=== PATIENT | female | born 1955 | race Caucasian/White ===

== ENCOUNTER 2023-10-29 03:36 | Emergency (ER) | payer MEDICARE, OTHER, SELFPAY ==
[2023-10-29] VITALS (13 sets, daily range): BP systolic 109–162; BP diastolic 48–98; BMI 60.3
[2023-10-29] MEDS: DUONEB 3 ML INH (03:59)
[2023-10-29] MEDS: PHENERGAN WITH CODEINE SYRUP 10 ML PO (06:48)
--- NOTE | 2023-10-29 06:53 | ED.GENMED ---
History of Present Illness
General
Chief Complaint: Breathing Problem
Source: patient and spouse
Exam Limitations: none
Time Seen by Provider: 10/29/23 06:04
Nursing documentation reviewed up to this point in time: agreed with
Travel History
Have you had any contact with someone who has COVID-19?: No
Do you have any symptoms of coronavirus? Fever > 100 degrees, chills, cough, shortness of breath, sore throat, loss of taste or smell, muscle aches, or headache?: No
History of Present Illness
History of Present Illness:
The patient is a 68-year-old female with a past medical history of asthma and recently diagnosed lung cancer. The patient reports that her shortness of breath has gradually gotten worse over the last few weeks. Patient reports that she is
struggling to bring up thick mucus and it is causing her to gag and pass out. Patient reports she is unable to sleep due to constant mucous plugging. Her reports that she has coughing fits and is gagging over the mucous, and he witnesses
her passing out. The patient reports she feels exhausted and has experienced generalized weakness. She reports she cannot live like this and is so very uncomfortable. The patient was given albuterol via nebulizer prior to my evaluation and states
that there was no significant relief. She reports she has not been on any steroids or antibiotics for at least 1 month. She reports ever since getting COVID this past July, her breathing has been more difficult.
Past History
Past History
ED Past Medical History: Asthma, Cancer (Recently diagnosed lung cancer), HTN and Other (Bilateral pulmonary emboli)
ED Past Surgical History: Other
Social History
Tobacco: Non-smoker
Alcohol: None
Drug: None
Personal:
Living: with family
Employment: Retired
Family History
Family History: Other
Review of Systems
Review of Systems
Allergies reviewed?: Yes
Other source history: family
All Other Systems: ROS reviewed and negative except as documented in HPI and ROS
Constitutional: Reports fatigue
EENT: Reports no symptoms
Respiratory: Reports cough and trouble breathing
Cardiac: Reports chest pain (Chest pain only when coughing)
ABD/GI: Reports anorexia
: Reports no symptoms
Musculoskeletal: Reports no symptoms
Skin: Reports no symptoms
Neurological: Reports no symptoms
Endocrine: Reports no symptoms
Hematologic/Lymphatic: Reports no symptoms
Psychiatric: Reports no symptoms
Phy Exam
Physical Exam
Physical Exam:
Physical Exam
General: Patient is hyperventilating and constantly coughing, appears anxious and tachypneic
Neck: supple. no meningeal signs. normal psoterior pharynx
Heart: s1/s2 regular rate and rhythm,
Lungs: Decreased breath sounds bilaterally, tachypneic, hyperventilating
Abdomen: normal bowel sounds. not tender. no CVAT
Neuro: alert and oriented. no focal neurological deficits
Skin: no rash
Psychiatric: well kept. interactive and cooperative
Extremities: Nonpitting edema bilateral lower extremities. Negative Homans' sign
Scores
Heart Failure Risk
Heart Failure Risk Score: Not Applicable
Course
Orders/Labs/Results
Orders:
Orders
10/29/23 03:57
Ipratropium/Albuterol Sulfate [Duoneb] 3 ml .ROUTE .STK-MED ONE
10/29/23 03:59
Ipratropium/Albuterol Sulfate [Duoneb] 3 ml INH R NOW ONE
10/29/23 05:42
Chest [CR Chest - 2 Views ] Urgent
Comment:
Reason For Exam: hx bronchia ca, persistent cough
10/29/23 06:26
Promethazine/Codeine [Phenergan with Codeine Syrup] 10 ml PO Q4HPRN STA
10/29/23 06:[address] Non Medication Order As Directed
Physician Order: walking pulse ox on room air
Above order entered?: Yes
10/29/23 06:57
Complete Blood Count/With Diff Urgent
Comprehensive Metabolic Panel Urgent
NT-proBNP Urgent
10/29/23 07:05
Electrocardiogram (*1) Urgent
Reason for Study: Shortness of Breath
10/29/23 07:06
EKG- Treatment ONCE
10/29/23 08:18
CT Chest Pe Study Urgent
Comment:
Reason For Exam: SOB
10/29/23 08:41
COVID-19 Antigen Urgent
Source: Nasal Swab
Influenza A+B Rapid Molecular Urgent
TIFFANI Source: Nasal Swab
Specimen Description:
10/29/23 08:43
Troponin I Urgent
Abnormal Lab Results
10/29/23
06:57
RBC 3.96 L 10^6/uL
(4.20-5.40)
Hgb 9.6 L g/dL
(12.0-16.0)
Hct 30.6 L %
(37.0-47.0)
MCV 77.3 L fL
(81.0-99.0)
MCH 24.2 L pg
(27.0-31.0)
MCHC 31.4 L g/dL
(33.0-37.0)
RDW 15.9 H %
(11.5-14.5)
Absolute Monos (auto) 0.8 H 10^3/uL
(0.1-0.6)
BUN 24 H mg/dl
(7-17)
Creatinine 1.3 H mg/dL
(0.6-1.0)
Glucose 137 H mg/dl
(70-99)
Total Protein 5.9 L g/dl
(6.3-8.2)
10/29/23 06:57
01/26/24 06:57
Vital Signs
Initial and Last Documented VS:
Initial Vital Signs
Temp Pulse Resp BP Pulse Ox
99.0 F 78 30 109/75 97
10/29/23 03:40 10/29/23 03:40 10/29/23 03:40 10/29/23 03:40 10/29/23 03:40
Last Documented Vital Signs
Temp Pulse Resp BP Pulse Ox
99.0 F 76 22 143/52 92
10/29/23 03:40 10/29/23 11:45 10/29/23 11:45 10/29/23 11:00 10/29/23 11:45
MDM/Problems Addressed
Differential Diagnosis Includes:
Worsening bilateral PEs, pneumonia, CHF, bronchial mucous plugging
MDM/Problems Addressed:
Patient presents with acute on chronic shortness of breath and cough
Chronic conditions affecting care:
Asthma, lung cancer
Acute Exacerbation and/or Progression of Chronic Illness:
Patient's presentation may represent acute exacerbation of chronic asthma
Acute Exacerbation and/or Progression of Chronic Illness: Asthma and Other (Chronic lung disease from COVID)
*Radiology
Radiology exam reviewed: preliminary read by ED provider (Bilateral pulmonary edema. Chest x-ray reviewed by me) and radiology read reviewed
*Pulse Oximetry
Patient hypoxic: no
Comment: Patient is 90% pulse ox on room air at rest. Patient tells me that she is unable to walk because she is just too exhausted so I was unable to get a walking pulse ox.
*EKG
Interpreted by ED Provider?: Yes
Interpretation: abnormal
Comparison EKG: no changes
Rate: normal
Rhythm: sinus
[place]: normal axis
Interval: normal interval
QRS Pattern: normal QRS
Ischemia: non-specific ST changes
*Satellite Communications Engineer Interpretation
Rate: normal
Interpretation: normal
Rhythm: sinus
*Critical Care Note
Total Time (30-74mins, 75-104mins- exclusive of procedures): 42 minutes
comment:
42 minutes of critical care given to the patient including review of her recent hospitalization, counseling the patient and her , reviewing her chest x-ray, CT, EKG, lab work and reassessing her respiratory effort.
Data Reviewed
Review of Other/Old Records Reveals: Discharge Summary (Discharge summary reviewed from 09/05/23 which shows the patient was admitted with acute bilateral PEs and left lower lung mass) and Other (Cardiac echo reviewed from 08/2023 which shows an EF
of 70 to 75%)
Source: patient and spouse
Patient Management
Social determinants of health affecting care: Living situation
Discussion with other providers: Hospitalist
Escalation/DeEscalation of care consider admission/obs:
Given patient's borderline hypoxia and increased respiratory effort, decision made to admit the patient. Chest x-ray and CT show no sign of definite pneumonia. Patient does have signs of pulmonary edema
ED Attending Note
-
Portions of this chart may have been created with voice recognition software.� Occasional wrong word or��sound alike� substitutions may have occurred due to the inherent limitations of voice recognition software.
Discharge Plan
Departure
Patient Disposition: Admit
Date of Disposition: 10/29/23
Time of Disposition: 08:11
Admit to: Med/Surg
Presentation/result/management discussed w/ accepting MD/DO: Hospitalist
Patient with high blood pressure during this ER visit?: Yes
Condition: Fair
Covid-19: Not Applicable
Discharge Problem:
Acute hypoxic respiratory distress, Acute edema of lung
Prescriptions:
No Action
albuterol sulfate 2.5 mg /3 mL (0.083 %) Solution For Nebulization
2.5 mg INHALATION R Q6HPRN PRN (Reason: sob)
albuterol sulfate 90 mcg/actuation Hfa Aerosol Inhaler
2 puff INHALATION R Q4HPRN PRN (Reason: sob)
valsartan 160 mg Tablet
160 mg PO DAILY
Eliquis 5 mg Tablet
5 mg PO BID
fluticasone furoate-vilanterol [Breo Ellipta] 100-25 mcg/dose Blister With Device
1 inh INHALATION R DAILY@1900
Referrals:
Carmela Mijares, [Family Provider] -
Interventions
Interventions:
*Risk Screen - Suicide Last Done: 10/29/23 06:13
*General Assessment Last Done: 10/29/23 08:48
*Neglect/Abuse Screening Last Done: 10/29/23 06:13
ED- Fall Risk Assessment Last Done: 10/29/23 08:48
*ED COVID-19 Vaccine History Last Done: 10/29/23 08:48
ED- Cardiac Assessment Last Done: 10/29/23 08:51
ED- Pulmonary Assessment Last Done: 10/29/23 08:51
[2023-10-29 07:10] LABS: % Basophils 1.2 % (0-2); % Eosinophils 1.5 % (0-6); % Immature Granulocytes 0.2 % (0-0.5); % Lymphocytes 26.5 % (20.5-51.1); % Monocytes 8.9 % (1.7-9.3); % Neutrophils 61.7 % (42.2-75.2); Absolute Basophils 0.1 10^3/uL (0-0.2); Absolute Eosinophils 0.1 10^3/uL (0-0.7); Absolute Lymphocytes 2.2 10^3/uL (1.2-3.4); Absolute Monocytes 0.8 10^3/uL (0.1-0.6); Absolute Neutrophils 5.2 10^3/uL (1.4-6.5); Hematocrit 30.6 % (37.0-47.0); Hemoglobin 9.6 g/dL (12.0-16.0); Mean Corp Hgb Conc. 31.4 g/dL (33.0-37.0); Mean Corpuscular Hgb 24.2 pg (27.0-31.0); Mean Corpuscular Volume 77.3 fL (81.0-99.0); Mean Platelet Volume 9.8 fL (7.4-10.4); Nucleated Red Blood Cells % 0 %; Platelet Count 297 10^3/uL (130-400); Red Blood Cell Count 3.96 10^6/uL (4.20-5.40); Red Cell Dist. Width 15.9 % (11.5-14.5); White Blood Cell Count 8.4 10^3/uL (4.8-10.8)
[2023-10-29 07:31] LABS: NT-proBNP 27.9 pg/ml
[2023-10-29 07:50] LABS: ALT (SGPT) 24 U/L (0-35); AST (SGOT) 26 U/L (14-36); Albumin 3.5 g/dl (3.5-5.0); Alkaline Phosphatase 68 U/L (38-126); Blood Urea Nitrogen 24 mg/dl (7-17); Calcium 9.3 mg/dl (8.4-10.2); Carbon Dioxide 22 mmol/L (22-30); Chloride 105 mmol/L (98-107); Glucose 137 mg/dl (70-99); Potassium 3.5 mmol/L (3.5-5.1); Sodium 139 mmol/L (135-145); Total Bilirubin 0.5 mg/dl (0.2-1.3); Total Protein 5.9 g/dl (6.3-8.2); eGFR 45.07
--- NOTE | 2023-10-29 08:46 | EDRN ---
relay technician in room w/ pt at this time to do med rec.
[2023-10-29 09:10] LABS: COVID-19 Antigen Negative (Negative)
[2023-10-29 09:17] LABS: Troponin I < 0.012 ng/ml
--- NOTE | 2023-10-29 10:22 | EDRN ---
Pt ambulated from stretcher to BR and back to stretcher. Pt became very tachypneic at rate of 38, increased WOB, use of accessory muscles to breathe noted, POX was 88-91% on room air and remained at 88% for some time while pt was recovering getting
her breath.
--- NOTE | 2023-10-29 14:16 | CON.HOSP ---
Consultation
-
Date/Time Consultation Requested: 10/29/23
Date/Time Consultation Performed: 10/29/23
Requesting Provider: Morris Ramon
Performing Provider: Eric Vazquez
Reason for Consultation: Cough
Family Physician
-
Family Physician: Carmela Mijares
Chief Complaint
-
Intractable cough
History of Present Illness
Patient with recent discovery of left lung mass and LN had a LN bx on Wednesday and apparently she was told it is an adenocarcinoma . She is waiting to see a contract technician and oncologist next Wednesday for that.
She also had a recent diagnosis of PE in September 2023 and on .
She has no troubled with cough.
The cough symptoms can be so severe that that she has passed out after coughing. She had 6 bouts of coughing with passing out.
She is pretty much regular in the bed and when she wakes up she has a phlegm in the back of the throat and sometimes she has phlegm after eating. Sometimes it is difficult to get the phlegm up.
She does use nebulizers. Helps to get the phlegm up sometimes and she is fine without coughing.
Last night she used a nebulizer and she was okay but again she has to use it again at 2 AM and she could not stop coughing. She currently down because of coughing. It collects in her head and the back of the nostrils.
Her chest hurts because of coughing. Coughing makes her dizzy as well.
She had 2 nebulizers in the ER and a cough syrup and ever since she feels much better.
She was on lisinopril and betamethasone that was switched to valsartan because of coughing. No tongue swelling.
She feels short of breath with exertion now. Not on home O2.
She feels nauseous because of coughing. No vomiting. Tolerating diet.
Medical History
Past Medical History
Past Medical History: Reports Cancer (Lung cancer per pt ), HTN and Other (Pulmonary embolism)
Past Surgical History: Reports Other (Recent lymph node biopsy)
Social History
Tobacco: Non-smoker
Alcohol: None
Drug: None
Living: With Family
Family History
Family History: Reviewed & Not Pertinent
Allergies / Home Medications
Allergies reflects when Allergies were last updated in [facility].
Home Medications with original date entered in [facility]
Allergy/Medication List:
Allergies
Allergy/AdvReac Type Severity Reaction Status Date / Time
bee venom protein (honey bee) Allergy Swelling Verified 10/29/23 03:49
tong pepper Allergy Unknown Verified 10/29/23 03:49
cat dander Allergy congestion Verified 10/29/23 03:49
Home Medications
albuterol sulfate 2.5 mg/3 mL (0.083 %) solution for nebulization 2.5 mg inhalation R Q6HPRN PRN sob 10/29/23
albuterol sulfate 90 mcg/actuation aerosol inhaler 2 puff inhalation R Q4HPRN PRN sob 10/29/23
apixaban 5 mg tablet (Eliquis) 5 mg PO BID Blood Clot Prevention/Tx 10/29/23
fluticasone furoate 100 mcg-vilanterol 25 mcg/dose inhalation powder (Breo Ellipta) 1 inh inhalation R DAILY@1900 Lung/Breathing Issues 10/29/23
valsartan 160 mg tablet 160 mg PO DAILY Blood Pressure 10/29/23
Review of Systems
-
A 12 point Review of Systems was completed except as noted: Yes
Physical Exam
Vital Signs
Vital Signs
Temp Pulse Resp BP Pulse Ox
99.0 F 74 27 154/50 96
10/29/23 03:40 10/29/23 13:30 10/29/23 13:30 10/29/23 12:00 10/29/23 13:30
Physical Exam
General: No Apparent Distress
HEENT: Moist Mucous Membranes
Respiratory: Clear, Non Labored Respirations and Other (pt lying in right lateral position; no event single episode of cough heard during my visit with patient); Negative Wheezes, Rhonchi or Accessory Resp Muscle Use
Laboratory Results
-
Laboratory Results
10/29/23 06:57
10/29/23 06:57
Total Bilirubin 0.5 mg/dl (0.2-1.3) 10/29/23 06:57
AST 26 U/L (14-36) 10/29/23 06:57
ALT 24 U/L (0-35) 10/29/23 06:57
Alkaline Phosphatase 68 U/L (38-126) 10/29/23 06:57
Troponin I < 0.012 ng/ml 10/29/23 08:43
Data Reviewed
-
CT Scan: Report Reviewed by Me (CT chest)
Lab Data: Labs Reviewed
Impression / Plan
-
Intractable cough and cough syncope
Differential diagnoses include-
1. FRED inhibitor/ARB related. Patient lisinopril was discontinued and switched to ARB by PCP because of cough. Will stop it completely altogether and start Norvasc for blood pressure management.
2. Postnasal drip. Patient complains of some positional cough and drip. Continue with Flonase and Mucinex and add cough suppressant medication.
3 possibly secondary to her lung cancer and lymphadenopathy-would benefit symptomatic treatment. Hydrocodone syrup did make a difference to her cough in the ER which I would prescribe along with her other antitussives.
No clinical data is to support pneumonia. No evidence of asthma flare.
CT chest repeat shows no evidence of further PE. Patient anticoagulated on Eliquis which I would continue
CT shows significant lymphadenopathy but also thickened interstitium which comes concerned about the lymphangitic spread. She has no known CAD. Does not sound like pulmonary edema. BNP normal. Follow-up with oncology as planned for next week.
Assess for home O2 need.
I would obtain pulmonary consult and if no other concerns would i would dc pt home.
All of this assessments and plan discussed with pt and family at bedside
DANAE ER physician
[2023-10-29] MEDS: ELIQUIS 5 MG PO (14:41)
[2023-10-29] MEDS: NORVASC 5 MG PO (14:41)
[2023-10-29] MEDS: HYCODAN SYRUP 5 ML PO (15:57)
--- NOTE | 2023-10-29 16:24 | CON.PUL ---
Consultation
Consultation Request
Date/Time Consultation Requested: 10-29-23
Date/Time Consultation Performed: 10-29-23
Requesting Provider: Hospitalist
Performing Provider: Dr Hammonds
Reason for Consultation: cough
Medical History
-
Chief Complaint: cough
History of Present Illness:
Mrs Maria Del Rosario Dawson is a 68/W adm 10-29 with subacute worsening cough since end Aug 2023 at time of PE diagnosis and suspected lung cancer.
On apixaban with reported good compliance.
Reports intermittent cough productive of white sputum. Cough spells have occurred for last 4-5 wks, in six occasions reports cough spells have led to syncope at home but no injury (last event about 1.5 wk ago).
Received L supraclavicular LN, s/p US biopsy 10-26: preliminary result positive for adenocarcinoma
Follows with our office. First Onc visit next Wednesday
Past Medical History
Past Medical History: Other (see A&P for PMH/PSH)
Social History
Tobacco: Non-smoker
Alcohol: None
Drug: None
Personal:
Living: With Family
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
Family History
Family History: Cancer (M: suspected liver cancer. F: prostate ca, lymphoma, suspected mesothelioma. Sister and uncle: lung cancer. Brother: prostate ca)
Allergies / Home Medications
Allergies
Allergy/AdvReac Type Severity Reaction Status Date / Time
bee venom protein (honey bee) Allergy Swelling Verified 10/29/23 03:49
tong pepper Allergy Unknown Verified 10/29/23 03:49
cat dander Allergy congestion Verified 10/29/23 03:49
Home Medications
Medication Instructions Recorded Confirmed Last Taken Type
albuterol sulfate 2.5 mg/3 mL 2.5 mg inhalation R Q6HPRN PRN sob 10/29/23 10/29/23 10/28/23 History
(0.083 %) solution for nebulization
albuterol sulfate 90 mcg/actuation 2 puff inhalation R Q4HPRN PRN sob 10/29/23 10/29/23 10/28/23 History
aerosol inhaler
apixaban 5 mg tablet (Eliquis) 5 mg PO BID Blood Clot 10/29/23 10/29/23 10/28/23 History
Prevention/Tx
fluticasone furoate 100 1 inh inhalation R DAILY@1900 10/29/23 10/29/23 10/28/23 History
mcg-vilanterol 25 mcg/dose Lung/Breathing Issues
inhalation powder (Breo Ellipta)
valsartan 160 mg tablet 160 mg PO DAILY Blood Pressure 10/29/23 10/29/23 10/28/23 History
Review of Systems
-
History Source: Patient
All other systems: Negative unless noted
Respiratory: Cough (causing syncope) and Trouble Breathing
Vitals / Labs / Diagnostic Testing
Vital Signs
Temp Pulse Resp BP Pulse Ox
99.0 F 90 33 115/61 96
10/29/23 03:40 10/29/23 14:00 10/29/23 14:00 10/29/23 16:00 10/29/23 16:15
Lab Data
10/29/23 06:57
10/29/23 06:57
Microbiology
10/29/23 08:41 Nasal Swab Influenza Types A & B (ECHO) - Final
Negative for Influenza A & B, NAAT
Negative results must be combined with clinical observations
and patient history.
Nucleic Acid Amplification test (NAAT)performed on the
[employer] platform.
Diagnostic Testing:
Physical Exam
-
HEENT: Normocephalic and Moist Mucous Membranes
Cardiovascular: Regular Rhythm and Peripheral Edema (ADRIANA)
Respiratory: Rhonchi (few scattered) and Non-Labored Respirations
GI: Soft, Non Distended and Non Tender
Neurology: Awake, AO x 3 and No Motor Deficits
Skin: Dry
General: Respiratory Distress (n at rest)
Assessment
-
Assessment
Mrs Maria Del Rosario Dawson is a 68/W adm 10-29 with subacute worsening cough since end Aug 2023 at time of PE diagnosis and suspected lung cancer. On apixaban with reported good compliance. Reports intermittent cough productive of white sputum. Cough
spells have occurred for last 4-5 wks, in six occasions reports cough spells have led to syncope at home but no injury (last event about 1.5 wk ago).
Impression:
Cough, severe, reportedly inducing syncope
Suspected widely metastatic lung cancer
LLL mass: interim increase in size
Mediastinal lymphadenopathy: mild interim increase
Increasingly prominent pulmonary interstitium: suspected lymphangitic spread
L supraclavicular LN, s/p US biopsy 10-26: preliminary result positive for adenocarcinoma
COVID/flu negative
Conditions present prior to admission:
VTE: provoked, underlying malignancy (noted also had COVID illness in Jun 2023 but probably not main factor for PE)
Submassive PE CTA 09-01-23
ADRIANA doppler 09-02-23 suboptimal due to morbid obesity
On apixaban
Asthma: on fluticasone/vilanterol and albuterol
COVID illness Jun 2023
HTN
Morbid obesity-BMI 60
Suspected JOSE
Plan
Seen at ER
D/w RNs, significant dyspnea on mild exertion
Exertional hypoxemia: 94% to 90% with 50 ft ambulation, along with tachycardia
Reportedly syncopal events induced by cough, last event 1.5 wk ago
Patient reports that cough has improved significantly with use of opiate antitussive, denies wheezing, (pre)syncopal event, hemoptysis
Reviewed adm chest CT: highly concerning for progression of widely metastatic disease, suspected worsening lymphangitic lymphadenopathy
Discussed findings with patient and recommended her and her over the phone to stay for close clinical observation and trial of systemic CS and antibiotics and continuation of prn opiate antitussive
Rec: prednisone 40 mg qd and cefdnir 300 mg bid for one week
Patient kindly declined to stay, states she felt much better, has good family support at home, has already follow up with our office (records reviewed) and new visit with Dr Mccain next Wednesday. Her was in agreement with patient decision for
discharge
They were advised to return to ER as soon as possible if necessary
Continue systemic anticoagulation
D/w Dr Vazquez
Diagnostic data:
Chest CTA 10-29-23: LLL mass: interim increase in size. Mediastinal lymphadenopathy: mild interim increase. Increasingly prominent pulmonary interstitium: suspected lymphangitic spread
CT chest 09/01/23, positive for pulmonary emboli, no evidence for right heart strain, patchy areas of reticular nodular, small nodular branching and groundglass opacifications compatible with patchy pneumonitis, superior segment left lower lobe
nodular focus suspicious for neoplasia or carcinoma, hilar lymphadenopathy, lymphadenopathy in the left lower neck, consideration could be given to biopsy of left neck lymph node, enlarged lymph nodes in the right hilar and subcarinal region
Lower extremity ultrasound 09/02/23-no evidence for DVT, but technically difficult because of large body habitus
PET CT 10-22-23: LLL PET positive mass. Thoracic and abd PET positive LAD. S1 PET positive focus
--- NOTE | 2023-10-29 17:25 | CON.HOSP ---
Addendum entered and electronically signed by Eric Vazquez MD 10/29/23 17:46:
Received a call from the pulmonary who saw the patient
This suspect the CT shows progression of disease suspicious for lymphatic spread. Recommend observation to the patient but she is keen to go home. They recommend antibiotics doxycycline for a week and short course of corticosteroid taper. Added
this to her medication to the med list and send it to her pharmacy.
Discussed with patient on the phone myself again and she was keen to go home. She was told with addition of new medication and if symptoms does not improve to come back to the hospital. She has an appointment with salvage repairer and oncologist on
Wednesday
Original Note:
Family Physician
-
Family Physician: Carmela Mijares
Chief Complaint
-
cough with syncope
History of Present Illness
Patient with recent discovery of left lung mass and LN had a LN bx on Wednesday and apparently she was told it is an adenocarcinoma . She is waiting to see a salvage repairer and oncologist next Wednesday for that.
She also had a recent diagnosis of PE in September 2023 and on .
She has no troubled with cough.
The cough symptoms can be so severe that that she has passed out after coughing. She had 6 bouts of coughing with passing out.
She is pretty much regular in the bed and when she wakes up she has a phlegm in the back of the throat and sometimes she has phlegm after eating. Sometimes it is difficult to get the phlegm up.
She does use nebulizers. Helps to get the phlegm up sometimes and she is fine without coughing.
Last night she used a nebulizer and she was okay but again she has to use it again at 2 AM and she could not stop coughing. She currently down because of coughing. It collects in her head and the back of the nostrils.
Her chest hurts because of coughing. Coughing makes her dizzy as well.
She had 2 nebulizers in the ER and a cough syrup and ever since she feels much better.
She was on lisinopril and betamethasone that was switched to valsartan because of coughing. No tongue swelling.
She feels short of breath with exertion now. Not on home O2.
She feels nauseous because of coughing. No vomiting. Tolerating diet.
Medical History
Past Medical History
Past Medical History: Reports Cancer (lung), HTN and Other (PE)
Social History
Tobacco: Non-smoker
Alcohol: None
Drug: None
Personal:
Living: With Family
Family History
Family History: Reviewed & Not Pertinent
Allergies / Home Medications
Allergies reflects when Allergies were last updated in [facility].
Home Medications with original date entered in [facility]
Allergy/Medication List:
Allergies
Allergy/AdvReac Type Severity Reaction Status Date / Time
bee venom protein (honey bee) Allergy Swelling Verified 10/29/23 03:49
tong pepper Allergy Unknown Verified 10/29/23 03:49
cat dander Allergy congestion Verified 10/29/23 03:49
Home Medications
albuterol sulfate 2.5 mg/3 mL (0.083 %) solution for nebulization 2.5 mg inhalation R Q6HPRN PRN sob 10/29/23
albuterol sulfate 90 mcg/actuation aerosol inhaler 2 puff inhalation R Q4HPRN PRN sob 10/29/23
apixaban 5 mg tablet (Eliquis) 5 mg PO BID Blood Clot Prevention/Tx 10/29/23
fluticasone furoate 100 mcg-vilanterol 25 mcg/dose inhalation powder (Breo Ellipta) 1 inh inhalation R DAILY@1900 Lung/Breathing Issues 10/29/23
valsartan 160 mg tablet 160 mg PO DAILY Blood Pressure 10/29/23
Review of Systems
-
A 12 point Review of Systems was completed except as noted: Yes
Physical Exam
Vital Signs
Vital Signs
Temp Pulse Resp BP Pulse Ox
99.0 F 90 33 127/70 93
10/29/23 03:40 10/29/23 14:00 10/29/23 14:00 10/29/23 17:22 10/29/23 17:22
Physical Exam
General: No Apparent Distress
HEENT: Moist Mucous Membranes
Respiratory: Clear
Cardiac: S1/S2 and Regular Rhythm
GI: Soft, Non Tender, Non Distended, Normal Bowel Sounds and Other (obese)
Musculoskeletal: No Edema
Neuro: AO x 3
Psych: Calm
Laboratory Results
-
Laboratory Results
10/29/23 06:57
10/29/23 06:57
Total Bilirubin 0.5 mg/dl (0.2-1.3) 10/29/23 06:57
AST 26 U/L (14-36) 10/29/23 06:57
ALT 24 U/L (0-35) 10/29/23 06:57
Alkaline Phosphatase 68 U/L (38-126) 10/29/23 06:57
Troponin I < 0.012 ng/ml 10/29/23 08:43
Data Reviewed
-
CT Scan: Report Reviewed by Me (ct chest)
Lab Data: Labs Reviewed
Impression / Plan
-
Intractable cough and cough syncope
Differential diagnoses include-
1. FRED inhibitor/ARB related. Patient lisinopril was discontinued and switched to ARB by PCP because of cough. Will stop it completely altogether and start Norvasc for blood pressure management.
2. Postnasal drip. Patient complains of some positional cough and drip. Continue with Flonase and Mucinex and add cough suppressant medication.
3 possibly secondary to her lung cancer and lymphadenopathy-would benefit symptomatic treatment. Hydrocodone syrup did make a difference to her cough in the ER which I would prescribe along with her other antitussives.
No clinical data is to support pneumonia. No evidence of asthma flare.
CT chest repeat shows no evidence of further PE. Patient anticoagulated on Eliquis which I would continue
CT shows significant lymphadenopathy but also thickened interstitium which comes concerned about the lymphangitic spread. She has no known CAD. Does not sound like pulmonary edema. BNP normal. Follow-up with oncology as planned for next week.
Assess for home O2 need.
Obtain pulmonary input and if no other concerns would i would dc pt home.
All of this assessments and plan discussed with pt and family at bedside
ER physician Dr Alves
--- NOTE | 2023-10-29 17:34 | CM ---
CM reviewed medical records. Plan for patient to be discharged to home. Patient is agreeable to referral to [facility]. Referral sent via [facility].
[2023-10-29] MEDS: OMNICEF 300 MG PO (18:23)
[2023-10-29] MEDS: DELTASONE 40 MG PO (18:23)
== END 2023-10-29 18:43 | disposition home or self-care (01) ==
LOC: EMR 03:36
PROVIDERS: Emergency Medicine; CONSULT PHYSICIAN Internal Medicine Pulmonary Disease; EMERGENCY PHYSICIAN Emergency Medicine; FAMILY PHYSICIAN Family Medicine; OTHER PHYSICIAN Internal Medicine
DX: R06.03 Acute respiratory distress (principal); J81.0 Acute pulmonary edema; R55 Syncope and collapse; R11.0 Nausea; R59.0 Localized enlarged lymph nodes; R53.1 Weakness; Z11.52 Encounter for screening for COVID-19; C34.90 Malignant neoplasm of unspecified part of unspecified bronchus or lung; E66.01 Morbid (severe) obesity due to excess calories; Z68.44 Body mass index [BMI] 60.0-69.9, adult; J45.909 Unspecified asthma, uncomplicated; M19.90 Unspecified osteoarthritis, unspecified site; F41.9 Anxiety disorder, unspecified; Z86.711 Personal history of pulmonary embolism; Z90.49 Acquired absence of other specified parts of digestive tract; Z79.899 Other long term (current) drug therapy; Z79.01 Long term (current) use of anticoagulants; Z91.030 Bee allergy status; Z80.1 Family history of malignant neoplasm of trachea, bronchus and lung
CPT/HCPCS: 99291; 94640; 71046; 71275; 80053; 83880; 84484; 85025; 87502; 87811; 93005; Q9967

== ENCOUNTER → 2023-11-02 14:14 | Outpatient (REF) | payer MEDICARE, OTHER, SELFPAY ==
[2023-11-02 16:31] LABS: Blood Urea Nitrogen 27 mg/dl (7-17)
[2023-11-02 17:05] LABS: CA 125 47.8 U/mL (0-35)
[2023-11-02 17:06] LABS: CEA 12.9 ng/ml
[2023-11-05 02:08] LABS: CA 19-9 922 U/mL (<=35)
== END ==
LOC: REG 14:14
PROVIDERS: ATTENDING PHYSICIAN Internal Medicine Hematology & Oncology; FAMILY PHYSICIAN Family Medicine
DX: C34.32 Malignant neoplasm of lower lobe, left bronchus or lung (principal); I26.99 Other pulmonary embolism without acute cor pulmonale
CPT/HCPCS: 36415; 82378; 82565; 84520; 86300; 86301; 86304

== ENCOUNTER → 2023-11-04 13:43 | Outpatient (REF) | payer MEDICARE, OTHER, SELFPAY | LOC: RAD 13:43 | PROVIDERS: ATTENDING PHYSICIAN Internal Medicine Hematology & Oncology; FAMILY PHYSICIAN Family Medicine | DX: C34.32 Malignant neoplasm of lower lobe, left bronchus or lung (principal) | CPT/HCPCS: 70470; Q9967 ==

== ENCOUNTER → 2023-11-09 12:31 | Outpatient (REF) | payer MEDICARE, OTHER, SELFPAY ==
[2023-11-09 13:03] VITALS: BP 169/72; BP_SYST 76
[2023-11-09 14:39] VITALS: BP 143/54
== END ==
LOC: RADI 12:31
PROVIDERS: ATTENDING PHYSICIAN Internal Medicine Hematology & Oncology; FAMILY PHYSICIAN Family Medicine
DX: C77.0 Secondary and unspecified malignant neoplasm of lymph nodes of head, face and neck (principal); C34.32 Malignant neoplasm of lower lobe, left bronchus or lung
CPT/HCPCS: 88305; 38505; 76942; 88333; 99152; 99153

== ENCOUNTER → 2023-11-11 08:01 | Outpatient (REF) | payer MEDICARE, OTHER, SELFPAY ==
[2023-11-11 09:10] VITALS: BP 182/76; BP_SYST 84
[2023-11-11] MEDS: ANCEF 15 MG IV (09:36)
== END ==
LOC: RADI 08:01
PROVIDERS: ATTENDING PHYSICIAN Internal Medicine Hematology & Oncology; FAMILY PHYSICIAN Family Medicine
DX: C34.32 Malignant neoplasm of lower lobe, left bronchus or lung (principal)
CPT/HCPCS: 36415; 36561; 74170; 76937; 77001; 80053; 85025; 99152; 99153; C1788; Q9967

== ENCOUNTER 2023-11-12 13:14 | Emergency (ER) | payer MEDICARE, OTHER, SELFPAY ==
[2023-11-12 13:18] VITALS: BP 170/75
[2023-11-12 13:40] LABS: % Basophils 0.6 % (0-2); % Eosinophils 1.4 % (0-6); % Immature Granulocytes 0.5 % (0-0.5); % Lymphocytes 24.4 % (20.5-51.1); % Monocytes 6.7 % (1.7-9.3); % Neutrophils 66.4 % (42.2-75.2); Absolute Basophils 0.1 10^3/uL (0-0.2); Absolute Eosinophils 0.2 10^3/uL (0-0.7); Absolute Immature Granulocytes 0.1 10^3/uL (0-0.05); Absolute Lymphocytes 2.5 10^3/uL (1.2-3.4); Absolute Monocytes 0.7 10^3/uL (0.1-0.6); Absolute Neutrophils 6.9 10^3/uL (1.4-6.5); Hematocrit 30.7 % (37.0-47.0); Hemoglobin 9.7 g/dL (12.0-16.0); Mean Corp Hgb Conc. 31.6 g/dL (33.0-37.0); Mean Corpuscular Hgb 23.3 pg (27.0-31.0); Mean Corpuscular Volume 73.8 fL (81.0-99.0); Mean Platelet Volume 9.3 fL (7.4-10.4); Nucleated Red Blood Cells % 0 %; Platelet Count 272 10^3/uL (130-400); Red Blood Cell Count 4.16 10^6/uL (4.20-5.40); Red Cell Dist. Width 16.7 % (11.5-14.5); White Blood Cell Count 10.4 10^3/uL (4.8-10.8)
[2023-11-12 13:50] LABS: ALT (SGPT) 21 U/L (0-35); AST (SGOT) 23 U/L (14-36); Albumin 3.2 g/dl (3.5-5.0); Alkaline Phosphatase 71 U/L (38-126); Blood Urea Nitrogen 13 mg/dl (7-17); Calcium 9.1 mg/dl (8.4-10.2); Carbon Dioxide 24 mmol/L (22-30); Chloride 104 mmol/L (98-107); Glucose 135 mg/dl (70-99); Sodium 139 mmol/L (135-145); Total Bilirubin 0.5 mg/dl (0.2-1.3); Total Protein 5.7 g/dl (6.3-8.2); eGFR > 60.00
[2023-11-12 13:55] LABS: COVID-19 Antigen Negative (Negative)
[2023-11-12] MEDS: DUONEB 3 ML INH ×2 (15:21→16:16)
--- NOTE | 2023-11-12 15:57 | ED.GENMED ---
History of Present Illness
General
Chief Complaint: Breathing Problem
Time Seen by Provider: 11/12/23 14:29
Travel History
Have you had any contact with someone who has COVID-19?: No
Do you have any symptoms of coronavirus? Fever > 100 degrees, chills, cough, shortness of breath, sore throat, loss of taste or smell, muscle aches, or headache?: No
History of Present Illness
History of Present Illness:
68-year-old female with history of lung cancer, hypertension, asthma, and pulmonary embolism currently on Xarelto presents the emergency department for evaluation of shortness of breath and wheezing, symptoms developed last night and worsened today.
She did have a right sided port placed yesterday by interventional radiology in order to undergo chemotherapy for her lung cancer. She does have orders at home for albuterol nebulizers as needed but did not utilize these today. Denies any fevers
or chills, denies any chest pain or leg swelling. She did resume her Eliquis this morning
Past History
Past History
ED Past Medical History: Asthma, Cancer (Recently diagnosed lung cancer), HTN and Other (Bilateral pulmonary emboli)
ED Past Surgical History: Other
Social History
Tobacco: Non-smoker
Alcohol: None
Drug: None
Personal:
Living: with family
Employment: Retired
Family History
Family History: Other
Review of Systems
Review of Systems
Allergies reviewed?: Yes
All Other Systems: ROS reviewed and negative except as documented in HPI and ROS
Phy Exam
Physical Exam
Physical Exam:
GEN: Well appearing, NAD, WDWN
HEENT: Oral mucosa moist, no scleral icterus
Cardiac: Regular rate and rhythm, no murmurs
Lung: Tachypneic with audible expiratory wheezing, minimal adventitious lung sounds on auscultation
MSK: No gross deformity or injuries
Skin: Good color, no pallor or jaundice, no rashes
Neuro: AO x3, moves all extremities freely
Psych: Calm, cooperative
Scores
Heart Failure Risk
Heart Failure Risk Score: Not Applicable
Course
Orders/Labs/Results
Orders:
Orders
11/12/23 13:27
CBC/With Diff [Complete Blood Count/With Diff] Urgent
CMP [Comprehensive Metabolic Panel] Urgent
COVID-19 Antigen Urgent
Source: Nasal Swab
INF RAPID [Influenza A+B Rapid Molecular] Urgent
TIFFANI Source: Nasal Swab
Specimen Description:
11/12/23 14:38
Ipratropium/Albuterol Sulfate [Duoneb] 3 ml INH R NOW ONE
CR Chest - 2 Views Urgent
Comment:
Reason For Exam: SOB
11/12/23 16:11
Ipratropium/Albuterol Sulfate [Duoneb] 3 ml INH R NOW ONE
Abnormal Lab Results
11/12/23
13:27
RBC 4.16 L 10^6/uL
(4.20-5.40)
Hgb 9.7 L g/dL
(12.0-16.0)
Hct 30.7 L %
(37.0-47.0)
MCV 73.8 L fL
(81.0-99.0)
MCH 23.3 L pg
(27.0-31.0)
MCHC 31.6 L g/dL
(33.0-37.0)
RDW 16.7 H %
(11.5-14.5)
Abs Immat Gran (auto) 0.1 H 10^3/uL
(0-0.05)
Absolute Neuts (auto) 6.9 H 10^3/uL
(1.4-6.5)
Absolute Monos (auto) 0.7 H 10^3/uL
(0.1-0.6)
Glucose 135 H mg/dl
(70-99)
Total Protein 5.7 L g/dl
(6.3-8.2)
Albumin 3.2 L g/dl
(3.5-5.0)
11/12/23 13:27
11/12/23 13:27
Vital Signs
Initial and Last Documented VS:
Initial Vital Signs
Temp Pulse Resp BP Pulse Ox
98.7 F 83 22 170/75 93
11/12/23 13:18 11/12/23 13:18 11/12/23 13:18 11/12/23 13:18 11/12/23 13:18
Last Documented Vital Signs
Temp Pulse Resp BP Pulse Ox
98.7 F 83 22 170/75 95
11/12/23 13:18 11/12/23 13:18 11/12/23 13:18 11/12/23 13:18 11/12/23 15:10
MDM/Problems Addressed
MDM/Problems Addressed:
68-year-old female presenting with acute bronchospasm improved after albuterol nebulizer. Symptoms did recur requiring a second neb in the emergency department however remained stable at time of discharge. Chest x-ray suggestive of acute
pneumonitis, no infectious etiology. Low clinical suspicion for pulmonary embolism given short duration of time that she held this in anticipation of her port placement and lack of chest pain or tachycardia. Responsiveness to albuterol was
reassuring. Hesitant to prescribe steroids given the recent port placement and upcoming chemotherapy, would prefer bronchodilator use on a as needed basis at home as she does have a nebulizer to use
*Critical Care Note
Total Time (30-74mins, 75-104mins- exclusive of procedures): Not Applicable
ED Attending Note
-
Portions of this chart may have been created with voice recognition software.� Occasional wrong word or��sound alike� substitutions may have occurred due to the inherent limitations of voice recognition software.
Discharge Plan
Departure
Patient Disposition: Home (Routine Discharge)
Date of Disposition: 11/12/23
Time of Disposition: 15:57
Patient with high blood pressure during this ER visit?: No
Discharge Problem:
Acute bronchospasm
Instructions: Asthma, Adult (DC)
Prescriptions:
New
ipratropium-albuterol 0.5 mg-3 mg(2.5 mg base)/3 mL solution for nebulization
3 ml inhalation Q6H Qty: 90 0RF
benzonatate 200 mg capsule
200 mg PO TID PRN (Reason: Cough) Qty: 30 0RF
hydrocodone-acetaminophen 5-325 mg tablet
1 tab PO HS PRN (Reason: cough) Qty: 8 0RF
No Action
albuterol sulfate 2.5 mg /3 mL (0.083 %) Solution For Nebulization
2.5 mg INHALATION R Q6HPRN PRN (Reason: sob)
albuterol sulfate 90 mcg/actuation Hfa Aerosol Inhaler
2 puff INHALATION R Q4HPRN PRN (Reason: sob)
Eliquis 5 mg Tablet
5 mg PO BID
fluticasone furoate-vilanterol [Breo Ellipta] 100-25 mcg/dose Blister With Device
1 inh INHALATION R DAILY@1900
amlodipine 5 mg Tablet
5 mg PO DAILY Qty: 30 0RF
guaifenesin [Mucinex] 600 mg tablet extended release 12hr
600 mg PO BID Qty: 60 0RF
fluticasone propionate [Flonase Allergy Relief] 50 mcg/actuation spray,suspension
1 spray intranasal DAILY Qty: 16 0RF
benzonatate 200 mg capsule
200 mg PO TID PRN (Reason: Cough) Qty: 30 0RF
hydrocodone-homatropine [Hycodan (with homatropine)] 5-1.5 mg tablet
1 tab PO Q8H PRN (Reason: Cough) Qty: 20 0RF
Rx Instructions:
if other cough medications doesn't help
Referrals:
Carmela Mijares, [Family Provider] -
Activity Restrictions/Additional Instructions:
Use the DuoNeb nebulizer solution every 6 hours for the next 2 days and then on an as-needed basis going forward
Follow-up with your oncology team if symptoms continue
Interventions
Interventions:
*Risk Screen - Suicide Last Done: 11/12/23 13:18
*General Assessment Last Done: 11/12/23 13:18
*Neglect/Abuse Screening Last Done: 11/12/23 13:18
*ED COVID-19 Vaccine History Last Done: 11/12/23 15:10
*Nursing Disposition Last Done: 11/12/23 16:52
ED- Cardiac Assessment Last Done: 11/12/23 15:10
ED- Pulmonary Assessment Last Done: 11/12/23 15:10
Discharge Date and Time
Discharge Date/Time: 11/12/23 16:53
== END 2023-11-12 16:53 | disposition home or self-care (01) ==
LOC: EMR 13:14
PROVIDERS: Student in an Organized Health Care Education/Training Program; EMERGENCY PHYSICIAN Emergency Medicine; FAMILY PHYSICIAN Family Medicine
DX: J98.01 Acute bronchospasm (principal); Z11.52 Encounter for screening for COVID-19; C34.90 Malignant neoplasm of unspecified part of unspecified bronchus or lung; I10 Essential (primary) hypertension; J45.909 Unspecified asthma, uncomplicated; Z79.01 Long term (current) use of anticoagulants; Z86.711 Personal history of pulmonary embolism; Z91.030 Bee allergy status; Z91.018 Allergy to other foods; Z91.048 Other nonmedicinal substance allergy status
CPT/HCPCS: 99284; 94640 ×2; 71046; 80053; 85025; 87502; 87811

== ENCOUNTER 2023-11-15 19:44 | Inpatient (IN) | payer MEDICARE, OTHER, SELFPAY ==
[2023-11-15 16:01] VITALS: BP 172/83
[2023-11-15 16:09] VITALS: BP 171/62
--- NOTE | 2023-11-15 16:14 | ED.GENMED ---
History of Present Illness
General
Chief Complaint: Breathing Problem
Time Seen by Provider: 11/15/23 16:14
Travel History
Have you had any contact with someone who has COVID-19?: No
Do you have any symptoms of coronavirus? Fever > 100 degrees, chills, cough, shortness of breath, sore throat, loss of taste or smell, muscle aches, or headache?: No
History of Present Illness
History of Present Illness:
HPI: The patient presents due to shortness of breath. She is here with her family. Daughter states that she has an uncertain malignancy diagnosis either lung or pancreatic cancer. She was supposed to start chemo tomorrow however shortness of
breath symptoms as well as abdominal discomfort been worsening. [facility] told her to come here. Family also reports poor oral intake. She is compliant with Eliquis for recent diagnosis of PE.
EXAM:
GENERAL: The patient appears very weak and debilitated
HEENT: Slightly dry oral mucosa
CARDIOVASCULAR: No murmurs, normal heart rate and rhythm, No chest wall tenderness, port noted to the right anterior chest wall with no evidence of infection
PULMONARY: Room air sats just after exertion or 85%, she has mild conversational dyspnea, she has decreased breath sounds equally with faint rales heard diffusely
ABDOMEN: Soft with no peritoneal signs, no tenderness
NEUROLOGIC: Fair strength all extremities, no coordination deficits
PSYCHIATRIC: Appropriate mental status, normal insight and judgement
EXTREMITIES: Nontender, 2+ bilateral edema, moves all extremities equally
SKIN: No rash, no lesions
ED COURSE:
4:40 PM: I initially evaluated patient
NUMBER AND COMPLEXITY OF PROBLEMS ADDRESSED AT THE ENCOUNTER
� Chronic conditions affecting care: Asthma, has had PE in the past currently on Eliquis
� Acute Exacerbation and/or Progression of Chronic Illness:
� Differential Diagnosis includes:
AMOUNT AND/OR COMPLEXITY OF DATA TO BE REVIEWED AND ANALYZED
� I performed an independent evaluation of and my interpretation is:
EKG: Sinus 71, normal axis, poor R wave progression
CT:
X-rays: Chest x-ray suggest some interstitial edema
Laboratory Studies: White count normal, hemoglobin 9.0 slightly lower than prior, chemistries relatively unremarkable, troponin and BNP unremarkable,
Other:
� Review of other/old records: I reviewed chest x-ray from 11/12/2023 that showed widespread prominent bilateral interstitial markings with interstitial thickening with progression in comparison to study from 10/29/2023. CAT scan
of the abdomen pelvis from 11/11/2023 was suspicious for colonic malignancy at the level of the hepatic flexure and no pancreatic mass was noted, there is also concern for metastatic lesion of the liver and there were also numerous omental nodules and
extensive retroperitoneal lymphadenopathy were likely representing metastatic disease CTA chest from 10/29/2023 showed no PE
� Clinical information was obtained by an independent historian: I spoke to family at bedside extensively
� Prescriptions/Medications Considered but not given:
� Further testing considered but not performed:
RISK OF COMPLICATIONS AND/OR MORBIDITY OR MORTALITY OF PATIENT MANAGEMENT
� Social determinants of health affecting care: Lives at home
� Discussion with other providers: Hospitalist for admission
� Escalation of care including admission/observation vs risk of discharge considered: Room air sats upon arrival were 85% after exertion, she does have decreased breath sounds with rales. Will also check BNP but in October it
was normal. Labs are relatively unremarkable however room air sats after exertion were low. She is doing poorly as an outpatient. She was seen here in the ER and discharged and generally has been worsening. Will plan admission to the hospital.
Nebs and steroids were given.
Past History
Past History
ED Past Medical History: Asthma, Cancer (Recently diagnosed lung cancer), HTN and Other (Bilateral pulmonary emboli)
ED Past Surgical History: Other
Social History
Tobacco: Non-smoker
Alcohol: None
Drug: None
Personal:
Living: with family
Employment: Retired
Family History
Family History: Other
Phy Exam
Physical Exam
Physical Exam:
See HPI
Scores
Heart Failure Risk
Heart Failure Risk Score: Not Applicable
Course
Orders/Labs/Results
Orders:
Orders
11/15/23 16:41
CR Chest Portable - 1 View Urgent
Comment:
Reason For Exam: worsening sob
Reason Study Needs to be Portable: Patient Unstable
11/15/23 16:42
Electrocardiogram (*1) Urgent
Reason for Study: Chest Pain
EKG- Treatment ONCE
Ipratropium/Albuterol Sulfate [Duoneb] 3 ml INH R NOW ONE
MethylPREDNISolone PF [Solu-Medrol Pf] 125 mg IV NOW STA
11/15/23 16:54
CEA Urgent
Comment: ADD ON
Complete Blood Count/With Diff Urgent
Comprehensive Metabolic Panel Urgent
Ferritin Urgent
Comment: ADD ON
Iron Urgent
Lipase Urgent
Magnesium Urgent
NT-proBNP Urgent
Total Iron Binding Urgent
Troponin I Urgent
Vitamin B12 Urgent
Comment: ADD ON
11/15/23 18:02
Add On- LAB Routine
Tests Added?: CEA,
Add On- LAB Routine
Tests Added?: iron,tibc,ferritin,b12
11/15/23 18:23
Admit/Transfer Patient As Directed
Co-Sign Provider:
Level of Care: Inpatient admission
Assign to:: Telemetry
Physician / Group: Hospitalist
Diagnosis: Shortness of breath, acute hypoxic respiratory insufficiency
Reason for Telemetry: Other
Other Reason for Telemetry: Hypoxia
Date to Stop Telemetry: 11/17/23
Time to Stop Telemetry: 11:00
Reason for Hospitalization: Acute hypoxic respiratory sufficiency
Expected length of stay greater than two midnights?: Yes
ELOS- Estimated Length of Stay in days: 3
I certify the patient meets the requirements for IP care: Yes
Furosemide [Lasix] 40 mg IV NOW STA
Potassium Chloride [KCl] 20 meq PO NOW STA
11/15/23 18:27
Code Status As Directed
Resuscitation Status: Full Code
11/15/23 18:29
LevoFLOXacin [Levaquin] 750 mg PO NOW STA
11/15/23 18:35
Pantoprazole [Protonix] 40 mg PO NOW STA
11/15/23 18:58
COVID-19 Antigen Routine
Source: Nasal Swab
Influenza A+B Rapid Molecular Routine
TIFFANI Source: Nasal Swab
Specimen Description:
11/17/23 11:00
DC Protocol for Telemetry ONCE
Abnormal Lab Results
11/15/23
16:54
RBC 3.99 L 10^6/uL
(4.20-5.40)
Hgb 9.0 L g/dL
(12.0-16.0)
Hct 29.2 L %
(37.0-47.0)
MCV 73.2 L fL
(81.0-99.0)
MCH 22.6 L pg
(27.0-31.0)
MCHC 30.8 L g/dL
(33.0-37.0)
RDW 17.0 H %
(11.5-14.5)
Abs Immat Gran (auto) 0.1 H 10^3/uL
(0-0.05)
Absolute Monos (auto) 0.8 H 10^3/uL
(0.1-0.6)
Immature Gran % 0.6 H %
(0-0.5)
Glucose 117 H mg/dl
(70-99)
Iron 27 L ug/dl
(37-170)
% Saturation 8 L %
(20-50)
Total Protein 5.6 L g/dl
(6.3-8.2)
Albumin 3.1 L g/dl
(3.5-5.0)
11/15/23 16:54
11/15/23 16:54
Vital Signs
Initial and Last Documented VS:
Initial Vital Signs
Temp Pulse Resp BP Pulse Ox
98.7 F 78 18 172/83 94
11/15/23 16:01 11/15/23 16:01 11/15/23 16:01 11/15/23 16:01 11/15/23 16:01
Last Documented Vital Signs
Temp Pulse Resp BP Pulse Ox
98.7 F 83 22 159/118 99
11/15/23 16:01 11/15/23 18:55 11/15/23 16:45 11/15/23 18:55 11/15/23 17:15
*Critical Care Note
Total Time (30-74mins, 75-104mins- exclusive of procedures): Not Applicable
ED Attending Note
-
Portions of this chart may have been created with voice recognition software.� Occasional wrong word or��sound alike� substitutions may have occurred due to the inherent limitations of voice recognition software.
Discharge Plan
Departure
Patient Disposition: Admit
Date of Disposition: 11/15/23
Time of Disposition: 17:49
Presentation/result/management discussed w/ accepting MD/DO: Hospitalist
Patient with high blood pressure during this ER visit?: Yes
Discharge Problem:
Reactive airway disease
Prescriptions:
No Action
albuterol sulfate 2.5 mg /3 mL (0.083 %) Solution For Nebulization
2.5 mg INHALATION R BID
albuterol sulfate 90 mcg/actuation Hfa Aerosol Inhaler
2 puff INHALATION R Q4HPRN PRN (Reason: SOB)
Eliquis 5 mg Tablet
5 mg PO BID
amlodipine 5 mg Tablet
5 mg PO DAILY Qty: 30 0RF
guaifenesin [Mucinex] 600 mg tablet extended release 12hr
600 mg PO BID Qty: 60 0RF
fluticasone furoate-vilanterol [Breo Ellipta] 200-25 mcg/dose Blister With Device
1 inh INHALATION R QPM
benzonatate 200 mg capsule
200 mg PO BID
fluticasone propionate [Flonase Allergy Relief] 50 mcg/actuation spray,suspension
1 spray intranasal QPM
acetaminophen [Tylenol] 325 mg Tablet
650 mg PO QIDPRN PRN (Reason: MILD PAIN)
lidocaine-prilocaine 2.5-2.5 % Cream
1 applic TOPICAL DAILYPRN PRN (Reason: PRIOR TO CHEMO)
lorazepam 0.5 mg Tablet
1 mg PO HS
lorazepam 0.5 mg Tablet
0.5 mg PO DAILYPRN PRN (Reason: ANXIETY)
hydrocodone-homatropine 5-1.5 mg tablet
1 tab PO TIDPRN PRN (Reason: MILD PAIN/COUGH)
gemcitabine [Gemzar] 1 gram Recon Soln
0 mg IV Q3W
simethicone [Gas-X Extra Strength] 125 mg Tablet,Chewable
125 mg PO QID PRN (Reason: GAS PAINS)
paclitaxel protein-bound [Abraxane] 100 mg Suspension For Reconstitution
0 mg IV Q3W
Referrals:
Carmela Mijares, [Family Provider] -
Interventions
Interventions:
*Risk Screen - Suicide Last Done: 11/15/23 16:01
*General Assessment Last Done: 11/15/23 16:01
*Neglect/Abuse Screening Last Done: 11/15/23 16:01
*ED COVID-19 Vaccine History Last Done: 11/15/23 16:01
ED- Cardiac Assessment Last Done: 11/15/23 17:01
ED- Pulmonary Assessment Last Done: 11/15/23 17:01
[2023-11-15] MEDS: SOLU-MEDROL PF 125 MG IV (16:49)
[2023-11-15] MEDS: DUONEB 3 ML INH (16:50)
[2023-11-15 17:00] VITALS: BP 176/71
[2023-11-15 17:05] LABS: % Basophils 0.7 % (0-2); % Immature Granulocytes 0.6 % (0-0.5); % Lymphocytes 23.9 % (20.5-51.1); % Monocytes 8.6 % (1.7-9.3); % Neutrophils 64.2 % (42.2-75.2); Absolute Basophils 0.1 10^3/uL (0-0.2); Absolute Eosinophils 0.2 10^3/uL (0-0.7); Absolute Immature Granulocytes 0.1 10^3/uL (0-0.05); Absolute Lymphocytes 2.2 10^3/uL (1.2-3.4); Absolute Monocytes 0.8 10^3/uL (0.1-0.6); Absolute Neutrophils 5.9 10^3/uL (1.4-6.5); Hematocrit 29.2 % (37.0-47.0); Mean Corp Hgb Conc. 30.8 g/dL (33.0-37.0); Mean Corpuscular Hgb 22.6 pg (27.0-31.0); Mean Corpuscular Volume 73.2 fL (81.0-99.0); Mean Platelet Volume 9.6 fL (7.4-10.4); Nucleated Red Blood Cells % 0 %; Platelet Count 252 10^3/uL (130-400); Red Blood Cell Count 3.99 10^6/uL (4.20-5.40); White Blood Cell Count 9.1 10^3/uL (4.8-10.8)
[2023-11-15 17:26] LABS: ALT (SGPT) 25 U/L (0-35); AST (SGOT) 26 U/L (14-36); Albumin 3.1 g/dl (3.5-5.0); Alkaline Phosphatase 72 U/L (38-126); Blood Urea Nitrogen 15 mg/dl (7-17); Carbon Dioxide 27 mmol/L (22-30); Chloride 103 mmol/L (98-107); Glucose 117 mg/dl (70-99); Potassium 3.7 mmol/L (3.5-5.1); Sodium 138 mmol/L (135-145); Total Bilirubin 0.5 mg/dl (0.2-1.3); Total Protein 5.6 g/dl (6.3-8.2); eGFR > 60.00
[2023-11-15 17:27] LABS: Lipase 61 U/L (23-300)
[2023-11-15 17:37] LABS: NT-proBNP 106 pg/ml; Troponin I < 0.012 ng/ml
--- NOTE | 2023-11-15 17:50 | HPS.HSE ---
Addendum entered and electronically signed by Sharda Patel MD 11/17/23 17:21:
Correction ' unlikely lymphangitic spread of malignancy'
Should be 'likely lymphangitic spread of malignancy'
Original Note:
Family Physician
-
Family Physician: Carmela Mijares
Chief Complaint
-
SOB
History of Present Illness
68-year-old female supposed to start chemotherapy tomorrow but had shortness of breath and discomfort in the abdomen. She called [facility] who told her to come to the hospital. She also has poor p.o. intake. Patient has been taking Eliquis
for the recent diagnosis of PE in August. Readmitted in October and biopsy was done during that admission which showed malignancy
Daughters state that patient has been slowly declining over the past few months she has had difficulty ambulating prior to August. No mostly she spends time in a chair even getting out taking a few steps is very difficult for her. Patient also
feels bloated and has some ache in the abdomen had a bowel movement today. No nausea or vomiting. No fevers. She is some generalized aches and pains.
Patient was supposed to start chemotherapy. Still waiting on some genetic markers prior to initiating that.
Medical History
Past Medical History
Past Medical History: Reports Asthma
Additional Past Medical History:
Pulmonary embolism ,hypertension, malignancy with unknown primary, arthritis, anxiety, suspected sleep apnea never had a sleep study done
Past Surgical History: Reports Cholecystectomy, and Other
Additional Past Surgical History:
Left supraclavicular lymph node biopsy which came back positive for adenocarcinoma
Social History
Tobacco: Non-smoker
Alcohol: None
Drug: None
Employment: Other
Family History
Family History: Cancer (Mother suspected liver cancer, father with prostate cancer, lymphoma, suspected mesothelioma. Sister and uncle lung cancer. Brother prostate cancer)
Allergies / Home Medications
Allergies reflects when Allergies were last updated in [facility].
Home Medications with original date entered in [facility]
Allergy/Medication List:
Allergies
Allergy/AdvReac Type Severity Reaction Status Date / Time
bee venom protein (honey bee) Allergy Swelling Verified 11/15/23 16:03
tong pepper Allergy Unknown Verified 11/15/23 16:03
cat dander Allergy congestion Verified 11/15/23 16:03
Home Medications
albuterol sulfate 2.5 mg/3 mL (0.083 %) solution for nebulization 2.5 mg inhalation R BID 10/29/23
albuterol sulfate 90 mcg/actuation aerosol inhaler 2 puff inhalation R Q4HPRN PRN SOB 10/29/23
amlodipine 5 mg tablet 5 mg PO DAILY #30 tabs 10/29/23
apixaban 5 mg tablet (Eliquis) 5 mg PO BID Blood Clot Prevention/Tx 10/29/23
guaifenesin 600 mg tablet, extended release 12 hr (Mucinex) 600 mg PO BID #60 tabs 10/29/23
acetaminophen 325 mg tablet (Tylenol) 650 mg PO QIDPRN PRN MILD PAIN 11/15/23
benzonatate 200 mg capsule 200 mg PO BID 11/15/23
fluticasone furoate 200 mcg-vilanterol 25 mcg/dose inhalation powder (Breo Ellipta) 1 inh inhalation R QPM 11/15/23
fluticasone propionate 50 mcg/actuation nasal spray,suspension (Flonase Allergy Relief) 1 spray intranasal QPM 11/15/23
gemcitabine 1 gram intravenous solution 0 mg IV Q3W 11/15/23
hydrocodone-homatropine 5 mg-1.5 mg tablet 1 tab PO TIDPRN PRN MILD PAIN/COUGH 11/15/23
lidocaine-prilocaine 2.5 %-2.5 % topical cream 1 applic topical DAILYPRN PRN PRIOR TO CHEMO 11/15/23
lorazepam 0.5 mg tablet 0.5 mg PO DAILYPRN PRN ANXIETY 11/15/23
lorazepam 0.5 mg tablet 1 mg PO HS 11/15/23
paclitaxel protein-bound 100 mg intravenous suspension (Abraxane) 0 mg IV Q3W 11/15/23
simethicone 125 mg chewable tablet (Gas-X Extra Strength) 125 mg PO QID PRN GAS PAINS 11/15/23
Review of Systems
-
A 12 point ROS was completed and negative except as noted: Yes
Constitutional: Reports Fatigue and Sleep Disturbance
Respiratory: Reports Cough and Trouble Breathing
Cardiac: Denies Chest Pain
Abdomen/GI: Reports Abdominal Pain (ache)
: Denies Dysuria or Flank Pain
Neurological: Reports Weakness (gen)
Psych: Reports Anxiety
Physical Exam
Vital Signs
Vital Signs
Temp Pulse Resp BP Pulse Ox
98.7 F 81 22 176/71 99
11/15/23 16:01 11/15/23 17:15 11/15/23 16:45 11/15/23 17:00 11/15/23 17:15
Physical Exam
General: Respiratory Distress and Other (Appears tired)
Respiratory: Rales
Cardiac: S1/S2 and Regular Rhythm
GI: Soft, Non Tender and Normal Bowel Sounds
Musculoskeletal: No Edema
Neuro: AO x 3, Nonfocal/grossly intact and Other (Generalized deconditioning but nonfocal)
Psych: Intact Judgment/Insight
Laboratory Results
-
11/15/23 16:54
11/15/23 16:54
Laboratory Results
Total Bilirubin 0.5 mg/dl (0.2-1.3) 11/15/23 16:54
AST 26 U/L (14-36) 11/15/23 16:54
ALT 25 U/L (0-35) 11/15/23 16:54
Alkaline Phosphatase 72 U/L (38-126) 11/15/23 16:54
Troponin I < 0.012 ng/ml 11/15/23 16:54
Lipase 61 U/L (23-300) 11/15/23 16:54
Data Reviewed
-
Diagnostic Radiology: Image Personally Visualized and interpreted (Interstitial prominence, left midlung opacity)
CT Scan: Report Reviewed by me (CT of the abdomen and pelvis 11/11/2023-suspicious for colonic malignancy at the level of hepatic flexure. Focal pancreatic mass lesion not identified on CT. Lung bases interstitial thickening and thickening of the in
the alveolar septae suspicious for lymphangitis metastasis. Indeterminate 1.2 cm )
Impression/Plan
-
IMPRESSION/PLAN:
Echo 09/02/2023-hyperdynamic LV systolic function. Ejection fraction 70 to 75%. Mild concentric LVH. Normal RV systolic function. Normal RV size.
# Shortness of breath
Acute hypoxic respiratory insufficiency
Differentials, pulmonary edema-unlikely lymphangitic spread of malignancy, atypical infection
Admit to telemetry
Oxygen supplementation
Nebulizer treatments
Steroids Decadron 4 mg every 8 hours
Trial of 1 dose of Lasix 40 mg now with potassium
Levaquin
Sputum cultures if possible
Pulmonary and oncology evaluation
# Left lower lobe mass, mediastinal lymphadenopathy, left supraclavicular lymph node biopsy positive for adenocarcinoma
Likely metastatic from colon
Family also tells me that CA 19-9 was elevated
Was supposed to start Gemzar and Abraxane every 3 weeks
Oncology evaluation
# Insomnia-mostly the cough keeping her from sleeping. Will try Benadryl she is already getting lorazepam. Codeine for cough
# History of PE in August on Eliquis
# Hypertension-continue amlodipine
# Anxiety-continue lorazepam 0.5 mg daily as needed and 1 mg at night
# Anemia likely secondary to malignancy
# Sleep apnea suspected but no official diagnosis never had a sleep study
# Obesity
# DVT prophylaxis-Eliquis
# CODE STATUS addressed with patient and daughters at bedside she does not have an advanced directive. I encouraged to do 1.
[2023-11-15 18:43] LABS: Iron 27 ug/dl (37-170)
[2023-11-15 18:53] LABS: Percent Saturation 8 % (20-50); Total Iron Binding Capacity 337 ug/dl (265-497)
[2023-11-15] MEDS: LASIX 40 MG IV (18:55)
[2023-11-15] MEDS: LEVAQUIN 750 MG PO (18:56)
[2023-11-15] MEDS: PROTONIX 40 MG PO (18:56)
[2023-11-15] MEDS: KCL 20 MEQ PO (18:56)
[2023-11-15 19:16] LABS: CEA 12.3 ng/ml
[2023-11-15 19:24] LABS: COVID-19 Antigen Negative (Negative)
[2023-11-15 20:12] LABS: Ferritin 8.5 ng/ml (11.1-264.0)
[2023-11-15 20:26] LABS: Vitamin B12 294 pg/ml (239-931)
[2023-11-15 20:30] VITALS: BP 168/80; BMI 55.4
--- NOTE | 2023-11-15 20:40 | PTCARENOTE ---
Pt arrived from ED via stretcher to stand and pivot to bed with daughter at bedside. Pt AAOx3, VSS on 2L NC sating 93%, and w/o complaints of pain. Pt is oriented to room resting comfortably with call tong within reach.
[2023-11-15] MEDS: ELIQUIS 5 MG PO (21:15)
[2023-11-15] MEDS: ATIVAN 1 MG PO (21:15)
[2023-11-15] MEDS: MUCINEX 600 MG PO (21:15)
[2023-11-15] MEDS: VENTOLIN NEBULES INH (21:16)
[2023-11-15] MEDS: SYMBICORT 160/4.5 MCG INHALER INH (21:16)
[2023-11-15] MEDS: TESSALON PERLES 200 MG PO (21:16)
[2023-11-15] MEDS: ROBITUSSIN AC 10 ML PO (21:18)
[2023-11-15] MEDS: COLACE 100 MG PO (21:19)
[2023-11-15 21:22] LABS: NT-proBNP 98.7 pg/ml; Troponin I < 0.012 ng/ml
[2023-11-15 22:07] VITALS: BP 128/58
[2023-11-16] MEDS: DECADRON 4 MG IV ×4 (00:13→23:37)
[2023-11-16 02:07] LABS: Hematocrit 31.5 % (37.0-47.0); Hemoglobin 10.1 g/dL (12.0-16.0); Mean Corp Hgb Conc. 32.1 g/dL (33.0-37.0); Mean Corpuscular Hgb 23.2 pg (27.0-31.0); Mean Corpuscular Volume 72.2 fL (81.0-99.0); Mean Platelet Volume 9.6 fL (7.4-10.4); Platelet Count 262 10^3/uL (130-400); Red Blood Cell Count 4.36 10^6/uL (4.20-5.40); Red Cell Dist. Width 16.7 % (11.5-14.5); White Blood Cell Count 8.1 10^3/uL (4.8-10.8)
[2023-11-16 02:32] LABS: Blood Urea Nitrogen 16 mg/dl (7-17); Calcium 9.2 mg/dl (8.4-10.2); Carbon Dioxide 26 mmol/L (22-30); Chloride 102 mmol/L (98-107); Estimated Creatinine Clearance 88 ml/min; Glucose 190 mg/dl (70-99); Potassium 4.8 mmol/L (3.5-5.1); Sodium 136 mmol/L (135-145); eGFR > 60.00
[2023-11-16 02:34] LABS: Troponin I < 0.012 ng/ml
[2023-11-16 03:08] VITALS: BP 153/79
[2023-11-16 03:13] LABS: Vitamin B12 346 pg/ml (239-931)
[2023-11-16] MEDS: ROBITUSSIN DM 5 ML PO (04:30)
[2023-11-16 07:05] VITALS: BP 150/76
[2023-11-16] MEDS: VENTOLIN NEBULES 2.5 MG INH ×4 (07:59→20:20)
[2023-11-16] MEDS: SYMBICORT 160/4.5 MCG INHALER 2 PUFF INH ×2 (07:59→20:20)
[2023-11-16] MEDS: VITAMIN B-12 1000 MCG PO (09:38)
[2023-11-16] MEDS: TESSALON PERLES 200 MG PO ×2 (09:38→22:10)
--- NOTE | 2023-11-16 09:38 | CON.PUL ---
Consultation
Consultation Request
Date/Time Consultation Requested: 11/16/23
Date/Time Consultation Performed: 11/16/23
Performing Provider: Vish
Reason for Consultation: SOB
Medical History
-
History of Present Illness:
Patient is a 68-year-old female with recently diagnosed history of metastatic lung adenocarcinoma, COPD, PE on Eliquis, morbid obesity presenting to ER with acute on chronic shortness of breath, abdominal bloating, malaise. She was scheduled to
start chemotherapy this morning but could not make it to her appointment. She also notes decreased oral intake, but she admits that her symptoms are vague.
It is noted that the patient has developed slowly declining functional capacity over the past few months, with difficulty ambulating and sedentary lifestyle. She mostly spends time in a chair, and takes a few steps a day.
Initial chest x-ray demonstrating diffuse interstitial process, similar to prior imaging.
She is 89% on room air, placed on 2 L.
Never had a sleep study, no CPAP at home. Follows with Dr. Reddy in the office.
Past Medical History
Past Medical History: Other (See other list below)
Social History
Tobacco: Non-smoker
Alcohol: None
Drug: None
Family History
Family History: Reviewed & Not Pertinent
Allergies / Home Medications
Allergies
Allergy/AdvReac Type Severity Reaction Status Date / Time
bee venom protein (honey bee) Allergy Swelling Verified 11/15/23 16:03
tong pepper Allergy Unknown Verified 11/15/23 16:03
cat dander Allergy congestion Verified 11/15/23 16:03
Home Medications
Medication Instructions Recorded Confirmed Last Taken Type
albuterol sulfate 2.5 mg/3 mL 2.5 mg inhalation R BID 10/29/23 11/15/23 11/15/23 History
(0.083 %) solution for nebulization
albuterol sulfate 90 mcg/actuation 2 puff inhalation R Q4HPRN PRN SOB 01/11/15/23 10/28/23 History
aerosol inhaler
amlodipine 5 mg tablet 5 mg PO DAILY #30 tabs 10/29/23 11/15/23 11/15/23 Rx
apixaban 5 mg tablet (Eliquis) 5 mg PO BID Blood Clot 10/29/23 11/15/23 11/15/23 History
Prevention/Tx
guaifenesin 600 mg tablet, 600 mg PO BID #60 tabs 10/29/23 11/15/23 11/15/23 Rx
extended release 12 hr (Mucinex)
acetaminophen 325 mg tablet 650 mg PO QIDPRN PRN MILD PAIN 11/15/23 11/15/23 11/11/23 History
(Tylenol)
benzonatate 200 mg capsule 200 mg PO BID 11/15/23 11/15/23 11/15/23 History
fluticasone furoate 200 1 inh inhalation R QPM 11/15/23 11/15/23 11/14/23 History
mcg-vilanterol 25 mcg/dose
inhalation powder (Breo Ellipta)
fluticasone propionate 50 1 spray intranasal QPM 11/15/23 11/15/23 11/14/23 History
mcg/actuation nasal
spray,suspension (Flonase Allergy
Relief)
gemcitabine 1 gram intravenous 0 mg IV Q3W 11/15/23 11/15/23 Unknown History
solution
hydrocodone-homatropine 5 mg-1.5 1 tab PO TIDPRN PRN MILD PAIN/COUGH 11/15/23 11/15/23 Unknown History
mg tablet
lidocaine-prilocaine 2.5 %-2.5 % 1 applic topical DAILYPRN PRN 11/15/23 11/15/23 Unknown History
topical cream PRIOR TO CHEMO
lorazepam 0.5 mg tablet 0.5 mg PO DAILYPRN PRN ANXIETY 11/15/23 11/15/23 11/15/23 History
lorazepam 0.5 mg tablet 1 mg PO HS 11/15/23 11/15/23 11/14/23 History
paclitaxel protein-bound 100 mg 0 mg IV Q3W 11/15/23 11/15/23 Unknown History
intravenous suspension (Abraxane)
simethicone 125 mg chewable tablet 125 mg PO QID PRN GAS PAINS 11/15/23 11/15/23 Unknown History
(Gas-X Extra Strength)
Review of Systems
-
History Source: Patient
All other systems: Negative unless noted
Vitals / Labs / Diagnostic Testing
Vital Signs
Temp Pulse Resp BP Pulse Ox
97.9 F 95 16 150/76 99
11/16/23 07:05 11/16/23 08:00 11/16/23 08:00 11/16/23 07:05 11/16/23 08:00
Lab Data
11/16/23 01:59
11/16/23 01:59
Microbiology
11/15/23 18:58 Nasal Swab Influenza Types A & B (ECHO) - Final
Negative for Influenza A & B, NAAT
Negative results must be combined with clinical observations
and patient history.
Nucleic Acid Amplification test (NAAT)performed on the
[employer] platform.
Diagnostic Testing:
Physical Exam
-
HEENT: Normocephalic, Anicteric and Moist Mucous Membranes
Cardiovascular: S1/S2 and Regular Rhythm
Respiratory: Rales and Non-Labored Respirations
GI: Soft, Non Distended and Non Tender
Neurology: Awake, Alert, Oriented, AO x 3, No Motor Deficits and Other (anxious appearing)
Skin: Warm, Dry and Good Color
General: Comfortable and Other (NAD, morbidly obese)
Assessment
-
Patient is a 68-year-old female with recently diagnosed history of metastatic lung adenocarcinoma, COPD, PE on Eliquis, morbid obesity presenting to ER with acute on chronic shortness of breath, abdominal bloating, malaise. She was scheduled to
start chemotherapy this morning but could not make it to her appointment. Initial chest x-ray demonstrating diffuse interstitial process, similar to prior imaging. She is 89% on room air, placed on 2 L. We are asked for evaluation for SOB.
Stage IV lung adenocarcinoma primary s/p supraclavicular LN biopsy 10/26/23 and 11/09/23
Acute on chronic SOB
Suspected lymphangitic spread, abnormal CT Chest
LLL mass
Mediastinal lymphadenopathy
Mild anemia, Hb 9-10
Conditions present prior to admission:
COPD
Follows Dr Reddy, on Breo 200,�and�Albuterol�and�Mucinex�as needed
PFT 10/14/23-FEV1 1.39-59%, FVC 2.12-69%, ratio 66 (moderate obstruction)
VTE: provoked, underlying malignancy (noted also had COVID illness in Jun 2023 but probably not main factor for PE)
Submassive PE CTA 09-01-23
ADRIANA doppler 09-02-23 suboptimal due to morbid obesity
On apixaban
Asthma: on fluticasone/vilanterol and albuterol
COVID illness Jun 2023
HTN
Morbid obesity-BMI 60
Suspected JOSE
Plan
Hypoxemia noted on arrival, O2 silvia 89%
Placed on 2L NC, not known to be on home O2
Prior history of lung disease is noted including COPD, morbid obesity with restrictive lung disease, stage IV lung adeno recently diagnosed, PE
Reviewed extensive outpatient records in [facility] including path results, PFTs, prior imaging
Suspect patient has underlying acute on chronic SOB from progression of lymphangitic spread/possible sedentary lifestyle/BMI in the background setting of stage IV cancer, COPD, PE on OAC
CXR obtained indicating diffuse prominent interstitial opacities b/l most suspicious for lymphangitic spread
Volume overload less likely, proBNP neg on admission
Other imaging reviewed--CT chest in past, PET demonstrating S1 bone involvement
She is started on IV decadron which I agree with, she has not noticed steroids in past confer benefit
Monitor for hyperglycemia/insomnia/bruising/bleeding
COPD--moderate obstruction on most recent PFT
She has been maintained on Breo, we can increase to triple therapy: Advair/Spiriva
Continue albuterol HFA, nebulizers
Stage IV cancer, has not yet received therapy
Oncology consult obtained for management
ECHO results in past reviewed--hyperdynamic function 70-75%, no sign VHD
proBNP 98.7 (neg)
Will rule out any superimposed disease, check procal, d-dimer
Check ABG
Trop neg
Will need outpatient pulmonary evaluation in our office for PFTs and 6MWT
Reviewed with patient
Risk factors assessed for underlying sleep disordered breathing also noted, recommend outpatient PSG/sleep evaluation
Weight loss measures recommended
Obesity contributing to respiratory symptoms
We will follow
Diagnostic Data
CXR 11/15/23: Opacity in the left midlung zone, consistent with known malignancy. Interstitial prominence, Similar to previous exams. Slight improvement in lung volumes. No new area of airspace disease. Persistent increased opacity in the left lung
base, obscuration of the left hemidiaphragm similar to previous chest x-ray. The heart size is borderline enlarged.
11/12/23: Widespread prominent bilateral predominantly interstitial markings with interstitial thickening with progression in comparison to prior study. Some of several differential diagnostic possibilities include pneumonitis, edema and lymphangitic
spread of tumor. No pneumothorax.
Chest CTA 10-29-23: LLL mass: interim increase in size.� Mediastinal lymphadenopathy: mild interim increase. Increasingly prominent pulmonary interstitium: suspected lymphangitic spread
CT chest 09/01/23: positive for pulmonary emboli, no evidence for right heart strain, patchy areas of reticular nodular, small nodular branching and groundglass opacifications compatible with patchy pneumonitis, superior segment left lower lobe
nodular focus suspicious for neoplasia or carcinoma, hilar lymphadenopathy, lymphadenopathy in the left lower neck, consideration could be given to biopsy of left neck lymph node, enlarged lymph nodes in the right hilar and subcarinal region
Lower extremity ultrasound 09/02/23-no evidence for DVT, but technically difficult because of large body habitus
PET CT 10-22-23: LLL PET positive mass. Thoracic and abd PET positive LAD. S1 PET positive focus
ECHO 09/02/23: Hyperdynamic left ventricular systolic function. LV ejection fraction is 70-75%.�Mild concentric left ventricular hypertrophy.�Normal right ventricular size. Normal right ventricular systolic function.�No significant valve disease.�No
prior study available for comparison.
PFT 10/14/23-FEV1 1.39-59%, FVC 2.1 269%, no significant BD response, TLC 71%, RV 50%, DLCO 48%, DLCO/VA 78%. Moderate combined obstruction and restriction with moderate reduction in diffusing capacity.
[2023-11-16] MEDS: COLACE 100 MG PO (09:39)
[2023-11-16] MEDS: MUCINEX 600 MG PO ×2 (09:39→22:09)
[2023-11-16] MEDS: ELIQUIS 5 MG PO ×2 (09:39→22:09)
[2023-11-16] MEDS: PROTONIX 40 MG PO (09:39)
[2023-11-16] MEDS: NORVASC 5 MG PO (09:39)
[2023-11-16] MEDS: MIRALAX 17 GRAMS PO (09:40)
--- NOTE | 2023-11-16 10:05 | VNURNOTE ---
Patient is current with [facility] since 11/01 w/SN, will monitor progress and plan at discharge.
[2023-11-16 11:05] VITALS: BP 95/66
[2023-11-16 11:48] LABS: B.E. 1.1 mmol/L; O2 Saturation % 96.9 % (94-98); PCO2 36 mmHg (32-35); PO2 74 mmHg (83-108); pH 7.45 (7.35-7.45)
--- NOTE | 2023-11-16 12:13 | CM ---
Patient seen bedside.
IA completed.
Patient lives with spouse and daughter in a split level.
13 steps to second floor, has a bed on the first, but needs a different/new one.
Patient has a scooter and also has a commode.
Handicap accessible bathrooms x 2.
Patient does not drive.
Patient is current with [facility].
PCP: Dr Mijares
Pharmacy: [facility] [place]
Plan: home with [facility]
[2023-11-16 12:38] LABS: Procalcitonin < 0.05 ng/ml (0.0-0.25)
[2023-11-16] MEDS: FERRLECIT 110 MG IV (14:12)
--- NOTE | 2023-11-16 14:44 | W.PN.HOSP.TC ---
Addendum entered and electronically signed by Sharda Patel MD 11/17/23 17:20:
Correction ' unlikely lymphangitic spread of malignancy'
Should be 'likely lymphangitic spread of malignancy'
Original Note:
Today's Communication/Plan
-
another dose of Lasix
Continue Levaquin and Steroids
Wean O2 as tolerated.
Assessment / Plan
Assessment / Plan
CVS: S1-S2 normal
Chest: few rales
Abdomen: Soft, NT / Bowel sounds present
Extremities: No edema, normal pulses
FILM PAINTER: Non focal exam
Feels better today
Echo 09/02/2023-hyperdynamic LV systolic function.� Ejection fraction 70 to 75%.� Mild concentric LVH.� Normal RV systolic function.� Normal RV size.
# Shortness of breath
Acute hypoxic respiratory insufficiency
Differentials, pulmonary edema-unlikely lymphangitic spread of malignancy, atypical infection
Atypical non cardiogenic pulm edema
Oxygen supplementation- wean as tolerated.
Nebulizer treatments
Steroids Decadron 4 mg every 8 hours
Lasix 40 mg again today
Levaquin to be continued
Sputum cultures if possible
Pulmonary and oncology evaluation
# Left lower lobe mass, mediastinal lymphadenopathy, left supraclavicular lymph node biopsy positive for adenocarcinoma
Likely metastatic from colon
Family also tells me that CA 19-9 was elevated
Was supposed to start Gemzar and Abraxane every 3 weeks
Oncology evaluation requested
# Insomnia-mostly the cough keeping her from sleeping.� Will try Benadryl she is already getting lorazepam.� Codeine for cough
# History of PE in August on Eliquis
# Hypertension-continue amlodipine
# Anxiety-continue lorazepam 0.5 mg daily as needed and 1 mg at night
# Anemia likely secondary to malignancy
Also DERECK and low normal B12
replace
# Sleep apnea suspected but no official diagnosis never had a sleep study
# Obesity
# DVT prophylaxis-Eliquis
# CODE STATUS addressed with patient and daughters at bedside she does not have an advanced directive.� I encouraged to do one
D/W Oncology
D/W RN
Anticipated Discharge: > 48 hours
Subjective/Interval History
-
Date of Service: November 16, 2023
Objective Data
-
Labs:
Laboratory Results
11/16/23
11:39
HCO3 25.0
Vital Signs:
Vital Signs
Temp Pulse Resp BP Pulse Ox
98.5 F 80 16 95/66 95
11/16/23 11:05 11/16/23 11:46 11/16/23 11:46 11/16/23 11:05 11/16/23 11:05
I&O
11/15/23 11/16/23 11/17/23
06:59 06:59 06:59
Intake Total 240 / 240
Balance 240 / 240
[2023-11-16 15:05] VITALS: BP 136/81
[2023-11-16] MEDS: LASIX 40 MG IV (15:14)
--- NOTE | 2023-11-16 16:30 | VNURNOTE ---
[facility] resumption of care completed in [facility] after review of chart and discussion with patient and spouse. Patient confirmed having [facility] contact number. Patient is requesting hospital bed to be ordered, Liaison discussed process and potential
rental charge if not covered by insurance.
--- NOTE | 2023-11-16 18:02 | CON.ONC ---
Impression
Impression
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
Plan
Plan
can delay chemotherapy once stable oxygen prescription given with meds to minimize her underlying bronchospasm-- d/w Dr Marlin Wahl
Patient History
History of Present Illness
unfortunate 68yo WF with recently diagnosed adenocarcinoma of unknown primary source with diffuse mets including lymphangitic disease/oligometastatic bone disease/fernando disease s/p port placement scheduled for chemotherapy today though progressive
rest/ ROMO intervened and unable to breath returned to ER for evaluation. She notes she @ rest remains with normal oxygen saturation. She has limited mobility with severe bilateral knee pain from DJD and indicates that with acitivity she does not
desaturate <88% ( typically low 90s)
Past-Medical/Surgical History
HTN/Asthma/PE/c sectionx3 / cholecystectomy
Patient Medication
Medication Instructions Recorded Confirmed Last Taken Type
albuterol sulfate 2.5 mg/3 mL 2.5 mg inhalation R BID 10/29/23 11/15/23 11/15/23 History
(0.083 %) solution for nebulization
albuterol sulfate 90 mcg/actuation 2 puff inhalation R Q4HPRN PRN SOB 10/29/23 11/15/23 10/28/23 History
aerosol inhaler
amlodipine 5 mg tablet 5 mg PO DAILY #30 tabs 10/29/23 11/15/23 11/15/23 Rx
apixaban 5 mg tablet (Eliquis) 5 mg PO BID Blood Clot 10/29/23 11/15/23 11/15/23 History
Prevention/Tx
guaifenesin 600 mg tablet, 600 mg PO BID #60 tabs 10/29/23 11/15/23 11/15/23 Rx
extended release 12 hr (Mucinex)
acetaminophen 325 mg tablet 650 mg PO QIDPRN PRN MILD PAIN 11/15/23 11/15/23 11/11/23 History
(Tylenol)
benzonatate 200 mg capsule 200 mg PO BID 11/15/23 11/15/23 11/15/23 History
fluticasone furoate 200 1 inh inhalation R QPM 11/15/23 11/15/23 11/14/23 History
mcg-vilanterol 25 mcg/dose
inhalation powder (Breo Ellipta)
fluticasone propionate 50 1 spray intranasal QPM 11/15/23 11/15/23 11/14/23 History
mcg/actuation nasal
spray,suspension (Flonase Allergy
Relief)
gemcitabine 1 gram intravenous 0 mg IV Q3W 11/15/23 11/15/23 Unknown History
solution
hydrocodone-homatropine 5 mg-1.5 1 tab PO TIDPRN PRN MILD PAIN/COUGH 11/15/23 11/15/23 Unknown History
mg tablet
lidocaine-prilocaine 2.5 %-2.5 % 1 applic topical DAILYPRN PRN 11/15/23 11/15/23 Unknown History
topical cream PRIOR TO CHEMO
lorazepam 0.5 mg tablet 0.5 mg PO DAILYPRN PRN ANXIETY 11/15/23 11/15/23 11/15/23 History
lorazepam 0.5 mg tablet 1 mg PO HS 11/15/23 11/15/23 11/14/23 History
paclitaxel protein-bound 100 mg 0 mg IV Q3W 11/15/23 11/15/23 Unknown History
intravenous suspension (Abraxane)
simethicone 125 mg chewable tablet 125 mg PO QID PRN GAS PAINS 11/15/23 11/15/23 Unknown History
(Gas-X Extra Strength)
Active Medications
Generic Name Dose Route Start Last Admin
Trade Name Freq PRN Reason Stop Dose Admin
Acetaminophen 650 mg 11/15/23 20:20
Acetaminophen 325 Mg Tablet PO 12/13/23 20:19
QIDPRN PRN
MILD PAIN
Albuterol 2 puff 11/15/23 20:20
Albuterol Hfa [90 Mcg/Dose] Inhaler INH 12/13/23 20:19
R Q4HPRN PRN
SOB
Protocol
Albuterol Sulfate 2.5 mg 11/15/23 20:20 11/16/23 15:26
Albuterol Nebs 2.5 Mg/3 Ml Ampul INH 12/13/23 20:19 2.5 mg
R QID SHIRA Administration
Protocol
Amlodipine Besylate 5 mg 11/16/23 08:00 11/16/23 09:39
Amlodipine 5 Mg Tablet PO 12/14/23 07:59 5 mg
DAILY SHIRA Administration
Apixaban 5 mg 11/15/23 20:20 11/16/23 09:39
Apixaban (Eliquis) 5 Mg Tablet PO 12/13/23 20:19 5 mg
BID SHIRA Administration
Benzonatate 200 mg 11/15/23 21:00 11/16/23 09:38
Benzonatate 100 Mg Capsule PO 12/13/23 20:59 200 mg
BID SHIRA Administration
Budesonide/Formoterol Fumarate 2 puff 11/15/23 20:45 11/16/23 07:59
Symbicort Inhaler 160/4.5 INH 12/13/23 20:44 2 puff
R BID SHIRA Administration
Cyanocobalamin 1,000 mcg 11/16/23 09:00 11/16/23 09:38
Cyanocobalamin 1,000 Mcg Tablet PO 12/14/23 08:59 1,000 mcg
DAILY SHIRA Administration
Dexamethasone Sodium Phosphate 4 mg 11/16/23 00:00 11/16/23 15:51
Dexamethasone 4 Mg/Ml 1 Ml Vial IV 12/14/23 00:00 4 mg
Q8H SHIRA Administration
Docusate Sodium 100 mg 11/15/23 20:20 11/16/23 09:39
Docusate Sodium 100 Mg Capsule PO 12/13/23 20:19 100 mg
BID SHIRA Administration
Guaifenesin 600 mg 11/15/23 20:20 11/16/23 09:39
Guaifenesin 600 Mg Extended Release Tablet PO 12/13/23 20:19 600 mg
BID SHIRA Administration
Guaifenesin/Codeine Phosphate 10 ml 11/15/23 22:00 11/15/23 21:18
Guaifenesin/Codeine Solution (200 Mg/20 Mg) 10 Ml Cup PO 12/13/23 21:59 10 ml
HS SHIRA Administration
Ferric Sodium Gluconate 110 mls @ 110 mls/hr 11/16/23 14:00 11/16/23 14:12
Complex 125 mg/ Sodium IV 11/20/23 14:59 110 mls
Chloride DAILY@1400 SHIRA Administration
Levofloxacin 750 mg 11/16/23 20:00
Levofloxacin 750 Mg Tablet PO
DAILY@2000 SHIRA
Lorazepam 0.5 mg 11/15/23 20:20
Lorazepam 0.5 Mg Tablet PO 12/13/23 20:19
DAILYPRN PRN
ANXIETY
Lorazepam 1 mg 11/15/23 22:00 11/15/23 21:15
Lorazepam 1 Mg Tablet PO 12/13/23 21:59 1 mg
HS SHIRA Administration
Pantoprazole Sodium 40 mg 11/16/23 08:00 11/16/23 09:39
Pantoprazole 40 Mg Delayed Release Tablet PO 12/14/23 07:59 40 mg
DAILY SHIRA Administration
Polyethylene Glycol 17 grams 11/16/23 08:00 11/16/23 09:40
Polyethylene Glycol Powder 17 Grams Packet PO 12/14/23 07:59 17 grams
DAILY SHIRA Administration
Simethicone 80 mg 11/15/23 20:23
Simethicone 80 Mg Chewable Tablet PO 12/13/23 20:22
QIDPRN PRN
GAS PAINS
Sodium Chloride 0 flush 11/15/23 21:00
Sodium Chloride 0.9% (Flush) Syringe IV 12/13/23 20:59
PER PROTOCOL SHIRA
Review of Systems
-
History Source: Patient and Family
All Other Systems: Reviewed and Negative (other than as per HPI)
Physical Exam
-
General: Comfortable
HEENT: Moist Mucous Membranes
Cardiology: Normal Sinus Rhythm
Pulmonary: Clear
GI: Soft and Distended
Musculoskeletal: No Clubbing, No Cyanosis and No Edema
Hematologic / Lymphatic: Lymphadenopathy
Psych: Anxious
Labs
Lab Results
WBC 8.1 10^3/uL (4.8-10.8) 11/16/23 01:59
RBC 4.36 10^6/uL (4.20-5.40) 11/16/23 01:59
Hgb 10.1 g/dL (12.0-16.0) L 11/16/23 01:59
Hct 31.5 % (37.0-47.0) L 11/16/23 01:59
MCV 72.2 fL (81.0-99.0) L 11/16/23 01:59
MCH 23.2 pg (27.0-31.0) L 11/16/23 01:59
MCHC 32.1 g/dL (33.0-37.0) L 11/16/23 01:59
RDW 16.7 % (11.5-14.5) H 11/16/23 01:59
Plt Count 262 10^3/uL (130-400) 11/16/23 01:59
MPV 9.6 fL (7.4-10.4) 11/16/23 01:59
Abs Immat Gran (auto) 0.1 10^3/uL (0-0.05) H 11/15/23 16:54
Absolute Neuts (auto) 5.9 10^3/uL (1.4-6.5) 11/15/23 16:54
Absolute Lymphs (auto) 2.2 10^3/uL (1.2-3.4) 11/15/23 16:54
Absolute Monos (auto) 0.8 10^3/uL (0.1-0.6) H 11/15/23 16:54
Absolute Eos (auto) 0.2 10^3/uL (0-0.7) 11/15/23 16:54
Absolute Basos (auto) 0.1 10^3/uL (0-0.2) 11/15/23 16:54
Immature Gran % 0.6 % (0-0.5) H 11/15/23 16:54
Neutrophils % 64.2 % (42.2-75.2) 11/15/23 16:54
Lymphocytes % 23.9 % (20.5-51.1) 11/15/23 16:54
Monocytes % 8.6 % (1.7-9.3) 11/15/23 16:54
Eosinophils % 2.0 % (0-6) 11/15/23 16:54
Basophils % 0.7 % (0-2) 11/15/23 16:54
Creatinine 0.9 mg/dL (0.6-1.0) 11/16/23 01:59
Vital Signs
Vital Signs
Temp Pulse Resp BP Pulse Ox
98.3 F 87 16 136/81 98
11/16/23 15:05 11/16/23 15:27 11/16/23 15:27 11/16/23 15:14 11/16/23 15:27
[2023-11-16 20:32] VITALS: BP 159/79
[2023-11-16] MEDS: LEVAQUIN 750 MG PO (22:10)
[2023-11-16] MEDS: ROBITUSSIN AC PO (22:10)
[2023-11-16] MEDS: ROBITUSSIN AC 10 ML PO (22:21)
[2023-11-16] MEDS: ATIVAN PO (23:12)
[2023-11-16] MEDS: COLACE PO (23:12)
[2023-11-16 23:23] VITALS: BP 134/57
[2023-11-17] MEDS: ATIVAN 0.5 MG PO (04:48)
[2023-11-17 05:02] VITALS: BP 160/80; BMI 54.6
[2023-11-17] MEDS: SYMBICORT 160/4.5 MCG INHALER 2 PUFF INH ×2 (07:23→19:07)
[2023-11-17] MEDS: VENTOLIN NEBULES 2.5 MG INH ×4 (07:23→19:07)
[2023-11-17 07:35] VITALS: BP 141/74
--- NOTE | 2023-11-17 07:37 | W.PN.ONC2 ---
Today's Communication / Plan
-
Continue supportive care. Appreciate pulmonary assistance.
CODE STATUS conversation initiated. Seems understand gravity of current situation but is still not willing to formally change CODE STATUS from full code yet.
Prognosis poor.
Impression
Impression
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
Poor performance status
Morbid obesity
COPD
Plan
Plan
Unfortunately, lymphangitic disease is significantly hampering her performance status and will make initiation of chemotherapy quite challenging.
Plans for chemotherapy are noted however unless we are able to functionally improve her functional status, it is unclear whether she will be a candidate to initiate palliative systemic therapy.
Reviewed CODE STATUS with her. She states she has no living will and explained the challenges of resuscitation in a patient with advanced cancer. At this time, she has not made a decision and therefore remains full code.
Unfortunately suspect she may never be adequate candidate for chemotherapy but for now we will need to try to optimize her pulmonary and performance status.
Continue supportive care. Prognosis poor.
Subjective/Objective
Chief Complaint
ACS Oncology F/U
Subjective
Patient with worsening dyspnea, cough, and wheezing. Performance status remains very limited. She was scheduled to initiate palliative systemic chemotherapy 11/16 but was not able to because of pulmonary symptoms.
Vital Signs:
Vital Signs
Temp Pulse Resp BP Pulse Ox
98.1 F 86 18 160/80 95
11/17/23 05:02 11/17/23 07:25 11/17/23 07:25 11/17/23 05:02 11/17/23 07:25
Lab Results:
Laboratory Data
WBC 8.1 10^3/uL (4.8-10.8) 11/16/23 01:59
Hgb 10.1 g/dL (12.0-16.0) L 11/16/23 01:59
Plt Count 262 10^3/uL (130-400) 11/16/23 01:59
eGFR > 60.00 11/16/23 01:59
Physical Exam
Patient in mild respiratory distress. ECOG Performance status = 3�4. Sitting up in bed.
HEENT: No Jaundice
Cardiology: S1 and S2
Pulmonary: Other (Decreased with some wheezes)
GI: Soft and Other (Morbid obesity)
[2023-11-17] MEDS: DECADRON 4 MG IV ×2 (08:57→16:18)
[2023-11-17] MEDS: MIRALAX 17 GRAMS PO (08:57)
[2023-11-17] MEDS: MUCINEX 600 MG PO ×2 (08:57→22:04)
[2023-11-17] MEDS: PROTONIX 40 MG PO (08:57)
[2023-11-17] MEDS: COLACE 100 MG PO ×2 (08:57→22:04)
[2023-11-17] MEDS: NORVASC 5 MG PO (08:57)
[2023-11-17] MEDS: ELIQUIS 5 MG PO ×2 (08:57→22:04)
[2023-11-17] MEDS: FLUSH (NSS) 1 FLUSH IV ×3 (08:58→16:19)
[2023-11-17] MEDS: TESSALON PERLES 200 MG PO ×2 (08:58→22:04)
[2023-11-17] MEDS: VITAMIN B-12 1000 MCG PO (08:58)
--- NOTE | 2023-11-17 09:20 | W.PN.PUL3 ---
Today's Communication / Plan
-
Start weaning IV steroids as she has not noticed any significant changes with this
Add spiriva to her regiment
Eduin and 6MWT
Psych eval to rule out anxiety component
Assessment
-
Patient is a 68-year-old female with recently diagnosed history of metastatic lung adenocarcinoma, COPD, PE on Eliquis, morbid obesity presenting to ER with acute on chronic shortness of breath, abdominal bloating, malaise. She was scheduled to
start chemotherapy this morning but could not make it to her appointment. Initial chest x-ray demonstrating diffuse interstitial process, similar to prior imaging. She is 89% on room air, placed on 2 L. We are asked for evaluation for SOB.
Stage IV lung adenocarcinoma primary s/p supraclavicular LN biopsy 10/26/23 and 11/09/23
Acute on chronic SOB
Suspected lymphangitic spread, abnormal CT Chest
LLL mass
Mediastinal lymphadenopathy
Mild anemia, Hb 9-10
Suspect anxiety contributing
Conditions present prior to admission:
COPD
Follows Dr Reddy, on Breo 200,�and�Albuterol�and�Mucinex�as needed
PFT 10/14/23-FEV1 1.39-59%, FVC 2.12-69%, ratio 66 (moderate obstruction)
VTE: provoked, underlying malignancy (noted also had COVID illness in Jun 2023 but probably not main factor for PE)
Submassive PE CTA 09-01-23
ADRIANA doppler 09-02-23 suboptimal due to morbid obesity
On apixaban
Asthma: on fluticasone/vilanterol and albuterol
COVID illness Jun 2023
HTN
Morbid obesity-BMI 60
Suspected JOSE
Plan
Hypoxemia noted on arrival, O2 silvia 89%
Placed on 2L NC, not known to be on home O2
Prior history of lung disease is noted including COPD, morbid obesity with restrictive lung disease, stage IV lung adeno recently diagnosed, PE
Reviewed extensive outpatient records in [facility] including path results, PFTs, prior imaging
Obtain bedside eduin/6MWT
Suspect patient has underlying acute on chronic SOB from progression of lymphangitic spread/possible sedentary lifestyle/BMI in the background setting of stage IV cancer, COPD, PE on OAC
CXR obtained indicating diffuse prominent interstitial opacities b/l most suspicious for lymphangitic spread
Volume overload less likely, proBNP neg on admission
Other imaging reviewed--CT chest in past, PET demonstrating S1 bone involvement
She is started on IV decadron which I agree with, she has not noticed steroids in past confer benefit
Monitor for hyperglycemia/insomnia/bruising/bleeding
Wean dosing today
COPD--moderate obstruction on most recent PFT
She has been maintained on Breo, we can increase to triple therapy: Advair/Spiriva
Continue albuterol HFA, nebulizers
Stage IV cancer, has not yet received therapy
Oncology consult obtained for management
Anxiety may be a component
Psych eval
ECHO results in past reviewed--hyperdynamic function 70-75%, no sign VHD
proBNP 98.7 (neg)
Procal neg, d-dimer neg and appropriate for age/BMI
Check ABG--7.45/36/74/96%, adequate
Trop neg
Will need outpatient pulmonary evaluation in our office for PFTs and 6MWT
Reviewed with patient
Risk factors assessed for underlying sleep disordered breathing also noted, recommend outpatient PSG/sleep evaluation
Weight loss measures recommended
Morbid obesity likely contributing to respiratory symptoms
Diagnostic Data
CXR 11/15/23: Opacity in the left midlung zone, consistent with known malignancy. Interstitial prominence, Similar to previous exams. Slight improvement in lung volumes. No new area of airspace disease. Persistent increased opacity in the left lung
base, obscuration of the left hemidiaphragm similar to previous chest x-ray. The heart size is borderline enlarged.
11/12/23: Widespread prominent bilateral predominantly interstitial markings with interstitial thickening with progression in comparison to prior study. Some of several differential diagnostic possibilities include pneumonitis, edema and lymphangitic
spread of tumor. No pneumothorax.
Chest CTA 10-29-23: LLL mass: interim increase in size.� Mediastinal lymphadenopathy: mild interim increase. Increasingly prominent pulmonary interstitium: suspected lymphangitic spread
CT chest 09/01/23: positive for pulmonary emboli, no evidence for right heart strain, patchy areas of reticular nodular, small nodular branching and groundglass opacifications compatible with patchy pneumonitis, superior segment left lower lobe
nodular focus suspicious for neoplasia or carcinoma, hilar lymphadenopathy, lymphadenopathy in the left lower neck, consideration could be given to biopsy of left neck lymph node, enlarged lymph nodes in the right hilar and subcarinal region
Lower extremity ultrasound 09/02/23-no evidence for DVT, but technically difficult because of large body habitus
PET CT 10-22-23: LLL PET positive mass. Thoracic and abd PET positive LAD. S1 PET positive focus
ECHO 09/02/23: Hyperdynamic left ventricular systolic function. LV ejection fraction is 70-75%.�Mild concentric left ventricular hypertrophy.�Normal right ventricular size. Normal right ventricular systolic function.�No significant valve disease.�No
prior study available for comparison.
PFT 10/14/23-FEV1 1.39-59%, FVC 2.1 269%, no significant BD response, TLC 71%, RV 50%, DLCO 48%, DLCO/VA 78%. Moderate combined obstruction and restriction with moderate reduction in diffusing capacity.
Subjective Data
-
Date of Service:
Date of Service: November 17, 2023
Chief Complaint: Pulmonary Follow Up
Subjective:
patient seen and examined, no acute events ON
remains SOB, she does not indicate if any treatments thus far has been working
anxious appearing, shaking her legs while talking
cannot ambulate at all due to SOB
Objective Data
Data Reviewed
Vital Signs / I&O / Oxygen:
Vital Signs
Temp Pulse Resp BP Pulse Ox
98.3 F 89 20 141/70 95
11/17/23 07:35 11/17/23 08:57 11/17/23 07:35 11/17/23 08:57 11/17/23 08:53
Intake and Output
11/16/23 11/17/23 11/18/23
06:59 06:59 06:59
Intake Total 240 / 240 840 / 840
Balance 240 / 240 840 / 840
SaO2 95
Nasal Cannula flow liters per 2
minute
Physical Exam
General: Comfortable and Other (NAD, anxious appearing)
HEENT: Normocephalic, Anicteric and Moist Mucous Membranes
Cardiovascular: S1-S2 and Regular Rhythm
Respiratory: Clear and Non-Labored Respirations
GI: Soft, Non Distended and Non Tender
Neurology: Awake, Alert, Oriented, AO x 3 and No Motor Deficits
Skin: Warm, Dry and Good Color
Labs/Micro/Reports
Lab Data
11/16/23 01:59
Laboratory Results
11/16/23
11:39
pH 7.45
pCO2 36 H
pO2 74 L
HCO3 25.0
O2 Delivery Level
Microbiology
11/15/23 18:58 Nasal Swab Influenza Types A & B (ECHO) - Final
Negative for Influenza A & B, NAAT
Negative results must be combined with clinical observations
and patient history.
Nucleic Acid Amplification test (NAAT)performed on the
[employer] platform.
[2023-11-17 10:04] LABS: Blood Urea Nitrogen 27 mg/dl (7-17); Calcium 9.8 mg/dl (8.4-10.2); Carbon Dioxide 23 mmol/L (22-30); Chloride 103 mmol/L (98-107); Estimated Creatinine Clearance 60 ml/min; Glucose 165 mg/dl (70-99); Potassium 4.3 mmol/L (3.5-5.1); Sodium 135 mmol/L (135-145); eGFR 45.07
[2023-11-17 11:04] VITALS: BP 163/76
[2023-11-17] MEDS: FERRLECIT 110 MG IV (14:26)
[2023-11-17 15:18] VITALS: BP 164/77
--- NOTE | 2023-11-17 15:58 | PTCARENOTE ---
Pt AAO x3, anxious at times. SALES well, OOB to chair/BSC with minimal assistance; sitting on edge of bed for most of shift- 'I feel better this way'. VSS. Telemetry: NSR. On room air at present,pulse ox 93%, pt states 'breathing is better today';
has (+) ROMO/tachypnea; occ non-productive cough. Abd obese, soft, rob PO well. Voiding in BSC without difficulty. Resting quietly at present; at bedside. Will continue to monitor.
--- NOTE | 2023-11-17 16:08 | CM ---
CM following re: d/c planning
Chart reviewed
Pt discharge anticipated within the next 24-48 hours
Pt is current with [facility] and the clinical liaison is working on ordering the patient a hospital bed; pt would also likely benefit from a trapeze to assist with bed mobility
Pulm & oncology is following the patient and medical prognosis is bleak
Pt is currently on stable on RA however has also been dependent upon O2 at 2L
Psych consult ordered secondary to patient's anxiety
Home O2 assessment to be completed prior to d/c
CM will continue to monitor patient progress and assist with d/c needs as appropriate
PLAN; d/c home with [facility]
--- NOTE | 2023-11-17 16:16 | W.PN.HOSP.TC ---
Addendum entered and electronically signed by Sharda Patel MD 11/17/23 17:20:
Correction ' unlikely lymphangitic spread of malignancy'
Should be 'likely lymphangitic spread of malignancy'
Original Note:
Today's Communication/Plan
-
Optimize symptoms and discharge the patient home as a goal
Home oxygen evaluation prior to discharge
Wean steroids
Urinalysis and urine sodium
Watch creatinine
Assessment / Plan
Assessment / Plan
CVS: S1-S2 normal
Chest: few rales
Abdomen: Soft, NT / Bowel sounds present
Extremities: No edema, normal pulses
SUPERVISOR ADVICE: Non focal exam
Feels better today
Echo 09/02/2023-hyperdynamic LV systolic function.� Ejection fraction 70 to 75%.� Mild concentric LVH.� Normal RV systolic function.� Normal RV size.
# Shortness of breath
Acute hypoxic respiratory insufficiency
Differentials, noncardiogenic pulmonary edema-unlikely lymphangitic spread of malignancy, atypical infection
Atypical non cardiogenic pulm edema
Oxygen supplementation- Off O2 now
Nebulizer treatments
Steroids Decadron 4 mg every 8 hours- wean to 2 mg
Hold further Lasix as creat up
Levaquin to be continued
Sputum cultures if possible
Pulmonary and oncology evaluation
# Left lower lobe mass, mediastinal lymphadenopathy, left supraclavicular lymph node biopsy positive for adenocarcinoma
Likely metastatic from colon
Family also tells me that CA 19-9 was elevated
Was supposed to start Gemzar and Abraxane every 3 weeks
Oncology evaluation requested
# Insomnia-mostly the cough keeping her from sleeping.� Will try Benadryl she is already getting lorazepam.� Codeine for cough
# History of PE in August on Eliquis
# Hypertension-continue amlodipine
# Anxiety-continue lorazepam 0.5 mg daily as needed and 1 mg at night
# Anemia likely secondary to malignancy
Also DERECK and low normal B12
replace
# Sleep apnea suspected but no official diagnosis never had a sleep study
# Obesity
# DVT prophylaxis-Eliquis
# CODE STATUS addressed with patient and daughters at bedside she does not have an advanced directive.� I encouraged to do one
D/W Oncology
D/W RN
D/W Case management
D/w REsp at bed side
D/w and daughter at bed side
Anticipated Discharge: Within 24 hours
Subjective/Interval History
-
Date of Service: November 17, 2023
Objective Data
-
Labs:
Laboratory Results
11/17/23
08:38
Sodium 135
Potassium 4.3
Chloride 103
Carbon Dioxide 23
BUN 27 H
Creatinine 1.3 H
Glucose 165 H
Calcium 9.8
Vital Signs:
Vital Signs
Temp Pulse Resp BP Pulse Ox
98.1 F 96 18 164/77 94
11/17/23 15:18 11/17/23 15:34 11/17/23 15:34 11/17/23 15:18 11/17/23 15:58
I&O
11/16/23 11/17/23 11/18/23
06:59 06:59 06:59
Intake Total 240 / 240 840 / 840
Balance 240 / 240 840 / 840
[2023-11-17] MEDS: DECADRON IV (16:28)
[2023-11-17 17:29] LABS: Urine Albumin Negative (Neg - Trace); Urine Bilirubin Negative (Negative); Urine Character Clear (Clear); Urine Color Yellow; Urine Glucose Negative (Negative); Urine Ketone Negative (Negative); Urine Leukocyte Negative (Negative); Urine Nitrite Negative (Negative); Urine Occult Blood Negative (Negative); Urine Urobilinogen Negative (Neg - 1+)
[2023-11-17 17:47] LABS: Urine Sodium 13 mmol/L (30-90)
[2023-11-17 19:37] VITALS: BP 128/81
[2023-11-17] MEDS: LEVAQUIN 750 MG PO (22:04)
[2023-11-17] MEDS: ATIVAN PO (22:05)
[2023-11-17] MEDS: ROBITUSSIN AC 10 ML PO (22:05)
[2023-11-17 23:54] VITALS: BP 132/76
[2023-11-18] MEDS: DECADRON 2 MG IV ×2 (00:40→08:39)
[2023-11-18 03:17] VITALS: BP 168/86
[2023-11-18 04:38] VITALS: BMI 54.7
[2023-11-18] MEDS: SPIRIVA RESPIMAT 2.5 MCG 2 PUFF INH (07:16)
[2023-11-18] MEDS: VENTOLIN NEBULES 2.5 MG INH ×4 (07:16→19:15)
[2023-11-18] MEDS: SYMBICORT 160/4.5 MCG INHALER 2 PUFF INH ×2 (07:16→19:15)
[2023-11-18 07:35] VITALS: BP 173/80
[2023-11-18 07:49] LABS: Blood Urea Nitrogen 35 mg/dl (7-17); Calcium 9.6 mg/dl (8.4-10.2); Carbon Dioxide 28 mmol/L (22-30); Chloride 103 mmol/L (98-107); Estimated Creatinine Clearance 56 ml/min; Glucose 167 mg/dl (70-99); Potassium 4.4 mmol/L (3.5-5.1); Sodium 137 mmol/L (135-145); eGFR 41.24
[2023-11-18] MEDS: COLACE 100 MG PO (08:38)
[2023-11-18] MEDS: MUCINEX 600 MG PO ×2 (08:40→21:22)
[2023-11-18] MEDS: FLUSH (NSS) 1 FLUSH IV ×2 (08:40→13:56)
[2023-11-18] MEDS: MIRALAX 17 GRAMS PO (08:40)
[2023-11-18] MEDS: ELIQUIS 5 MG PO ×2 (08:40→21:23)
[2023-11-18] MEDS: TESSALON PERLES 200 MG PO ×2 (08:40→21:22)
[2023-11-18] MEDS: NSS 500 IV (08:41)
[2023-11-18] MEDS: PROTONIX 40 MG PO (08:41)
[2023-11-18] MEDS: NORVASC 5 MG PO (08:41)
[2023-11-18] MEDS: VITAMIN B-12 1000 MCG PO (08:41)
--- NOTE | 2023-11-18 09:08 | W.PN.ONC2 ---
Today's Communication / Plan
-
Stable from oncologic perspective to start chemotherapy next week assuming her functional status remains adequate.
Multiple conversations with her Isael and other family members by speaker phone.
Patient remains full code.
Office still coordinating timing of Tx next week.
Called Isael x 2 times (yesterday afternoon and this am) with update as discussed.
Impression
Impression
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
Morbid obesity
COPD
Plan
Plan
Performance status seems somewhat better today. After documenting yesterday I spoke to patient's Isael late in the afternoon and then again he requested a call back again this morning. With improvement of her functional status and
respiratory status, plans to initiate chemotherapy are being scheduled for next week on Thursday 11/23 (time still TBD). Isael was upset that I yesterday discussed living will and goals of care conversation with patient as he is stated to me
multiple times in our conversations this morning that we wanted to 'be positive' and that those conversations are not positive. He request that I discuss with him, not her. I stated that it is most appropriate that I have these conversations with
the patient but at this point I will hold off as her status seems to be improved today.
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
Subjective/Objective
Chief Complaint
ACS HEME ONC
Subjective
Doing much better today. Breathing seems much improved. Less wheezing and cough.
Vital Signs:
Vital Signs
Temp Pulse Resp BP Pulse Ox
97.8 F 93 18 173/80 93
11/18/23 03:17 11/18/23 08:41 11/18/23 07:20 11/18/23 08:41 11/18/23 08:38
Lab Results:
Laboratory Data
WBC 8.1 10^3/uL (4.8-10.8) 11/16/23 01:59
Hgb 10.1 g/dL (12.0-16.0) L 11/16/23 01:59
Plt Count 262 10^3/uL (130-400) 11/16/23 01:59
eGFR 41.24 11/18/23 07:16
Physical Exam
Cardiology: S1
Pulmonary: Clear
GI: Soft
Extremities: No C/C/E
--- NOTE | 2023-11-18 09:17 | W.PN.PUL3 ---
Today's Communication / Plan
-
bedside spirometry today
wean IV steroids to PO taper
stable on RA, home o2 eval
outpatient pulmonary FU recommended
discharge planning per team
Assessment
-
Patient is a 68-year-old female with recently diagnosed history of metastatic lung adenocarcinoma, COPD, PE on Eliquis, morbid obesity presenting to ER with acute on chronic shortness of breath, abdominal bloating, malaise. She was scheduled to
start chemotherapy this morning but could not make it to her appointment. Initial chest x-ray demonstrating diffuse interstitial process, similar to prior imaging. She is 89% on room air, placed on 2 L. We are asked for evaluation for SOB.
Stage IV lung adenocarcinoma primary s/p supraclavicular LN biopsy 10/26/23 and 11/09/23
Acute on chronic SOB
Suspected lymphangitic spread, abnormal CT Chest
LLL mass
Mediastinal lymphadenopathy
Mild anemia, Hb 9-10
Suspect anxiety contributing
Conditions present prior to admission:
COPD
Follows Dr Reddy, on Breo 200,�and�Albuterol�and�Mucinex�as needed
PFT 10/14/23-FEV1 1.39-59%, FVC 2.12-69%, ratio 66 (moderate obstruction)
VTE: provoked, underlying malignancy (noted also had COVID illness in Jun 2023 but probably not main factor for PE)
Submassive PE CTA 09-01-23
ADRIANA doppler 09-02-23 suboptimal due to morbid obesity
On apixaban
Asthma: on fluticasone/vilanterol and albuterol
COVID illness Jun 2023
HTN
Morbid obesity-BMI 60
Suspected JOSE
Plan
Hypoxemia noted on arrival, O2 silvia 89%
Placed on 2L NC, not known to be on home O2
Prior history of lung disease is noted including COPD, morbid obesity with restrictive lung disease, stage IV lung adeno recently diagnosed, PE
Reviewed extensive outpatient records in [facility] including path results, PFTs, prior imaging
Obtain bedside veronica/6MWT--refused walk test
Suspect patient has underlying acute on chronic SOB from progression of lymphangitic spread/possible sedentary lifestyle/BMI in the background setting of stage IV cancer, COPD, PE on OAC
CXR obtained indicating diffuse prominent interstitial opacities b/l most suspicious for lymphangitic spread
Volume overload less likely, proBNP neg on admission
Other imaging reviewed--CT chest in past, PET demonstrating S1 bone involvement
She is started on IV decadron which I agree with, she has not noticed steroids in past confer benefit
Monitor for hyperglycemia/insomnia/bruising/bleeding
Wean dosing today
COPD--moderate obstruction on most recent PFT
She has been maintained on Breo, we can increase to triple therapy: Advair/Spiriva
Continue albuterol HFA, nebulizers
Stage IV cancer, has not yet received therapy
Oncology consult obtained for management
Anxiety may be a component
Psych eval
ECHO results in past reviewed--hyperdynamic function 70-75%, no sign VHD
proBNP 98.7 (neg)
Procal neg, d-dimer neg and appropriate for age/BMI
Check ABG--7.45/36/74/96%, adequate
Trop neg
Will need outpatient pulmonary evaluation in our office for PFTs and 6MWT
Reviewed with patient
Risk factors assessed for underlying sleep disordered breathing also noted, recommend outpatient PSG/sleep evaluation
Weight loss measures recommended
Morbid obesity likely contributing to respiratory symptoms
Diagnostic Data
CXR 11/15/23: Opacity in the left midlung zone, consistent with known malignancy. Interstitial prominence, Similar to previous exams. Slight improvement in lung volumes. No new area of airspace disease. Persistent increased opacity in the left lung
base, obscuration of the left hemidiaphragm similar to previous chest x-ray. The heart size is borderline enlarged.
11/12/23: Widespread prominent bilateral predominantly interstitial markings with interstitial thickening with progression in comparison to prior study. Some of several differential diagnostic possibilities include pneumonitis, edema and lymphangitic
spread of tumor. No pneumothorax.
Chest CTA 10-29-23: LLL mass: interim increase in size.� Mediastinal lymphadenopathy: mild interim increase. Increasingly prominent pulmonary interstitium: suspected lymphangitic spread
CT chest 09/01/23: positive for pulmonary emboli, no evidence for right heart strain, patchy areas of reticular nodular, small nodular branching and groundglass opacifications compatible with patchy pneumonitis, superior segment left lower lobe
nodular focus suspicious for neoplasia or carcinoma, hilar lymphadenopathy, lymphadenopathy in the left lower neck, consideration could be given to biopsy of left neck lymph node, enlarged lymph nodes in the right hilar and subcarinal region
Lower extremity ultrasound 09/02/23-no evidence for DVT, but technically difficult because of large body habitus
PET CT 10-22-23: LLL PET positive mass. Thoracic and abd PET positive LAD. S1 PET positive focus
ECHO 09/02/23: Hyperdynamic left ventricular systolic function. LV ejection fraction is 70-75%.�Mild concentric left ventricular hypertrophy.�Normal right ventricular size. Normal right ventricular systolic function.�No significant valve disease.�No
prior study available for comparison.
PFT 10/14/23-FEV1 1.39-59%, FVC 2.1 269%, no significant BD response, TLC 71%, RV 50%, DLCO 48%, DLCO/VA 78%. Moderate combined obstruction and restriction with moderate reduction in diffusing capacity.
Subjective Data
-
Date of Service:
Date of Service: November 18, 2023
Chief Complaint: Pulmonary Follow Up
Subjective:
patient seen and examined, no acute events on
feels her sob is better today
off O2 and stable
Objective Data
Data Reviewed
Vital Signs / I&O / Oxygen:
Vital Signs
Temp Pulse Resp BP Pulse Ox
97.8 F 93 18 173/80 93
11/18/23 03:17 11/18/23 08:41 11/18/23 07:20 11/18/23 08:41 11/18/23 08:38
Intake and Output
02/11/18/23 11/19/23
06:59 06:59 06:59
Intake Total 840 / 840 1130 / 1130
Balance 840 / 840 1130 / 1130
SaO2 93
Nasal Cannula flow liters per 2
minute
Physical Exam
General: Comfortable and Other (NAD, anxious appearing)
HEENT: Normocephalic, Anicteric and Moist Mucous Membranes
Cardiovascular: S1-S2 and Regular Rhythm
Respiratory: Clear and Non-Labored Respirations
GI: Soft, Non Distended and Non Tender
Neurology: Awake, Alert, Oriented, AO x 3 and No Motor Deficits
Skin: Warm, Dry and Good Color
Labs/Micro/Reports
Lab Data
11/16/23 01:59
11/18/23 07:16
Microbiology
11/15/23 18:58 Nasal Swab Influenza Types A & B (ECHO) - Final
Negative for Influenza A & B, NAAT
Negative results must be combined with clinical observations
and patient history.
Nucleic Acid Amplification test (NAAT)performed on the
[employer] platform.
--- NOTE | 2023-11-18 11:27 | PN.CDI ---
Addendum entered and electronically signed by Sharda Patel MD 11/18/23 12:13:
my note says non cardiogenic - see notes!
Original Note:
CDI
- -
CDI:
Physician Documentation Request
Admit Date: 11/15/23 19:44
Dear Doctor Amanda,
Please review the following and provide your response in the progress notes.
Clinical Indicators:
PN, 11/17
# Shortness of breath
#Differentials, noncardiogenic pulmonary edema
#...-unlikely lymphangitic spread of malignancy, atypical infection
#Atypical non cardiogenic pulm edema
#Hold further Lasix as creat up
Please clarify which of the following accurately represents the acuity of the noncardiogenic pulmonary edema:
Acute noncardiogenic pulmonary edema
Chronic noncardiogenic pulmonary edema
Other
Unable to determine
Use of terms such as suspected, likely, concern for, or probable (associated with a specific diagnosis that is being evaluated, monitored, or treated as if it exists) are acceptable and can be coded in the inpatient setting, when documented at the
time of discharge.
Thank you,
Gunjan Seth RN BSN CCDS
CDI Specialist
please contact via tiger text
Please use your independent medical judgment in providing your response.
[2023-11-18 11:31] VITALS: BP 124/87
--- NOTE | 2023-11-18 11:31 | PN.CDI ---
CDI
- -
CDI:
Physician Documentation Request
Admit Date: 11/15/23 19:44
Dear Doctor Amanda,
Please review the following and provide your response in the progress notes.
Clinical Indicators:
PN, 11/17
#Watch creatinine
#Hold further Lasix as creat up
Laboratory Tests
11/15/23 11/16/23 11/17/23
16:54 01:59 08:38
Creatinine 0.9 0.9 1.3 H
11/18/23
07:16
Creatinine 1.4 H
Bases on the above information and the clinical indicators in the record, please clarify in the Progress Notes which of the following most accurately represents the patient's renal status:
Acute kidney injury with no underlying CKD
Other
Unable to determine
Criteria for JOSEF*
1 Increase in serum creatinine by > or = to 0.3 mg/dL (> or = to 26.5 micromol/L) within 48 hours, OR
2 Increase in serum creatinine to > or = to 1.5 times baseline, which is known or presumed to have occurred within 7 days, OR
3 Urine volume < 0.5 nL/kg/hour for six hours
Use of terms such as suspected, likely, concern for, or probable (associated with a specific diagnosis that is being evaluated, monitored, or treated as if it exists) are acceptable and can be coded in the inpatient setting, when documented at the
time of discharge.
Thank you,
Gunjan Seth BUSINESS LIAISON OFFICER CCDS
CDI Specialist
please contact via tiger text
Please use your independent medical judgment in providing your response.
[2023-11-18] MEDS: FERRLECIT 110 MG IV (13:56)
--- NOTE | 2023-11-18 15:07 | W.PN.HOSP.TC ---
Today's Communication/Plan
-
If creat improves will discharge tomorrow
Home O2 eval in am
Assessment / Plan
Assessment / Plan
CVS: S1-S2 normal
Chest: rales better
Abdomen: Soft, NT / Bowel sounds present
Extremities: No edema, normal pulses
WELLNESS MANAGER: Non focal exam
Feels better today
Looks better to me
Echo 09/02/2023-hyperdynamic LV systolic function.� Ejection fraction 70 to 75%.� Mild concentric LVH.� Normal RV systolic function.� Normal RV size.
#JOSEF
? Due to lasix
500 ml IVF
Bladder scan
# Shortness of breath
Acute hypoxic respiratory insufficiency
Differentials, noncardiogenic pulmonary edema-unlikely lymphangitic spread of malignancy, atypical infection
Atypical non cardiogenic pulm edema
Oxygen supplementation- Off O2 now
Nebulizer treatments
Steroids changed to PO
Hold further Lasix as creat up
Levaquin to be continued
Pulmonary and oncology evaluation appreciated.
# Left lower lobe mass, mediastinal lymphadenopathy, left supraclavicular lymph node biopsy positive for adenocarcinoma
stage 4 adenocarcinoma unknown primary with pulmonary,lymphangitic spread, solitary bone ,LN mets
Family also tells me that CA 19-9 was elevated
Was supposed to start Gemzar and Abraxane every 3 weeks
Oncology giving an appt for wednesday
# Insomnia-mostly the cough keeping her from sleeping.� Will try Benadryl she is already getting lorazepam.� Codeine for cough
# History of PE in August on Eliquis
# Hypertension-continue amlodipine
# Anxiety-continue lorazepam 0.5 mg daily as needed and 1 mg at night
# Anemia likely secondary to malignancy
Also DERECK and low normal B12
replace
# Sleep apnea suspected but no official diagnosis never had a sleep study
# Obesity
# DVT prophylaxis-Eliquis
# CODE STATUS addressed with patient and daughters at bedside she does not have an advanced directive.� I encouraged to do one
D/W RN
D/W Case management
D/w at bed side
Anticipated Discharge: Within 24 hours
Subjective/Interval History
-
Date of Service: November 18, 2023
Objective Data
-
Labs:
Laboratory Results
11/18/23
07:16
Sodium 137
Potassium 4.4
Chloride 103
Carbon Dioxide 28
BUN 35 H
Creatinine 1.4 H
Glucose 167 H
Calcium 9.6
Vital Signs:
Vital Signs
Temp Pulse Resp BP Pulse Ox
98.4 F 83 20 124/87 95
11/18/23 11:31 11/18/23 11:31 11/18/23 11:31 11/18/23 11:31 11/18/23 11:31
I&O
11/17/23 11/18/23 11/19/23
06:59 06:59 06:59
Intake Total 840 / 840 1130 / 1130
Balance 840 / 840 1130 / 1130
--- NOTE | 2023-11-18 15:15 | CM ---
Patient seen with spouse, inquiring about when hospital bed may be delivered, CM spoke with [facility], liaison will be in tomorrow, will discuss with [facility] covering liaison then. CM left message for [employer] in regards to hospital bed. CM will continue to
follow for discharge planning needs.
Plan; home with [facility], hospital bed to delivered
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
[2023-11-18 15:25] VITALS: BP 161/96
--- NOTE | 2023-11-18 16:12 | PTCARENOTE ---
Pt AAO x3, SALES; OOB to BSC/sits on edge of bed. Pt slightly anxious at times. VSS. Telemetry:NSR. On room air- pulse ox 95%, pt with (+) slight ROMO; denies SOB; has occ dry cough. Abd obese, soft, rob PO. Pt voiding ion BSC; aware of need for
PVR bladder scan. Resting quietly at present. Will continue to monitor.
[2023-11-18 19:55] VITALS: BP 159/91
[2023-11-18] MEDS: COLACE PO (21:20)
[2023-11-18] MEDS: ATIVAN PO (21:20)
[2023-11-18] MEDS: LEVAQUIN 750 MG PO (21:23)
[2023-11-18] MEDS: ROBITUSSIN AC 10 ML PO (23:02)
[2023-11-18 23:35] VITALS: BP 145/66
[2023-11-19] VITALS (7 sets, daily range): BP systolic 136–177; BP diastolic 59–87; O2SAT 90–93
[2023-11-19] MEDS: TYLENOL 650 MG PO (00:42)
[2023-11-19] MEDS: SPIRIVA RESPIMAT 2.5 MCG 2 PUFF INH (07:48)
[2023-11-19] MEDS: VENTOLIN NEBULES 2.5 MG INH ×4 (07:48→20:22)
[2023-11-19] MEDS: SYMBICORT 160/4.5 MCG INHALER 2 PUFF INH ×2 (07:48→20:23)
--- NOTE | 2023-11-19 08:53 | W.PN.UPDATE ---
Update Note
Progress Note Update
Patient is in need of a semi-electric hospital bed with rails due to the need to elevate head of bed above 30 degrees to help breath better.
and to facilitate frequent repositioning to prevent bed ulcers and pressure points.
She will also need Trapeze for positioning due to her BMI and deconditioning.
[2023-11-19] MEDS: COLACE PO (08:55)
[2023-11-19] MEDS: MIRALAX PO (08:55)
[2023-11-19] MEDS: NORVASC 5 MG PO (08:56)
[2023-11-19] MEDS: VITAMIN B-12 1000 MCG PO (08:56)
[2023-11-19] MEDS: DELTASONE 40 MG PO (08:56)
[2023-11-19] MEDS: PROTONIX 40 MG PO (08:56)
[2023-11-19] MEDS: TESSALON PERLES 200 MG PO ×2 (08:57→20:55)
[2023-11-19] MEDS: ELIQUIS 5 MG PO ×2 (08:57→20:55)
[2023-11-19] MEDS: MUCINEX 600 MG PO ×2 (08:57→20:55)
[2023-11-19 09:06] LABS: Blood Urea Nitrogen 38 mg/dl (7-17); Calcium 9.5 mg/dl (8.4-10.2); Carbon Dioxide 28 mmol/L (22-30); Chloride 100 mmol/L (98-107); Estimated Creatinine Clearance 56 ml/min; Glucose 106 mg/dl (70-99); Sodium 137 mmol/L (135-145); eGFR 41.24
--- NOTE | 2023-11-19 09:42 | VNURNOTE ---
Chart reviewed and spoke with Technical Delivery Manager Vanessa. Paperwork faxed to Jacklyn at [facility] for hospital bed w/trapeze. Referral already in [facility].
--- NOTE | 2023-11-19 10:29 | W.PN.PUL3 ---
Today's Communication / Plan
-
Reviewed results of her PFT with noted decline in lung function
She is already maintained on max inhaler therapy
Prednisone course with rapid taper
Outpatient pulmonary FU recommended for repeat PFT
Discharge planning per team
We will sign off at this time, please call with questions
Assessment
-
Patient is a 68-year-old female with recently diagnosed history of metastatic lung adenocarcinoma, COPD, PE on Eliquis, morbid obesity presenting to ER with acute on chronic shortness of breath, abdominal bloating, malaise. She was scheduled to
start chemotherapy this morning but could not make it to her appointment. Initial chest x-ray demonstrating diffuse interstitial process, similar to prior imaging. She is 89% on room air, placed on 2 L. We are asked for evaluation for SOB.
Stage IV lung adenocarcinoma primary s/p supraclavicular LN biopsy 10/26/23 and 11/09/23
Acute on chronic SOB
Suspected lymphangitic spread, abnormal CT Chest
LLL mass
Mediastinal lymphadenopathy
Mild anemia, Hb 9-10
Suspect anxiety contributing
Conditions present prior to admission:
COPD
Follows Dr Reddy, on Breo 200,�and�Albuterol�and�Mucinex�as needed
PFT 10/14/23-FEV1 1.39-59%, FVC 2.12-69%, ratio 66 (moderate obstruction)
VTE: provoked, underlying malignancy (noted also had COVID illness in Jun 2023 but probably not main factor for PE)
Submassive PE CTA 09-01-23
ADRIANA doppler 09-02-23 suboptimal due to morbid obesity
On apixaban
Asthma: on fluticasone/vilanterol and albuterol
COVID illness Jun 2023
HTN
Morbid obesity-BMI 60
Suspected JOSE
Plan
Hypoxemia noted on arrival, O2 silvia 89%, stable on RA
Prior history of lung disease is noted including COPD, morbid obesity with restrictive lung disease, stage IV lung adeno recently diagnosed, PE
Reviewed extensive outpatient records in [facility] including path results, PFTs, prior imaging
Obtain bedside eduin/6MWT--refused walk test
Suspect patient has underlying acute on chronic SOB from progression of lymphangitic spread/possible sedentary lifestyle/BMI in the background setting of stage IV cancer, COPD, PE on OAC
CXR obtained indicating diffuse prominent interstitial opacities b/l most suspicious for lymphangitic spread
Volume overload less likely, proBNP neg on admission
Other imaging reviewed--CT chest in past, PET demonstrating S1 bone involvement
She is started on IV decadron which I agree with, she has not noticed steroids in past confer benefit
Monitor for hyperglycemia/insomnia/bruising/bleeding
Wean dosing today with rapid taper
COPD--moderate obstruction on most recent PFT
She has been maintained on Breo, we can increase to triple therapy: Advair/Spiriva
Continue albuterol HFA, nebulizers
Repeat test showing decline in lung function, she is already on max inhaler therapy
Stage IV cancer, has not yet received therapy
Oncology following
Anxiety may be a component
Psych eval--ativan PRN
ECHO results in past reviewed--hyperdynamic function 70-75%, no sign VHD
proBNP 98.7 (neg)
Procal neg, d-dimer neg and appropriate for age/BMI
Check ABG--7.45/36/74/96%, adequate
Trop neg
Will need outpatient pulmonary evaluation in our office for PFTs and 6MWT
Reviewed with patient
Risk factors assessed for underlying sleep disordered breathing also noted, recommend outpatient PSG/sleep evaluation
Weight loss measures recommended
Morbid obesity likely contributing to respiratory symptoms
Diagnostic Data
CXR 11/15/23: Opacity in the left midlung zone, consistent with known malignancy. Interstitial prominence, Similar to previous exams. Slight improvement in lung volumes. No new area of airspace disease. Persistent increased opacity in the left lung
base, obscuration of the left hemidiaphragm similar to previous chest x-ray. The heart size is borderline enlarged.
11/12/23: Widespread prominent bilateral predominantly interstitial markings with interstitial thickening with progression in comparison to prior study. Some of several differential diagnostic possibilities include pneumonitis, edema and lymphangitic
spread of tumor. No pneumothorax.
Chest CTA 10-29-23: LLL mass: interim increase in size.� Mediastinal lymphadenopathy: mild interim increase. Increasingly prominent pulmonary interstitium: suspected lymphangitic spread
CT chest 09/01/23: positive for pulmonary emboli, no evidence for right heart strain, patchy areas of reticular nodular, small nodular branching and groundglass opacifications compatible with patchy pneumonitis, superior segment left lower lobe
nodular focus suspicious for neoplasia or carcinoma, hilar lymphadenopathy, lymphadenopathy in the left lower neck, consideration could be given to biopsy of left neck lymph node, enlarged lymph nodes in the right hilar and subcarinal region
Lower extremity ultrasound 09/02/23-no evidence for DVT, but technically difficult because of large body habitus
PET CT 10-22-23: LLL PET positive mass. Thoracic and abd PET positive LAD. S1 PET positive focus
ECHO 09/02/23: Hyperdynamic left ventricular systolic function. LV ejection fraction is 70-75%.�Mild concentric left ventricular hypertrophy.�Normal right ventricular size. Normal right ventricular systolic function.�No significant valve disease.�No
prior study available for comparison.
Eduin 11/18/23- FEV1 1.05L 44%, FVC 1.74L 56%, ratio 60 post FEV1 1.01L 43% (severe obstruction)
PFT 10/14/23-FEV1 1.39-59%, FVC 2.1 269%, no significant BD response, TLC 71%, RV 50%, DLCO 48%, DLCO/VA 78%. Moderate combined obstruction and restriction with moderate reduction in diffusing capacity.
Subjective Data
-
Date of Service:
Date of Service: November 19, 2023
Chief Complaint: Pulmonary Follow Up
Subjective:
no acute events on
remains stable on ra
no new complaints today
Objective Data
Data Reviewed
Vital Signs / I&O / Oxygen:
Vital Signs
Temp Pulse Resp BP Pulse Ox
98.8 F 86 18 160/80 92
11/19/23 07:45 11/19/23 07:54 11/19/23 07:54 11/19/23 07:45 11/19/23 07:54
Intake and Output
11/18/23 11/19/23 11/20/23
06:59 06:59 06:59
Intake Total 1130 / 1130 2029
Balance 1130 / 1130 2029
SaO2 92
Nasal Cannula flow liters per 2
minute
Physical Exam
General: Comfortable and Other (NAD, anxious appearing)
HEENT: Normocephalic, Anicteric and Moist Mucous Membranes
Cardiovascular: S1-S2 and Regular Rhythm
Respiratory: Clear and Non-Labored Respirations
GI: Soft, Non Distended and Non Tender
Neurology: Awake, Alert, Oriented, AO x 3 and No Motor Deficits
Skin: Warm, Dry and Good Color
Labs/Micro/Reports
Lab Data
11/16/23 01:59
11/19/23 07:00
--- NOTE | 2023-11-19 11:06 | W.PN.ONC ---
Addendum entered and electronically signed by Ewa Alonso MD 11/19/23 16:25:
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
Original Note:
Today's Communication / Plan
-
11/09/23 Pathology of supraclavicular lymph node biopsy: adenocarcinoma with mucinous features
Continue IV iron x5 bags
Vitamin B12 1000mcg daily
Anxiety management
Stable from Oncologic perspective with plans to begin chemotherapy next week assuming functional status remains adequate.
Patient will follow up at Thursday 11/23 @ 0945 at the [facility] office for her first treatment of Abraxane/Gemcitabine. She will then follow up with Dr. Mccain the following week. Nursing updated via TT.
Impression
Impression
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
Morbid obesity
COPD
Anxiety
Subjective/Objective
Subjective/Objective
Patient is sitting on the side of the bed. at bedside. Patient and spouse are extremely anxious regarding chemotherapy and acute illness.
Vital Signs:
Vital Signs
Temp Pulse Resp BP Pulse Ox
98.8 F 86 18 160/80 93
11/19/23 07:45 11/19/23 07:54 11/19/23 07:54 11/19/23 07:45 11/19/23 10:52
physical exam:
aaox3, anxious
HRR, lungs clear, room air
obese, +bowel sounds
Lab Results:
Laboratory Data
WBC 8.1 10^3/uL (4.8-10.8) 11/16/23 01:59
Hgb 10.1 g/dL (12.0-16.0) L 11/16/23 01:59
Plt Count 262 10^3/uL (130-400) 11/16/23 01:59
eGFR 41.24 11/19/23 07:00
11/02/23: Tumor markers
CA19-9: 922
CA125: 47.8
CEA 12.9
[2023-11-19] MEDS: FERRLECIT 110 MG IV (14:01)
--- NOTE | 2023-11-19 14:17 | VNURNOTE ---
Follow up note: Spoke with Isael at [facility]. Confirmed that they received all paperwork for hospital bed and trapeze. Per Isael, chocolate coater at [facility] will call patient's contact to set up home delivery. SKYE Monroy updated.
--- NOTE | 2023-11-19 16:08 | W.PN.HOSP.TC ---
Today's Communication/Plan
-
As long as creat stable , will discharge tomorrow
Home O2 eval noted. She doesn't need O2
Assessment / Plan
Assessment / Plan
CVS: S1-S2 normal
Chest: rales better
Abdomen: Soft, NT / Bowel sounds present
Extremities: No edema, normal pulses
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
Feels better today
Echo 09/02/2023-hyperdynamic LV systolic function.� Ejection fraction 70 to 75%.� Mild concentric LVH.� Normal RV systolic function.� Normal RV size.
#JOSEF
Sodium low on U/A
? Due to Lasix
500 ml IVF again today
Bladder scan no retention
# Shortness of breath
Acute hypoxic respiratory insufficiency
Differentials, noncardiogenic pulmonary edema-unlikely lymphangitic spread of malignancy, atypical infection
Atypical non cardiogenic pulm edema
Oxygen supplementation- Off O2 now
Nebulizer treatments
Steroids changed to PO
Hold further Lasix as creat up
Levaquin to be continued
Pulmonary and oncology evaluation appreciated.
# Left lower lobe mass, mediastinal lymphadenopathy, left supraclavicular lymph node biopsy positive for adenocarcinoma
stage 4 adenocarcinoma unknown primary with pulmonary,lymphangitic spread, solitary bone ,LN mets
Family also tells me that CA 19-9 was elevated
Was supposed to start Gemzar and Abraxane every 3 weeks
She has an appointment on Wednesday with oncology for chemo
# Insomnia-mostly the cough keeping her from sleeping.� Will try Benadryl she is already getting lorazepam.� Codeine for cough
# History of PE in August on Eliquis
# Hypertension-continue amlodipine
# Anxiety-continue lorazepam 0.5 mg daily as needed and 1 mg at night
# Anemia likely secondary to malignancy
Also DERECK and low normal B12
replace
# Sleep apnea suspected but no official diagnosis never had a sleep study
# Obesity
# DVT prophylaxis-Eliquis
# CODE STATUS addressed with patient and daughters at bedside she does not have an advanced directive.� I encouraged to do one
D/W RN
D/W Case management
D/w at bed side
Anticipated Discharge: Within 24 hours
Subjective/Interval History
-
Date of Service: November 19, 2023
Objective Data
-
Labs:
Laboratory Results
11/19/23
07:00
Sodium 137
Potassium 4.0
Chloride 100
Carbon Dioxide 28
BUN 38 H
Creatinine 1.4 H
Glucose 106 H
Calcium 9.5
Vital Signs:
Vital Signs
Temp Pulse Resp BP Pulse Ox
98.3 F 81 18 168/87 93
11/19/23 15:53 11/19/23 16:05 11/19/23 16:05 11/19/23 15:53 11/19/23 16:05
I&O
11/18/23 11/19/23 11/20/23
06:59 06:59 06:59
Intake Total 1130 / 1130 2029
Balance 1130 / 1130 2029
[2023-11-19] MEDS: NSS 500 IV (17:39)
[2023-11-19] MEDS: FLUSH (NSS) 1 FLUSH IV (17:40)
[2023-11-19] MEDS: ROBITUSSIN AC 10 ML PO (20:55)
[2023-11-19] MEDS: ATIVAN 1 MG PO (20:55)
[2023-11-19] MEDS: LEVAQUIN 750 MG PO (20:55)
[2023-11-19] MEDS: COLACE 100 MG PO (21:21)
--- NOTE | 2023-11-19 22:09 | PTCARENOTE ---
During assesment, patient states to RN that she felt lightheaded post nebulizer treatment during a coughing spell. Patient stating that this has happened to her before and it is caused by the need to cough up mucus. States she 'might have passed out
for 10 seconds, but not sure' after coughing spell. Pulse ox 91% on room air. Patient without any other complaints, and now stating she feels much better after coughing up mucus.
[2023-11-20 03:14] VITALS: BP 153/79
[2023-11-20 07:00] VITALS: BP 169/91
[2023-11-20] MEDS: VENTOLIN NEBULES 2.5 MG INH ×3 (07:40→15:30)
[2023-11-20] MEDS: SPIRIVA RESPIMAT 2.5 MCG 2 PUFF INH (07:40)
[2023-11-20] MEDS: SYMBICORT 160/4.5 MCG INHALER 2 PUFF INH (07:40)
[2023-11-20 08:49] LABS: Blood Urea Nitrogen 34 mg/dl (7-17); Calcium 9.4 mg/dl (8.4-10.2); Carbon Dioxide 28 mmol/L (22-30); Chloride 102 mmol/L (98-107); Estimated Creatinine Clearance 60 ml/min; Glucose 108 mg/dl (70-99); Sodium 140 mmol/L (135-145); eGFR 45.07
[2023-11-20] MEDS: PROTONIX 40 MG PO (09:39)
[2023-11-20] MEDS: MUCINEX 600 MG PO (09:39)
[2023-11-20] MEDS: ELIQUIS 5 MG PO (09:39)
[2023-11-20] MEDS: TESSALON PERLES 200 MG PO (09:39)
[2023-11-20] MEDS: DELTASONE 40 MG PO (09:39)
[2023-11-20] MEDS: VITAMIN B-12 1000 MCG PO (09:40)
[2023-11-20] MEDS: NORVASC 5 MG PO ×2 (09:40→11:59)
[2023-11-20] MEDS: MIRALAX PO (09:54)
[2023-11-20] MEDS: COLACE PO (09:54)
[2023-11-20 11:00] VITALS: BP 178/79
--- NOTE | 2023-11-20 11:41 | W.PN.HOSP.TC ---
Today's Communication/Plan
-
Discharge
Script for labs given
Assessment / Plan
Assessment / Plan
CVS: S1-S2 normal
Chest: rales better
Abdomen: Soft, NT / Bowel sounds present
Extremities: No edema, normal pulses
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
Feels better everyday
Echo 09/02/2023-hyperdynamic LV systolic function.� Ejection fraction 70 to 75%.� Mild concentric LVH.� Normal RV systolic function.� Normal RV size.
#JOSEF
Sodium low on U/A
? Due to Lasix
Trending down
Bladder scan no retention
# Shortness of breath
Acute hypoxic respiratory insufficiency
Differentials, sub acute noncardiogenic pulmonary edema,lymphangitic spread of malignancy, atypical infection
Oxygen supplementation- Off O2 now
Nebulizer treatments
Steroids changed to PO
Levaquin to be continued for 2 more days at discharge
Pulmonary and oncology evaluation appreciated.
# Left lower lobe mass, mediastinal lymphadenopathy, left supraclavicular lymph node biopsy positive for adenocarcinoma
stage 4 adenocarcinoma unknown primary with pulmonary,lymphangitic spread, solitary bone ,LN mets
Family also tells me that CA 19-9 was elevated
Was supposed to start Gemzar and Abraxane every 3 weeks
She has an appointment on Wednesday with oncology for chemo
# History of PE in August on Eliquis
# Hypertension-continue amlodipine, change to 10mg
# Anxiety-continue lorazepam 0.5 mg daily as needed and 1 mg at night
# Anemia likely secondary to malignancy
Also DERECK and low normal B12
replace
# Sleep apnea suspected but no official diagnosis never had a sleep study
# Obesity
# DVT prophylaxis-Eliquis
# CODE STATUS addressed with patient and daughters at bedside she does not have an advanced directive.� I encouraged to do one
D/W RN
D/W Case management
D/w at bed side
Hospital bed was delivered last night.
Discharge coordination time 34 min
Anticipated Discharge: Today
Subjective/Interval History
-
Date of Service: November 20, 2023
Objective Data
-
Labs:
Laboratory Results
11/20/23
07:59
Sodium 140
Potassium 4.0
Chloride 102
Carbon Dioxide 28
BUN 34 H
Creatinine 1.3 H
Glucose 108 H
Calcium 9.4
Vital Signs:
Vital Signs
Temp Pulse Resp BP Pulse Ox
99 F 71 18 169/91 93
11/20/23 07:00 11/20/23 07:43 11/20/23 07:43 11/20/23 07:00 11/20/23 07:43
I&O
11/19/23 11/20/23 11/21/23
06:59 06:59 06:59
Intake Total 2029 1480 / 1480
Balance 2029 1480 / 1480
--- NOTE | 2023-11-20 11:49 | W.DS.TRANS ---
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
-
Discharge Instructions:
Discharge Diagnosis/Procedures Acute hypoxic respiratory insufficiency,
adenocarcinoma, history of PE, hypertension,
anxiety, anemia
Diet As tolerated
Activity As tolerated,With assistance
Driving Restrictions No driving
Blood Work BMP 2 days
Others Tests CXR 4 weeks
Other Services VN
Instructions:
Stand-Alone Forms:
Changes to Home Medications: Yes
Discharge Medications:
DC Medications w/original date entered in [facility]
albuterol sulfate 90 mcg/actuation aerosol inhaler 2 puff inhalation R Q4HPRN PRN SOB 10/29/23
apixaban 5 mg tablet (Eliquis) 5 mg PO BID Blood Clot Prevention/Tx 10/29/23
acetaminophen 325 mg tablet (Tylenol) 650 mg PO QIDPRN PRN MILD PAIN 11/15/23
hydrocodone-homatropine 5 mg-1.5 mg tablet 1 tab PO TIDPRN PRN MILD PAIN/COUGH 11/15/23
lidocaine-prilocaine 2.5 %-2.5 % topical cream 1 applic topical DAILYPRN PRN PRIOR TO CHEMO 11/15/23
lorazepam 0.5 mg tablet 0.5 mg PO DAILYPRN PRN ANXIETY 11/15/23
simethicone 125 mg chewable tablet (Gas-X Extra Strength) 125 mg PO QID PRN GAS PAINS 11/15/23
albuterol sulfate 2.5 mg/3 mL (0.083 %) solution for nebulization 2.5 mg (3 mL) inhalation R BID Lung/breathing issues #0 mL 11/20/23
amlodipine 10 mg tablet 10 mg PO DAILY Blood pressure #30 tabs 11/20/23
benzonatate 200 mg capsule 200 mg PO BID Cough #0 caps 11/20/23
cyanocobalamin (vitamin B-12) 1,000 mcg tablet 1,000 mcg PO DAILY low normal B12 #30 tabs 11/20/23
docusate sodium 100 mg capsule 100 mg PO BID Constipation #0 caps 11/20/23
fluticasone furoate 200 mcg-vilanterol 25 mcg/dose inhalation powder (Breo Ellipta) 1 inh inhalation R QPM Lung/breathing issues #0 ea 11/20/23
fluticasone propionate 50 mcg/actuation nasal spray,suspension (Flonase Allergy Relief) 1 spray intranasal QPM Allergies #0 mL 11/20/23
gemcitabine 1 gram intravenous solution 0 mg IV Q3W chemo #0 ea 11/20/23
guaifenesin 600 mg tablet, extended release 12 hr (Mucinex) 600 mg PO BID Congestion #60 tabs 11/20/23
levofloxacin 750 mg tablet 750 mg PO DAILY@1999 Infection #2 tabs 11/20/23
lorazepam 0.5 mg tablet 1 mg PO HS Sleep #0 tabs 11/20/23
paclitaxel protein-bound 100 mg intravenous suspension (Abraxane) 0 mg IV Q3W chemo #0 ea 11/20/23
pantoprazole 40 mg tablet,delayed release 40 mg PO DAILY Gastrointestinal issue #15 tabs 11/20/23
prednisone 10 mg tablet See Rx Instructions .Route .COMPLEX Lung/breathing issues #30 tabs 11/20/23
Home Medication Changes
new
levofloxacin 750 mg tablet 750 mg PO DAILY@1999 Infection #2 tabs 11/20/23
pantoprazole 40 mg tablet,delayed release 40 mg PO DAILY Gastrointestinal issue #15 tabs 11/20/23
prednisone 10 mg tablet See Rx Instructions .Route .COMPLEX Lung/breathing issues #30 tabs 11/20/23
cyanocobalamin (vitamin B-12) 1,000 mcg tablet 1,000 mcg PO DAILY low normal B12 #30 tabs 11/20/23
docusate sodium 100 mg capsule 100 mg PO BID Constipation #0 caps 11/20/23
Dose change
amlodipine 10 mg tablet 10 mg PO DAILY Blood pressure #30 tabs 11/20/23
Pending Results: No
--- NOTE | 2023-11-20 12:33 | W.DS.TRANS ---
Addendum entered and electronically signed by Sharda Patel MD 11/20/23 14:22:
[facility] [id number]
Original Note:
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
-
Discharge Instructions:
Discharge Diagnosis/Procedures Acute hypoxic respiratory insufficiency,
adenocarcinoma, history of PE, hypertension,
anxiety, anemia, Low normal B12
Diet As tolerated
Activity As tolerated,With assistance
Driving Restrictions No driving
Blood Work BMP 2 days
Others Tests CXR 4 weeks
Other Services VN
Instructions:
Stand-Alone Forms:
Changes to Home Medications: Yes
Discharge Medications:
DC Medications w/original date entered in [employer]
albuterol sulfate 90 mcg/actuation aerosol inhaler 2 puff inhalation R Q4HPRN PRN SOB 10/29/23
apixaban 5 mg tablet (Eliquis) 5 mg PO BID Blood Clot Prevention/Tx 10/29/23
acetaminophen 325 mg tablet (Tylenol) 650 mg PO QIDPRN PRN MILD PAIN 11/15/23
hydrocodone-homatropine 5 mg-1.5 mg tablet 1 tab PO TIDPRN PRN MILD PAIN/COUGH 11/15/23
lidocaine-prilocaine 2.5 %-2.5 % topical cream 1 applic topical DAILYPRN PRN PRIOR TO CHEMO 11/15/23
lorazepam 0.5 mg tablet 0.5 mg PO DAILYPRN PRN ANXIETY 11/15/23
simethicone 125 mg chewable tablet (Gas-X Extra Strength) 125 mg PO QID PRN GAS PAINS 11/15/23
amlodipine 10 mg tablet 10 mg PO DAILY Blood pressure #30 tabs 11/20/23
benzonatate 200 mg capsule 200 mg PO BID Cough #0 caps 11/20/23
cyanocobalamin (vitamin B-12) 1,000 mcg tablet 1,000 mcg PO DAILY low normal B12 #30 tabs 11/20/23
docusate sodium 100 mg capsule 100 mg PO BID Constipation #0 caps 11/20/23
fluticasone furoate 200 mcg-vilanterol 25 mcg/dose inhalation powder (Breo Ellipta) 1 inh inhalation R QPM Lung/breathing issues #0 ea 11/20/23
fluticasone propionate 50 mcg/actuation nasal spray,suspension (Flonase Allergy Relief) 1 spray intranasal QPM Allergies #0 mL 11/20/23
gemcitabine 1 gram intravenous solution 0 mg IV Q3W chemo #0 ea 11/20/23
guaifenesin 600 mg tablet, extended release 12 hr (Mucinex) 600 mg PO BID Congestion #60 tabs 11/20/23
ipratropium 0.5 mg-albuterol 3 mg (2.5 mg base)/3 mL nebulization soln 3 ml inhalation BID Lung/breathing issues #90 mL 11/20/23
levofloxacin 750 mg tablet 750 mg PO DAILY@1999 Infection #2 tabs 11/20/23
lorazepam 0.5 mg tablet 1 mg PO HS Sleep #0 tabs 11/20/23
paclitaxel protein-bound 100 mg intravenous suspension (Abraxane) 0 mg IV Q3W chemo #0 ea 11/20/23
pantoprazole 40 mg tablet,delayed release 40 mg PO DAILY Gastrointestinal issue #15 tabs 11/20/23
prednisone 10 mg tablet See Rx Instructions .Route .COMPLEX Lung/breathing issues #30 tabs 11/20/23
Home Medication Changes
Dose change
amlodipine 10 mg tablet 10 mg PO DAILY Blood pressure #30 tabs 11/20/23
new
ipratropium 0.5 mg-albuterol 3 mg (2.5 mg base)/3 mL nebulization soln 3 ml inhalation BID Lung/breathing issues #90 mL 11/20/23
levofloxacin 750 mg tablet 750 mg PO DAILY@1999 Infection #2 tabs 11/20/23
pantoprazole 40 mg tablet,delayed release 40 mg PO DAILY Gastrointestinal issue #15 tabs 11/20/23
prednisone 10 mg tablet See Rx Instructions .Route .COMPLEX Lung/breathing issues #30 tabs 11/20/23
Pending Results: No
[2023-11-20] MEDS: FLUSH (NSS) 2 FLUSH IV (12:58)
[2023-11-20 13:00] VITALS: BP 172/79
[2023-11-20] MEDS: FERRLECIT 110 MG IV (13:00)
[2023-11-20] MEDS: APRESOLINE 5 MG IV (13:22)
[2023-11-20 14:25] VITALS: BP 171/79
[2023-11-20] MEDS: ATIVAN 0.5 MG PO (14:30)
[2023-11-20 15:35] VITALS: BP 163/75
--- NOTE | 2023-11-20 16:46 | CM ---
CM following re: d/c planning
Chart reviewed
Pt is medically stable for d/c
IMM was reviewed with the patient and her spouse at bedside and copy was provided
Patient's spouse confirmed that the hospital bed & over the bed trapeze was delivered by [employer]
Pt is set up for home care provided by [facility] and is stable on RA
Patient will be transported home by her spouse
No additional d/c needs to note
All f/u appointments are included in d/c summary
PLAN; [facility]
== END 2023-11-20 16:39 | disposition home health service (06) | DRG 189 ==
LOC: 4 EAST ACU 19:44
PROVIDERS: ADMITTING PHYSICIAN Hospitalist; CONSULT PHYSICIAN Psychiatry & Neurology Psychiatry; EMERGENCY PHYSICIAN Emergency Medicine; FAMILY PHYSICIAN Family Medicine; OTHER PHYSICIAN Internal Medicine; OTHER PHYSICIAN Internal Medicine Hematology & Oncology
DX: J81.1 Chronic pulmonary edema (principal); C34.90 Malignant neoplasm of unspecified part of unspecified bronchus or lung; C77.9 Secondary and unspecified malignant neoplasm of lymph node, unspecified; Z68.44 Body mass index [BMI] 60.0-69.9, adult; C79.51 Secondary malignant neoplasm of bone; N17.9 Acute kidney failure, unspecified; R09.02 Hypoxemia; Z86.711 Personal history of pulmonary embolism; D63.0 Anemia in neoplastic disease; F41.9 Anxiety disorder, unspecified; I10 Essential (primary) hypertension; Z79.01 Long term (current) use of anticoagulants; E66.01 Morbid (severe) obesity due to excess calories; Z11.52 Encounter for screening for COVID-19; G47.00 Insomnia, unspecified; J44.9 Chronic obstructive pulmonary disease, unspecified
CPT/HCPCS: 36600; 71045; 71046; 80048; 80053; 81003; 82378; 82607; 82728; 82805; 83540; 83550; 83690; 83735; 83880; 84145; 84300; 84484; 85025; 85027; 85379; 87502; 87811; 93005; 94060; 94640; 94761; 96374; 99284; 99285; J2916

== ENCOUNTER → 2023-11-22 10:15 | Outpatient (REF) | payer MEDICARE, OTHER, SELFPAY ==
[2023-11-22 19:42] LABS: Blood Urea Nitrogen 27 mg/dl (7-17); Carbon Dioxide 24 mmol/L (22-30); Chloride 105 mmol/L (98-107); Glucose 120 mg/dl (70-99); Potassium 3.9 mmol/L (3.5-5.1); Sodium 135 mmol/L (135-145); eGFR 49.61
== END ==
LOC: CLAB 10:15
PROVIDERS: ATTENDING PHYSICIAN Internal Medicine Hematology & Oncology
DX: I10 Essential (primary) hypertension (principal)
CPT/HCPCS: 36415; 80048

== ENCOUNTER → 2023-11-23 13:12 | Outpatient (REF) | payer MEDICARE, OTHER, SELFPAY ==
[2023-11-23 10:51] LABS: Iron 35 ug/dl (37-170)
[2023-11-23 11:00] LABS: Percent Saturation 12 % (20-50); Total Iron Binding Capacity 282 ug/dl (265-497)
[2023-11-23 11:30] LABS: Ferritin 88.8 ng/ml (11.1-264.0)
== END ==
LOC: OIDL 13:12
PROVIDERS: ATTENDING PHYSICIAN Internal Medicine Hematology & Oncology
DX: C34.32 Malignant neoplasm of lower lobe, left bronchus or lung (principal)
CPT/HCPCS: 82728; 83540; 83550

== ENCOUNTER → 2023-11-26 12:47 | Outpatient (REF) | payer MEDICARE, OTHER, SELFPAY ==
[2023-11-26 13:16] LABS: % Basophils 0.1 % (0-2); % Eosinophils 0.7 % (0-6); % Immature Granulocytes 0.4 % (0-0.5); % Lymphocytes 10.2 % (20.5-51.1); % Monocytes 0.5 % (1.7-9.3); % Neutrophils 88.1 % (42.2-75.2); Absolute Eosinophils 0.1 10^3/uL (0-0.7); Absolute Lymphocytes 1.1 10^3/uL (1.2-3.4); Absolute Monocytes 0.1 10^3/uL (0.1-0.6); Absolute Neutrophils 9.3 10^3/uL (1.4-6.5); Hemoglobin 9.8 g/dL (12.0-16.0); Mean Corp Hgb Conc. 30.6 g/dL (33.0-37.0); Mean Corpuscular Hgb 24.3 pg (27.0-31.0); Mean Corpuscular Volume 79.4 fL (81.0-99.0); Nucleated Red Blood Cells % 0 %; Platelet Count 168 10^3/uL (130-400); Red Blood Cell Count 4.03 10^6/uL (4.20-5.40); Red Cell Dist. Width 22.5 % (11.5-14.5); White Blood Cell Count 10.5 10^3/uL (4.8-10.8)
[2023-11-26 13:47] LABS: ALT (SGPT) 32 U/L (0-35); AST (SGOT) 30 U/L (14-36); Albumin 2.9 g/dl (3.5-5.0); Alkaline Phosphatase 64 U/L (38-126); Blood Urea Nitrogen 25 mg/dl (7-17); Calcium 8.6 mg/dl (8.4-10.2); Carbon Dioxide 29 mmol/L (22-30); Chloride 99 mmol/L (98-107); Glucose 134 mg/dl (70-99); Potassium 3.7 mmol/L (3.5-5.1); Sodium 137 mmol/L (135-145); Total Protein 5.5 g/dl (6.3-8.2); eGFR > 60.00
[2023-11-26 14:02] LABS: Acanthocytes 1+; Anisocytosis 1+; Hypochromasia 1+; Normal RBC Morphology No; Ovalocytes 1+; Polychromasia 1+
== END ==
LOC: CLAB 12:47
PROVIDERS: ATTENDING PHYSICIAN Internal Medicine Hematology & Oncology
DX: C34.32 Malignant neoplasm of lower lobe, left bronchus or lung (principal); D64.9 Anemia, unspecified
CPT/HCPCS: 36415; 80053; 85025

== ENCOUNTER 2023-11-27 15:59 | Inpatient (IN) | payer MEDICARE, OTHER, SELFPAY ==
[2023-11-27 09:33] VITALS: BP 155/74
[2023-11-27 09:42] VITALS: BMI 55.2
--- NOTE | 2023-11-27 09:53 | ED.GENMED ---
History of Present Illness
General
Chief Complaint: Abdominal Symptoms
Source: patient, spouse and family
Exam Limitations: none
Time Seen by Provider: 11/27/23 09:37
Nursing documentation reviewed up to this point in time: agreed with
Travel History
Have you had any contact with someone who has COVID-19?: No
Do you have any symptoms of coronavirus? Fever > 100 degrees, chills, cough, shortness of breath, sore throat, loss of taste or smell, muscle aches, or headache?: No
History of Present Illness
History of Present Illness:
Patient is a 68-year-old female with diagnosis of stage 4 adenocarcinoma with metastasis primary site is uncertain. Patient to started first chemotherapy on Wednesday. She however presents for constipation for the past 4 days. She has been using
MiraLAX and Senokot Colace without relief. She complains however of intense intermittent lower abdominal pain. She is not nauseous or vomiting.
Patient also complains of slight worsening shortness of breath. Patient was recently admitted here November 15 discharged November 20 for shortness of breath respiratory insufficiency. Patient was initially given steroids and antibiotics and
Lasix. Patient was discharged at that time on steroids and inhaler/nebulizer. Patient at that time did not qualify for home O2.
She does complain of increasing shortness of breath. She is on Eliquis since being first diagnosed with multiple PE August 2023.
Past History
Past History
ED Past Medical History: Asthma, Cancer (Recently diagnosed lung cancer), HTN and Other (Bilateral pulmonary emboli)
ED Past Surgical History: Other
Social History
Tobacco: Non-smoker
Alcohol: None
Drug: None
Personal:
Living: with family
Employment: Retired
Family History
Family History: Other
Review of Systems
Review of Systems
Allergies reviewed?: Yes
All Other Systems: ROS reviewed and negative except as documented in HPI and ROS
Constitutional: Reports no symptoms; Denies fever, fatigue or chills
Respiratory: Reports trouble breathing
Cardiac: Reports no symptoms
ABD/GI: Reports abdominal pain and constipated; Denies nausea or vomiting
: Reports no symptoms
Musculoskeletal: Reports no symptoms
Skin: Reports no symptoms
Neurological: Reports no symptoms
Hematologic/Lymphatic: Reports no symptoms
Psychiatric: Reports no symptoms
Phy Exam
General Physical Exam
General Presentation: no apparent distress
General age: appears stated age
General Skin: warm and dry
General Habitus: normal
General Mental: alert
General Hydration: appears well hydrated
Cardiovascular Exam
Cardiovascular Exam: regular rate/rhythm, no murmur and normal peripheral pulses
Pulmonary Exam
Pulmonary Exam: lungs clear and no respiratory distress
Gastrointestinal Exam
Gastrointestinal Exam: non tender, soft and other (distended )
Neurological Exam
Neurological Exam: alert and oriented x3
Trudy Coma Scale
Eye Opening: Spontaneous
Verbal Response: Oriented
Motor Response: Obeys Commands
GCS Total Score: 15
Musculoskeletal Exam
Musculoskeletal Exam: full ROM
Skin Exam
Skin Exam: normal color and warm/dry
Psychiatric Exam
Psychiatric Exam: normal mood/affect
Course
Orders/Labs/Results
Orders:
Orders
11/27/23 09:55
CT Abd/Pel (IV only)-DH only Urgent
Comment:
Reason For Exam: abd pain /contstipation hx of adenocarcinoma
0.9% Sodium Chloride 500 ml [Nss] 500 ml IV BOLUS
11/27/23 10:27
Complete Blood Count/With Diff Urgent
Comprehensive Metabolic Panel Urgent
11/27/23 Dinner
Clear Liquid
At Your Request: Full Participation
Oral Supplement (If unsure of flavor order apple or vanilla): Ensure Clear Hay
Supplement Frequency: BID
11/27/23 15:12
Lactulose [Duphalac/Chronulac] 20 grams PO ONCE ONE
11/27/23 15:13
Admit/Transfer Patient As Directed
Co-Sign Provider:
Level of Care: Inpatient admission
Assign to:: Medical/Surgical
Physician / Group: Joo Valero
Diagnosis: partial SBO, constipation
Reason for Hospitalization: partial SBO, constipation
Expected length of stay greater than two midnights?: Yes
ELOS- Estimated Length of Stay in days: 2
I certify the patient meets the requirements for IP care: Yes
Bisacodyl [Dulcolax] 10 mg PO NOW ONE
11/27/23 15:15
Code Status As Directed
Resuscitation Status: Full Code
11/27/23 17:44
Acetaminophen [Tylenol] 650 mg PO Q4HPRN PRN
Ipratropium/Albuterol Sulfate [Duoneb] 3 ml INH R Q4HPRN PRN
Lorazepam [Ativan] 0.5 mg PO DAILYPRN PRN
Ondansetron Injectable [Zofran] 4 mg IV Q6HPRN PRN
11/27/23 17:44
Activity As Directed
Activity Level: With Assistance
Vital Signs As Directed
Frequency: Per unit guidelines
11/27/23 18:00
fluticasone propionate [Flonase Allergy Relief] 1 spray INTRANASAL QPM
11/27/23 20:00
Apixaban [Eliquis] 5 mg PO BID
Lactulose [Duphalac/Chronulac] 20 grams PO BID
11/27/23 22:00
Lorazepam [Ativan] 1 mg PO HS
11/28/23 04:56
Basic Metabolic Panel IN AM
Complete Blood Count/No Diff IN AM
11/28/23 08:00
Pantoprazole [Protonix] 40 mg PO DAILY
Polyethylene Glycol Powder [Miralax] 17 grams PO DAILY
Abnormal Lab Results
11/27/23
10:27
WBC 12.2 H 10^3/uL
(4.8-10.8)
RBC 3.71 L 10^6/uL
(4.20-5.40)
Hgb 9.0 L g/dL
(12.0-16.0)
Hct 27.9 L %
(37.0-47.0)
MCV 75.2 L fL
(81.0-99.0)
MCH 24.3 L pg
(27.0-31.0)
MCHC 32.3 L g/dL
(33.0-37.0)
RDW 22.3 H %
(11.5-14.5)
Abs Immat Gran (auto) 0.1 H 10^3/uL
(0-0.05)
Absolute Neuts (auto) 11.3 H 10^3/uL
(1.4-6.5)
Absolute Lymphs (auto) 0.7 L 10^3/uL
(1.2-3.4)
Absolute Monos (auto) 0.0 L 10^3/uL
(0.1-0.6)
Neutrophils % 93.2 H %
(42.2-75.2)
Lymphocytes % 5.3 L %
(20.5-51.1)
Monocytes % 0.2 L %
(1.7-9.3)
Sodium 133 L mmol/L
(135-145)
Chloride 97 L mmol/L
(98-107)
Carbon Dioxide 31 H mmol/L
(22-30)
BUN 28 H mg/dl
(7-17)
Glucose 161 H mg/dl
(70-99)
Total Protein 5.3 L g/dl
(6.3-8.2)
Albumin 2.8 L g/dl
(3.5-5.0)
11/27/23 10:27
11/27/23 10:27
Vital Signs
Initial and Last Documented VS:
Initial Vital Signs
Temp Pulse Resp BP Pulse Ox
99.2 F 103 16 155/74 89
11/27/23 09:33 11/27/23 09:33 11/27/23 09:33 11/27/23 09:33 11/27/23 09:33
Last Documented Vital Signs
Temp Pulse Resp BP Pulse Ox
99.2 F 84 20 99/65 95
11/28/23 15:00 11/28/23 15:45 11/28/23 15:45 11/28/23 15:00 11/28/23 15:45
Web Content Producer consulted with Physician
Web Content Producer consulted with physician?: Yes
Name of Physician Consulted: kelsey
MDM/Problems Addressed
Differential Diagnosis Includes:
Not limited to constipation/ bowel obstruction, diverticulitis
MDM/Problems Addressed:
Patient is a 68-year-old female with adenocarcinoma with mets unknown primary site presents to the ER today with constipation and lower abdominal pain for the past several days. Due to pain CAT scan was ordered which does not show proximal
transverse colon colonic neoplasm which is again seen from previous imaging with however suggestion of element of low-grade partial mechanical obstruction. Patient has not been able to move her bowels here in the ER. She was recently admitted
earlier this month for shortness of breath. At that time she was started on steroids antibiotics and given Lasix along with steroids inhaler. Patient at that time did not qualify for home O2. Patient presents to the ER today hypoxic requiring O2
2 L.
CAT scan does show proximal transverse colon colonic neoplasm with suggestive element of low-grade partial mechanical obstruction. With this and hypoxia will require
Chronic conditions affecting care:
Stage IV adenocarcinoma
*Radiology
Radiology exam reviewed: radiology read reviewed
*Critical Care Note
Total Time (30-74mins, 75-104mins- exclusive of procedures): Not Applicable
ED Attending Note
-
Portions of this chart may have been created with voice recognition software.� Occasional wrong word or��sound alike� substitutions may have occurred due to the inherent limitations of voice recognition software.
Discharge Plan
Departure
Patient Disposition: Admit
Date of Disposition: 11/27/23
Time of Disposition: 14:09
Admit to: Med/Surg
Admit to doctor: Anjum
Presentation/result/management discussed w/ accepting MD/DO: Hospitalist
Patient with high blood pressure during this ER visit?: Yes
Condition: Fair
Covid-19: Not Applicable
Discharge Problem:
partial mechanical bowel obstruction, Acute dyspnea, HYPOXIA
Interventions
Interventions:
*Risk Screen - Suicide Last Done: 11/27/23 18:05
*General Assessment Last Done: 11/27/23 18:11
*Neglect/Abuse Screening Last Done: 11/27/23 09:43
ED- Fall Risk Assessment Last Done: 11/27/23 18:11
*ED COVID-19 Vaccine History Last Done: 11/27/23 18:05
*Nursing Disposition Last Done: 11/27/23 18:11
HX-Qtthsv-Owxefuccge Assessment Last Done: 11/27/23 09:50
Discharge Date and Time
Discharge Date/Time: 11/27/23 18:00
[2023-11-27 10:35] LABS: % Basophils 0.2 % (0-2); % Eosinophils 0.6 % (0-6); % Immature Granulocytes 0.5 % (0-0.5); % Lymphocytes 5.3 % (20.5-51.1); % Monocytes 0.2 % (1.7-9.3); % Neutrophils 93.2 % (42.2-75.2); Absolute Eosinophils 0.1 10^3/uL (0-0.7); Absolute Immature Granulocytes 0.1 10^3/uL (0-0.05); Absolute Lymphocytes 0.7 10^3/uL (1.2-3.4); Absolute Neutrophils 11.3 10^3/uL (1.4-6.5); Hematocrit 27.9 % (37.0-47.0); Mean Corp Hgb Conc. 32.3 g/dL (33.0-37.0); Mean Corpuscular Hgb 24.3 pg (27.0-31.0); Mean Corpuscular Volume 75.2 fL (81.0-99.0); Mean Platelet Volume 10.3 fL (7.4-10.4); Nucleated Red Blood Cells % 0 %; Platelet Count 164 10^3/uL (130-400); Red Blood Cell Count 3.71 10^6/uL (4.20-5.40); Red Cell Dist. Width 22.3 % (11.5-14.5); White Blood Cell Count 12.2 10^3/uL (4.8-10.8)
[2023-11-27] MEDS: NSS 500 IV (10:35)
[2023-11-27 10:46] VITALS: BP 156/67
[2023-11-27 10:51] LABS: ALT (SGPT) 34 U/L (0-35); AST (SGOT) 26 U/L (14-36); Albumin 2.8 g/dl (3.5-5.0); Alkaline Phosphatase 60 U/L (38-126); Blood Urea Nitrogen 28 mg/dl (7-17); Calcium 8.6 mg/dl (8.4-10.2); Carbon Dioxide 31 mmol/L (22-30); Chloride 97 mmol/L (98-107); Estimated Creatinine Clearance 79 ml/min; Glucose 161 mg/dl (70-99); Potassium 3.8 mmol/L (3.5-5.1); Sodium 133 mmol/L (135-145); Total Bilirubin 1.2 mg/dl (0.2-1.3); Total Protein 5.3 g/dl (6.3-8.2); eGFR > 60.00
[2023-11-27 11:00] VITALS: BP 123/73
[2023-11-27 12:00] VITALS: BP 147/81
[2023-11-27 12:22] LABS: Anisocytosis 1+; Microcytosis 1+; Normal RBC Morphology No; Ovalocytes 1+; Spherocytes 1+; Target Cells 1+
--- NOTE | 2023-11-27 15:09 | HPS.HSE ---
Family Physician
-
Family Physician: Carmela Mijares
Chief Complaint
-
Abdominal pain/constipation
History of Present Illness
Patient is a 68-year-old female with past medical history of metastatic adenocarcinoma with unknown primary, acute upper respite insufficiency, history of pulmonary embolism, essential HTN, chronic anemia came in for new onset of constipation and
abdominal pain. Patient has been started on chemotherapy with first round on Wednesday, as part of posttreatment regimen patient was instructed to take Imodium. Patient had some diarrhea and took Imodium. Patient did not have any bowel movement
after that. Patient denies of any history of constipation/bowel obstruction in the past. No nausea or vomiting. Patient have some chronic dyspnea and found to be minimally hypoxic requiring oxygen support in ER again. Patient also has been
hypertensive and has been started on Norvasc earlier in the month, patient have noticed some leg swelling developing. Patient was started on small dose of Lasix by primary care physician. No complaint of chest pain/palpitation/dizziness/fever.
Medical History
Past Medical History
Past Medical History: Reports Other
Additional Past Medical History:
history of metastatic adenocarcinoma with unknown primary, acute upper respite insufficiency, history of pulmonary embolism, essential HTN, chronic anemia
Past Surgical History: Reports Other
Social History
Tobacco: Non-smoker
Alcohol: None
Drug: None
Family History
Family History: Not pertinent
Allergies / Home Medications
Allergies reflects when Allergies were last updated in [facility].
Home Medications with original date entered in [facility]
Allergy/Medication List:
Allergies
Allergy/AdvReac Type Severity Reaction Status Date / Time
bee venom protein (honey bee) Allergy Swelling Verified 11/27/23 09:36
tong pepper Allergy Unknown Verified 11/27/23 09:36
cat dander Allergy congestion Verified 11/27/23 09:36
Home Medications
albuterol sulfate 90 mcg/actuation aerosol inhaler 2 puff inhalation R Q4HPRN PRN SOB 10/29/23
apixaban 5 mg tablet (Eliquis) 5 mg PO BID Blood Clot Prevention/Tx 10/29/23
acetaminophen 325 mg tablet (Tylenol) 650 mg PO QIDPRN PRN MILD PAIN 11/15/23
hydrocodone-homatropine 5 mg-1.5 mg tablet 1 tab PO TIDPRN PRN MILD PAIN/COUGH 11/15/23
lidocaine-prilocaine 2.5 %-2.5 % topical cream 1 applic topical DAILYPRN PRN PRIOR TO CHEMO 11/15/23
lorazepam 0.5 mg tablet 0.5 mg PO DAILYPRN PRN ANXIETY 11/15/23
simethicone 125 mg chewable tablet (Gas-X Extra Strength) 125 mg PO QID PRN GAS PAINS 11/15/23
amlodipine 10 mg tablet 10 mg PO DAILY Blood pressure #30 tabs 11/20/23
cyanocobalamin (vitamin B-12) 1,000 mcg tablet 1,000 mcg PO DAILY low normal B12 #30 tabs 11/20/23
docusate sodium 100 mg capsule 100 mg PO BID Constipation #0 caps 11/20/23
fluticasone furoate 200 mcg-vilanterol 25 mcg/dose inhalation powder (Breo Ellipta) 1 inh inhalation R QPM Lung/breathing issues #0 ea 11/20/23
fluticasone propionate 50 mcg/actuation nasal spray,suspension (Flonase Allergy Relief) 1 spray intranasal QPM Allergies #0 mL 11/20/23
gemcitabine 1 gram intravenous solution 0 mg IV Q3W chemo #0 ea 11/20/23
lorazepam 0.5 mg tablet 1 mg PO HS Sleep #0 tabs 11/20/23
paclitaxel protein-bound 100 mg intravenous suspension (Abraxane) 0 mg IV Q3W chemo #0 ea 11/20/23
pantoprazole 40 mg tablet,delayed release 40 mg PO DAILY Gastrointestinal issue #15 tabs 11/20/23
prednisone 10 mg tablet See Rx Instructions .Route .COMPLEX Lung/breathing issues #30 tabs 11/20/23
benzonatate 200 mg capsule 200 mg PO BIDPRN PRN cough 11/27/23
furosemide 20 mg tablet (Lasix) 20 mg PO DAILY 11/27/23
guaifenesin 600 mg tablet, extended release 12 hr (Mucinex) 600 mg PO BIDPRN PRN cough 11/27/23
ipratropium 0.5 mg-albuterol 3 mg (2.5 mg base)/3 mL nebulization soln 3 ml inhalation R BID Lung/breathing issues 11/27/23
polyethylene glycol 3350 17 gram oral powder packet (Miralax) 17 g PO DAILY 11/27/23
sennosides 8.6 mg tablet (senna) 8.6 mg PO BID 11/27/23
Review of Systems
-
A 12 point ROS was completed and negative except as noted: Yes
Physical Exam
Vital Signs
Vital Signs
Temp Pulse Resp BP Pulse Ox
99.2 F 92 36 147/81 94
11/27/23 09:33 11/27/23 12:00 11/27/23 12:00 11/27/23 12:00 11/27/23 12:00
Physical Exam
HEENT: Oxygen
Respiratory: Rhonchi; No Wheezes
Cardiac: S1/S2 and Regular Rhythm; No Murmur
GI: Soft, Non Tender and Normal Bowel Sounds
Musculoskeletal: Edema, Left Lower Extremity and Edema, Right Lower Extremity
Neuro: Awake, AO x 3 and Nonfocal/grossly intact
Psych: Intact Judgment/Insight
Laboratory Results
-
11/27/23 10:27
11/27/23 10:27
Laboratory Results
Total Bilirubin 1.2 mg/dl (0.2-1.3) 11/27/23 10:27
AST 26 U/L (14-36) 11/27/23 10:27
ALT 34 U/L (0-35) 11/27/23 10:27
Alkaline Phosphatase 60 U/L (38-126) 11/27/23 10:27
Data Reviewed
-
CT Scan: Image Personally Visualized and interpreted, Discussed with Patient and Discussed with Family
Lab Data: Labs Reviewed by me, Discussed with Patient and Discussed with Family
Impression/Plan
-
CT a/p
Proximal transverse colon and colonic neoplasm again demonstrated, as described, with suggestion of an element of low-grade partial mechanical obstruction.
As before, peritoneal carcinomatosis. Also, extensive mesenteric adenopathy as well as adenopathy adjacent and surrounding the pancreas and extending into the elisha hepatis. In addition, Extensive retroperitoneal adenopathy is again demonstrated.
Stable small low-attenuation intrahepatic space-occupying lesion.
Questionable small low-attenuation mass along the ventral margin in the pancreatic head.
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 Also seen previously. There are a few more localized nodular opacities demonstrated, suggesting more discrete metastatic nodules. Trace left pleural effusion. Trace
pericardial effusion.

1. Severe constipation
Mild persistent colonic obstruction from cancer
-No bowel movement from Wednesday. Patient used 1 dose of Imodium post chemo diarrhea
-CT abdomen pelvis report as above.
-Bowel sounds suppressed, able to pass gas. No nausea or vomiting
-Maintain on clear liquid diet for today
-Oral lactulose and Dulcolax suppository ordered, if no bowel movement in night will provide enema in the morning
-Will consider GI/general surgery consultation if any complicating factor arises
2. Acute hypoxic resp insufficiency
-CT chest/x-ray from previous visits reviewed and patient have parenchymal changes with lymphangitic metastatic involvement of lung parenchyma
-Requiring 2 L oxygen through nasal cannula, wean off as possible
-Hold further IVF -of note patient required IV Lasix earlier on previous visit to help symptoms of hypoxia
-Check nocturnal oxygen
-Continue DuoNeb therapy
3. Metastatic adenocarcinoma of unknown primary
-s/p gemcitabine/paclitaxel x1 round on Wed
-CBC did not show any signs of neutropenia. Monitor
4. History of PE
-on Eliquis, continue
Essential hypertension
Generalized anxiety disorder
Chronic anemia
Obesity
DVT PPX - eliquis
Full code
Total time spent : 78 mins
I personally saw and examined the patient.
I have reviewed all diagnostic interpretations and treatment plans as written.
Time includes patient management by me, time spent at the patients bedside, time to review lab and imaging results, discussing patient care, documentation in the medical record, and time spent with the family or caregiver and discussing care plan
with RN/Consultants.
[2023-11-27 18:08] VITALS: BP 172/84
[2023-11-27 18:09] VITALS: BMI 54.9
[2023-11-27] MEDS: DULCOLAX 10 MG PO (18:36)
[2023-11-27] MEDS: DUPHALAC/CHRONULAC 20 GRAMS PO ×2 (18:36→23:31)
[2023-11-27] MEDS: ATIVAN 0.5 MG PO (18:36)
[2023-11-27] MEDS: DUPHALAC/CHRONULAC PO (20:00)
[2023-11-27] MEDS: ELIQUIS 5 MG PO (20:25)
[2023-11-27] MEDS: ZOFRAN 4 MG IV (21:04)
[2023-11-27 22:30] VITALS: BP 147/57
[2023-11-27] MEDS: ATIVAN 1 MG PO (22:34)
[2023-11-28] MEDS: ZOFRAN 4 MG IV (04:43)
[2023-11-28 05:59] LABS: Hematocrit 32.6 % (37.0-47.0); Hemoglobin 10.1 g/dL (12.0-16.0); Mean Corpuscular Hgb 23.7 pg (27.0-31.0); Mean Corpuscular Volume 76.5 fL (81.0-99.0); Mean Platelet Volume 10.2 fL (7.4-10.4); Platelet Count 200 10^3/uL (130-400); Red Blood Cell Count 4.26 10^6/uL (4.20-5.40); Red Cell Dist. Width 22.4 % (11.5-14.5); White Blood Cell Count 15.9 10^3/uL (4.8-10.8)
[2023-11-28 06:39] LABS: Blood Urea Nitrogen 28 mg/dl (7-17); Calcium 8.8 mg/dl (8.4-10.2); Carbon Dioxide 25 mmol/L (22-30); Chloride 101 mmol/L (98-107); Estimated Creatinine Clearance 87 ml/min; Glucose 199 mg/dl (70-99); Potassium 4.1 mmol/L (3.5-5.1); Sodium 135 mmol/L (135-145); eGFR > 60.00
[2023-11-28 07:00] VITALS: BP 152/69
[2023-11-28] MEDS: PROTONIX 40 MG PO (08:21)
[2023-11-28] MEDS: ELIQUIS 5 MG PO (08:21)
[2023-11-28] MEDS: MIRALAX 17 GRAMS PO (08:21)
[2023-11-28] MEDS: DUPHALAC/CHRONULAC 20 GRAMS PO (08:21)
--- NOTE | 2023-11-28 10:22 | CM ---
CM following re: discharge planning.
Reviewed pt's chart, met with pt.
Pt is a 68 year old female, admitted with primary dx of SBO, constipation.
Patient reports she lives with spouse and daughter in a split level, 13 steps to second floor, has a bed on the first, Patient has a scooter and also has a commode. Handicap accessible bathrooms x 2. Patient does not drive. Patient is known to
[facility]. No SNF history.
PT and OT will evaluate the pt to determine a level of care at discharge.
PCP: Dr Mijares
Pharmacy: [facility] [place]
D/C plan: home with most likely VN services. Family to transport at discharge.
CM will follow with discharge plan updates as hospitalization progresses
[2023-11-28] MEDS: TORADOL 15 MG IV (12:43)
--- NOTE | 2023-11-28 12:46 | CON.GI ---
Consultation
-
Date/Time Consultation Requested: 11/28/2023
Date/Time Consultation Performed: 11/28/2023
Requesting Provider: Dr. Valero
Performing Provider: Dr. Courtney
Reason for Consultation: Malignancy of unknown primary
Medical History
Allergies / Home Medications
Allergy/AdvReac Type Severity Reaction Status Date / Time
bee venom protein (honey bee) Allergy Swelling Verified 11/27/23 09:36
tong pepper Allergy Unknown Verified 11/27/23 09:36
cat dander Allergy congestion Verified 11/27/23 09:36
Medication Instructions Recorded
albuterol sulfate 90 mcg/actuation 2 puff inhalation R Q4HPRN PRN SOB 10/29/23
aerosol inhaler
apixaban 5 mg tablet (Eliquis) 5 mg PO BID Blood Clot 10/29/23
Prevention/Tx
acetaminophen 325 mg tablet 650 mg PO QIDPRN PRN MILD PAIN 11/15/23
(Tylenol)
hydrocodone-homatropine 5 mg-1.5 1 tab PO TIDPRN PRN MILD PAIN/COUGH 11/15/23
mg tablet
lidocaine-prilocaine 2.5 %-2.5 % 1 applic topical DAILYPRN PRN 11/15/23
topical cream PRIOR TO CHEMO
lorazepam 0.5 mg tablet 0.5 mg PO DAILYPRN PRN ANXIETY 11/15/23
simethicone 125 mg chewable tablet 125 mg PO QID PRN GAS PAINS 11/15/23
(Gas-X Extra Strength)
amlodipine 10 mg tablet 10 mg PO DAILY Blood pressure #30 11/20/23
tabs
cyanocobalamin (vitamin B-12) 1,000 mcg PO DAILY low normal B12 11/20/23
1,000 mcg tablet #30 tabs
docusate sodium 100 mg capsule 100 mg PO BID Constipation #0 caps 11/20/23
fluticasone furoate 200 1 inh inhalation R QPM 11/20/23
mcg-vilanterol 25 mcg/dose Lung/breathing issues #0 ea
inhalation powder (Breo Ellipta)
fluticasone propionate 50 1 spray intranasal QPM Allergies 11/20/23
mcg/actuation nasal #0 mL
spray,suspension (Flonase Allergy
Relief)
gemcitabine 1 gram intravenous 0 mg IV Q3W chemo #0 ea 11/20/23
solution
lorazepam 0.5 mg tablet 1 mg PO HS Sleep #0 tabs 11/20/23
paclitaxel protein-bound 100 mg 0 mg IV Q3W chemo #0 ea 11/20/23
intravenous suspension (Abraxane)
pantoprazole 40 mg tablet,delayed 40 mg PO DAILY Gastrointestinal 11/20/23
release issue #15 tabs
prednisone 10 mg tablet See Rx Instructions .Route 11/20/23
.COMPLEX Lung/breathing issues #30
tabs
benzonatate 200 mg capsule 200 mg PO BIDPRN PRN cough 11/27/23
furosemide 20 mg tablet (Lasix) 20 mg PO DAILY Fluid 11/27/23
Retention/Swelling
guaifenesin 600 mg tablet, 600 mg PO BIDPRN PRN cough 11/27/23
extended release 12 hr (Mucinex)
ipratropium 0.5 mg-albuterol 3 mg 3 ml inhalation R BID 11/27/23
(2.5 mg base)/3 mL nebulization Lung/breathing issues
soln
polyethylene glycol 3350 17 gram 17 g PO DAILY Constipation 11/27/23
oral powder packet (Miralax)
sennosides 8.6 mg tablet (senna) 8.6 mg PO BID Constipation 11/27/23
Review of Systems
Vital Signs
Temp Pulse Resp BP Pulse Ox
97.6 F 98 17 152/69 100
11/28/23 07:00 11/28/23 07:00 11/28/23 07:00 11/28/23 07:00 11/28/23 07:00
Physical Exam
Exam
General: Other (Short quick breaths, sleepy but arousable)
HEENT: Anicteric
Respiratory: Other (Short quick breathing)
GI: Soft and Non Tender
Rectal: Brown (pulled a handful of stool out of her rectum)
Neuro: Other (sleepy, somnolent but answers appropriately)
Results
WBC 15.9 10^3/uL (4.8-10.8) H 11/28/23 04:56
Hgb 10.1 g/dL (12.0-16.0) L 11/28/23 04:56
Hct 32.6 % (37.0-47.0) L 11/28/23 04:56
MCV 76.5 fL (81.0-99.0) L 11/28/23 04:56
Plt Count 200 10^3/uL (130-400) D 11/28/23 04:56
Absolute Neuts (auto) 11.3 10^3/uL (1.4-6.5) H 11/27/23 10:27
Sodium 135 mmol/L (135-145) 11/28/23 04:56
Potassium 4.1 mmol/L (3.5-5.1) 11/28/23 04:56
Chloride 101 mmol/L (98-107) 11/28/23 04:56
Carbon Dioxide 25 mmol/L (22-30) 11/28/23 04:56
BUN 28 mg/dl (7-17) H 11/28/23 04:56
Creatinine 0.9 mg/dL (0.6-1.0) 11/28/23 04:56
Calcium 8.8 mg/dl (8.4-10.2) 11/28/23 04:56
Total Bilirubin 1.2 mg/dl (0.2-1.3) 11/27/23 10:27
AST 26 U/L (14-36) 11/27/23 10:27
ALT 34 U/L (0-35) 11/27/23 10:27
Alkaline Phosphatase 60 U/L (38-126) 11/27/23 10:27
Diagnostic Image Results:
CT scan with IV contrast only on 11/27/2023: Reticulonodular thickening in the pulmonary parenchyma bilaterally at the lung bases highly suspicious for lymphangitic carcinomatosis, liver shows stable small intrahepatic lesion measuring 11 mm along
the right lobe, absent gallbladder with no biliary ductal dilatation, pancreas shows diffuse atrophy and fatty replacement questionable small pancreatic lesion along the ventral margin of the pancreatic head measuring 1.4 cm. Proximal transverse:
Circumferential wall thickening of roughly 7 cm with associated narrowing highly concerning for colonic neoplasm with slight distention of the cecum and ascending colon measuring 6 cm possibly of a low-grade partial mechanical obstruction
11/11/23 CT scan 6 cm abnormal wall thickening at the hepatic flexure with luminal narrowing
PET/CT October 22, 2023. 3 cm pulmonary mass. Multiple active lymph nodes. Physiologic bowel activity most prominent in the right upper quadrant.
Prior GI Procedures: none
EGD:
Colonoscopy:
Assessment / Plan
-
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
on 11/20/2023 with abdominal pain and new onset constipation. Patient had just started chemotherapy as a part of posttreatment regimen she was told she could take Imodium for diarrhea. She had a small amount of loose stool and took 1 Imodium and
has not had a bowel movement since. She denies any history of constipation or bowel obstructions in the past. She denies any nausea or vomiting currently but according to the daughter, Dorita she was nauseous and vomiting last night.. She has
some mild hypoxemia requiring oxygen. She is on multiple medications including Eliquis and steroids. She has a 3 cm pulmonary mass found on PET scan in October
# Obstipation -patient has not had a bowel movement since chemotherapy last Wednesday
--- Related to chemotherapy versus Imodium and possibly some mild colonic obstruction.
--- CT scan shows a 7 cm proximal transverse circumferential wall thickening with associated narrowing highly consistent with a colonic neoplasm. There is slight distention of the cecum and ascending colon measuring 6 cm containing mild liquid and
solid fecal burden. Suggesting an element of low-grade partial mechanical obstruction.
--- Patient denies any abdominal pain and she has positive bowel sounds
--- I did do a rectal exam with some mild disimpaction but there was no significant rectal impaction.
--- Would avoid lactulose since it is very bloating
We will give magnesium citrate just to get things very liquid to go through---
Gastrografin enema tomorrow to be both therapeutic and diagnostic
Any signs of nausea or vomiting, placed NG tube
Low threshold to x-ray her abdomen to ensure the cecum is not dilating. She is on steroids and chemotherapy and is high risk
Currently no role for colonic stenting at the area of the hepatic flexure until we have more information-she is not acting obstructed with no upper symptoms
# Microcytic anemia with MCV of 76 -possibly secondary to a GI malignancy versus other malignancy versus other
# Mental status -patient is breathing quickly and taking short breaths; nurses she does not look like she did yesterday. I relayed this to the hospitalist who ordered an ABG
# History of DVT on Eliquis
--- I spent over an hour with the patient and her daughter as well as 15 more minutes looking at her old records
-- I discussed with the RN here on the floor and the hospitalist, Dr. Valero
Total Time Spent with Patient (in minutes): 65
Data Reviewed
-
Radiology: Report Reviewed by me
CT Scan: Report Reviewed by me
Old Records: Reviewed
Time spent with patient (in minutes): 75
-
-
Thank you for consultation and allowing me to participate in the patient's care. Please call the dictaphone operator GI physician during the after hours with any questions or concerns.
--- NOTE | 2023-11-28 12:59 | W.PN.HOSP.TC ---
Addendum entered and electronically signed by Joo Valero MD 11/28/23 15:35:
Patient reevaluated bedside
Gastroenterology evaluated patient and patient felt to be sedated -with patient obesity and ABG check done showed minor hypercapnia of 50. ph 7.4 and compensated. Continue monitoring with repeat ABG or VBG to concern of acute CO2 narcosis
Avoiding sedating medication patient having back pain, lidocaine patch and toradol given
Discussed care with with colorectal surgeon. Potential need of colonoscopy and will need to hold Eliquis. Ideally patient would be switched to heparin drip with recent submassive PE in aug 26 although nurse reported patient having epistaxis which
is controlled with external pressure. Hold eliquis tonight and start heparin drip in morning to stop exacerbating epistaxis.
Patient also quite dyspneic with minimal activity, no worsening hypoxia, on oxygen 2 L per nasal cannula. Chest x-ray portable ordered.
Additional time spent : 25 mins
Original Note:
Today's Communication/Plan
-
enema ordered
maintain on CL diet
GI/CRS consult
Assessment / Plan
Assessment / Plan
CT a/p
Proximal transverse colon and colonic neoplasm again demonstrated, as described, with suggestion of an element of low-grade partial mechanical obstruction.
As before, peritoneal carcinomatosis. Also, extensive mesenteric adenopathy as well as adenopathy adjacent and surrounding the pancreas and extending into the elisha hepatis. In addition, Extensive retroperitoneal adenopathy is again demonstrated.
Stable small low-attenuation intrahepatic space-occupying lesion.
Questionable small low-attenuation mass along the ventral margin in the pancreatic head.
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 Also seen previously. There are a few more localized nodular opacities demonstrated, suggesting more discrete metastatic nodules. Trace left pleural effusion. Trace
pericardial effusion.

1.� Severe constipation
� � Mild persistent colonic obstruction from adenocarcinoma
-No bowel movement from Wednesday.� Patient used 1 dose of Imodium post chemo diarrhea
-CT abdomen pelvis report as above.
-Bowel sounds suppressed, able to pass gas.� No nausea or vomiting in ER.
-Maintain on clear liquid diet for now.
-Maintain oral lactulose/soap suds enema order.
-GI and CRS involved. Concern of progression to obstruction.
2. Acute hypoxic resp insufficiency
-CT chest/x-ray from previous visits reviewed and patient have parenchymal changes with lymphangitic metastatic involvement of lung parenchyma
-PFT last admit showing FEV1/FVC 0.6, FEV1 1.05L and FVC 1.74L
-Hold further IVF� -of note patient required IV Lasix earlier on previous visit to help symptoms of hypoxia
-Check nocturnal oxygen
-Continue DuoNeb therapy
3.� Metastatic adenocarcinoma of unknown primary
-s/p gemcitabine/paclitaxel x1 round on Wed
-CBC did not show any signs of neutropenia.� Monitor
-Oncology requested to follow.
4. History of submassive PE
-on Eliquis, continue
Essential hypertension
h/o COVID 23
Suspected JOSE
Generalized anxiety disorder
Chronic anemia
Obesity
DVT PPX - eliquis
Full code
Anticipated Discharge: 24 - 48 hours
Subjective/Interval History
-
Date of Service: November 28, 2023
remains constipated and in discomfort
no BM overnight with lactulose/dulcolax
one episode of vomiting overnight
Objective Data
-
Labs:
Laboratory Results
11/28/23
04:56
WBC 15.9 H
Hgb 10.1 L
Hct 32.6 L
Plt Count 200 D
Sodium 135
Potassium 4.1
Chloride 101
Carbon Dioxide 25
BUN 28 H
Creatinine 0.9
Glucose 199 H
Calcium 8.8
Vital Signs:
Vital Signs
Temp Pulse Resp BP Pulse Ox
97.6 F 98 17 152/69 100
11/28/23 07:00 11/28/23 07:00 11/28/23 07:00 11/28/23 07:00 11/28/23 07:00
I&O
11/27/23 11/28/23 11/29/23
06:59 06:59 06:59
Intake Total 200 / 200
Balance 200 / 200
Review of Systems
-
Unable to obtain full review of systems at this time due to: Acuity
Physical Exam
-
General: Pain and Morbidly Obese; Negative Appears in Distress
HEENT: Oxygen
GI: Soft, Tender and Distended; Negative Normal Bowel Sounds (Decreased)
Neuro: No Motor Deficits; Negative Awake
Psych: Calm
[2023-11-28 14:46] LABS: B.E. 5.4 mmol/L; O2 Saturation % 97.4 % (94-98); PCO2 50 mmHg (32-35); PO2 81 mmHg (83-108)
[2023-11-28 15:00] VITALS: BP 99/65
[2023-11-28 15:01] VITALS: BMI 54.9
[2023-11-28] MEDS: DUONEB 3 ML INH (15:45)
[2023-11-28] MEDS: LIDOCAINE 4% PATCH 1 PATCH TOPICAL (15:52)
[2023-11-28] MEDS: LASIX 20 MG IV (15:53)
[2023-11-28] MEDS: AFRIN NASAL SPRAY 30 SPRAYS NASAL (15:53)
[2023-11-28] MEDS: CITROMA 300 ML PO (16:10)
--- NOTE | 2023-11-28 16:27 | CON.CRS ---
Medical History
-
Chief Complaint: constipation
History of Present Illness:
This is a 68 yo female with a h/o PE (08/2023), asthma, PE on Eliquis (LD 11/28/23 am), chronic anemia and recent diagnosis of stage 4 adenocarcinoma with unknown primary following with Dr. Mccain who was initiated on chemotherapy on 11/23/23 with
gemcitabine/paclitaxel. She had an episode of loose stool after treatment and took one Imodium tablet. She has unfortunately, not passed any stools since that time. She presented with abdominal discomfort and persistent constipation despite taking
laxatives at home. She denies nausea or vomiting; however, nursing and patient's family have reported vomiting yesterday and again this morning. Prior to exam, she was able to pass a small stool and some flatus. She denies abdominal pain currently.
Abdomen distended on exam but non-tender. She notes that she has never had a colonoscopy.
Past Medical History
Past Medical History: Cancer (stage 4 adenocarcinoma: unclear primary), COPD and Other (PE 08/2023)
Social History
Tobacco: Non-Smoker
Alcohol: None
Personal:
Living: With Family
Family History
Family History: Reviewed & Not Pertinent
Allergies / Home Medications
Allergy/AdvReac Type Severity Reaction Status Date / Time
bee venom protein (honey bee) Allergy Swelling Verified 11/27/23 09:36
tong pepper Allergy Unknown Verified 11/27/23 09:36
cat dander Allergy congestion Verified 11/27/23 09:36
Medication Instructions Recorded Confirmed Type
albuterol sulfate 90 mcg/actuation 2 puff inhalation R Q4HPRN PRN SOB 10/29/23 11/27/23 History
aerosol inhaler
apixaban 5 mg tablet (Eliquis) 5 mg PO BID Blood Clot 10/29/23 11/27/23 History
Prevention/Tx
acetaminophen 325 mg tablet 650 mg PO QIDPRN PRN MILD PAIN 11/15/23 11/27/23 History
(Tylenol)
hydrocodone-homatropine 5 mg-1.5 1 tab PO TIDPRN PRN MILD PAIN/COUGH 11/15/23 11/27/23 History
mg tablet
lidocaine-prilocaine 2.5 %-2.5 % 1 applic topical DAILYPRN PRN 11/15/23 11/27/23 History
topical cream PRIOR TO CHEMO
lorazepam 0.5 mg tablet 0.5 mg PO DAILYPRN PRN ANXIETY 11/15/23 11/27/23 History
simethicone 125 mg chewable tablet 125 mg PO QID PRN GAS PAINS 11/15/23 11/27/23 History
(Gas-X Extra Strength)
amlodipine 10 mg tablet 10 mg PO DAILY Blood pressure #30 11/20/23 11/27/23 Rx
tabs
cyanocobalamin (vitamin B-12) 1,000 mcg PO DAILY low normal B12 11/20/23 11/27/23 Rx
1,000 mcg tablet #30 tabs
docusate sodium 100 mg capsule 100 mg PO BID Constipation #0 caps 11/20/23 11/27/23 Rx
fluticasone furoate 200 1 inh inhalation R QPM 11/20/23 11/27/23 Rx
mcg-vilanterol 25 mcg/dose Lung/breathing issues #0 ea
inhalation powder (Breo Ellipta)
fluticasone propionate 50 1 spray intranasal QPM Allergies 11/20/23 11/27/23 Rx
mcg/actuation nasal #0 mL
spray,suspension (Flonase Allergy
Relief)
gemcitabine 1 gram intravenous 0 mg IV Q3W chemo #0 ea 11/20/23 11/27/23 Rx
solution
lorazepam 0.5 mg tablet 1 mg PO HS Sleep #0 tabs 11/20/23 11/27/23 Rx
paclitaxel protein-bound 100 mg 0 mg IV Q3W chemo #0 ea 11/20/23 11/27/23 Rx
intravenous suspension (Abraxane)
pantoprazole 40 mg tablet,delayed 40 mg PO DAILY Gastrointestinal 11/20/23 11/27/23 Rx
release issue #15 tabs
prednisone 10 mg tablet See Rx Instructions .Route 11/20/23 11/27/23 Rx
.COMPLEX Lung/breathing issues #30
tabs
benzonatate 200 mg capsule 200 mg PO BIDPRN PRN cough 11/27/23 11/27/23 History
furosemide 20 mg tablet (Lasix) 20 mg PO DAILY Fluid 11/27/23 11/27/23 History
Retention/Swelling
guaifenesin 600 mg tablet, 600 mg PO BIDPRN PRN cough 11/27/23 11/27/23 History
extended release 12 hr (Mucinex)
ipratropium 0.5 mg-albuterol 3 mg 3 ml inhalation R BID 11/27/23 11/27/23 History
(2.5 mg base)/3 mL nebulization Lung/breathing issues
soln
polyethylene glycol 3350 17 gram 17 g PO DAILY Constipation 11/27/23 11/27/23 History
oral powder packet (Miralax)
sennosides 8.6 mg tablet (senna) 8.6 mg PO BID Constipation 11/27/23 11/27/23 History
Review of Systems
-
History Source: Patient
All other systems: Negative unless noted
A 10 point review of systems was completed, and was negative except as per HPI.
Physical Exam
Vital Signs
Temp 97.6 F 11/28/23 07:00
Pulse 84 11/28/23 15:45
Resp Rate 20 11/28/23 15:45
Blood pressure 152/69 11/28/23 07:00
SaO2 95 11/28/23 15:45
11/27/23 11/28/23 11/29/23
06:59 06:59 06:59
Actual Weight 144.877 kg
Body Mass Index (BMI) 54.9
Lab Results / Allergies
11/28/23 04:56
11/28/23 04:56
WBC 15.9 10^3/uL (4.8-10.8) H 11/28/23 04:56
Hgb 10.1 g/dL (12.0-16.0) L 11/28/23 04:56
Hct 32.6 % (37.0-47.0) L 11/28/23 04:56
Plt Count 200 10^3/uL (130-400) D 11/28/23 04:56
Abs Immat Gran (auto) 0.1 10^3/uL (0-0.05) H 11/27/23 10:27
Neutrophils % 93.2 % (42.2-75.2) H 11/27/23 10:27
Allergy/AdvReac Type Severity Reaction Status Date / Time
bee venom protein (honey bee) Allergy Swelling Verified 11/27/23 09:36
tong pepper Allergy Unknown Verified 11/27/23 09:36
cat dander Allergy congestion Verified 11/27/23 09:36
Physical Exam
General: No Apparent Distress and Comfortable
Respiratory: Accessory Resp Muscle Use
GI: Soft, Non Tender and Distended
Skin: Warm and Dry
Neuro: Awake, Alert and AO x 3
Psych: Calm
Assessment / Plan
-
68 yo female with a h/o PE (08/2023), asthma, PE on Eliquis (LD 11/28/23 am), chronic anemia and recent diagnosis of stage 4 adenocarcinoma with unknown primary following with Dr. Mccain who was initiated on chemotherapy on 11/23/23 now presenting with
obstipation as well as hypoxia/respiratory insufficiency. Ct imaging reviewed with 7 cm proximal transverse circumferential wall thickening with associated narrowing highly consistent with a colonic neoplasm.� There is slight distention of the
cecum and ascending colon measuring 6 cm containing mild liquid and solid fecal burden.�Suggestive of at least partial large bowel obstruction.
AFVSS
Leukocytosis present and trending up
--Appreciate GI eval/plan
--Gastrografin enema in AM to further evaluate
--Bowel regimen including mag citrate tonight
--Will need eventual colonoscopy, timing TBD
--Please hold Eliquis and transition to IV/SQ anticoagulation if needed
--Further surgical recommendations to follow pending additional testing
--Medical work up/management as per primary team
--- NOTE | 2023-11-28 18:31 | PTCARENOTE ---
PT without BM. Pt given soap suds enema with small liquid stool. PT then ordered mag citrate. Pt drank it all, no results. ordered milk and molassa enema. Given Pt resulted with large amount of brown liquid stool.
--- NOTE | 2023-11-28 18:35 | PTCARENOTE ---
After soap suds enema PT needed to to get OOB to BSC. PT became very dyspneic, labored RR up to 40 crackles in bases. pitting BLE edema. RR irregular, nose cynotic. PT gasping for air. She was unable to get back to bed. I called for assistance.
She took off her oxygen and picked her nose and her nose started to bleed profously. PT still labored and having hard time to get back to bed. I plugged her nose with tissue paper and then we assisted her to bed. Her nose did stop bleeding. I
put humiditiy on oxygen. When getting her back to bed she was unable to lay flat and became ortopnic. MD notified and Stat PCX ordered completed. results not in yet. IV lasix given. Purwick placed. ABG obtained and nebulzier given. PT breathing
improved after 30 minutes and then fell asleep without any issues lying flat.
[2023-11-28] MEDS: TUMS 1 TABLET PO (21:56)
[2023-11-29 00:24] VITALS: BP 131/59
--- NOTE | 2023-11-29 01:58 | PTCARENOTE ---
patient AAox3, pain level controlled, pt with incontinence of stool and urine frequently. Patient has been able to get oob to commode with 2 assist at times. patients continues to be ROMO and at Rest but improved per patient since lasix. Remains on
3L O2
[2023-11-29 05:59] LABS: Hematocrit 27.7 % (37.0-47.0); Hemoglobin 8.6 g/dL (12.0-16.0); Mean Corpuscular Hgb 23.9 pg (27.0-31.0); Mean Corpuscular Volume 76.9 fL (81.0-99.0); Platelet Count 141 10^3/uL (130-400); Red Cell Dist. Width 21.7 % (11.5-14.5); White Blood Cell Count 4.2 10^3/uL (4.8-10.8)
[2023-11-29 06:00] VITALS: BMI 51.9
[2023-11-29 06:00] LABS: Blood Urea Nitrogen 25 mg/dl (7-17); Carbon Dioxide 35 mmol/L (22-30); Chloride 103 mmol/L (98-107); Estimated Creatinine Clearance 78 ml/min; Glucose 142 mg/dl (70-99); Sodium 137 mmol/L (135-145); eGFR > 60.00
[2023-11-29 07:00] VITALS: BP 134/52
--- NOTE | 2023-11-29 08:14 | CON.ONC ---
Impression
Impression
Mucinous adenocarcinoma
Lung mass with smaller lung nodules
CA 19-9 elevation
RUQ bowel wall uptake on PET with CT finding concerning for malignancy
Constipation
Chemo-associated cytopenias
Severe obesity with BMI >50
Plan
Plan
Clinical picture concerning for colon primary.
Important to verify diagnosis AMPARO since the chemo regimen she is on would be effective for lung and pancreatic cancers but not colon cancer. Request inpt colonoscopy for tissue dx.
She has been on Eliquis for just about three months since PE, however she is at continued high risk for clot given active cancer, hospitalization. Lovenox 40 mg x 1 today in anticipation of colonoscopy tomorrow, then resume Eliquis.
Iron deficiency noted, she was to be treated with IV iron this week. Can give here in hospital in the absence of infection. Would not give PO due to bowel issues.
Transfuse PRN Hgb<7.5.
Thank you for consult, will follow along with you.
Patient History
History of Present Illness
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 Mccain. Imaging studies showed a 3 cm lung mass, innumerable small
pulmonary nodules and diffuse adenopathy. Tumor markers were significant for CA 19-9 of 1000. Tissue dx was made by bx of supraclav node. PET scan did not show activity in pancreas. There was a focal area of FDG uptake in RUQ attributed to
physiologic bowel activity. Based on finding of lung mass and elevated CA 19-9, she was started on 11/23/23 with gemcitabine/paclitaxel. She had an episode of loose stool after treatment and took one Imodium tablet. She then became constipated. She
presented with abdominal discomfort and persistent constipation despite taking laxatives at home. She denied nausea or vomiting; however, nursing and patient's family reported vomiting on days of and prior to admission. CT A/P showed colonic
narrowing concerning for colonic neoplasm with low-grade partial obstruction (cecum measuring about 6-7 cm), peritoneal carcinomatosis and lymphangitic carcinomatosis.
Past-Medical/Surgical History
Past Medical History
Past Medical History: Cancer (stage 4 adenocarcinoma: unclear primary), Hypertension, Obesity COPD and Other (PE 08/2023)
Social History
Tobacco: Non-Smoker
Alcohol: None
Personal:
Living: With Family
Family History
Father: prostate cancer
Brother: prostate cancer
Sister: lung cancer
Patient Medication
Medication Instructions Recorded Confirmed Last Taken Type
albuterol sulfate 90 mcg/actuation 2 puff inhalation R Q4HPRN PRN SOB 10/29/23 11/27/23 10/28/23 History
aerosol inhaler
apixaban 5 mg tablet (Eliquis) 5 mg PO BID Blood Clot 10/29/23 11/27/23 11/27/23 History
Prevention/Tx
acetaminophen 325 mg tablet 650 mg PO QIDPRN PRN MILD PAIN 11/15/23 11/27/23 11/11/23 History
(Tylenol)
hydrocodone-homatropine 5 mg-1.5 1 tab PO TIDPRN PRN MILD PAIN/COUGH 11/15/23 11/27/23 Unknown History
mg tablet
lidocaine-prilocaine 2.5 %-2.5 % 1 applic topical DAILYPRN PRN 11/15/23 11/27/23 Unknown History
topical cream PRIOR TO CHEMO
lorazepam 0.5 mg tablet 0.5 mg PO DAILYPRN PRN ANXIETY 11/15/23 11/27/23 11/15/23 History
simethicone 125 mg chewable tablet 125 mg PO QID PRN GAS PAINS 11/15/23 11/27/23 Unknown History
(Gas-X Extra Strength)
amlodipine 10 mg tablet 10 mg PO DAILY Blood pressure #30 11/20/23 11/27/23 11/27/23 Rx
tabs
cyanocobalamin (vitamin B-12) 1,000 mcg PO DAILY low normal B12 11/20/23 11/27/23 11/27/23 Rx
1,000 mcg tablet #30 tabs
docusate sodium 100 mg capsule 100 mg PO BID Constipation #0 caps 11/20/23 11/27/23 11/27/23 Rx
fluticasone furoate 200 1 inh inhalation R QPM 11/20/23 11/27/23 11/26/23 Rx
mcg-vilanterol 25 mcg/dose Lung/breathing issues #0 ea
inhalation powder (Breo Ellipta)
fluticasone propionate 50 1 spray intranasal QPM Allergies 11/20/23 11/27/23 11/26/23 Rx
mcg/actuation nasal #0 mL
spray,suspension (Flonase Allergy
Relief)
gemcitabine 1 gram intravenous 0 mg IV Q3W chemo #0 ea 11/20/23 11/27/23 11/23/23 Rx
solution
lorazepam 0.5 mg tablet 1 mg PO HS Sleep #0 tabs 11/20/23 11/27/23 11/26/23 Rx
paclitaxel protein-bound 100 mg 0 mg IV Q3W chemo #0 ea 11/20/23 11/27/23 11/23/23 Rx
intravenous suspension (Abraxane)
pantoprazole 40 mg tablet,delayed 40 mg PO DAILY Gastrointestinal 11/20/23 11/27/23 11/27/23 Rx
release issue #15 tabs
prednisone 10 mg tablet See Rx Instructions .Route 11/20/23 11/27/23 11/27/23 Rx
.COMPLEX Lung/breathing issues #30
tabs
benzonatate 200 mg capsule 200 mg PO BIDPRN PRN cough 11/27/23 11/27/23 Unknown History
furosemide 20 mg tablet (Lasix) 20 mg PO DAILY Fluid 11/27/23 11/27/23 11/27/23 History
Retention/Swelling
guaifenesin 600 mg tablet, 600 mg PO BIDPRN PRN cough 11/27/23 11/27/23 Unknown History
extended release 12 hr (Mucinex)
ipratropium 0.5 mg-albuterol 3 mg 3 ml inhalation R BID 11/27/23 11/27/23 Unknown History
(2.5 mg base)/3 mL nebulization Lung/breathing issues
soln
polyethylene glycol 3350 17 gram 17 g PO DAILY Constipation 11/27/23 11/27/23 11/27/23 History
oral powder packet (Miralax)
sennosides 8.6 mg tablet (senna) 8.6 mg PO BID Constipation 11/27/23 11/27/23 11/27/23 History
Active Medications
Generic Name Dose Route Start Last Admin
Trade Name Freq PRN Reason Stop Dose Admin
Acetaminophen 650 mg 11/27/23 17:44
Acetaminophen 325 Mg Tablet PO 12/25/23 17:43
Q4HPRN PRN
mild pain/MERCHANT/temp> 100.4F
Albuterol/Ipratropium 3 ml 11/27/23 17:44 11/28/23 15:45
Ipratropium 0.5/Albuterol 3 Mg (3 Ml Ampul) INH 12/25/23 17:43 3 ml
R Q4HPRN PRN Administration
Shortness breath
Protocol
Heparin Sodium (Porcine) 500 unit 11/27/23 18:25 11/29/23 05:33
Heparin Flush Pf (100 Unit/Ml) 5 Ml Syringe IV 12/25/23 18:24 500 unit
PRN PRN Administration
PORT FLUSH
Ketorolac Tromethamine 15 mg 11/28/23 12:36 11/28/23 12:43
Ketorolac 15 Mg/Ml Injection IV 15 mg
Q8HPRN PRN Administration
mod sev pain
Lidocaine 1 patch 11/28/23 14:45 11/28/23 15:52
Lidocaine 4% Topical Patch TOPICAL 12/26/23 14:44 1 patch
DAILY SHIRA Administration
Lorazepam 0.5 mg 11/27/23 17:44 11/27/23 18:36
Lorazepam 0.5 Mg Tablet PO 12/25/23 17:43 0.5 mg
DAILYPRN PRN Administration
ANXIETY
Lorazepam 1 mg 11/27/23 22:00 11/27/23 22:34
Lorazepam 1 Mg Tablet PO 12/25/23 21:59 1 mg
HS SHIRA Administration
Ondansetron HCl 4 mg 11/27/23 17:44 11/28/23 04:43
Ondansetron 4 Mg/2 Ml Vial IV 12/25/23 17:43 4 mg
Q6HPRN PRN Administration
nausea and vomiting
Oxymetazoline HCl 0 sprays 11/28/23 16:00 11/28/23 15:53
Oxymetazoline 0.05% (Nasal [place]) 15 Ml Bottle NASAL 12/26/23 15:59 30 sprays
Q12 SHIRA Administration
Pantoprazole Sodium 40 mg 11/28/23 08:00 11/28/23 08:21
Pantoprazole 40 Mg Delayed Release Tablet PO 12/26/23 07:59 40 mg
DAILY SHIRA Administration
Patch Removal 0 patch 11/28/23 20:00 11/29/23 02:14
Remove Lidocaine Patch REMOVE 12/26/23 19:59 1 patch
DAILY@2000 SHIRA Administration
Polyethylene Glycol 17 grams 11/28/23 08:00 11/28/23 08:21
Polyethylene Glycol Powder 17 Grams Packet PO 12/26/23 07:59 17 grams
DAILY SHIRA Administration
Sodium Chloride 0 flush 11/27/23 18:00
Sodium Chloride 0.9% (Flush) Syringe IV 12/25/23 17:59
PER PROTOCOL SHIRA
Review of Systems
-
History Source: Patient
All Other Systems: Reviewed and Negative
Physical Exam
-
General: Well Developed, Well Nourished and Obese
HEENT: Moist Mucous Membranes; Negative Jaundice
Cardiology: Normal Sinus Rhythm, S1 and S2
Pulmonary: Clear; Negative Wheezes
GI: Soft and Normal Bowel Sounds
Extremities: No C/C/E
Neurology: Non Focal
Skin: Warm and Dry
Hematologic / Lymphatic: No Lymphadenopathy
Psych: Calm and Intact Judgement/Insight
Labs
Lab Results
WBC 4.2 10^3/uL (4.8-10.8) L 11/29/23 05:33
RBC 3.60 10^6/uL (4.20-5.40) L 11/29/23 05:33
Hgb 8.6 g/dL (12.0-16.0) L 11/29/23 05:33
Hct 27.7 % (37.0-47.0) L 11/29/23 05:33
MCV 76.9 fL (81.0-99.0) L 11/29/23 05:33
MCH 23.9 pg (27.0-31.0) L 11/29/23 05:33
MCHC 31.0 g/dL (33.0-37.0) L 11/29/23 05:33
RDW 21.7 % (11.5-14.5) H 11/29/23 05:33
Plt Count 141 10^3/uL (130-400) D 11/29/23 05:33
MPV 10.0 fL (7.4-10.4) 11/29/23 05:33
Abs Immat Gran (auto) 0.1 10^3/uL (0-0.05) H 11/27/23 10:27
Absolute Neuts (auto) 11.3 10^3/uL (1.4-6.5) H 11/27/23 10:27
Absolute Lymphs (auto) 0.7 10^3/uL (1.2-3.4) L 11/27/23 10:27
Absolute Monos (auto) 0.0 10^3/uL (0.1-0.6) L 11/27/23 10:27
Absolute Eos (auto) 0.1 10^3/uL (0-0.7) 11/27/23 10:
Absolute Basos (auto) 0.0 10^3/uL (0-0.2) 11/27/23 10:
Immature Gran % 0.5 % (0-0.5) 11/27/23 10:
Neutrophils % 93.2 % (42.2-75.2) H 11/27/23 10:
Lymphocytes % 5.3 % (20.5-51.1) L 11/27/23 10:
Monocytes % 0.2 % (1.7-9.3) L 11/27/23 10:
Eosinophils % 0.6 % (0-6) 11/27/23 10:
Basophils % 0.2 % (0-2) 11/27/23 10:
Creatinine 1.0 mg/dL (0.6-1.0) 11/29/23 05:33
Vital Signs
Vital Signs
Temp Pulse Resp BP Pulse Ox
98.4 F 92 18 134/52 95
11/29/23 07:00 11/29/23 07:00 11/29/23 07:00 11/29/23 07:00 11/29/23 07:00
[2023-11-29] MEDS: LIDOCAINE 4% PATCH 1 PATCH TOPICAL (08:33)
[2023-11-29] MEDS: PROTONIX PO (08:34)
[2023-11-29] MEDS: MIRALAX PO (08:34)
[2023-11-29] MEDS: AFRIN NASAL SPRAY 2 SPRAYS NASAL ×2 (08:34→21:25)
--- NOTE | 2023-11-29 10:39 | W.PN.GI.CBS2 ---
Addendum entered and electronically signed by Pamela Courtney DO 12/01/23 11:30:
Late entry. I did see the patient, had probably of a 20-minute conversation with the at the bedside on 11/29/2023.
We discussed at that time after conversations with oncology that she would benefit from a colonoscopy to get biopsies of a questionable colonic mass which was highly likely based on imaging since that would better cater the chemotherapy since it
still somewhat unknown where her primary is and if it is colon cancer the chemotherapy could be different. She has been moving her bowels well after giving her significant laxative therapy. She no longer needs rectal therapy after the manual
disimpaction/enema.
Would avoid Imodium. Today clear liquid diet in preparation for colonoscopy tomorrow or we obtain biopsies. If the patient is nearly obstructed could potentially benefit from stenting which would need to get Dr. Willis involved.
Also discussed with oncology and the hospitalist.
Patient is willing to undergo. This is her first colonoscopy.
Addendum entered and electronically signed by Debo Johnson NP 11/30/23 10:37:
LATE ENTRY from 11/29: Discussed with Dr. Courtney whom reviewed the case with oncology. Recommended for colonoscopy. CLD placed and prep per Dr. Courtney. She discussed with the pt and her family at the bedside.
Original Note:
Today's Communication / Plan
-
Hold off on gastrographin enema. Low residue diet. MiraLax daily. Avoid imodium. Monitor for recurrent n/v/abdominal pain. Will follow.
Assessment / Plan
-
The pt is a 68 yo female with a PMH significant for bilateral pulmonary embolism on Eliquis, stage IV adenocarcinoma of unknown primary with pulmonary/lymphangitic/solitary bone and fernando mets, morbid obesity, HTN, GERD, anxiety, who presented to
the hospital just after being discharged on 11/20/2023 with abdominal pain and new onset constipation. She had just started chemotherapy as a part of post-treatment regimen and was told she could take Imodium for diarrhea which she did take. She has
not had a BM for 1 week. No prior history of constipation or bowel obstructions. Reported nausea and vomiting prior to admission but none since admission. She has some mild hypoxemia requiring oxygen. CT of the abdomen and pelvis showed findings
suggestive of possible low-grade partial mechanical obstruction of the transverse colon (other findings as noted in CT report). She was given MoM enema x1 and a bottle of magnesium citrate and has been moving her bowels constantly throughout the
night.
Problem list:
# Constipation v low grade colonic obstruction
---Likely related to chemotherapy versus Imodium versus possibly some mild colonic obstruction.
---CT scan shows a '7 cm proximal transverse circumferential wall thickening with associated narrowing highly consistent with a colonic neoplasm. There is slight distention of the cecum and ascending colon measuring 6 cm containing mild liquid and
solid fecal burden. Suggesting an element of low-grade partial mechanical obstruction.'
---s/p mag citrate and moving bowels throughout the night and this morning. No c/o n/v/abdominal pain
---Can hold off on gastrographin enema today as she has been moving her bowels and feels well enough to eat (discussed with Dr. Courtney)
---Will trial low residue diet. Advised to take it slow.
---If any recurrent symptoms (nausea, vomiting, abdominal pain) would make NPO and repeat abdominal imaging with XR
---Currently no role for colonic stenting at the area of the hepatic flexure-she is not acting obstructed with no upper symptoms (as per Dr. Courtney)
---Continue MiraLax
# Microcytic anemia with MCV of 76:
--possibly secondary to a GI malignancy versus other malignancy versus other
--hematology is following
--Monitor hgb, no obvious signs of bleeding
# Mental status:
--Awake, alert
--Does not appear in distress, ABG done yesterday with no overt concerning findings. CO2 mildly elevated
--Management as per hospitalist
# History of DVT on Eliquis
Other pertinent medical hx:
-Stage IV adenocarcinoma with mets
-morbid obesity
-HTN
-GERD
-anxiety
Subjective
Subjective
Date of Service: November 29, 2023
The pt was seen and examined at the bedside. She has been having multiple bowel movements since last night, some formed stools now mostly liquid. She denies any nausea, vomiting, or abdominal pain. She is asking to eat.
Objective
Data Reviewed
Laboratory Data:
Laboratory Results
11/29/23 05:33
11/29/23 05:33
Laboratory Results
APTT Cancelled 11/28/23 15:22
Total Bilirubin 1.2 mg/dl (0.2-1.3) 11/27/23 10:27
AST 26 U/L (14-36) 11/27/23 10:27
ALT 34 U/L (0-35) 11/27/23 10:27
Alkaline Phosphatase 60 U/L (38-126) 11/27/23 10:27
Vital Signs and I&O:
Vital Signs
Temp Pulse Resp BP Pulse Ox
98.4 F 92 18 134/52 95
11/29/23 07:00 11/29/23 07:00 11/29/23 07:00 11/29/23 07:00 11/29/23 07:00
I&O
11/28/23 11/29/23 11/30/23
06:59 06:59 06:59
Intake Total 200 / 200 1590 / 1590
Balance 200 / 200 1590 / 1590
Physical Exam
Physical Exam
HEENT: Anicteric
Cardiology: S1 and S2 (regular rate/rhythm)
Pulmonary: Clear
GI: Soft, Distended (minimally distended upper abdomen), Non Tender and Other (soft bowel sounds)
--- NOTE | 2023-11-29 10:43 | W.PN.UPDATE ---
Update Note
Progress Note Update
Attempted to see patient this morning. Patient stated 'this wasn't a good time right now to be seen'. She is having loose bowel movements per nursing record. She is scheduled for a Gastrografin enema this morning. We will await results.
--- NOTE | 2023-11-29 12:28 | W.PN.HOSP.TC ---
Addendum entered and electronically signed by Pamela Courtney DO 11/29/23 14:54:
Patient seen and examined independently of GAVIN. I agree with her note with my additions below
Arelis is a 68-year-old female with history of morbid obesity with weight loss since her new adenocarcinoma of unknown primary diagnosis now BMI down to 51. Bilateral pulmonary embolism with Eliquis on hold, pulmonary/lymphangitic/solitary bone and
fernando mets who came back to the hospital after obstipation started after she took 1 Imodium post her first chemotherapy regimen. Yesterday did a manual disimpaction of soft brown stool and gave her a good bowel regimen. At the hepatic flexure she
has a 7 cm proximal transverse circumferential wall thickening with narrowing consistent with a neoplasm. Questionable low-grade partial mechanical obstruction. She denied any abdominal pain. I changed her regimen around and she is now moving her
bowels.
I discussed with the patient and her at bedside that we will proceed with a colonoscopy tomorrow so oncology can get tissue and likely better cater her chemotherapy regimen
If it appears very narrow and possibly obstructing, may get Dr. Willis involved for possible stent but based on her symptoms this is likely unnecessary
Eliquis is on hold
This will be her first colonoscopy
NPO after midnight
Original Note:
Today's Communication/Plan
-
Colonoscopy planned for tomorrow
Assessment / Plan
Assessment / Plan
CT a/p
Proximal transverse colon and colonic neoplasm again demonstrated, as described, with suggestion of an element of low-grade partial mechanical obstruction.
As before, peritoneal carcinomatosis. Also, extensive mesenteric adenopathy as well as adenopathy adjacent and surrounding the pancreas and extending into the elisha hepatis. In addition, Extensive retroperitoneal adenopathy is again demonstrated.
Stable small low-attenuation intrahepatic space-occupying lesion.
Questionable small low-attenuation mass along the ventral margin in the pancreatic head.
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 Also seen previously. There are a few more localized nodular opacities demonstrated, suggesting more discrete metastatic nodules. Trace left pleural effusion. Trace
pericardial effusion.

CXR 11/28/23-Findings suggest progressive lymphangitic carcinomatosis.
Progressive airspace opacity in the left mid to lower lung zone and right lower lobe could be related to alveolar fluid or infection/pneumonia.
Awake and alert
CVS S1 S2 normal
Chest few scattered rales
Abd - Soft
Pedal edema much better
# Severe constipation
-Mild persistent colonic obstruction from mass vs other
-No bowel movement from Wednesday.� Patient used 1 dose of Imodium post chemo diarrhea
-Check TSH
-CT abdomen pelvis report as above.
-Bowel sounds suppressed, able to pass gas.� No nausea or vomiting in ER.
-Maintain on clear liquid diet for now.
-Gastrografin enema canceled as the patient had bowel movements and since GI planning for colonoscopy tomorrow.
# Acute hypoxic resp insufficiency
-CXR noted
-PFT last admit showing FEV1/FVC 0.6, FEV1 1.05L and FVC 1.74L
-Continue DuoNeb therapy
-Recently completed a course Levaquin, prednisone 20 mg taper to 10 mg 3 more days
-On Breo Ellipta-continue or equivalant
#Metastatic adenocarcinoma of unknown primary
-s/p gemcitabine/paclitaxel x1 round on Wed
-CA 19-9 was elevated. Elevation in CEA also noted
-Oncology following
-Requested colonoscopy to see if patient has a colon mass
#History of submassive PE Aug 2023
-On Eliquis, continue
-Holding Eliquis for colonoscopy.
-Per discussion with hematology oncology will use Lovenox 40 mg tonight especially with a drop in hemoglobin
#Essential hypertension-continue Norvasc
# Anemia-likely secondary to malignancy
Patient received several doses IV iron last admission. Low normal [id number]
Defer more IV iron to heme
#Suspected JOSE-Pt and family aware re sleep study as OP
#Generalized anxiety disorder-restart as needed lorazepam as patient is awake alert
#Obesity per BMI
#DVT PPX - Eliquis on hold.
Now on Lovenox
#Full code
Discussed in detail with GI and oncology
Discussed with nursing
Discussed with at bedside
time 53 min
Anticipated Discharge: 24 - 48 hours
Subjective/Interval History
-
Date of Service: November 29, 2023
Objective Data
-
Labs:
Laboratory Results
11/29/23
05:33
WBC 4.2 L
Hgb 8.6 L
Hct 27.7 L
Plt Count 141 D
Sodium 137
Potassium 4.0
Chloride 103
Carbon Dioxide 35 H
BUN 25 H
Creatinine 1.0
Glucose 142 H
Calcium 8.0 L
Vital Signs:
Vital Signs
Temp Pulse Resp BP Pulse Ox
98.4 F 92 18 134/52 95
11/29/23 07:00 11/29/23 07:00 11/29/23 07:00 11/29/23 07:00 11/29/23 07:00
I&O
11/28/23 11/29/23 11/30/23
06:59 06:59 06:59
Intake Total 200 / 200 1590 / 1590
Balance 200 / 200 1590 / 1590
[2023-11-29] MEDS: DUONEB INH (12:45)
[2023-11-29] MEDS: DELTASONE 20 MG PO (13:28)
[2023-11-29] MEDS: NORVASC 10 MG PO (13:32)
[2023-11-29] MEDS: LASIX 20 MG PO (13:33)
--- NOTE | 2023-11-29 14:06 | VNURNOTE ---
Patient is current with [facility] since 11/01 w/ SN/PT, will monitor progress and plan at discharge.
[2023-11-29] MEDS: FERRLECIT 110 MG IV (15:09)
[2023-11-29 15:12] VITALS: BP 142/56
[2023-11-29] MEDS: GAVILAX 238 GM PO (15:52)
[2023-11-29] MEDS: LOVENOX 40 MG SC (16:59)
[2023-11-29] MEDS: SYMBICORT 160/4.5 MCG INHALER 2 PUFF INH (19:27)
[2023-11-29] MEDS: DUONEB 3 ML INH (19:27)
[2023-11-29] MEDS: COLACE 100 MG PO (21:24)
[2023-11-29 23:00] VITALS: BP 114/40
[2023-11-30 06:16] LABS: Hemoglobin 8.3 g/dL (12.0-16.0); Mean Corp Hgb Conc. 30.7 g/dL (33.0-37.0); Mean Corpuscular Hgb 24.2 pg (27.0-31.0); Mean Corpuscular Volume 78.7 fL (81.0-99.0); Mean Platelet Volume 10.1 fL (7.4-10.4); Platelet Count 116 10^3/uL (130-400); Red Blood Cell Count 3.43 10^6/uL (4.20-5.40); Red Cell Dist. Width 21.6 % (11.5-14.5); White Blood Cell Count 4.6 10^3/uL (4.8-10.8)
[2023-11-30 06:43] LABS: Blood Urea Nitrogen 21 mg/dl (7-17); Calcium 8.1 mg/dl (8.4-10.2); Carbon Dioxide 36 mmol/L (22-30); Chloride 98 mmol/L (98-107); Estimated Creatinine Clearance 84 ml/min; Glucose 126 mg/dl (70-99); Magnesium 2.7 mg/dl (1.6-2.3); Potassium 3.8 mmol/L (3.5-5.1); Sodium 135 mmol/L (135-145); eGFR > 60.00
[2023-11-30] MEDS: DUONEB 3 ML INH ×2 (08:03→19:30)
[2023-11-30] MEDS: SYMBICORT 160/4.5 MCG INHALER 2 PUFF INH ×2 (08:03→19:30)
[2023-11-30 08:24] VITALS: BP 135/56
[2023-11-30] MEDS: AFRIN NASAL SPRAY NASAL (08:37)
[2023-11-30] MEDS: PROTONIX 40 MG PO (08:38)
[2023-11-30] MEDS: LASIX 20 MG PO (08:38)
[2023-11-30] MEDS: NORVASC 10 MG PO (08:38)
[2023-11-30] MEDS: DELTASONE 10 MG PO (08:38)
[2023-11-30] MEDS: VITAMIN B-12 1000 MCG PO (08:38)
[2023-11-30] MEDS: COLACE PO (08:38)
[2023-11-30] MEDS: LIDOCAINE 4% PATCH TOPICAL (08:38)
[2023-11-30] MEDS: MIRALAX PO (08:38)
[2023-11-30] MEDS: DESENEX/MITRAZOL/ZEASORB 1 APPLIC TOPICAL ×2 (08:39→21:04)
--- NOTE | 2023-11-30 08:58 | W.PN.ONC ---
Addendum entered and electronically signed by Ewa Alonso MD 11/30/23 13:51:
Met w/ in hallway, patient on commode.
Colonoscopy revealed mass at hepatic flexure, near obstructing
Biopsies taken, likely represents primary malignancy
Await pathology, likely to change chemo to FOLFOX assuming path confirmatory
Monitor for s/sx of obstruction, low threshold to involve colorectal surgery
Continue Lovenox 40mg/d today, would resume Eliquis 12/01/23 for treatment of recent PE (she's at high risk for recurrent VTE w/ active malignancy)
Monitor CBC, continue IV iron
Will follow along
Original Note:
Today's Communication / Plan
-
Proceed with colonoscopy today for tissue sampling
Await pathology report
Lovenox with resumption of Eliquis after colonoscopy
11/30 Hgb 8.3
Transfuse as needed to maintain Hgb >7.5
Continue IV iron in the absence of infection
Emotional support
Physical therapy
Pain management, supportive care
The [place] office has been notified of patient's hospital admission.
We will continue to follow along and reschedule outpatient treatment accordingly pending pathology and functional status.
Impression
Impression
Mucinous adenocarcinoma
Lung mass with smaller lung nodules
CA 19-9 elevation
RUQ bowel wall uptake on PET with CT finding concerning for malignancy
Constipation
Chemo-associated cytopenias
Severe obesity with BMI >50
Weakness
Subjective/Objective
Subjective/Objective
Patient is sleeping between care. I discussed the plan of care at length with patient's at bedside. Extensive emotional support provided. Upon awaking, patient reports hip pain and requests to be repositioned. Nursing notified.
Vital Signs:
Vital Signs
Temp Pulse Resp BP Pulse Ox
97.8 F 90 22 135/56 97
11/30/23 08:24 11/30/23 08:38 11/30/23 08:24 11/30/23 08:38 11/30/23 08:24
physical exam:
aaox3, drowsy, arouses to voice
lungs dim, nasal cannula oxygen
obese, hypoactive bowel sounds
Lab Results:
Laboratory Data
WBC 4.6 10^3/uL (4.8-10.8) L 11/30/23 05:40
Hgb 8.3 g/dL (12.0-16.0) L 11/30/23 05:40
Plt Count 116 10^3/uL (130-400) L 11/30/23 05:40
APTT Cancelled 11/28/23 15:22
eGFR > 60.00 11/30/23 05:40
11/27/23 CT abdomen/pelvis: Proximal transverse colon and colonic neoplasm again demonstrated, as described, with suggestion of an element of low-grade partial mechanical obstruction.As before, peritoneal carcinomatosis. Also, extensive mesenteric
adenopathy as well as adenopathy adjacent and surrounding the pancreas and extending into the elisha hepatis. In addition, Extensive retroperitoneal adenopathy is again demonstrated.Stable small low-attenuation intrahepatic space-occupying
lesion.Questionable small low-attenuation mass along the ventral margin in the pancreatic head.Findings highly suspicious for lung base lymphangitic carcinomatosis, as described. Also seen previously. There are a few more localized nodular opacities
demonstrated, suggesting more discrete metastatic nodules. Trace left pleural effusion. Trace pericardial effusion.
Orders
Orders
Orders From Last 24 Hours
11/30/23 08:56
CA 19-9 [S] Urgent
CEA Urgent
--- NOTE | 2023-11-30 11:44 | W.PN.UPDATE ---
Update Note
Progress Note Update
Colon mass noted most likely at the hepatic flexure/distal ascending colon or proximal transverse colon as noted on CT, unable to traverse the mass which is causing almost complete obstruction. Biopsies obtained and distal margin tattooed. Further
management per oncology. We will sign off and will be available as needed
[2023-11-30 11:47] VITALS: BP 139/63
[2023-11-30 12:00] VITALS: BP 113/58
[2023-11-30 15:00] VITALS: BP 138/70
[2023-11-30] MEDS: FERRLECIT 110 MG IV (15:11)
--- NOTE | 2023-11-30 15:27 | CM ---
Pt resting in bed after colonoscopy today .
On new oxygen 2 liter Pox 96%.
Will need home oxygen test closer to [place].
Spoke with Isael he will drive her home at [place].
Requested VN . Nirmala CONTEH liaison saw patient.
PLAN Home with VN
[2023-11-30 16:32] VITALS: BP 138/64
[2023-11-30] MEDS: LOVENOX 40 MG SC (16:33)
--- NOTE | 2023-11-30 17:16 | W.PN.HOSP.TC ---
Addendum entered and electronically signed by Sharda Patel MD 12/02/23 13:00:
Correction- Full liquid diet ot LR diet
Original Note:
Today's Communication/Plan
-
Await plans from colorectal and Oncology.
requests a call from colorectal.
Assessment / Plan
Assessment / Plan
CT a/p
Proximal transverse colon and colonic neoplasm again demonstrated, as described, with suggestion of an element of low-grade partial mechanical obstruction.
As before, peritoneal carcinomatosis. Also, extensive mesenteric adenopathy as well as adenopathy adjacent and surrounding the pancreas and extending into the elisha hepatis. In addition, Extensive retroperitoneal adenopathy is again demonstrated.
Stable small low-attenuation intrahepatic space-occupying lesion.
Questionable small low-attenuation mass along the ventral margin in the pancreatic head.
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 Also seen previously. There are a few more localized nodular opacities demonstrated, suggesting more discrete metastatic nodules. Trace left pleural effusion. Trace
pericardial effusion.

CXR 11/28/23-Findings suggest progressive lymphangitic carcinomatosis.
Progressive airspace opacity in the left mid to lower lung zone and right lower lobe could be related to alveolar fluid or infection/pneumonia.
Awake and alert
CVS S1 S2 normal
Chest few scattered rales
Abd - Soft
Pedal edema much better
EKG- SR , No ischemia
# Severe constipation
-Mild persistent colonic obstruction from mass vs other
-No bowel movement from Wednesday.� Patient used 1 dose of Imodium post chemo diarrhea
-TSH
-CT abdomen pelvis report as above.
-Bowel sounds suppressed, able to pass gas.� No nausea or vomiting in ER.
-Maintain on clear liquid diet for now with ensure clear.
-colonoscopy 11/30/23- 'Colon mass noted most likely at the hepatic flexure/distal ascending colon or proximal transverse colon as noted on CT, unable to traverse the mass which is causing almost complete obstruction.� Biopsies obtained and distal
margin tattooed.��'
-Colorectal already aware
#Mild Thrombocytopenia- Follow
# Acute hypoxic resp insufficiency
-CXR noted
-PFT last admit showing FEV1/FVC 0.6, FEV1 1.05L and FVC 1.74L
-Continue DuoNeb therapy
-Recently completed a course Levaquin, prednisone 20 mg taper to 10 mg 3 more days
-On Breo Ellipta-continue or equivalent
#Metastatic adenocarcinoma of unknown primary
-s/p gemcitabine/paclitaxel x1 round on Wed
-CA 19-9 was elevated. Elevation in CEA also noted
-Oncology following
#History of submassive PE Aug 2023
-On Eliquis, continue
-Holding Eliquis for colonoscopy.
-Per discussion with hematology oncology will use Lovenox 40 mg tonight , restart eliquis tomorrow 12/01/23
#Essential hypertension-continue Norvasc
# Anemia-likely secondary to malignancy
Patient received several doses IV iron last admission. Low normal [id number]
Defer more IV iron to heme
#Suspected JOSE-Pt and family aware re sleep study as OP
#Generalized anxiety disorder-restart as needed lorazepam as patient is awake alert
#Obesity per BMI
#DVT PPX - Eliquis on hold.
Now on Lovenox
#Full code
Discussed in detail with GI , colorectal and oncology
Discussed with nursing
Discussed with at bedside
Time 51 min
Anticipated Discharge: 24 - 48 hours
Subjective/Interval History
-
Date of Service: November 30, 2023
Objective Data
-
Labs:
Laboratory Results
11/30/23
05:40
WBC 4.6 L
Hgb 8.3 L
Hct 27.0 L
Plt Count 116 L
Sodium 135
Potassium 3.8
Chloride 98
Carbon Dioxide 36 H
BUN 21 H
Creatinine 0.9
Glucose 126 H
Calcium 8.1 L
Vital Signs:
Vital Signs
Temp Pulse Resp BP Pulse Ox
98.8 F 88 20 138/64 95
11/30/23 16:32 11/30/23 16:32 11/30/23 16:32 11/30/23 16:32 11/30/23 16:32
I&O
11/29/23 11/30/23 12/01/23
06:59 06:59 06:59
Intake Total 1590 / 1590 1680 / 1680
Balance 1590 / 1590 1680 / 1680
[2023-11-30 18:26] LABS: TSH 0.27 uIU/ml (0.47-4.68)
[2023-11-30] MEDS: COLACE 100 MG PO (21:03)
[2023-11-30] MEDS: AFRIN NASAL SPRAY 2 SPRAYS NASAL (21:03)
[2023-11-30] MEDS: FLUSH (NSS) 2 FLUSH IV (21:04)
--- NOTE | 2023-11-30 22:30 | PTCARENOTE ---
Pt requested saline spray and cream for underneath breasts, DOORKEEPER made aware, new orders provided, see MAR. Will continue to monitor.
[2023-11-30] MEDS: LOTRISONE CREAM 1 APPLIC TOPICAL (22:40)
[2023-11-30] MEDS: OCEAN, SALINE MIST 2 SPRAYS NASAL (22:45)
[2023-11-30 23:50] VITALS: BP 126/42
[2023-12-01 04:15] LABS: Hematocrit 27.9 % (37.0-47.0); Hemoglobin 8.6 g/dL (12.0-16.0); Mean Corp Hgb Conc. 30.8 g/dL (33.0-37.0); Mean Corpuscular Hgb 23.9 pg (27.0-31.0); Mean Corpuscular Volume 77.5 fL (81.0-99.0); Mean Platelet Volume 9.9 fL (7.4-10.4); Platelet Count 136 10^3/uL (130-400); Red Cell Dist. Width 22.1 % (11.5-14.5); White Blood Cell Count 7.1 10^3/uL (4.8-10.8)
[2023-12-01 04:30] LABS: Blood Urea Nitrogen 17 mg/dl (7-17); Calcium 8.2 mg/dl (8.4-10.2); Carbon Dioxide 34 mmol/L (22-30); Chloride 101 mmol/L (98-107); Estimated Creatinine Clearance 69 ml/min; Glucose 120 mg/dl (70-99); Potassium 3.6 mmol/L (3.5-5.1); Sodium 136 mmol/L (135-145); eGFR 55.07
[2023-12-01] MEDS: ATIVAN 0.5 MG PO (05:03)
[2023-12-01] MEDS: DUONEB 3 ML INH ×3 (05:12→20:24)
--- NOTE | 2023-12-01 05:52 | W.PN.ONC2 ---
Today's Communication / Plan
-
Large colon mass identified as described above. Awaiting biopsy pathology.
Colorectal surgery follow-up pending.
Regarding anticoagulation, await surgical decision regarding surgical plans and timing. For now continue Lovenox prophylactic dose assuming surgery is upcoming in the short-term. Eventually will need to restart therapeutic anticoagulation as
extremely high risk for progression of thrombosis.
Impression
Impression
Transverse colon mass
Mucinous adenocarcinoma
Lung mass with smaller lung nodules
CA 19-9 elevation
Chemo-associated cytopenias
Severe obesity with BMI >50
Weakness
Plan
Plan
Colonoscopy is consistent with a colon mass. Patient is, the expectation is that the metastatic disease is secondary to colon cancer as opposed to cancer of unknown primary. Await biopsies for confirmation
Important to verify diagnosis AMPARO since the chemo regimen she is on would be effective for lung and pancreatic cancers but not colon cancer.
Will need to resume Eliquis for PE (3 mo ago). She is at continued high risk for clot given active cancer, hospitalization. It was not resumed post colonoscopy as we await decision from colorectal surgery about potential additional surgical steps.
She will continue Lovenox prophylactic dose until we hear from colorectal surgery about plans.
Iron deficiency noted, she was to be treated with IV iron this week. Can give here in hospital in the absence of infection. Would not give PO due to bowel issues.
Transfuse PRN Hgb<7.5.
Subjective/Objective
Chief Complaint
ACS Heme Onc
Subjective
Anxious. No N/V.
Colonoscopy findings: A fungating and ulcerated partially/almost complete obstructing large mass was found in the proximal transverse colon/ the hepatic flexure.
Vital Signs:
Vital Signs
Temp Pulse Resp BP Pulse Ox
98.7 F 85 16 126/42 95
11/30/23 23:50 12/01/23 05:14 12/01/23 05:14 11/30/23 23:50 12/01/23 05:14
Lab Results:
Laboratory Data
WBC 7.1 10^3/uL (4.8-10.8) 12/01/23 03:58
Hgb 8.6 g/dL (12.0-16.0) L 12/01/23 03:58
Plt Count 136 10^3/uL (130-400) 12/01/23 03:58
APTT Cancelled 11/28/23 15:22
eGFR 55.07 12/01/23 03:58
Physical Exam
HEENT: No Jaundice
Cardiology: S1 and S2
Pulmonary: Clear
GI: Other (obese)
Extremities: No Edema
Neuro: Non Focal
[2023-12-01 07:40] VITALS: BP 160/70
[2023-12-01] MEDS: SYMBICORT 160/4.5 MCG INHALER 2 PUFF INH ×2 (07:44→20:23)
[2023-12-01] MEDS: OCEAN, SALINE MIST 1 SPRAYS NASAL (08:18)
[2023-12-01] MEDS: AFRIN NASAL SPRAY NASAL (08:20)
[2023-12-01] MEDS: COLACE 100 MG PO ×2 (08:20→19:53)
[2023-12-01] MEDS: DELTASONE 10 MG PO (08:21)
[2023-12-01] MEDS: LIDOCAINE 4% PATCH TOPICAL (08:21)
[2023-12-01] MEDS: LOTRISONE CREAM 1 APPLIC TOPICAL ×2 (08:21→19:53)
[2023-12-01] MEDS: VITAMIN B-12 1000 MCG PO (08:21)
[2023-12-01] MEDS: PROTONIX 40 MG PO (08:21)
[2023-12-01] MEDS: DESENEX/MITRAZOL/ZEASORB TOPICAL (08:21)
[2023-12-01] MEDS: MIRALAX 17 GRAMS PO (08:21)
[2023-12-01] MEDS: NORVASC 10 MG PO (08:21)
[2023-12-01] MEDS: LASIX 20 MG PO (08:22)
--- NOTE | 2023-12-01 09:39 | CM ---
Awaiting biopsy obtained at colonoscopy yesterday .
Oncology involved .
On new oxygen 2 liter Pox 99%.
Will need home oxygen test [place] to [place]
Spoke with Isael he [place] drive her [place] at [place].
Requested [facility] . Nirmala COSTAVN liaison saw patient.
PLAN Home with [facility] Watch for oxygen need .
--- NOTE | 2023-12-01 10:35 | PN.CDI ---
CDI
- -
CDI:
Physician Documentation Request
Admit Date: 11/27/23 15:59
Dear Doctor Amanda,
Please review the following and provide your response in the progress notes.
Clinical Indicators:
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
#...Consult unintentional weight loss. 68 y/o female admitted partial SBO,
#...meets criteria for severe protein calorie malnutrition of chronic illness
#...with >7.5% wt loss x 3months and
#...prolonged poor intake prior to hospital admission <75% for > 1month
#...related to met adenocarcinoma, multiple hospitalizations.
Based on the information and your clinical assessment, please clarify the most accurate representation of the patient's nutritional status?
Severe protein calorie malnutrition of chronic illness
Other (please specify)
[place] Criteria ([employer] Hospitalist 2017)
2 or more criteria must be present for either
non severe or severe malnutrition
Note that the criteria differs related to the
presence of an acute or chronic illness
Chronic Illness
Energy Intake Non Severe: <75% for >1 month
Severe: <75% for >1 month
Weight Loss Non Severe: 5% over 1 month
7.5% over 3 months
10% over 6 months
20% over 1 year
Severe: >5% over 1 month
>7.5% over 3 months
>10% over 6 months
>20% over 1 year
Use of terms such as suspected, likely, concern for, or probable (associated with a specific diagnosis that is being evaluated, monitored, or treated as if it exists) are acceptable and can be coded in the inpatient setting, when documented at the
time of discharge.
Thank you,
Gunjan Seth RN BSN CCDS
CDI Specialist
please contact via tiger text
Please use your independent medical judgment in providing your response.
--- NOTE | 2023-12-01 10:50 | PN.CDI ---
Addendum entered and electronically signed by Sharda Patel MD 12/01/23 18:13:
chronic edema
Original Note:
CDI
- -
CDI:
Physician Documentation Request
Admit Date: 11/27/23 15:59
Dear Doctor Amanda,
Please review the following and provide your response in the progress notes.
Clinical Indicators:
Documentation in the medical record includes administration of Lasix, IV and continued PO....
Medications
Furosemide (Furosemide 20 Mg (10 Mg/Ml) 2 Ml Vial) 20 mg IV ONCE ONE
Stop: 11/28/23 15:37
Last Admin: 11/28/23 15:53 Dose: 20 mg
Furosemide (Furosemide 20 Mg Tablet) 20 mg PO DAILY SHIRA
Stop: 12/27/23 12:59
Last Admin: 12/01/23 08:22 Dose: 20 mg
administered: 11/29, 11/30, 12/01 20 mg po
PN, 11/28
#2. Acute hypoxic resp insufficiency
#-Hold further IVF�
#...-of note patient required IV Lasix earlier on previous visit to help symptoms of hypoxia
PN, 11/30
#CXR 11/28/23-Findings suggest progressive lymphangitic carcinomatosis.
#...Progressive airspace opacity in the left mid to lower lung zone and
#...right lower lobe could be related to alveolar fluid or infection/pneumonia.
Based on the above and your clinical assessment, please clarify in the progress notes, the appropriate diagnosis, if significant, that supports the above abnormalities and additional evaluation, monitoring and/or treatment(IV and PO lasix) rendered:
Fluid overload(please specify)
Other(please specify)
Unable to determine
Use of terms such as suspected, likely, concern for, or probable (associated with a specific diagnosis that is being evaluated, monitored, or treated as if it exists) are acceptable and can be coded in the inpatient setting, when documented at the
time of discharge.
Thank you,
Gunjan Seth RN BSN CCDS
CDI Specialist
please contact via tiger text
Please use your independent medical judgment in providing your response.
--- NOTE | 2023-12-01 11:26 | W.PN.CRS1 ---
Today's Communication / Plan
-
No surgery offered at this time
Assessment/Plan
-
Assessment:68-year-old female with PMH of PE (diagnosed in August 2023, on Eliquis), stage IV adenocarcinoma of unknown origin (oncologist is Dr. Mccain, received first chemo of gemcitabine/paclitaxel last week Wednesday), chronic dyspnea who
presents after 4 days with no bowel movement after taking Imodium; denies any nausea, passing flatus; CT showing colonic narrowing concerning for colonic neoplasm with low-grade partial obstruction (cecum measuring about 6-7 cm), peritoneal
carcinomatosis and lymphangitic carcinomatosis
Plan:
There is no surgery offered at this time. This was discussed with patient and her at bedside. She is tolerating a clear liquid diet and we will advance her to a full liquid diet. This was discussed with oncology see from colonoscopy is
still pending. We will sign off. Please contact us if further issues arise.
Subjective Data
Subjective Data
Date of Service: December 01, 2023
Patient states she had a 'so-so night'. She denies nausea or vomiting. She denies pain. Her appetite is okay. She ate 2 sherbet and drank 2 teas yesterday. She is having bowel movements and flatus.
Objective Data
-
Vital Signs
Temp Pulse Resp BP Pulse Ox
98.6 F 88 16 160/70 99
12/01/23 07:40 12/01/23 08:22 12/01/23 07:44 12/01/23 08:22 12/01/23 07:44
Intake & Output
11/30/23 12/01/23 12/02/23
06:59 06:59 06:59
Intake Total 1680 / 1680 660 / 660
Balance 1680 / 1680 660 / 660
Intake:
Oral fluids 1680 / 1680 660 / 660
Other:
Number of approximated MODERATE 4 3
amounts of urine
Number of unmeasured liquid
stools
Rectum 8
Lab Results
12/01/23 03:58
12/01/23 03:58
Physical Exam
-
General: No Acute Distress and AOx3
Abdomen: Soft, Non Distended and Non Tender
Skin: Warm and Dry
[2023-12-01] MEDS: ELIQUIS 5 MG PO ×2 (12:01→19:53)
[2023-12-01] MEDS: FERRLECIT 110 MG IV (13:41)
--- NOTE | 2023-12-01 14:46 | W.PN.HOSP.TC ---
Addendum entered and electronically signed by Sharda Patel MD 12/01/23 18:14:
severe protein calorie malnutrition-ensure
Addendum entered and electronically signed by Sharda Patel MD 12/01/23 15:13:
Hyperglycemia-likely secondary to steroids
Will check hemoglobin A1c
However with restricted diet and needing nutrition it may be difficult to do it too tight of control.
Original Note:
Today's Communication/Plan
-
Patient started on full liquid diet
Continue Colace and MiraLAX
She is still having bowel movements.
Possible discharge tomorrow.
Await Dr. Mccain to see the patient tomorrow
Possible discharge tomorrow
Assessment / Plan
Assessment / Plan
CT a/p
Proximal transverse colon and colonic neoplasm again demonstrated, as described, with suggestion of an element of low-grade partial mechanical obstruction.
As before, peritoneal carcinomatosis. Also, extensive mesenteric adenopathy as well as adenopathy adjacent and surrounding the pancreas and extending into the elisha hepatis. In addition, Extensive retroperitoneal adenopathy is again demonstrated.
Stable small low-attenuation intrahepatic space-occupying lesion.
Questionable small low-attenuation mass along the ventral margin in the pancreatic head.
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 Also seen previously. There are a few more localized nodular opacities demonstrated, suggesting more discrete metastatic nodules. Trace left pleural effusion. Trace
pericardial effusion.

CXR 11/28/23-Findings suggest progressive lymphangitic carcinomatosis.
Progressive airspace opacity in the left mid to lower lung zone and right lower lobe could be related to alveolar fluid or infection/pneumonia.
Awake and alert
CVS S1 S2 normal
Chest CTA
Abd - Soft
Pedal edema much better
EKG- SR , No ischemia
# Severe constipation
-Mild persistent colonic obstruction from mass vs other
-No bowel movement from Wednesday [employer].� Patient used 1 dose of Imodium post chemo diarrhea
-TSH noted- add T4
-Colonoscopy 11/30/23- 'Colon mass noted most likely at the hepatic flexure/distal ascending colon or proximal transverse colon as noted on CT, unable to traverse the mass which is causing almost complete obstruction.� Biopsies obtained and distal
margin tattooed.��'
-Colorectal surgery evaluation noted. No plans for surgery.
-Patient started on a low residue diet and continue with stool softeners and MiraLAX.
-Eliquis restarted
#Mild Thrombocytopenia-better
# Acute hypoxic resp insufficiency
-CXR noted
-PFT last admit showing FEV1/FVC 0.6, FEV1 1.05L and FVC 1.74L
-Continue DuoNeb therapy
-Recently completed a course Levaquin, prednisone 20 mg taper to 10 mg 3 more days
-On Breo Ellipta-continue or equivalent
-Rpt CXR
-Wean O2
#Metastatic adenocarcinoma of unknown primary
-s/p gemcitabine/paclitaxel x1 round on Wed
-CA 19-9 was elevated. Elevation in CEA also noted
-Colon mass biopsy pending.
-Oncology following
#History of submassive PE Aug 2023
-On Eliquis, continue
-Holding Eliquis for colonoscopy.
-Per discussion with hematology oncology will use Lovenox 40 mg tonight , restart Eliquis tomorrow 12/01/23
#Essential hypertension-continue Norvasc
# Anemia-likely secondary to malignancy
Patient received several doses IV iron last admission. Low normal [id number]
Defer more IV iron to heme
#Suspected JOSE-Pt and family aware re sleep study as OP
#Generalized anxiety disorder- lorazepam
#Obesity per BMI
#DVT PPX - Eliquis
#Full code
Discussed in detail with GI , colorectal and oncology
Discussed with nursing
Discussed with at bedside
Time 52 min
Anticipated Discharge: Within 24 hours
Subjective/Interval History
-
Date of Service: December 01, 2023
Objective Data
-
Labs:
Laboratory Results
12/01/23
03:58
WBC 7.1
Hgb 8.6 L
Hct 27.9 L
Plt Count 136
Sodium 136
Potassium 3.6
Chloride 101
Carbon Dioxide 34 H
BUN 17
Creatinine 1.1 H
Glucose 120 H
Calcium 8.2 L
Vital Signs:
Vital Signs
Temp Pulse Resp BP Pulse Ox
98.6 F 88 16 160/70 99
12/01/23 07:40 12/01/23 08:22 12/01/23 07:44 12/01/23 08:22 12/01/23 07:44
I&O
11/30/23 12/01/23 12/02/23
06:59 06:59 06:59
Intake Total 1680 / 1680 660 / 660
Balance 1680 / 1680 660 / 660
[2023-12-01 15:28] VITALS: BP 127/54
[2023-12-01 15:50] LABS: Free T4 1.24 ng/dl (0.78-2.19)
[2023-12-01] MEDS: DESENEX/MITRAZOL/ZEASORB 1 APPLIC TOPICAL (19:52)
[2023-12-01] MEDS: AFRIN NASAL SPRAY 1 SPRAYS NASAL (20:04)
[2023-12-01 23:00] VITALS: BP 152/81
[2023-12-02] MEDS: MYLICON 80 MG PO ×2 (02:42→15:40)
[2023-12-02 07:00] VITALS: BP 151/79
[2023-12-02] MEDS: SYMBICORT 160/4.5 MCG INHALER 2 PUFF INH ×2 (08:13→19:54)
[2023-12-02] MEDS: DUONEB 3 ML INH ×2 (08:14→19:54)
--- NOTE | 2023-12-02 08:49 | W.PN.ONC ---
Addendum entered and electronically signed by Lane Mccain DO 12/02/23 13:36:
Patient and chart independently evaluated. Physical exam performed. Agree with the impression and plan as outlined below. Discussed with the primary service. Nutritional consultation. Discussed with colorectal surgery and GI due to angulation
stenting would be difficult. Will proceed with plan to reach full by virtue of full liquids. Anticipate short interval follow-up in the office to initiate FOLFOX. Await pathology from colonic biopsy.
Original Note:
Today's Communication / Plan
-
12/01 Hgb 8.6
Transfuse as needed to maintain Hgb >7.5
11/30 s/p colonoscopy w/ biopsy of hepatic flexure mass : Colon mass noted most likely at the hepatic flexure/distal ascending colon or proximal transverse colon as noted on CT, unable to traverse the mass which is causing almost complete
obstruction.� Biopsies obtained and distal margin tattooed.
Await pathology report for confirmation of diagnosis
Continue Lovenox with eventual resumption of Eliquis
Not a surgical candidate at this time per Colorectal
Continue IV iron
Supportive care/pain management
Diet as tolerated
PT/OT, OOB activity
Dr Mccain to discuss plans of care with at bedside today. We will follow.
Office updated.
Impression
Impression
Transverse colon mass
Mucinous adenocarcinoma
Lung mass with smaller lung nodules
CA 19-9 elevation of 922 (10/2023)
Chemo-associated cytopenias
Severe obesity with BMI >50
Weakness
Abdominal pain
Subjective/Objective
Subjective/Objective
Patient OOB to the chair. She reports abdominal pain overnight. Denies pain at this time. She is tolerating Ensure.
Vital Signs:
Vital Signs
Temp Pulse Resp BP Pulse Ox
98.7 F 81 16 151/79 96
12/02/23 07:00 12/02/23 08:20 12/02/23 08:20 12/02/23 07:00 12/02/23 08:20
physical exam:
aaox3, flat affect
2L oxygen via nasal cannula
obese, hypoactive bowel sounds
Lab Results:
Laboratory Data
WBC 7.1 10^3/uL (4.8-10.8) 12/01/23 03:58
Hgb 8.6 g/dL (12.0-16.0) L 12/01/23 03:58
Plt Count 136 10^3/uL (130-400) 12/01/23 03:58
APTT Cancelled 11/28/23 15:22
eGFR 55.07 12/01/23 03:58
[2023-12-02] MEDS: COLACE 100 MG PO (09:18)
[2023-12-02] MEDS: MIRALAX 17 GRAMS PO (09:19)
[2023-12-02] MEDS: ELIQUIS 5 MG PO ×2 (09:19→19:35)
[2023-12-02] MEDS: NORVASC 10 MG PO (09:19)
[2023-12-02] MEDS: PROTONIX 40 MG PO (09:19)
[2023-12-02] MEDS: AFRIN NASAL SPRAY 30 SPRAYS NASAL (09:20)
[2023-12-02] MEDS: LIDOCAINE 4% PATCH TOPICAL ×2 (09:20→09:28)
[2023-12-02] MEDS: LASIX 20 MG PO (09:25)
[2023-12-02] MEDS: DELTASONE 10 MG PO (09:25)
[2023-12-02] MEDS: VITAMIN B-12 1000 MCG PO (09:25)
[2023-12-02] MEDS: LOTRISONE CREAM 1 APPLIC TOPICAL ×2 (09:26→19:48)
[2023-12-02] MEDS: DESENEX/MITRAZOL/ZEASORB TOPICAL (09:26)
[2023-12-02 09:32] LABS: Glycohemoglobin (HgbA1c) 6.5 % (4.0-5.6)
--- NOTE | 2023-12-02 12:54 | W.PN.HOSP.TC ---
Today's Communication/Plan
-
Dietary eval.
Diabetic teaching
Home O2 eval.
Discharge planning
Assessment / Plan
Assessment / Plan
CT a/p
Proximal transverse colon and colonic neoplasm again demonstrated, as described, with suggestion of an element of low-grade partial mechanical obstruction.
As before, peritoneal carcinomatosis. Also, extensive mesenteric adenopathy as well as adenopathy adjacent and surrounding the pancreas and extending into the elisha hepatis. In addition, Extensive retroperitoneal adenopathy is again demonstrated.
Stable small low-attenuation intrahepatic space-occupying lesion.
Questionable small low-attenuation mass along the ventral margin in the pancreatic head.
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 Also seen previously. There are a few more localized nodular opacities demonstrated, suggesting more discrete metastatic nodules. Trace left pleural effusion. Trace
pericardial effusion.

CXR 11/28/23-Findings suggest progressive lymphangitic carcinomatosis.
Progressive airspace opacity in the left mid to lower lung zone and right lower lobe could be related to alveolar fluid or infection/pneumonia.
Awake and alert
CVS S1 S2 normal
Chest CTA
Abd - Soft
Pedal edema much better
Had gas pains last night, better with simethicone
EKG- SR , No ischemia
# Severe constipation
-Mild persistent colonic obstruction from mass vs other
-No bowel movement from Wednesday [employer].� Patient used 1 dose of Imodium post chemo diarrhea
-TSH noted- add T4
-Colonoscopy 11/30/23- 'Colon mass noted most likely at the hepatic flexure/distal ascending colon or proximal transverse colon as noted on CT, unable to traverse the mass which is causing almost complete obstruction.� Biopsies obtained and distal
margin tattooed.��'
-Colorectal surgery evaluation noted. No plans for surgery or stent due to the position and also peritoneal carcinomatosis
-Patient started on a Full liquid diet and continue with stool softeners and MiraLAX.
-Eliquis restarted
#New DM-we do not want to restrict her diet too much
Change Ensure to Glucerna
Dietary education and diabetic education
Educated about Accu-Cheks
Hold off on any medicines
Hopefully with stopping steroids sugars may not run high
#Mild Thrombocytopenia-better
# Acute hypoxic resp insufficiency
-CXR noted
-PFT last admit showing FEV1/FVC 0.6, FEV1 1.05L and FVC 1.74L
-Continue DuoNeb therapy
-Recently completed a course Levaquin, also finished prednisone today
-On Breo Ellipta-continue or equivalent
-Rpt CXR lymphangitic spread.
-Wean O2 and repeat Home O2 eval. Pt only walked 10 feet.
#Metastatic adenocarcinoma of unknown primary
-s/p gemcitabine/paclitaxel x1 round on Wed
-CA 19-9 was elevated. Slight Elevation in CEA also noted
-Colon mass biopsy pending.
-Oncology following
-
#History of submassive PE Aug 2023
-On Eliquis, continue
-Holding Eliquis for colonoscopy.
-Per discussion with hematology oncology will use Lovenox 40 mg tonight , restart Eliquis tomorrow 12/01/23
#Essential hypertension-continue Norvasc
# Anemia-likely secondary to malignancy
Patient received several doses IV iron last admission. Low normal [id number]
Defer more IV iron to heme
#Suspected JOSE-Pt and family aware re sleep study as OP
#Generalized anxiety disorder- lorazepam
#Obesity per BMI
#DVT PPX - Eliquis
#Full code
Discussed in detail with GI , and oncology
Discussed with nursing
Discussed with at bedside
Discussed with respiratory
Discussed with pathology-preliminary looks like poorly differentiated at adenocarcinoma, possible GI primary , but not finalised.
Time 55 min
Anticipated Discharge: Within 24 hours
Subjective/Interval History
-
Date of Service: December 02, 2023
Objective Data
-
Labs:
Laboratory Results
12/01/23
03:58
WBC 7.1
Hgb 8.6 L
Hct 27.9 L
Plt Count 136
Vital Signs:
Vital Signs
Temp Pulse Resp BP Pulse Ox
98.7 F 81 16 151/79 96
12/02/23 07:00 12/02/23 09:19 12/02/23 08:20 12/02/23 09:19 12/02/23 08:20
I&O
12/01/23 12/02/23 12/03/23
06:59 06:59 06:59
Intake Total 660 / 660 270 / 270 60 / 60
Balance 660 / 660 270 / 270 60 / 60
[2023-12-02 13:51] LABS: Hematocrit 28.4 % (37.0-47.0); Hemoglobin 8.8 g/dL (12.0-16.0); Mean Corpuscular Hgb 24.4 pg (27.0-31.0); Mean Corpuscular Volume 78.7 fL (81.0-99.0); Mean Platelet Volume 10.2 fL (7.4-10.4); Platelet Count 150 10^3/uL (130-400); Red Blood Cell Count 3.61 10^6/uL (4.20-5.40); Red Cell Dist. Width 23.1 % (11.5-14.5); White Blood Cell Count 4.9 10^3/uL (4.8-10.8)
[2023-12-02 13:57] LABS: Blood Urea Nitrogen 19 mg/dl (7-17); Calcium 8.3 mg/dl (8.4-10.2); Carbon Dioxide 33 mmol/L (22-30); Chloride 100 mmol/L (98-107); Estimated Creatinine Clearance 76 ml/min; Glucose 154 mg/dl (70-99); Potassium 3.8 mmol/L (3.5-5.1); Sodium 134 mmol/L (135-145); eGFR > 60.00
[2023-12-02] MEDS: FERRLECIT 110 MG IV (14:15)
[2023-12-02 15:32] VITALS: BP 147/69
--- NOTE | 2023-12-02 16:38 | W.PN.UPDATE ---
Update Note
Progress Note Update
Patient is in need of oxygen on exertion due to pulse oximetry of 87% on room air at rest; Very SOB with exertion.
Patient was placed on 2L O2 via nasal cannula with saturation of 95%. Oxygen will help to improve hypoxemia.
Patient is mobile within the home.
Oxygen will improve the patient's symptoms.
[2023-12-02] MEDS: ULTRAM 50 MG PO (16:43)
--- NOTE | 2023-12-02 19:43 | PTCARENOTE ---
Received call from Xray stating that portable abd could not be completed r/t patient's weight. TT sent to provider. Pt refusing to go down for xray at this time. Provider made aware of refusals.
[2023-12-02] MEDS: AFRIN NASAL SPRAY 1 SPRAYS NASAL (19:47)
[2023-12-02] MEDS: COLACE PO (20:00)
[2023-12-02 22:21] VITALS: BP 138/63
[2023-12-02 23:39] LABS: Glucose - Point of Care 270 mg/dl (70-99)
[2023-12-03] MEDS: DESENEX/MITRAZOL/ZEASORB TOPICAL ×3 (00:16→21:45)
[2023-12-03] MEDS: DUONEB 3 ML INH ×3 (07:11→19:28)
[2023-12-03] MEDS: SYMBICORT 160/4.5 MCG INHALER 2 PUFF INH ×2 (07:11→19:28)
[2023-12-03 08:05] LABS: Hepatitis B Surface Antigen Negative (Negative)
[2023-12-03 08:22] LABS: Hepatitis B Surface Antibody Negative; Hepatitis C Antibody Negative (Negative)
[2023-12-03 08:43] VITALS: BP 129/53
[2023-12-03 09:29] LABS: Glucose - Point of Care 118 mg/dl (70-99)
[2023-12-03] MEDS: NORVASC 10 MG PO (10:45)
[2023-12-03] MEDS: ELIQUIS 5 MG PO ×2 (10:45→21:43)
[2023-12-03] MEDS: VITAMIN B-12 1000 MCG PO (10:45)
[2023-12-03] MEDS: PROTONIX 40 MG PO (10:45)
[2023-12-03] MEDS: LASIX 20 MG PO (10:45)
[2023-12-03] MEDS: COLACE PO (10:46)
[2023-12-03] MEDS: LOTRISONE CREAM 1 APPLIC TOPICAL (10:46)
[2023-12-03] MEDS: MIRALAX PO (10:46)
[2023-12-03] MEDS: LIDOCAINE 4% PATCH TOPICAL (10:51)
[2023-12-03] MEDS: AFRIN NASAL SPRAY 1 SPRAYS NASAL (10:51)
--- NOTE | 2023-12-03 11:55 | PTCARENOTE ---
Diabetes Education- Met with Maria Del Rosario for new diagnosis diabetes, A1C 6.5%. States she has recently been diagnosed with colon/lung CA and had 1 chemo treatment. Has been on a steroid taper. Provided with and instructions given on the Contour NExt EZ
glucometer. Good return demonstration with result 118 mg/dl. Suggest testing FBS only at this time as she appears overwhelmed. She is aware to call her PCP if results are elevated. Education booklet with phone number provided for any additional
questions/concerns. TT updates to BRUCE Altman.
[2023-12-03 12:18] LABS: Glucose - Point of Care 121 mg/dl (70-99)
--- NOTE | 2023-12-03 12:37 | W.PN.ONC ---
Today's Communication / Plan
-
eating - tolerating clears - passing stool - no abdominal pain
FOLFOX scheduled for Wednesday w/ Dr. Mccain
Impression
Impression
stage IV colon cancer
Transverse colon mass - abdominal carcinomatosis
Mucinous adenocarcinoma
Lung mass with smaller lung nodules
CA 19-9 elevation of 922 (10/2023)
Chemo-associated cytopenias
Severe obesity with BMI >50
Weakness
Abdominal pain
Plan
Plan
1. Metastatic colon cancer - w/ extensive metastatic disease
-pt tolerating clear diet - no abdominal pain today
-chemotherapy tx w/ FOLFOX was discussed w/ Dr. Mccain yesterday and is planned for next week - Wednesday
-eilquis resumed 5mg BID
-hemoglobin stable
F/u as outpt for continued management w/ Dr. Mccain
Subjective/Objective
Subjective/Objective
denies abdominal pain - tolerating clears
Vital Signs:
Vital Signs
Temp Pulse Resp BP Pulse Ox
98.7 F 81 22 129/53 96
12/03/23 08:43 12/03/23 11:39 12/03/23 11:39 12/03/23 10:45 12/03/23 11:39
Lab Results:
Laboratory Data
WBC 4.9 10^3/uL (4.8-10.8) 12/02/23 13:34
Hgb 8.8 g/dL (12.0-16.0) L 12/02/23 13:34
Plt Count 150 10^3/uL (130-400) 12/02/23 13:34
APTT Cancelled 11/28/23 15:22
eGFR > 60.00 12/02/23 13:34
Exam: unchanged
--- NOTE | 2023-12-03 13:28 | W.PN.HOSP.TC ---
Today's Communication/Plan
-
Discharge
Assessment / Plan
Assessment / Plan
CT a/p
Proximal transverse colon and colonic neoplasm again demonstrated, as described, with suggestion of an element of low-grade partial mechanical obstruction.
As before, peritoneal carcinomatosis. Also, extensive mesenteric adenopathy as well as adenopathy adjacent and surrounding the pancreas and extending into the elisha hepatis. In addition, Extensive retroperitoneal adenopathy is again demonstrated.
Stable small low-attenuation intrahepatic space-occupying lesion.
Questionable small low-attenuation mass along the ventral margin in the pancreatic head.
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 Also seen previously. There are a few more localized nodular opacities demonstrated, suggesting more discrete metastatic nodules. Trace left pleural effusion. Trace
pericardial effusion.

CXR 11/28/23-Findings suggest progressive lymphangitic carcinomatosis.
Progressive airspace opacity in the left mid to lower lung zone and right lower lobe could be related to alveolar fluid or infection/pneumonia.
Awake and alert
Sitting in a chair
CVS S1 S2 normal
Chest CTA
Abd - Soft, BS present
Pedal edema
No abd pain
# Severe constipation
-Mild persistent colonic obstruction from mass vs other
-No bowel movement from Wednesday [employer].� Patient used 1 dose of Imodium post chemo diarrhea
-TSH noted- add T4
-Colonoscopy 11/30/23- 'Colon mass noted most likely at the hepatic flexure/distal ascending colon or proximal transverse colon as noted on CT, unable to traverse the mass which is causing almost complete obstruction.� Biopsies obtained and distal
margin tattooed.��'
-Colorectal surgery evaluation noted. No plans for surgery or stent due to the position and also peritoneal carcinomatosis
-Patient started on a Full liquid diet and continue with stool softeners and MiraLAX.
#New DM-we do not want to restrict her diet too much
Glucerna
Dietary education and diabetic education
Educated about Accu-Cheks
Hold off on any medicines now
Hopefully with stopping steroids sugars may not run high
#Mild Thrombocytopenia-better
# Acute hypoxic resp insufficiency
-CXR noted
-PFT last admit showing FEV1/FVC 0.6, FEV1 1.05L and FVC 1.74L
-Continue DuoNeb therapy
-Recently completed a course Levaquin, also finished prednisone today
-On Breo Ellipta-continue or equivalent
-Rpt CXR lymphangitic spread.
-Home O2 eval, Qualified for O2
#Metastatic adenocarcinoma of unknown primary
-s/p gemcitabine/paclitaxel x1 round on Wed
-CA 19-9 was elevated. Slight Elevation in CEA also noted
-Colon mass biopsy pending.
-Oncology following
-
#History of submassive PE Aug 2023
-On Eliquis, continue
#Essential hypertension-family wants to change Norvasc to alternate because of the lower extremity edema. I think it is reasonable to try another agent we discussed about not using FRED inhibitor/ARB
They are agreeable for hydralazine. We discussed that this may need to be titrated up. She has visiting nurses they will check blood pressure at home.
# Anemia-likely secondary to malignancy
Patient received several doses IV iron last admission. Low normal [id number]
Defer more IV iron to heme
#Suspected JOSE-Pt and family aware re sleep study as OP
#Generalized anxiety disorder- lorazepam
#Obesity per BMI
#DVT PPX - Eliquis
#Full code
Discussed in detail with GI , and oncology
Discussed with nursing
Discussed with and daughter at bedside
Discussed with colorectal surgery
ALl follow up care discussed.
She has an appointment with Dr. Mccain next week for chemotherapy
Dietitian evaluated her and discussed with the family regarding her options on a full liquid diet with supplements.
All questions ansered.
Discharge - she is looking forward to
and daughter were thankful of the care she received.
Discharge time 38 min
Anticipated Discharge: Today
Subjective/Interval History
-
Date of Service: December 03, 2023
Objective Data
-
Vital Signs:
Vital Signs
Temp Pulse Resp BP Pulse Ox
98.7 F 81 22 129/53 96
12/03/23 08:43 12/03/23 11:39 12/03/23 11:39 12/03/23 10:45 12/03/23 11:39
I&O
12/02/23 12/03/23 12/04/23
06:59 06:59 06:59
Intake Total 270 / 270 420 / 420
Balance 270 / 270 420 / 420
[2023-12-03 13:31] LABS: HIV Combo Negative (Negative)
--- NOTE | 2023-12-03 13:43 | W.DS.TRANS ---
Addendum entered and electronically signed by Sharda Patel MD 12/03/23 15:39:
Dictation- [id number]
Original Note:
DC Summary - [employer]
-
Discharge Instructions:
Discharge Diagnosis/Procedures Severe constipation, colon mass with partial
obstruction, metastatic adenocarcinoma, history
of PE, hypertension, anemia, anxiety
Diet Other diet
Additional Diets Full liquid diet with Glucerna twice a day
Activity As tolerated
Driving Restrictions No driving
Blood Work Thyroid function test in 6 weeks
Other Services VN
Stop these medications: Stop Norvasc
Instructions:
Stand-Alone Forms:
Changes to Home Medications: Yes
Discharge Medications:
DC Medications w/original date entered in [employer]
albuterol sulfate 90 mcg/actuation aerosol inhaler 2 puff inhalation R Q4HPRN PRN SOB 10/29/23
apixaban 5 mg tablet (Eliquis) 5 mg PO BID Blood Clot Prevention/Tx 10/29/23
acetaminophen 325 mg tablet (Tylenol) 650 mg PO QIDPRN PRN MILD PAIN 11/15/23
lorazepam 0.5 mg tablet 0.5 mg PO DAILYPRN PRN ANXIETY 11/15/23
simethicone 125 mg chewable tablet (Gas-X Extra Strength) 125 mg PO QID PRN GAS PAINS 11/15/23
cyanocobalamin (vitamin B-12) 1,000 mcg tablet 1,000 mcg PO DAILY low normal B12 #30 tabs 11/20/23
docusate sodium 100 mg capsule 100 mg PO BID Constipation #0 caps 11/20/23
fluticasone furoate 200 mcg-vilanterol 25 mcg/dose inhalation powder (Breo Ellipta) 1 inh inhalation R QPM Lung/breathing issues #0 ea 11/20/23
fluticasone propionate 50 mcg/actuation nasal spray,suspension (Flonase Allergy Relief) 1 spray intranasal QPM Allergies #0 mL 11/20/23
lorazepam 0.5 mg tablet 1 mg PO HS Sleep #0 tabs 11/20/23
pantoprazole 40 mg tablet,delayed release 40 mg PO DAILY Gastrointestinal issue #15 tabs 11/20/23
benzonatate 200 mg capsule 200 mg PO BIDPRN PRN cough 11/27/23
furosemide 20 mg tablet (Lasix) 20 mg PO DAILY Fluid Retention/Swelling 11/27/23
guaifenesin 600 mg tablet, extended release 12 hr (Mucinex) 600 mg PO BIDPRN PRN cough 11/27/23
ipratropium 0.5 mg-albuterol 3 mg (2.5 mg base)/3 mL nebulization soln 3 ml inhalation R BID Lung/breathing issues 11/27/23
polyethylene glycol 3350 17 gram oral powder packet (Miralax) 17 g PO DAILY Constipation 11/27/23
blood sugar diagnostic (Accu-Chek Guide test strips) #200 ea 12/03/23
blood sugar diagnostic (OneTouch Verio test strips) #200 ea 12/03/23
blood-glucose meter (Accu-Chek Guide Glucose Meter) #1 ea 12/03/23
hydralazine 25 mg tablet 25 mg PO BID Blood pressure #60 tabs 12/03/23
lidocaine 4 % topical patch 1 patch topical DAILY Pain #0 ea 12/03/23
Home Medication Changes
Norvasc stopped
New
blood sugar diagnostic (Accu-Chek Guide test strips) #200 ea 12/03/23
blood sugar diagnostic (OneTouch Verio test strips) #200 ea 12/03/23
blood-glucose meter (Accu-Chek Guide Glucose Meter) #1 ea 12/03/23
hydralazine 25 mg tablet 25 mg PO BID Blood pressure #60 tabs 12/03/23
lidocaine 4 % topical patch 1 patch topical DAILY Pain #0 ea 12/03/23
Pending Results: Yes
Additional Pending Results:
Biopsy results
--- NOTE | 2023-12-03 16:08 | VNURNOTE ---
[facility] resumption of care completed in [facility] after review of chart.
[2023-12-03] MEDS: FERRLECIT IV (16:39)
--- NOTE | 2023-12-03 17:36 | CM ---
fili castellano discharge today.patient qualifies for home oxygen.called [employer] and they do not deliver to [place] . i then called [facility] [phone] or [phone](after hours number)and faxed clinicals to them .i
received a call from leslie at [facility] and they have approved home o2 delivery.they will call patient's so they can set up home oxygen. portable tank will be delivered to the hospital room and o2 concentrator will be delivered to the
home.vn saw patient for resumption of care.
[facility]
[2023-12-03 21:16] LABS: Glucose - Point of Care 109 mg/dl (70-99)
[2023-12-03 21:41] VITALS: BP 137/60
[2023-12-03] MEDS: APRESOLINE 25 MG PO (21:43)
[2023-12-03] MEDS: COLACE 100 MG PO (21:43)
[2023-12-03] MEDS: AFRIN NASAL SPRAY NASAL (21:44)
[2023-12-03] MEDS: LOTRISONE CREAM TOPICAL (21:47)
[2023-12-04] MEDS: ATIVAN 0.5 MG PO (06:31)
[2023-12-04] MEDS: DUONEB 3 ML INH (06:33)
[2023-12-04] MEDS: SYMBICORT 160/4.5 MCG INHALER 2 PUFF INH (06:33)
[2023-12-04 07:54] VITALS: BP 133/67
[2023-12-04] MEDS: PROTONIX 40 MG PO (07:59)
[2023-12-04] MEDS: APRESOLINE 25 MG PO (07:59)
[2023-12-04] MEDS: COLACE 100 MG PO (07:59)
[2023-12-04] MEDS: LASIX 20 MG PO (07:59)
[2023-12-04] MEDS: VITAMIN B-12 1000 MCG PO (07:59)
[2023-12-04] MEDS: ELIQUIS 5 MG PO (07:59)
[2023-12-04] MEDS: MIRALAX PO (08:03)
[2023-12-04] MEDS: LIDOCAINE 4% PATCH 1 PATCH TOPICAL (08:14)
[2023-12-04] MEDS: DESENEX/MITRAZOL/ZEASORB 1 APPLIC TOPICAL (08:15)
[2023-12-04] MEDS: AFRIN NASAL SPRAY NASAL (08:15)
[2023-12-04] MEDS: LOTRISONE CREAM TOPICAL (08:15)
--- NOTE | 2023-12-04 09:52 | CM ---
Chart reviewed
Spoke with pt and at bedside
Oxygen delivered last evening to pts home and to bedside
[facility] services to be resumed
Plan - home with [facility] and oxygen therapy when medically stable
--- NOTE | 2023-12-04 10:33 | W.PN.HOSP.TC ---
Today's Communication/Plan
-
Discussed with at bedside
Discussed about patient having soft bowel movements are okay especially given the partially obstructing mass. We do not want any form of constipation and her
Will check potassium and magnesium to make sure they are stable prior to discharge.
Will change Lasix to every other day.
Oxygen delivered per D/w case management
Assessment / Plan
Assessment / Plan
CT a/p
Proximal transverse colon and colonic neoplasm again demonstrated, as described, with suggestion of an element of low-grade partial mechanical obstruction.
As before, peritoneal carcinomatosis. Also, extensive mesenteric adenopathy as well as adenopathy adjacent and surrounding the pancreas and extending into the elisha hepatis. In addition, Extensive retroperitoneal adenopathy is again demonstrated.
Stable small low-attenuation intrahepatic space-occupying lesion.
Questionable small low-attenuation mass along the ventral margin in the pancreatic head.
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 Also seen previously. There are a few more localized nodular opacities demonstrated, suggesting more discrete metastatic nodules. Trace left pleural effusion. Trace
pericardial effusion.

CXR 11/28/23-Findings suggest progressive lymphangitic carcinomatosis.
Progressive airspace opacity in the left mid to lower lung zone and right lower lobe could be related to alveolar fluid or infection/pneumonia.
Awake and alert
CVS S1 S2 normal
Chest CTA
Abd - Soft, BS present
Pedal edema
Had loose bowel movements overnight
# Severe constipation
-Mild persistent colonic obstruction from mass vs other
-No bowel movement from Wednesday [employer].� Patient used 1 dose of Imodium post chemo diarrhea
-TSH noted- add T4
-Colonoscopy 11/30/23- 'Colon mass noted most likely at the hepatic flexure/distal ascending colon or proximal transverse colon as noted on CT, unable to traverse the mass which is causing almost complete obstruction.� Biopsies obtained and distal
margin tattooed.��'
-Colorectal surgery evaluation noted. No plans for surgery or stent due to the position and also peritoneal carcinomatosis
-Patient started on a Full liquid diet and continue with stool softeners and MiraLAX.
#New DM-we do not want to restrict her diet too much
Glucerna
Dietary education and diabetic education
Educated about Accu-Cheks
Hold off on any medicines now
Hopefully with stopping steroids sugars may not run high
#Mild Thrombocytopenia-better
# Acute hypoxic resp insufficiency
-CXR noted
-PFT last admit showing FEV1/FVC 0.6, FEV1 1.05L and FVC 1.74L
-Continue DuoNeb therapy
-Recently completed a course Levaquin, also finished prednisone today
-On Breo Ellipta-continue or equivalent
-Rpt CXR lymphangitic spread.
-Home O2 eval, Qualified for O2
#Metastatic adenocarcinoma of unknown primary
-s/p gemcitabine/paclitaxel x1 round on Wed
-CA 19-9 was elevated. Slight Elevation in CEA also noted
-Colon mass biopsy pending.
-Oncology following
-
#History of submassive PE Aug 2023
-On Eliquis, continue
#Essential hypertension-family wants to change Norvasc to alternate because of the lower extremity edema. I think it is reasonable to try another agent we discussed about not using FRED inhibitor/ARB
They are agreeable for hydralazine. We discussed that this may need to be titrated up. She has visiting nurses they will check blood pressure at home.
# Anemia-likely secondary to malignancy
Patient received several doses IV iron last admission. Low normal O02-azricka
Defer more IV iron to heme
#Suspected JOSE-Pt and family aware re sleep study as OP
#Generalized anxiety disorder- lorazepam
#Obesity per BMI
#DVT PPX - Eliquis
#Full code
Discussed with at bedside
Discussed about patient having soft bowel movements are okay especially given the partially obstructing mass. We do not want any form of constipation and her
Will check potassium and magnesium to make sure they are stable prior to discharge.
Will change Lasix to every other day.
Anticipated Discharge: Today
Subjective/Interval History
-
Date of Service: December 04, 2023
Objective Data
-
Labs:
Laboratory Results
12/04/23
10:31
Potassium Pending
Vital Signs:
Vital Signs
Temp Pulse Resp BP Pulse Ox
98 F 96 18 133/67 96
12/04/23 07:54 12/04/23 07:54 12/04/23 07:54 12/04/23 07:54 12/04/23 07:54
I&O
12/03/23 12/04/23 12/05/23
06:59 06:59 06:59
Intake Total 420 / 420 240 / 240
Balance 420 / 420 240 / 240
--- NOTE | 2023-12-04 10:37 | W.DS.TRANS ---
DC Summary - Work Order Clerk
-
Discharge Instructions:
Discharge Diagnosis/Procedures Severe constipation, colon mass with partial
obstruction, metastatic adenocarcinoma, history
of PE, hypertension, anemia, anxiety
Diet Other diet
Additional Diets Full liquid diet with Glucerna twice a day
Activity As tolerated
Driving Restrictions No driving
Blood Work Thyroid function test in 6 weeks
Other Services VN
Stop these medications: Stop Norvasc
Instructions:
Stand-Alone Forms:
Changes to Home Medications: Yes
Discharge Medications:
DC Medications w/original date entered in [employer]
albuterol sulfate 90 mcg/actuation aerosol inhaler 2 puff inhalation R Q4HPRN PRN SOB 10/29/23
apixaban 5 mg tablet (Eliquis) 5 mg PO BID Blood Clot Prevention/Tx 10/29/23
acetaminophen 325 mg tablet (Tylenol) 650 mg PO QIDPRN PRN MILD PAIN 11/15/23
lorazepam 0.5 mg tablet 0.5 mg PO DAILYPRN PRN ANXIETY 11/15/23
simethicone 125 mg chewable tablet (Gas-X Extra Strength) 125 mg PO QID PRN GAS PAINS 11/15/23
cyanocobalamin (vitamin B-12) 1,000 mcg tablet 1,000 mcg PO DAILY low normal B12 #30 tabs 11/20/23
docusate sodium 100 mg capsule 100 mg PO BID Constipation #0 caps 11/20/23
fluticasone furoate 200 mcg-vilanterol 25 mcg/dose inhalation powder (Breo Ellipta) 1 inh inhalation R QPM Lung/breathing issues #0 ea 11/20/23
fluticasone propionate 50 mcg/actuation nasal spray,suspension (Flonase Allergy Relief) 1 spray intranasal QPM Allergies #0 mL 11/20/23
lorazepam 0.5 mg tablet 1 mg PO HS Sleep #0 tabs 11/20/23
pantoprazole 40 mg tablet,delayed release 40 mg PO DAILY Gastrointestinal issue #15 tabs 11/20/23
benzonatate 200 mg capsule 200 mg PO BIDPRN PRN cough 11/27/23
guaifenesin 600 mg tablet, extended release 12 hr (Mucinex) 600 mg PO BIDPRN PRN cough 11/27/23
ipratropium 0.5 mg-albuterol 3 mg (2.5 mg base)/3 mL nebulization soln 3 ml inhalation R BID Lung/breathing issues 11/27/23
polyethylene glycol 3350 17 gram oral powder packet (Miralax) 17 g PO DAILY Constipation 11/27/23
blood sugar diagnostic (Accu-Chek Guide test strips) #200 ea 12/03/23
blood sugar diagnostic (OneTouch Verio test strips) #200 ea 12/03/23
blood-glucose meter (Accu-Chek Guide Glucose Meter) #1 ea 12/03/23
hydralazine 25 mg tablet 25 mg PO BID Blood pressure #60 tabs 12/03/23
lidocaine 4 % topical patch 1 patch topical DAILY Pain #0 ea 12/03/23
furosemide 20 mg tablet (Lasix) 20 mg PO Q48H Fluid Retention/Swelling #0 tabs 12/04/23
Home Medication Changes
new
polyethylene glycol 3350 17 gram oral powder packet (Miralax) 17 g PO DAILY Constipation 11/27/23
blood sugar diagnostic (Accu-Chek Guide test strips) #200 ea 12/03/23
blood sugar diagnostic (OneTouch Verio test strips) #200 ea 12/03/23
blood-glucose meter (Accu-Chek Guide Glucose Meter) #1 ea 12/03/23
hydralazine 25 mg tablet 25 mg PO BID Blood pressure #60 tabs 12/03/23
lidocaine 4 % topical patch 1 patch topical DAILY Pain #0 ea 12/03/23
Lasix changed to Q48h
Pending Results: No
[2023-12-04 11:38] LABS: Magnesium 2.1 mg/dl (1.6-2.3); Potassium 3.5 mmol/L (3.5-5.1)
[2023-12-04] MEDS: KCL 20 MEQ PO (11:50)
[2023-12-04 12:00] VITALS: BP 134/63
== END 2023-12-04 12:19 | disposition home health service (06) | DRG 374 ==
LOC: 3 WEST ACU 15:59
PROVIDERS: Internal Medicine Gastroenterology; Nurse Practitioner; Nurse Practitioner Family; ADMITTING PHYSICIAN Hospitalist; ATTENDING PHYSICIAN Hospitalist; CONSULT PHYSICIAN Internal Medicine; CONSULT PHYSICIAN Internal Medicine Hematology & Oncology; CONSULT PHYSICIAN Surgery; EMERGENCY PHYSICIAN Emergency Medicine; FAMILY PHYSICIAN Family Medicine
PROC: 0DBL8ZX Excision of Transverse Colon, Via Natural or Artificial Opening Endoscopic, Diagnostic (ICD-10-PCS; 2023-11-30)
PROC: 3E0H8KZ Introduction of Other Diagnostic Substance into Lower GI, Via Natural or Artificial Opening Endoscopic (ICD-10-PCS; 2023-11-30)
DX: C18.3 Malignant neoplasm of hepatic flexure (principal); D61.810 Antineoplastic chemotherapy induced pancytopenia; E43 Unspecified severe protein-calorie malnutrition; C78.6 Secondary malignant neoplasm of retroperitoneum and peritoneum; C79.89 Secondary malignant neoplasm of other specified sites; K56.690 Other partial intestinal obstruction; Z68.43 Body mass index [BMI] 50.0-59.9, adult; K57.30 Diverticulosis of large intestine without perforation or abscess without bleeding; E66.01 Morbid (severe) obesity due to excess calories; R59.0 Localized enlarged lymph nodes; I10 Essential (primary) hypertension; F41.1 Generalized anxiety disorder; D50.9 Iron deficiency anemia, unspecified; T45.1X5A Adverse effect of antineoplastic and immunosuppressive drugs, initial encounter; R09.02 Hypoxemia; D63.8 Anemia in other chronic diseases classified elsewhere
CPT/HCPCS: 88305; 36415; 36600; 71045; 71046; 74018; 74177; 80048; 80053; 82805; 82962; 83036; 83735; 84132; 84439; 84443; 85025; 85027; 86706; 86803; 87324; 87340; 87389; 87449; 87798; 88341; 88342; 93005; 94640; 99285; J2916; Q9967

== ENCOUNTER → 2023-12-17 12:10 | Outpatient (REF) | payer MEDICARE, OTHER, SELFPAY ==
[2023-12-17 12:54] LABS: % Basophils 0.7 % (0-2); % Eosinophils 9.7 % (0-6); % Immature Granulocytes 1.1 % (0-0.5); % Lymphocytes 24.3 % (20.5-51.1); % Monocytes 6.5 % (1.7-9.3); % Neutrophils 57.7 % (42.2-75.2); Absolute Basophils 0.1 10^3/uL (0-0.2); Absolute Eosinophils 0.7 10^3/uL (0-0.7); Absolute Immature Granulocytes 0.1 10^3/uL (0-0.05); Absolute Lymphocytes 1.8 10^3/uL (1.2-3.4); Absolute Monocytes 0.5 10^3/uL (0.1-0.6); Absolute Neutrophils 4.1 10^3/uL (1.4-6.5); Hemoglobin 10.2 g/dL (12.0-16.0); Mean Corp Hgb Conc. 30.9 g/dL (33.0-37.0); Mean Platelet Volume 9.8 fL (7.4-10.4); Nucleated Red Blood Cells % 0.7 %; Platelet Count 298 10^3/uL (130-400); Red Blood Cell Count 3.93 10^6/uL (4.20-5.40); Red Cell Dist. Width 30.5 % (11.5-14.5); White Blood Cell Count 7.2 10^3/uL (4.8-10.8)
[2023-12-17 13:03] LABS: ALT (SGPT) 30 U/L (0-35); AST (SGOT) 35 U/L (14-36); Albumin 3.5 g/dl (3.5-5.0); Alkaline Phosphatase 64 U/L (38-126); Blood Urea Nitrogen 13 mg/dl (7-17); Calcium 8.8 mg/dl (8.4-10.2); Carbon Dioxide 28 mmol/L (22-30); Chloride 100 mmol/L (98-107); Glucose 98 mg/dl (70-99); Potassium 3.9 mmol/L (3.5-5.1); Sodium 135 mmol/L (135-145); Total Bilirubin 0.4 mg/dl (0.2-1.3); Total Protein 5.7 g/dl (6.3-8.2); eGFR 55.07
[2023-12-17 14:05] LABS: Anisocytosis 1+
[2023-12-17 14:07] LABS: Burr Cells Slight; Hypochromasia Slight; Ovalocytes Slight
[2023-12-17 14:08] LABS: Normal RBC Morphology No
== END ==
LOC: CLAB 12:10
PROVIDERS: ATTENDING PHYSICIAN Internal Medicine Hematology & Oncology
DX: C34.32 Malignant neoplasm of lower lobe, left bronchus or lung (principal); C25.9 Malignant neoplasm of pancreas, unspecified; C77.9 Secondary and unspecified malignant neoplasm of lymph node, unspecified
CPT/HCPCS: 80053; 85025

== ENCOUNTER → 2023-12-21 12:18 | Outpatient (REF) | payer MEDICARE, OTHER, SELFPAY ==
[2023-12-23 07:06] LABS: CA 19-9 810 U/mL (<=35)
== END ==
LOC: OIDL 12:18
PROVIDERS: ATTENDING PHYSICIAN Internal Medicine Hematology & Oncology
DX: I26.99 Other pulmonary embolism without acute cor pulmonale (principal); C25.9 Malignant neoplasm of pancreas, unspecified
CPT/HCPCS: 86301

== ENCOUNTER → 2023-12-31 11:00 | Outpatient (REF) | payer MEDICARE, SELFPAY ==
[2023-12-31 18:03] LABS: ALT (SGPT) 57 U/L (0-35); AST (SGOT) 37 U/L (14-36); Albumin 3.4 g/dl (3.5-5.0); Alkaline Phosphatase 64 U/L (38-126); Blood Urea Nitrogen 11 mg/dl (7-17); Calcium 8.9 mg/dl (8.4-10.2); Carbon Dioxide 29 mmol/L (22-30); Chloride 103 mmol/L (98-107); Glucose 114 mg/dl (70-99); Potassium 3.6 mmol/L (3.5-5.1); Sodium 136 mmol/L (135-145); Total Bilirubin 0.5 mg/dl (0.2-1.3); Total Protein 5.6 g/dl (6.3-8.2); eGFR > 60.00
[2023-12-31 18:12] LABS: Hematocrit 34.1 % (37.0-47.0); Hemoglobin 10.8 g/dL (12.0-16.0); Mean Corp Hgb Conc. 31.7 g/dL (33.0-37.0); Mean Corpuscular Hgb 26.8 pg (27.0-31.0); Mean Corpuscular Volume 84.6 fL (81.0-99.0); Mean Platelet Volume 10.4 fL (7.4-10.4); Platelet Count 163 10^3/uL (130-400); Red Blood Cell Count 4.03 10^6/uL (4.20-5.40); Red Cell Dist. Width 30.1 % (11.5-14.5); White Blood Cell Count 5.7 10^3/uL (4.8-10.8)
[2023-12-31 19:12] LABS: Absolute Neutrophils -Man Diff 2.2 10^3/uL (1.4-6.5); Anisocytosis 3+; Band Neutrophils 1 % (0-3); Eosinophils 2 % (0-6); Hypochromasia 1+; Lymphocytes 54 % (20-51); Macrocytosis 3+; Monocytes 5 % (2-9); Normal RBC Morphology No; Nucleated Red Blood Cells 2 (-); Ovalocytes 1+; Platelets Checked Yes; Polychromasia 1+; Segmented Neutrophils 38 % (42-75); Spherocytes 1+; Total Cells Counted 100
== END ==
LOC: CLAB 11:00
PROVIDERS: ATTENDING PHYSICIAN Internal Medicine Hematology & Oncology
DX: C34.32 Malignant neoplasm of lower lobe, left bronchus or lung (principal); C77.9 Secondary and unspecified malignant neoplasm of lymph node, unspecified; C25.9 Malignant neoplasm of pancreas, unspecified
CPT/HCPCS: 36415; 80053; 85027

== ENCOUNTER → 2024-01-14 12:27 | Outpatient (REF) | payer MEDICARE, SELFPAY ==
[2024-01-14 13:08] LABS: ALT (SGPT) 30 U/L (0-35); AST (SGOT) 29 U/L (14-36); Albumin 3.2 g/dl (3.5-5.0); Alkaline Phosphatase 54 U/L (38-126); Blood Urea Nitrogen 15 mg/dl (7-17); Calcium 9.2 mg/dl (8.4-10.2); Carbon Dioxide 29 mmol/L (22-30); Chloride 98 mmol/L (98-107); Glucose 111 mg/dl (70-99); Potassium 3.8 mmol/L (3.5-5.1); Sodium 134 mmol/L (135-145); Total Bilirubin 0.4 mg/dl (0.2-1.3); Total Protein 5.1 g/dl (6.3-8.2); eGFR > 60.00
[2024-01-14 13:15] LABS: % Basophils 0.8 % (0-2); % Immature Granulocytes 0.3 % (0-0.5); % Lymphocytes 39.8 % (20.5-51.1); % Monocytes 7.6 % (1.7-9.3); % Neutrophils 50.5 % (42.2-75.2); Absolute Basophils 0.1 10^3/uL (0-0.2); Absolute Eosinophils 0.1 10^3/uL (0-0.7); Absolute Lymphocytes 2.5 10^3/uL (1.2-3.4); Absolute Monocytes 0.5 10^3/uL (0.1-0.6); Absolute Neutrophils 3.1 10^3/uL (1.4-6.5); Hematocrit 38.8 % (37.0-47.0); Hemoglobin 12.3 g/dL (12.0-16.0); Mean Corp Hgb Conc. 31.7 g/dL (33.0-37.0); Mean Corpuscular Hgb 27.8 pg (27.0-31.0); Mean Corpuscular Volume 87.8 fL (81.0-99.0); Mean Platelet Volume 10.3 fL (7.4-10.4); Nucleated Red Blood Cells % 0.3 %; Platelet Count 195 10^3/uL (130-400); Red Blood Cell Count 4.42 10^6/uL (4.20-5.40); White Blood Cell Count 6.2 10^3/uL (4.8-10.8)
== END ==
LOC: CLAB 12:27
PROVIDERS: ATTENDING PHYSICIAN Internal Medicine Hematology & Oncology
DX: C34.32 Malignant neoplasm of lower lobe, left bronchus or lung (principal); C77.9 Secondary and unspecified malignant neoplasm of lymph node, unspecified; C25.9 Malignant neoplasm of pancreas, unspecified
CPT/HCPCS: 36415; 80053; 85025

== ENCOUNTER → 2024-01-18 09:41 | Outpatient (REF) | payer MEDICARE, SELFPAY ==
[2024-01-19 22:46] LABS: CA 19-9 339 U/mL (<=35)
== END ==
LOC: OIDL 09:41
PROVIDERS: ATTENDING PHYSICIAN Internal Medicine Hematology & Oncology
DX: I26.99 Other pulmonary embolism without acute cor pulmonale (principal); C25.9 Malignant neoplasm of pancreas, unspecified
CPT/HCPCS: 86301

== ENCOUNTER 2024-01-26 18:29 | Observation (INO) | payer MEDICARE, OTHER, SELFPAY ==
[2024-01-26 14:50] VITALS: BP 148/89
[2024-01-26 16:43] LABS: % Basophils 0.5 % (0-2); % Eosinophils 0.3 % (0-6); % Immature Granulocytes 0.5 % (0-0.5); % Monocytes 2.4 % (1.7-9.3); % Neutrophils 55.3 % (42.2-75.2); Absolute Lymphocytes 1.6 10^3/uL (1.2-3.4); Absolute Monocytes 0.1 10^3/uL (0.1-0.6); Absolute Neutrophils 2.1 10^3/uL (1.4-6.5); Hematocrit 35.7 % (37.0-47.0); Hemoglobin 12.3 g/dL (12.0-16.0); Mean Corp Hgb Conc. 34.5 g/dL (33.0-37.0); Mean Corpuscular Hgb 29.6 pg (27.0-31.0); Mean Corpuscular Volume 85.8 fL (81.0-99.0); Mean Platelet Volume 9.2 fL (7.4-10.4); Nucleated Red Blood Cells % 0 %; Platelet Count 133 10^3/uL (130-400); Red Blood Cell Count 4.16 10^6/uL (4.20-5.40); Red Cell Dist. Width 28.4 % (11.5-14.5); White Blood Cell Count 3.8 10^3/uL (4.8-10.8)
[2024-01-26 16:47] VITALS: BP 130/69
[2024-01-26] MEDS: NSS 1000 IV ×2 (16:48→20:07)
[2024-01-26 16:54] LABS: ALT (SGPT) 24 U/L (0-35); AST (SGOT) 24 U/L (14-36); Albumin 2.6 g/dl (3.5-5.0); Alkaline Phosphatase 46 U/L (38-126); Blood Urea Nitrogen 17 mg/dl (7-17); Calcium 8.3 mg/dl (8.4-10.2); Carbon Dioxide 27 mmol/L (22-30); Chloride 103 mmol/L (98-107); Glucose 114 mg/dl (70-99); Magnesium 1.7 mg/dl (1.6-2.3); Potassium 3.6 mmol/L (3.5-5.1); Sodium 130 mmol/L (135-145); Total Bilirubin 0.5 mg/dl (0.2-1.3); Total Protein 4.3 g/dl (6.3-8.2); eGFR > 60.00
--- NOTE | 2024-01-26 17:21 | ED.GENMED ---
History of Present Illness
<Stephie Ford PA-C - Last Filed: 01/26/24 18:34>
General
Chief Complaint: Abdominal Symptoms
Source: patient and records
Exam Limitations: none
Time Seen by Provider: 01/26/24 15:29
Nursing documentation reviewed up to this point in time: agreed with
Travel History
Have you had any contact with someone who has COVID-19?: No
Do you have any symptoms of coronavirus? Fever > 100 degrees, chills, cough, shortness of breath, sore throat, loss of taste or smell, muscle aches, or headache?: No
History of Present Illness
History of Present Illness:
68-year-old female with past medical history of stage IV colon cancer with mets to pancreas, pulmonary nodules on home oxygen 2 L at baseline, presenting to the emergency department today with complaints of generalized fatigue, abdominal pain with
eating, and difficulty tolerating p.o. intake without gagging. Patient has been having bowel movements and lots of loose stool but this is patient's baseline. Patient denies any nausea or vomiting, worsening shortness of breath, chest pain, lower
leg swelling or pain. Patient denies any fevers or chills. Patient denies any dysphagia. Patient follows with Dr. Mccain at [facility]. Patient currently undergoes chemotherapy treatment every other week. Patient has a past abdominal
surgical history of cholecystectomy and c-sections but no hx of bowel resection.
Past History
<Stephie Ford PA-C - Last Filed: 01/26/24 18:34>
Past History
ED Past Medical History: Asthma, Cancer (Recently diagnosed lung cancer), HTN and Other (Bilateral pulmonary emboli)
ED Past Surgical History: Other
Social History
Tobacco: Non-smoker
Alcohol: None
Drug: None
Personal:
Living: with family
Employment: Retired
Family History
Family History: Other
Review of Systems
<Stephie Ford PA-C - Last Filed: 01/26/24 18:34>
Review of Systems
All Other Systems: ROS reviewed and negative except as documented in HPI and ROS
Phy Exam
<Stephie Ford PA-C - Last Filed: 01/26/24 18:34>
Physical Exam
Physical Exam:
General: Patient appears chronically ill but nontoxic
Skin: Warm and dry, no rashes or lesions
Head: Normocephalic, atraumatic
Eyes: Sclera non-icteric. EOMs intact.
Cardiac: Regular rate and rhythm, no murmurs
Peripheral Vascular: No lower extremity edema
Pulm: Increased respiratory rate. Patient seen using 2 L of oxygen via nasal cannula at baseline.
Abdomen: No abdominal tenderness to palpation. No palpable masses. No guarding.
Neuro: CN II-XII intact, no focal neurologic deficits.
Psychiatric: Appropriate mood and affect.
Course
<Stephie Ford PA-C - Last Filed: 01/26/24 18:34>
Orders/Labs/Results
Orders:
Orders
01/26/24 16:15
0.9% Sodium Chloride 1000 ml [Nss] 1,000 ml IV BOLUS
01/26/24 16:27
Complete Blood Count/With Diff Urgent
Comprehensive Metabolic Panel Urgent
Lipase Urgent
Comment: ADDON
Magnesium Urgent
01/26/24 17:14
Add On- LAB Urgent
Tests Added?: Lipase
01/26/24 17:53
C DIFF [C difficile Antigen & Toxins] Urgent
TIFFANI Source: Feces/Stool
Specimen Description:
Date Specimen was Collected: 01/26/24
Time Specimen was Collected: 17:56
Stool Culture Urgent
TIFFANI Source: Feces/Stool
Specimen Description:
Date Specimen was Collected: 01/26/24
Time Specimen was Collected: 17:56
01/26/24 18:10
Admit/Transfer Patient As Directed
Co-Sign Provider:
Level of Care: Observation services
Assign to:: Medical/Surgical
Physician / Group: Dr Mcdermott
Diagnosis: Diarrhea/N/V
Reason for Hospitalization: pte p/w n/v/d and abd pain
01/26/24 18:11
Code Status As Directed
Resuscitation Status: Full Code
Abnormal Lab Results
01/26/24
16:27
WBC 3.8 L 10^3/uL
(4.8-10.8)
RBC 4.16 L 10^6/uL
(4.20-5.40)
Hct 35.7 L %
(37.0-47.0)
RDW 28.4 H %
(11.5-14.5)
Sodium 130 L mmol/L
(135-145)
Glucose 114 H mg/dl
(70-99)
Calcium 8.3 L mg/dl
(8.4-10.2)
Total Protein 4.3 L g/dl
(6.3-8.2)
Albumin 2.6 L g/dl
(3.5-5.0)
01/26/24 16:27
01/26/24 16:27
Vital Signs
Initial and Last Documented VS:
Initial Vital Signs
Temp Pulse Resp BP Pulse Ox
99.0 F 98 20 148/89 98
01/26/24 14:50 01/26/24 14:50 01/26/24 14:50 01/26/24 14:50 01/26/24 14:50
Last Documented Vital Signs
Temp Pulse Resp BP Pulse Ox
99.0 F 98 20 130/69 99
01/26/24 14:50 01/26/24 14:50 01/26/24 14:50 01/26/24 16:47 01/26/24 16:48
<Liu Madden, DO - Last Filed: 01/26/24 18:10>
Orders/Labs/Results
Orders:
Orders
01/26/24 16:15
0.9% Sodium Chloride 1000 ml [Nss] 1,000 ml IV BOLUS
01/26/24 16:27
Complete Blood Count/With Diff Urgent
Comprehensive Metabolic Panel Urgent
Lipase Urgent
Comment: ADDON
Magnesium Urgent
01/26/24 17:14
Add On- LAB Urgent
Tests Added?: Lipase
01/26/24 17:53
C DIFF [C difficile Antigen & Toxins] Urgent
TIFFANI Source: Feces/Stool
Specimen Description:
Date Specimen was Collected: 01/26/24
Time Specimen was Collected: 17:56
Stool Culture Urgent
TIFFANI Source: Feces/Stool
Specimen Description:
Date Specimen was Collected: 01/26/24
Time Specimen was Collected: 17:56
01/26/24 18:10
Admit/Transfer Patient As Directed
Co-Sign Provider:
Level of Care: Observation services
Assign to:: Medical/Surgical
Physician / Group: Dr Mcdermott
Diagnosis: Diarrhea/N/V
Reason for Hospitalization: pte p/w n/v/d and abd pain
01/26/24 18:11
Code Status As Directed
Resuscitation Status: Full Code
Abnormal Lab Results
01/26/24
16:27
WBC 3.8 L 10^3/uL
(4.8-10.8)
RBC 4.16 L 10^6/uL
(4.20-5.40)
Hct 35.7 L %
(37.0-47.0)
RDW 28.4 H %
(11.5-14.5)
Sodium 130 L mmol/L
(135-145)
Glucose 114 H mg/dl
(70-99)
Calcium 8.3 L mg/dl
(8.4-10.2)
Total Protein 4.3 L g/dl
(6.3-8.2)
Albumin 2.6 L g/dl
(3.5-5.0)
01/26/24 16:27
01/26/24 16:27
Vital Signs
Initial and Last Documented VS:
Initial Vital Signs
Temp Pulse Resp BP Pulse Ox
99.0 F 98 20 148/89 98
01/26/24 14:50 01/26/24 14:50 01/26/24 14:50 01/26/24 14:50 01/26/24 14:50
Last Documented Vital Signs
Temp Pulse Resp BP Pulse Ox
99.0 F 98 20 130/69 99
01/26/24 14:50 01/26/24 14:50 01/26/24 14:50 01/26/24 16:47 01/26/24 16:48
<Stephie Ford PA-C - Last Filed: 01/26/24 18:34>
MDM/Problems Addressed
Differential Diagnosis Includes:
Differentials include deconditioning, pancreatic cancer progression, gastroenteritis, delayed gastric emptying
MDM/Problems Addressed:
diarrhea, decreased PO intake, abdominal pain
Chronic conditions affecting care: Asthma, Cancer and Other (Pulmonary nodules)
Acute Exacerbation and/or Progression of Chronic Illness: Asthma and Cancer
<Stephie Ford PA-C - Last Filed: 01/26/24 18:34>
*Pulse Oximetry
Patient hypoxic: no
*Critical Care Note
Total Time (30-74mins, 75-104mins- exclusive of procedures): Not Applicable
Data Reviewed
Review of Other/Old Records Reveals: Records (Reviewed ER physician documentation from 11/05/2023 and 11/15/2023) and Discharge Summary (Reviewed discharge summary from 12/03/2023)
Source: patient and records
<Stephie Ford PA-C - Last Filed: 01/26/24 18:34>
Patient Management
Escalation/DeEscalation of care consider admission/obs:
68-year-old female with past medical history of stage IV colon cancer with mets to pancreas, pulmonary nodules on home oxygen 2 L at baseline, presenting to the emergency department today with complaints of generalized fatigue, abdominal pain with
eating, and difficulty tolerating p.o. intake without gagging. Patient also has had persistent diarrhea which she normally has with her bowel regimen for her cancer, however she feels like its gotten worse. Patient denies any recent antibiotic
usage. Stool cultures pending. On physical exam, patient appears chronically ill. She is no tenderness to palpation in the abdomen, no guarding. Does appear dry. Her CBC does not reveal any anemia or leukocytosis, her CMP PE reveals sodium of
130. Patient was given normal saline through IV. Considering patient cannot tolerate p.o. intake well and is dehydrated, we will plan for admission for further support and further evaluation of her increased diarrhea. Patient in agreement with
plan. Patient is a by hospitalist.
ED Attending Note
<Stephie Ford PA-C - Last Filed: 01/26/24 18:34>
-
Portions of this chart may have been created with voice recognition software.� Occasional wrong word or��sound alike� substitutions may have occurred due to the inherent limitations of voice recognition software.
<Liu Madden DO - Last Filed: 01/26/24 18:10>
ED Attending Note
Patient seen and examined by attending physician: Yes
I performed the substantive portion of visit, reviewed & personally made and approve the management plan that is documented in note by myself or JAN.: Yes
ED Attending Note:
I have seen and evaluated the patient with a [id number] encounter. I have spoken to the advance practicer provider and involved in the medical history, the physical exam, medical decision making.
Evaluation and management service: agree unless noted differently below.
Results interpretation: agree unless noted differently below.
Focused HPI: 68-year-old female presenting with concern for dehydration and increased diarrhea. Patient was diagnosed with colon cancer. She had a large bowel obstruction and the etiology was found to be cancer. Patient states it has metastasized
to her pancreas. She has mid to lower abdominal discomfort every time she eats or drinks. She is developing diarrhea that occurs multiple times a day and without warning
Physical exam: Dry mucous membranes. Abdomen soft and nontender.
Medical Decision Making: Will check diarrhea for C. difficile and infections. Patient given IV fluids. Given her inability to adequately hydrate in addition to her persistent diarrhea, will admit
Discharge Plan
Departure
Patient Disposition: Admit
Date of Disposition: 01/26/24
Time of Disposition: 17:59
Admit to: Med/Surg
Presentation/result/management discussed w/ accepting MD/DO: Hospitalist
Patient with high blood pressure during this ER visit?: Yes
Condition: Fair
Discharge Problem:
Dehydration, Diarrhea, Stage IV carcinoma of colon
Interventions
Interventions:
*Risk Screen - Suicide Last Done: 01/26/24 16:00
*General Assessment Last Done: 01/26/24 16:50
*Neglect/Abuse Screening Last Done: 01/26/24 16:00
*ED COVID-19 Vaccine History Last Done: 01/26/24 14:50
DS-Kzmvvl-Pynkmbbefs Assessment Last Done: 01/26/24 16:50
[2024-01-26 17:46] LABS: Lipase 74 U/L (23-300)
--- NOTE | 2024-01-26 18:13 | HPS.HSE ---
Family Physician
-
Family Physician: Carmela Mijares
Chief Complaint
-
Abdominal pain nausea and vomiting and diarrhea
History of Present Illness
Patient 68 years old female history of stage IV colon cancer with mets to pancreas, pulmonary, on chronic home oxygen, came into the hospital with abdominal discomfort associated with generalized weakness and diarrhea. Patient describes
experiencing loose stools which is somewhat chronic for her but somewhat worse also over the last couple of days. Every time she attempts to eat she starts having abdominal pain. Abdominal pain is cramping in nature, moderate intensity, no
radiation. She described nausea and vomiting to the ER staff but she denies that to me. She tells me that she was in a liquid diet that was progressed to pur�ed diet over the last couple weeks but then had to go back to liquid diet over the last 2
days. Patient denies any fevers or chills denies any dysphagia. She reached out to her oncologist who instructed her to come to the hospital for further evaluation. Patient follow-up with oncology as outpatient and undergoes chemotherapy every
other week and last chemotherapy was last Wednesday. In the ER, hemoglobin 12.3, WBC 3.8, creatinine 0.9, sodium 130. She was referred to hospital service for evaluation.
Medical History
Past Medical History
Past Medical History: Reports Other (Stage IV colon cancer with metastasis, hypertension, COPD, chronic hypoxic respiratory failure on home oxygen, obesity, PE in the past.)
Past Surgical History: Reports Other (Cholecystectomy, C-sections.)
Social History
Tobacco: Non-smoker
Alcohol: None
Drug: None
Family History
Family History: Not pertinent
Allergies / Home Medications
Allergies reflects when Allergies were last updated in [employer].
Home Medications with original date entered in [employer]
Allergy/Medication List:
Allergies
Allergy/AdvReac Type Severity Reaction Status Date / Time
bee venom protein (honey bee) Allergy Swelling Verified 01/26/24 14:52
tong pepper Allergy Unknown Verified 01/26/24 14:52
cat dander Allergy congestion Verified 01/26/24 14:52
Home Medications
albuterol sulfate 90 mcg/actuation aerosol inhaler 2 puff inhalation R Q4HPRN PRN SOB 10/29/23
apixaban 5 mg tablet (Eliquis) 5 mg PO BID Blood Clot Prevention/Tx 10/29/23
cyanocobalamin (vitamin B-12) 1,000 mcg tablet 1,000 mcg PO DAILY low normal B12 #30 tabs 11/20/23
fluticasone furoate 200 mcg-vilanterol 25 mcg/dose inhalation powder (Breo Ellipta) 1 inh inhalation R QPM Lung/breathing issues #0 ea 11/20/23
fluticasone propionate 50 mcg/actuation nasal spray,suspension (Flonase Allergy Relief) 1 spray intranasal QPM Allergies #0 mL 11/20/23
pantoprazole 40 mg tablet,delayed release 40 mg PO DAILY Gastrointestinal issue #15 tabs 11/20/23
benzonatate 200 mg capsule 200 mg PO BID 11/27/23
guaifenesin 600 mg tablet, extended release 12 hr (Mucinex) 600 mg PO BID 11/27/23
ipratropium 0.5 mg-albuterol 3 mg (2.5 mg base)/3 mL nebulization soln 3 ml inhalation R BID Lung/breathing issues 11/27/23
hydralazine 25 mg tablet 25 mg PO BID Blood pressure #60 tabs 12/03/23
albuterol sulfate 2.5 mg/3 mL (0.083 %) solution for nebulization 2.5 mg inhalation R Q6 PRN sob/wheezing 01/26/24
docusate sodium 100 mg capsule 100 mg PO DAILY Constipation 01/26/24
furosemide 20 mg tablet (Lasix) 20 mg PO DAILY Fluid Retention/Swelling 01/26/24
melatonin 5 mg tablet 5 mg PO HS 01/26/24
prednisone 10 mg tablet 10 mg PO DAILY 01/26/24
vitamin B complex 1 tab PO DAILY 01/26/24
Review of Systems
-
A 12 point ROS was completed and negative except as noted: Yes
Physical Exam
Vital Signs
Vital Signs
Temp Pulse Resp BP Pulse Ox
99.0 F 98 20 130/69 99
01/26/24 14:50 01/26/24 14:50 01/26/24 14:50 01/26/24 16:47 01/26/24 16:48
Physical exam:
General: Acutely ill
HEENT: Normocephalic, Atraumatic and Dry Mucous Membranes
Respiratory: Clear to Auscultation; Negative Wheezes, Rales or Rhonchi
Cardiac: Regular Rhythm and S1/S2
GI: Soft, non tender and Nondistended, obese
Musculoskeletal: No Clubbing, No Cyanosis and there is B/L Edema and some erythema
Neuro: Awake, Alert and Oriented
Psych: Calm
Physical Exam
General: Other
Laboratory Results
-
01/26/24 16:27
01/26/24 16:27
Laboratory Results
Total Bilirubin 0.5 mg/dl (0.2-1.3) 01/26/24 16:27
AST 24 U/L (14-36) 01/26/24 16:27
ALT 24 U/L (0-35) 01/26/24 16:27
Alkaline Phosphatase 46 U/L (38-126) 01/26/24 16:27
Lipase 74 U/L (23-300) 01/26/24 16:27
Impression/Plan
-
IMPRESSION:
Patient 68 years old female with history of metastatic colon cancer presented to the hospital abdominal pain nausea vomiting and diarrhea. Will proceed to workup for etiology and will give intravenous fluids and follow-up electrolytes and renal
function very closely.
Impression:
Abdominal pain and diarrhea, differential includes chemo related versus infectious gastro-enterocolitis vs r/o SBO
hyponatremia
leukopenia
Dehydration
Conditions prior to presentation:
Stage IV colon cancer with metastasis
Hypertension
COPD
Chronic hypoxic respiratory failure on home oxygen
Obesity
PE in the past
plan:
IV fluids
May allow clear liquids tonight but if symptomatic might need to keep her n.p.o. and will advance diet as tolerated.
Will get some x-ray of the abdomen tonight to start
Stool studies and C. difficile
GI consult
SCDs for DVT prophylaxis and Eliquis if able to tolerate
CODE STATUS full code
Will give further commendations based on clinical course
[2024-01-26 19:55] VITALS: BP 168/93; BMI 49.0
[2024-01-26] MEDS: DUONEB 3 ML INH (20:03)
[2024-01-26] MEDS: SYMBICORT 160/4.5 MCG INHALER 2 PUFF INH (20:03)
[2024-01-26] MEDS: MUCINEX 600 MG PO (20:50)
[2024-01-26] MEDS: APRESOLINE 25 MG PO (20:50)
[2024-01-26] MEDS: ELIQUIS 5 MG PO (20:51)
[2024-01-26] MEDS: TESSALON PERLES 200 MG PO (20:51)
[2024-01-26] MEDS: MELATONIN 5 MG PO (21:22)
[2024-01-26 23:00] VITALS: BP 118/58
--- NOTE | 2024-01-27 02:22 | PTCARENOTE ---
Pt admitted from ED to room 2120, family at bedside. Pt aaox3, oriented to room and call light, enhanced precautions maintained per pending stool studies.
[2024-01-27 05:38] LABS: % Basophils 0.7 % (0-2); % Eosinophils 1.5 % (0-6); % Immature Granulocytes 0.7 % (0-0.5); % Lymphocytes 45.8 % (20.5-51.1); % Monocytes 2.6 % (1.7-9.3); % Neutrophils 48.7 % (42.2-75.2); Absolute Eosinophils 0.1 10^3/uL (0-0.7); Absolute Lymphocytes 2.1 10^3/uL (1.2-3.4); Absolute Monocytes 0.1 10^3/uL (0.1-0.6); Absolute Neutrophils 2.2 10^3/uL (1.4-6.5); Hematocrit 34.3 % (37.0-47.0); Hemoglobin 11.5 g/dL (12.0-16.0); Mean Corp Hgb Conc. 33.5 g/dL (33.0-37.0); Mean Corpuscular Hgb 29.6 pg (27.0-31.0); Mean Corpuscular Volume 88.2 fL (81.0-99.0); Mean Platelet Volume 9.8 fL (7.4-10.4); Nucleated Red Blood Cells % 0 %; Platelet Count 130 10^3/uL (130-400); Red Blood Cell Count 3.89 10^6/uL (4.20-5.40); Red Cell Dist. Width 28.3 % (11.5-14.5); White Blood Cell Count 4.6 10^3/uL (4.8-10.8)
[2024-01-27 05:57] LABS: ALT (SGPT) 19 U/L (0-35); AST (SGOT) 23 U/L (14-36); Albumin 2.3 g/dl (3.5-5.0); Alkaline Phosphatase 42 U/L (38-126); Blood Urea Nitrogen 16 mg/dl (7-17); Calcium 8.2 mg/dl (8.4-10.2); Carbon Dioxide 24 mmol/L (22-30); Chloride 106 mmol/L (98-107); Estimated Creatinine Clearance 91 ml/min; Glucose 94 mg/dl (70-99); Magnesium 1.8 mg/dl (1.6-2.3); Potassium 3.2 mmol/L (3.5-5.1); Sodium 134 mmol/L (135-145); Total Bilirubin 0.3 mg/dl (0.2-1.3); Total Protein 4.1 g/dl (6.3-8.2); eGFR > 60.00
[2024-01-27 06:25] LABS: Anisocytosis 1+; Hypochromasia 1+; Normal RBC Morphology No
[2024-01-27] MEDS: NSS 1000 IV ×2 (06:30→18:15)
[2024-01-27] MEDS: SPIRIVA RESPIMAT 2.5 MCG 2 PUFF INH (07:27)
[2024-01-27] MEDS: SYMBICORT 160/4.5 MCG INHALER 2 PUFF INH ×2 (07:27→20:44)
[2024-01-27] MEDS: DUONEB 3 ML INH ×2 (07:27→20:44)
--- NOTE | 2024-01-27 07:59 | W.PN.HOSP.TC ---
Today's Communication/Plan
-
IV fluids. Pain control. CT scan of the abdomen
Assessment / Plan
Assessment / Plan
Physical exam:
General: Acutely ill
HEENT: Normocephalic, Atraumatic and Dry Mucous Membranes
Respiratory: Clear to Auscultation; Negative Wheezes, Rales or Rhonchi
Cardiac: Regular Rhythm and S1/S2
GI: Soft, non tender and Nondistended, obese
Musculoskeletal: No Clubbing, No Cyanosis and there is B/L Edema and some erythema
Neuro: Awake, Alert and Oriented
Psych: Calm
A/P:
Impression:
Abdominal pain and diarrhea
hyponatremia
leukopenia
Dehydration
Hypokalemia
Conditions prior to presentation:
Stage IV colon cancer with metastasis
Hypertension
COPD
Chronic hypoxic respiratory failure on home oxygen
Obesity
PE in the past
plan:
IV fluids
Continue clear liquid diet
Replace electrolytes
X-ray of the abdomen unremarkable
GI consult appreciated
Plan for CT scan abdomen
Oncology eval
Stool studies pending and C. difficile negative
SCDs for DVT prophylaxis and Eliquis
CODE STATUS full code
Updated at bedside today
Anticipated Discharge: 24 - 48 hours
Subjective/Interval History
-
Date of Service: January 27, 2024
Patient still having diarrhea about 5 times this morning. Patient also still having abdominal pain with defecation. She is able to tolerate clear liquid diet. Afebrile
Objective Data
-
Labs:
Laboratory Results
01/27/24
05:12
WBC 4.6 L
Hgb 11.5 L
Hct 34.3 L
Plt Count 130
Sodium 134 L
Potassium 3.2 L
Chloride 106
Carbon Dioxide 24
BUN 16
Creatinine 0.8
Glucose 94
Calcium 8.2 L
Total Bilirubin 0.3
AST 23
ALT 19
Alkaline Phosphatase 42
Vital Signs:
Vital Signs
Temp Pulse Resp BP Pulse Ox
98.3 F 83 18 118/58 99
01/26/24 23:00 01/27/24 07:30 01/27/24 07:30 01/26/24 23:00 01/27/24 07:30
I&O
01/26/24 01/27/24 01/28/24
06:59 06:59 06:59
Intake Total 1090 / 1090
Balance 1090 / 1090
[2024-01-27 08:23] VITALS: BP 129/72
[2024-01-27] MEDS: TESSALON PERLES 200 MG PO ×2 (08:35→21:10)
[2024-01-27] MEDS: KCL 40 MEQ PO ×2 (08:35→11:30)
[2024-01-27] MEDS: LASIX 20 MG PO (08:35)
[2024-01-27] MEDS: APRESOLINE 25 MG PO ×2 (08:35→21:10)
[2024-01-27] MEDS: B COMPLEX w/VITAMIN C 1 CAPLET PO (08:36)
[2024-01-27] MEDS: MUCINEX 600 MG PO ×2 (08:36→21:09)
[2024-01-27] MEDS: PROTONIX 40 MG PO (08:36)
[2024-01-27] MEDS: ELIQUIS 5 MG PO (08:36)
[2024-01-27] MEDS: VITAMIN B-12 1000 MCG PO (08:36)
[2024-01-27] MEDS: DELTASONE 10 MG PO (08:36)
[2024-01-27] MEDS: COLACE PO (08:38)
--- NOTE | 2024-01-27 08:46 | CON.GI ---
Addendum entered and electronically signed by Ephraim Willis MD 01/27/24 10:57:
I saw and examined the patient.
The PA's note was reviewed and I agree with the note.
Comment:
The pt is a 68 year-old female with h/o stage IV colon cancer with mets to the pancreas, lung, and carcinomatosis currently on Folfox chemotherapy, COPD, chronic hypoxic respiratory failure on home O2, morbid obesity, and PE who p/w abdominal pain
and diarrhea.
Impression / Rec:
1. Abdominal pain, diarrhea - c/o crampy pain after eating, relieved by having BMs. She is noted to have circumferential nearly obstructing mass in proximal transverse colon near hepatic flx (colonoscopy on 11/30/2023). She is on bowel regimen of
Colace and MiraLAX and was put on a full liquid diet. She was having 4-5 loose BMs daily. Past couple days she had > 15 loose bowel movements daily associated with abdominal cramping which is relieved with BMs. C. diff is -ve. Abdo xray
nonobstructive bowel hiwot pattern. Pt denies nausea/vomiting. Clinically there is little suspicion of colonic obstruction, however given that she had dilated cecum (6 cm) on last CT, would repeat CT abd to see if there is partial obstruction with
overflow diarrhea. Follow up with rest of stool studies. CLD should be fine for now.
Original Note:
Consultation
-
Date/Time Consultation Requested: 01/26/24 0265
Date/Time Consultation Performed: 01/27/24 0847
Requesting Provider: Dr. Mcdermott
Performing Provider: Dr. Willis/GAVIN Hernandez
Reason for Consultation: abd pain, diarreha
Medical History
Chief Complaint / HPI
History of Present Illness:
68-year-old female with stage IV colon cancer with mets to the pancreas, lung, carcinomatosis currently on chemotherapy undergoing her fifth round this coming Wednesday with near obstructing hepatic lesion in the colon, hypertension, COPD, chronic
hypoxic respiratory failure on home O2, obesity, prior history of PE presents to the emergency room with abdominal cramping and change in her current stool pattern. The patient states that she was placed on a bowel regimen of Colace and MiraLAX and
was put on a full liquid diet. When she was on this she was having approximately 4-5 soft formed bowel movements daily. When she was changed to pur�e diet she was having 3 soft formed bowel movements daily. The patient states that over the past
couple days she has had upwards of 15 bowel movements daily that are now loose without any shape associated with abdominal cramping. The patient states that her abdominal cramping goes away with defecation. She is also having increased bloating,
burping and feeling as if she cannot take in as much food as she feels as if she is going to gag. She feels as if it is 'too thick'. She has had increase in fatigue and generalized malaise. Although she states that when she gets ready for her
next round of chemo she feels better. She denies any fevers, chills, nausea, vomiting, melena, hematochezia, dysphagia or odynophagia. Her stools were checked and are negative for C. difficile. Salmonella, Campylobacter and Shiga toxin are all
pending. The patient denies any recent travel, sick contacts or recent antibiotics. She does consume eggs however other than pur�ed food she does not eat anything else. She does not recall anything that tasted spoiled. She is on chronic
steroids. There has not been any other changes in her medications except for a vitamin B complex vitamin.
Past Medical History
Past Medical History: Cancer (Stage IV colon cancer, carcinomatosis, mets to pancreas, lung), COPD (Chronic hypoxic respiratory failure on home O2), HTN and Other (Obesity, PE in the past)
Past Surgical History: Cholecystectomy and
Social History
Tobacco: Non-Smoker
Alcohol: None
Drug: None
Personal:
Living: With Family
Family History
Family History: Other (No family history gastrointestinal malignancy or IBD)
Allergies / Home Medications
Allergy/AdvReac Type Severity Reaction Status Date / Time
bee venom protein (honey bee) Allergy Swelling Verified 01/26/24 14:52
tong pepper Allergy Unknown Verified 01/26/24 14:52
cat dander Allergy congestion Verified 01/26/24 14:52
�Medication �Instructions �Recorded
albuterol sulfate 90 mcg/actuation 2 puff inhalation R Q4HPRN PRN SOB 10/29/23
aerosol inhaler
apixaban 5 mg tablet (Eliquis) 5 mg PO BID Blood Clot 10/29/23
Prevention/Tx
cyanocobalamin (vitamin B-12) 1,000 mcg PO DAILY low normal B12 11/20/23
1,000 mcg tablet #30 tabs
fluticasone furoate 200 1 inh inhalation R QPM 11/20/23
mcg-vilanterol 25 mcg/dose Lung/breathing issues #0 ea
inhalation powder (Breo Ellipta)
fluticasone propionate 50 1 spray intranasal QPM Allergies 11/20/23
mcg/actuation nasal #0 mL
spray,suspension (Flonase Allergy
Relief)
pantoprazole 40 mg tablet,delayed 40 mg PO DAILY Gastrointestinal 11/20/23
release issue #15 tabs
benzonatate 200 mg capsule 200 mg PO BID Cough 11/27/23
guaifenesin 600 mg tablet, 600 mg PO BID Cough 11/27/23
extended release 12 hr (Mucinex)
ipratropium 0.5 mg-albuterol 3 mg 3 ml inhalation R BID 11/27/23
(2.5 mg base)/3 mL nebulization Lung/breathing issues
soln
hydralazine 25 mg tablet 25 mg PO BID Blood pressure #60 12/03/23
tabs
albuterol sulfate 2.5 mg/3 mL 2.5 mg inhalation R Q6 PRN 01/26/24
(0.083 %) solution for nebulization sob/wheezing
docusate sodium 100 mg capsule 100 mg PO DAILY Constipation 01/26/24
furosemide 20 mg tablet (Lasix) 20 mg PO DAILY Fluid 01/26/24
Retention/Swelling
melatonin 5 mg tablet 5 mg PO HS Sleep 01/26/24
prednisone 10 mg tablet 10 mg PO DAILY Anti-Inflammatory 01/26/24
vitamin B complex 1 tab PO DAILY Supplement 01/26/24
Review of Systems
-
All other systems: A 12 pt ROS was Negative except as stated above in HPI
Vital Signs
Temp Pulse Resp BP Pulse Ox
99 F 88 20 129/72 98
01/27/24 08:23 01/27/24 08:35 01/27/24 08:23 01/27/24 08:35 01/27/24 08:23
Physical Exam
Exam
General: No Apparent Distress
HEENT: Anicteric
Respiratory: Clear (Anterior)
Cardiac: Regular Rhythm
GI: Soft, Non Distended, Normal Bowel Sounds and Tender (Very mild epigastric tenderness)
Musculoskeletal: Edema (Bilateral lower extremity edema)
Skin: Warm and Dry
Neuro: AO x 3
Psych: Calm
Results
WBC 4.6 10^3/uL (4.8-10.8) L 01/27/24 05:12
Hgb 11.5 g/dL (12.0-16.0) L 01/27/24 05:12
Hct 34.3 % (37.0-47.0) L 01/27/24 05:12
MCV 88.2 fL (81.0-99.0) 01/27/24 05:12
Plt Count 130 10^3/uL (130-400) 01/27/24 05:12
Absolute Neuts (auto) 2.2 10^3/uL (1.4-6.5) 01/27/24 05:12
Sodium 134 mmol/L (135-145) L 01/27/24 05:12
Potassium 3.2 mmol/L (3.5-5.1) L 01/27/24 05:12
Chloride 106 mmol/L (98-107) 01/27/24 05:12
Carbon Dioxide 24 mmol/L (22-30) 01/27/24 05:12
BUN 16 mg/dl (7-17) 01/27/24 05:12
Creatinine 0.8 mg/dL (0.6-1.0) 01/27/24 05:12
Calcium 8.2 mg/dl (8.4-10.2) L 01/27/24 05:12
Total Bilirubin 0.3 mg/dl (0.2-1.3) 01/27/24 05:12
AST 23 U/L (14-36) 01/27/24 05:12
ALT 19 U/L (0-35) 01/27/24 05:12
Alkaline Phosphatase 42 U/L (38-126) 01/27/24 05:12
Lipase 74 U/L (23-300) 01/26/24 16:27
Diagnostic Image Results:
X-ray abdomen 01/26/2024:
IMPRESSION:
Nonobstructive bowel gas pattern.
Electronically signed by Joel Hull 01/26/2024 7:32 PM
Prior GI Procedures:
EGD: Never had
Colonoscopy: 11/30/23 ([facility]) - The procedure was aborted due to partially/almost
complete obstructing mass unable to traverse.
- Diverticulosis in the sigmoid colon and in the
descending colon.
- Likely malignant partially/almost complete
obstructing tumor in the proximal transverse colon/
hepatic flexure. Biopsied. distal margins Tattooed.
Assessment / Plan
-
68-year-old female with stage IV colon cancer with mets to the pancreas, lung, carcinomatosis currently on chemotherapy undergoing her fifth round this coming Wednesday with near obstructing transverse colon/hepatic flexure lesion in the colon,
hypertension, COPD, chronic hypoxic respiratory failure on home O2, obesity, prior history of PE presents to the emergency room with abdominal cramping and change in her current stool pattern. The patient states that she was placed on a bowel
regimen of Colace and MiraLAX and was put on a full liquid diet. When she was on this she was having approximately 4-5 soft formed bowel movements daily. When she was changed to pur�e diet she was having 3 soft formed bowel movements daily. The
patient states that over the past couple days she has had upwards of 15 bowel movements daily that are now loose without any shape associated with abdominal cramping. The patient states that her abdominal cramping goes away with defecation.
Impression:
Diarrhea
Abdominal cramping improved with defecation
Stage IV colon cancer (near obstructing tumor at area of proximal transverse colon/hepatic flexure) with mets to pancreas, lung, carcinomatosis
Hyponatremia
Chronic immunosuppression (on prednisone and chemotherapy)
Chronic anticoagulation on Eliquis
Plan:
-Obtain CT of the abdomen and pelvis with IV contrast
-Await stool studies currently pending Salmonella, Shigella, Campylobacter. Will add stool WBC, ova and parasites, Giardia/crypto/norovirus/Yersinia.
-Okay for clear liquid diet
-Will await above studies and further recommendations to follow
-
-
Thank you for consultation and allowing me to participate in the patient's care. Please call the controller repairer and tester GI physician during the after hours with any questions or concerns.
[2024-01-27] MEDS: OMNIPAQUE 50 ML PO (09:43)
--- NOTE | 2024-01-27 09:55 | VNURNOTE ---
Patient is current with [facility] since 11/01 w/SN/PT, will monitor progress and plan at discharge.
--- NOTE | 2024-01-27 10:57 | W.PN.UPDATE ---
Update Note
Progress Note Update
billing note
--- NOTE | 2024-01-27 12:16 | CON.ONC ---
Impression
Impression
IV colon cancer
diarrhea, abdominal pain
PE 2022 on DOAC
hyponatremia
Plan
Plan
Follow CBC
continue clear liquid diet
Antiemetics prn
follow up pending stool cultures
follow up CT abdomen/pelvis
Has OP follow up with Dr. Mccain 01/30, which will be rescheduled if needed upon discharge
Patient History
History of Present Illness
68 yo female with a h/o PE on DOAC in 09/01/23, chronic respiratory failure on 2L NC, stage 4 colon adenocarcinoma presented to ER with diarrhea, abdominal pain, and generalized weakness. She reports abdominal cramping when she eats and
increased in loose stools over the last several days. She denies n/v. She had advanced diet from a clear liquid to a pureed diet a few weeks ago then resume clear liquids 2 days ago when her abdominal symptoms started to worsen. WBC 4.6, ANC 2.2,
Hgb 11.5, platelets 130,000. Normal LFTs and renal function. Ab xray showed Nonobstructive bowel gas pattern. C. diff , crytposporidium/giardia, and norovirus are negative. Salmonella/shigella and Campylobacter cultures pending.
She was initially treated with gemzar/abraxane in early Nov 2023 when primary unknown, however, she was admitted to late Nov 2023 due to colon mass with partial obstruction. She was felt not to be a stent or colostomy candidate at that time due
to position of the mass. She was started on FOLFOX early December 2024 and received her 4th cycle 01/18/2024. Anemia resolved after IV iron 12/21/2023 and she has not developed neutropenia in prior cycles so there has been no need for GCSF support on
this regimen.
Clinically, she reports productive thick phlem, insomnia. Her stool output has increased from baseline 4-5 to >15 BM daily.
Past-Medical/Surgical History
PMH stage 4 adenocarcinoma: unclear primary,Hypertension, Obesity COPD and Other (PE 08/2023)
PSH cholecystectomy, c section
social never smoker, denies etoh or recreational drugs, . 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
family: father prostate, mother liver ca, brother prostate, and sister lung cancer
Patient Medication
�Medication �Instructions �Recorded �Confirmed �Last Taken �Type
albuterol sulfate 90 mcg/actuation 2 puff inhalation R Q4HPRN PRN SOB 10/29/23 01/26/24 10/28/23 History
aerosol inhaler
apixaban 5 mg tablet (Eliquis) 5 mg PO BID Blood Clot 10/29/23 01/26/24 01/26/24 History
Prevention/Tx
cyanocobalamin (vitamin B-12) 1,000 mcg PO DAILY low normal B12 11/20/23 01/26/24 01/26/24 Rx
1,000 mcg tablet #30 tabs
fluticasone furoate 200 1 inh inhalation R QPM 11/20/23 01/26/24 01/25/24 Rx
mcg-vilanterol 25 mcg/dose Lung/breathing issues #0 ea
inhalation powder (Breo Ellipta)
fluticasone propionate 50 1 spray intranasal QPM Allergies 11/20/23 01/26/24 01/25/24 Rx
mcg/actuation nasal #0 mL
spray,suspension (Flonase Allergy
Relief)
pantoprazole 40 mg tablet,delayed 40 mg PO DAILY Gastrointestinal 11/20/23 01/26/24 01/26/24 Rx
release issue #15 tabs
benzonatate 200 mg capsule 200 mg PO BID Cough 11/27/23 01/26/24 01/26/24 History
guaifenesin 600 mg tablet, 600 mg PO BID Cough 11/27/23 01/26/24 01/26/24 History
extended release 12 hr (Mucinex)
ipratropium 0.5 mg-albuterol 3 mg 3 ml inhalation R BID 11/27/23 01/26/24 01/26/24 History
(2.5 mg base)/3 mL nebulization Lung/breathing issues
soln
hydralazine 25 mg tablet 25 mg PO BID Blood pressure #60 12/03/23 01/26/24 01/26/24 Rx
tabs
albuterol sulfate 2.5 mg/3 mL 2.5 mg inhalation R Q6 PRN 01/26/24 01/26/24 Unknown History
(0.083 %) solution for nebulization sob/wheezing
docusate sodium 100 mg capsule 100 mg PO DAILY Constipation 01/26/24 01/26/24 01/26/24 History
furosemide 20 mg tablet (Lasix) 20 mg PO DAILY Fluid 01/26/24 01/26/24 01/26/24 History
Retention/Swelling
melatonin 5 mg tablet 5 mg PO HS Sleep 01/26/24 01/26/24 01/25/24 History
prednisone 10 mg tablet 10 mg PO DAILY Anti-Inflammatory 01/26/24 01/26/24 01/26/24 History
vitamin B complex 1 tab PO DAILY Supplement 01/26/24 01/26/24 01/26/24 History
Active Medications
Generic Name Dose Route Start Last Admin
Trade Name Freq PRN Reason Stop Dose Admin
Albuterol 2 puff 01/26/24 19:34
Albuterol Hfa [90 Mcg/Dose] Inhaler INH
R Q4HPRN PRN
SOB
Protocol
Albuterol Sulfate 2.5 mg 01/26/24 19:34
Albuterol Nebs 2.5 Mg/3 Ml Ampul INH
R Q6HPRN PRN
sob/wheezing
Protocol
Albuterol/Ipratropium 3 ml 01/26/24 20:00 01/27/24 07:27
Ipratropium 0.5/Albuterol 3 Mg (3 Ml Ampul) INH 3 ml
R BID SHIRA Administration
Protocol
Apixaban 5 mg 01/26/24 20:00 01/27/24 08:36
Apixaban (Eliquis) 5 Mg Tablet PO 02/23/24 19:59 5 mg
BID SHIRA Administration
Benzonatate 200 mg 01/26/24 20:00 01/27/24 08:35
Benzonatate 100 Mg Capsule PO 02/23/24 19:59 200 mg
BID SHIRA Administration
Bisacodyl 10 mg 01/26/24 19:34
Bisacodyl 10 Mg Rectal Suppository RECTAL 02/23/24 19:33
[id number] PRN
constipation
Budesonide/Formoterol Fumarate 2 puff 01/26/24 20:00 01/27/24 07:27
Symbicort Inhaler 160/4.5 INH 02/23/24 19:59 2 puff
R BID SHIRA Administration
Cyanocobalamin 1,000 mcg 01/27/24 08:00 01/27/24 08:36
Cyanocobalamin 1,000 Mcg Tablet PO 02/24/24 07:59 1,000 mcg
DAILY SHIRA Administration
Docusate Sodium 100 mg 01/27/24 08:00 01/27/24 08:38
Docusate Sodium 100 Mg Capsule PO 02/24/24 07:59 Not Given
DAILY SHIRA
Furosemide 20 mg 01/27/24 08:00 01/27/24 08:35
Furosemide 20 Mg Tablet PO 02/24/24 07:59 20 mg
DAILY SHIRA Administration
Guaifenesin 600 mg 01/26/24 20:00 01/27/24 08:36
Guaifenesin 600 Mg Extended Release Tablet PO 02/23/24 19:59 600 mg
BID SHIRA Administration
Heparin Sodium (Porcine) 500 unit 01/27/24 10:44
Heparin Flush Pf (100 Unit/Ml) 5 Ml Syringe IV 02/24/24 10:43
PRN PRN
SUBCUT PORT FLUSH
Hydralazine HCl 25 mg 01/26/24 20:00 01/27/24 08:35
Hydralazine 25 Mg Tablet PO 02/23/24 19:59 25 mg
BID SHIRA Administration
Hydromorphone HCl 0.5 mg 01/26/24 19:34
Hydromorphone 0.5 Mg/0.5 Ml Syringe IV 02/09/24 19:33
Q4HPRN PRN
severe pain
Sodium Chloride 1,000 mls @ 85 mls/hr 01/26/24 18:45 01/27/24 06:30
Nss IV 1,000 mls
.[id number] SHIRA Administration
Melatonin 5 mg 01/26/24 22:00 01/26/24 21:22
Melatonin 5 Mg Tablet PO 02/23/24 21:59 5 mg
HS SHIRA Administration
Ondansetron HCl 4 mg 01/26/24 19:34
Ondansetron 4 Mg/2 Ml Vial IV 02/23/24 19:33
Q6HPRN PRN
nausea and vomiting
Pantoprazole Sodium 40 mg 01/27/24 08:00 01/27/24 08:36
Pantoprazole 40 Mg Delayed Release Tablet PO 02/24/24 07:59 40 mg
DAILY SHIRA Administration
Polyethylene Glycol 17 grams 01/26/24 19:34
Polyethylene Glycol Powder 17 Grams Packet PO 02/23/24 19:33
DAILYPRN PRN
constipation
Prednisone 10 mg 01/27/24 08:00 01/27/24 08:36
Prednisone 10 Mg Tablet PO 02/24/24 07:59 10 mg
DAILY SHIRA Administration
Senna/Docusate Sodium 1 tablet 01/26/24 19:34
Docusate W/Senna (Dominique-Colace) Tablet PO 02/23/24 19:33
BIDPRN PRN
constipation
Sodium Chloride 0 flush 01/26/24 20:00
Sodium Chloride 0.9% (Flush) Syringe IV 02/23/24 19:59
PER PROTOCOL SHIRA
Tiotropium [place] 2 puff 01/27/24 08:00 01/27/24 07:27
Tiotropium (Spiriva Respimat) 2.5 Mcg Inhaler INH 02/24/24 07:59 2 puff
R DAILY SHIRA Administration
Vitamin B Complex/Vitamin C 1 caplet 01/27/24 08:00 01/27/24 08:36
Vitamin B Complex With Vitamin C Caplet PO 02/24/24 07:59 1 caplet
DAILY SHIRA Administration
Review of Systems
-
Review of systems notable for subjective, otherwise negative
Physical Exam
-
General: Well Developed, Well Nourished and Obese
HEENT: Moist Mucous Membranes; Negative Jaundice
Cardiology: Normal Sinus Rhythm, S1 and S2
Pulmonary: Clear; Negative Wheezes
GI: Soft
Extremities: No C/C/E
Neurology: Non Focal
Skin: Warm and Dry
Hematologic / Lymphatic: No Lymphadenopathy
Psych: Calm and Intact Judgement/Insight
Labs
Lab Results
WBC 4.6 10^3/uL (4.8-10.8) L 01/27/24 05:12
RBC 3.89 10^6/uL (4.20-5.40) L 01/27/24 05:12
Hgb 11.5 g/dL (12.0-16.0) L 01/27/24 05:12
Hct 34.3 % (37.0-47.0) L 01/27/24 05:12
MCV 88.2 fL (81.0-99.0) 01/27/24 05:12
MCH 29.6 pg (27.0-31.0) 01/27/24 05:12
MCHC 33.5 g/dL (33.0-37.0) 01/27/24 05:12
RDW 28.3 % (11.5-14.5) H 01/27/24 05:12
Plt Count 130 10^3/uL (130-400) 01/27/24 05:12
MPV 9.8 fL (7.4-10.4) 01/27/24 05:12
Abs Immat Gran (auto) 0.0 10^3/uL (0-0.05) 01/27/24 05:12
Absolute Neuts (auto) 2.2 10^3/uL (1.4-6.5) 01/27/24 05:12
Absolute Lymphs (auto) 2.1 10^3/uL (1.2-3.4) 01/27/24 05:12
Absolute Monos (auto) 0.1 10^3/uL (0.1-0.6) 01/27/24 05:12
Absolute Eos (auto) 0.1 10^3/uL (0-0.7) 01/27/24 05:12
Absolute Basos (auto) 0.0 10^3/uL (0-0.2) 01/27/24 05:12
Immature Gran % 0.7 % (0-0.5) H 01/27/24 05:12
Neutrophils % 48.7 % (42.2-75.2) 01/27/24 05:12
Lymphocytes % 45.8 % (20.5-51.1) 01/27/24 05:12
Monocytes % 2.6 % (1.7-9.3) 01/27/24 05:12
Eosinophils % 1.5 % (0-6) 01/27/24 05:12
Basophils % 0.7 % (0-2) 01/27/24 05:12
Creatinine 0.8 mg/dL (0.6-1.0) 01/27/24 05:12
Vital Signs
Vital Signs
Temp Pulse Resp BP Pulse Ox
99 F 88 20 129/72 98
01/27/24 08:23 01/27/24 08:35 01/27/24 08:23 01/27/24 08:35 01/27/24 10:41
--- NOTE | 2024-01-27 13:11 | PTCARENOTE ---
Patient with two episodes of watery, bloody diarrhea with two large blood clots noted in commode. Patient denies any increased pain or tenderness. Jered red blood noted on wipe when providing hygiene to patient, no hemorrhoids seen upon exam by this
RN. and GI made aware, order for stat CBC placed by GI. Patient to CT scan of abdomen/pelvis.
[2024-01-27 14:01] LABS: Hematocrit 32.2 % (37.0-47.0); Mean Corp Hgb Conc. 34.2 g/dL (33.0-37.0); Mean Corpuscular Hgb 29.6 pg (27.0-31.0); Mean Corpuscular Volume 86.8 fL (81.0-99.0); Mean Platelet Volume 9.6 fL (7.4-10.4); Platelet Count 111 10^3/uL (130-400); Red Blood Cell Count 3.71 10^6/uL (4.20-5.40); Red Cell Dist. Width 28.1 % (11.5-14.5); White Blood Cell Count 4.1 10^3/uL (4.8-10.8)
[2024-01-27 15:00] VITALS: BP 140/57
[2024-01-27 16:21] VITALS: BMI 49.0
--- NOTE | 2024-01-27 17:09 | CM ---
Initial assessment completed with patient and who live with their adult daughter in a 3 story split level home with no steps to enter. Patient resides on the 1st floor and uses a bedside commode. She is wheelchair dependent. Uses O2 at
home through [employer]. She has a concentrator, tanks and a portable device similar to [employer]. Patient is dependent on family for care. Has in home services with [facility] for PT and VN. No psychiatric history. Pharmacy is [facility] on [address] [place] [address] in
[place] and PCP is Dr. Carmela Mijares. MCCARTHY signed. Anticipate Home with resumption of HH.
--- NOTE | 2024-01-27 17:26 | CM ---
Initial assessment completed with patient and who live with their adult daughter in a 3 story split level home with no steps to enter. Patient resides on the 1st floor and uses a bedside commode. She is wheelchair dependent. Uses O2 at
home through [employer]. She has a concentrator, tanks and a portable device similar to [employer]. Patient is dependent on family for care. Has in home services with [facility] for PT and VN. No psychiatric history. Pharmacy is [facility] on [address] [place] [address] in
[place] and PCP is Dr. Carmela Mijares. MCCARTHY signed. Anticipate Home with resumption of HH.
[2024-01-27] MEDS: MELATONIN 5 MG PO (21:09)
[2024-01-27 23:07] VITALS: BP 135/44
[2024-01-28 04:05] LABS: % Basophils 0.6 % (0-2); % Eosinophils 1.2 % (0-6); % Immature Granulocytes 0.2 % (0-0.5); % Lymphocytes 36.9 % (20.5-51.1); % Monocytes 3.1 % (1.7-9.3); Absolute Eosinophils 0.1 10^3/uL (0-0.7); Absolute Lymphocytes 1.8 10^3/uL (1.2-3.4); Absolute Monocytes 0.2 10^3/uL (0.1-0.6); Absolute Neutrophils 2.8 10^3/uL (1.4-6.5); Hematocrit 32.9 % (37.0-47.0); Hemoglobin 11.2 g/dL (12.0-16.0); Mean Corpuscular Hgb 29.9 pg (27.0-31.0); Mean Platelet Volume 9.4 fL (7.4-10.4); Nucleated Red Blood Cells % 0 %; Platelet Count 116 10^3/uL (130-400); Red Blood Cell Count 3.74 10^6/uL (4.20-5.40); Red Cell Dist. Width 28.5 % (11.5-14.5); White Blood Cell Count 4.8 10^3/uL (4.8-10.8)
[2024-01-28 04:30] LABS: Blood Urea Nitrogen 11 mg/dl (7-17); Calcium 8.4 mg/dl (8.4-10.2); Carbon Dioxide 22 mmol/L (22-30); Chloride 110 mmol/L (98-107); Estimated Creatinine Clearance 91 ml/min; Glucose 97 mg/dl (70-99); Potassium 3.3 mmol/L (3.5-5.1); Sodium 135 mmol/L (135-145); eGFR > 60.00
[2024-01-28] MEDS: NSS 1000 IV ×2 (06:04→20:35)
[2024-01-28 07:01] VITALS: BP 137/63
--- NOTE | 2024-01-28 07:29 | W.PN.HOSP.TC ---
Addendum entered and electronically signed by Gerry Mcdermott MD 01/28/24 11:29:
Severe malnutrition
Original Note:
Today's Communication/Plan
-
Electrolyte replacement. IVF. Pain and diarrhea control.
Assessment / Plan
Assessment / Plan
Physical exam:
General: Acutely ill
HEENT: Normocephalic, Atraumatic and Dry Mucous Membranes
Respiratory: Clear to Auscultation; Negative Wheezes, Rales or Rhonchi
Cardiac: Regular Rhythm and S1/S2
GI: Soft, non tender and Nondistended, obese
Musculoskeletal: No Clubbing, No Cyanosis and there is B/L Edema and some erythema
Neuro: Awake, Alert and Oriented
Psych: Calm
A/P:
Impression:
Abdominal pain and diarrhea
hyponatremia
leukopenia
Dehydration
Hypokalemia
Conditions prior to presentation:
Stage IV colon cancer with metastasis
Hypertension
COPD
Chronic hypoxic respiratory failure on home oxygen
Obesity
PE in the past
plan:
IV fluids but decrease rate
On clear liquid diet per GI
Replace electrolytes--> IV and p.o. potassium
Repeat potassium in a.m.
X-ray of the abdomen unremarkable
GI consult appreciated
CT scan abdomen shows colon cancer but no obstruction.
Oncology eval appreciated
Stool studies negative and C. difficile negative
I recommended Imodium as needed but she is hesitant on that. Also, can consider increase steroids and or octreotide
SCDs for DVT prophylaxis and Eliquis
CODE STATUS full code
Updated at bedside today
Anticipated Discharge: 24 - 48 hours
Subjective/Interval History
-
Date of Service: January 28, 2024
Patient still having diarrhea and abdominal discomfort. Afebrile
Objective Data
-
Labs:
Laboratory Results
01/28/24
03:48
WBC 4.8
Hgb 11.2 L
Hct 32.9 L
Plt Count 116 L
Sodium 135
Potassium 3.3 L
Chloride 110 H
Carbon Dioxide 22
BUN 11
Creatinine 0.8
Glucose 97
Calcium 8.4
Vital Signs:
Vital Signs
Temp Pulse Resp BP Pulse Ox
98.0 F 83 18 137/63 98
01/28/24 07:01 01/28/24 07:01 01/28/24 07:01 01/28/24 07:01 01/28/24 07:01
I&O
01/27/24 01/28/24 01/29/24
06:59 06:59 06:59
Intake Total 1090 / 1090 1500 / 1500
Balance 1090 / 1090 1500 / 1500
[2024-01-28] MEDS: DUONEB 3 ML INH ×2 (07:57→18:09)
[2024-01-28] MEDS: SYMBICORT 160/4.5 MCG INHALER 2 PUFF INH ×2 (07:57→18:09)
[2024-01-28] MEDS: SPIRIVA RESPIMAT 2.5 MCG INH (07:58)
[2024-01-28] MEDS: KCL 160 MEQ IV (08:53)
[2024-01-28] MEDS: LASIX 20 MG PO (08:54)
[2024-01-28] MEDS: B COMPLEX w/VITAMIN C 1 CAPLET PO (08:54)
[2024-01-28] MEDS: VITAMIN B-12 1000 MCG PO (08:55)
[2024-01-28] MEDS: APRESOLINE 25 MG PO ×2 (08:55→20:46)
[2024-01-28] MEDS: TESSALON PERLES 200 MG PO ×2 (08:55→20:45)
[2024-01-28] MEDS: MUCINEX 600 MG PO ×2 (08:55→20:45)
[2024-01-28] MEDS: DELTASONE 10 MG PO (08:55)
[2024-01-28] MEDS: KCL 40 MEQ PO (08:55)
[2024-01-28] MEDS: PROTONIX 40 MG PO (08:55)
[2024-01-28] MEDS: COLACE PO (08:55)
--- NOTE | 2024-01-28 08:59 | W.PN.ONC ---
Addendum entered and electronically signed by Ewa Alonso MD 01/28/24 16:31:
Agree w/ A&P as below
Original Note:
Today's Communication / Plan
-
01/27 WBC 4.8, Hgb 11.2, Hct 32.9, PLT 116
Follow CBC w/ diff daily
Transfuse as needed to maintain Hgb >7, PLT >20
Diet as tolerated: clears
Nausea management
Await final stool cultures
CT abdomen completed showing no evidence to suggest proximal obstruction.
GI following
Supportive care
Follow up is scheduled with Dr. Mccain on 01/30 @ 13:30 in the [facility] office.
We will follow.
Impression
Impression
Stage IV colon cancer (FOLFOX)
Acute diarrhea, abdominal pain
PE on DOAC (2022)
Hyponatremia (resolved)
Hypokalemia
Mild thrombocytopenia
Subjective/Objective
Subjective/Objective
patient is sleeping soundly.
Vital Signs:
Vital Signs
Temp Pulse Resp BP Pulse Ox
98.0 F 83 18 137/63 98
01/28/24 07:01 01/28/24 08:55 01/28/24 07:01 01/28/24 08:55 01/28/24 07:01
01/27/24 CT abdomen/pelvis: Relatively stable hepatic Low-attenuation space-occupying lesion.5.5 cm segmental narrowing with apple core configuration involving the proximal transverse colon, consistent with neoplasm. No evidence to suggest proximal
obstruction. There is mild wall thickening suggested involving the distal/terminal ileum. Possibly related to underdistention. In the proper clinical setting, cannot exclude inflammatory changes which may be infectious or related to inflammation of
Crohn's disease.Mild sigmoid diverticulosis without acute diverticulitis.Normal appendix. No free air or ascites. No focal collection or abscess.Relatively stable mild mesenteric adenopathy slightly superior to the superior mesenteric artery.Stable
retroperitoneal adenopathy.
Lab Results:
Laboratory Data
WBC 4.8 10^3/uL (4.8-10.8) 01/28/24 03:48
Hgb 11.2 g/dL (12.0-16.0) L 01/28/24 03:48
Plt Count 116 10^3/uL (130-400) L 01/28/24 03:48
eGFR > 60.00 01/28/24 03:48
--- NOTE | 2024-01-28 11:06 | PN.CDI ---
CDI
- -
CDI:
Physician Documentation Request
Admit Date: 01/26/24 18:29
Dear Doctor Sharron
Please review the following and provide your response in the progress notes.
Clinical Indicators:
Per RD assessment on 01/26: 'Patient meets ASPEN/AND criteria for Severe Protein Calorie Malnutrition of chronic illness as evidenced by unintentional weight loss of >10% in 6 months and nutritional intake </= 75% of estimated needs >/= to 1 month.
Based on the information, which of the following most accurately represents the patient's nutritional status?
Severe malnutrition
Other (please specify)Unable to determine
[place] Criteria ([facility] Hospitalist 2017)
2 or more criteria must be present for either
non severe or severe malnutrition
Note that the criteria differs related to the
presence of an acute or chronic illness
Acute Illness Chronic Illness
Energy Intake Non Severe: <75% for >7 days Non Severe: <75% for >1 month
Severe: <50% for >5 days Severe: <75% for >1 month
Weight Loss Non Severe: 1-2% over 1 week Non Severe: 5% over 1 month
5% over 1 month 7.5% over 3 months
7.5% over 3 months 10% over 6 months
1 year N/A 20% over 1 year
Severe: >2% over 1 week Severe: >5% over 1 month
>5% over 1 month >7.5% over 3 months
>7.5% over 3 months >10% over 6 months
1 year N/A >20% over 1 year
Body Fat Non Severe: Mild Decrease Non Severe: Mild Loss
Severe: Moderate Decrease Severe: Severe Loss
Muscle Mass Non Severe: Mild Decrease Non Severe: Mild Loss
Severe: Moderate Decrease Severe: Severe Loss
Fluid Accumulation Non Severe: Mild Accumulation Non Severe: Mild Accumulation
Severe: Moderate to severe Severe: Moderate to severe
accumulation accumulation
Reduced Mathematics Academic Chair Strength Non Severe: N/A Non Severe: N/A
Severe: Measurably reduced Severe: Measurably reduced
Additional criteria that can be used to Determine if Mild or Moderate Malnutrition ([employer] Manual 2018)
Mild Moderate Severe
Albumin gm/dl <3.0 gm/dl <2.5 gm/dl <2.0 gm/dl
Pre Albumin mg/dl <15 gm/dl <10 mg/dl <5.0 mg/dl
BMI <18.5 <17 <16
Use of terms such as suspected, likely, concern for, or probable (associated with a specific diagnosis that is being evaluated, monitored, or treated as if it exists) are acceptable and can be coded in the inpatient setting, when documented at the
time of discharge.
Thank you,
Marianna Jarquin
CDI Specialist
Please use your independent medical judgment in providing your response.
--- NOTE | 2024-01-28 11:48 | W.PN.GI.CBS2 ---
Addendum entered and electronically signed by Janae Murray MD 01/28/24 15:26:
I saw and examined the patient.
The DINING SERVICES DIRECTOR or PA's note was reviewed and I agree with the note.
Comment patient continues to have nonbloody diarrhea, multiple, small to large amounts, lot of gas with urgency. Some abdominal cramping. No nausea or vomiting. No fevers or chills.
Stool studies negative for C. difficile, Cryptosporidium, Giardia, cultures, white cells.
Abdominal x-ray without any evidence of overflow diarrhea.
Reviewed CT scan, with transverse colon mass, apple core lesion with segmental narrowing without any proximal obstruction.
Started FOLFOX regimen early December 2023.
Prior bowel movement pattern before the chemo regimen started was constipation. Now significant diarrhea , infectious workup negative and no overflow noted. Cannot rule out chemo associated diarrhea.
Will treat for possible chemo related diarrhea -patient reports getting constipated on the Imodium. But at that time she had baseline constipation. She and her are hesitant regarding using Imodium again.
Will give a single dose of Lomotil to see how it affects the diarrhea.
Continue to monitor electrolytes and replete.
Okay to advance to full liquid diet.
Will follow
Addendum entered and electronically signed by GAVIN Valerio 01/28/24 15:11:
Will try single dose of Lomotil to see if this helps with diarrhea. Then make further recommendations.
Original Note:
Today's Communication / Plan
-
Check obstruction series
Continue clear liquids with Ensure clear
Assessment / Plan
-
68-year-old female with stage IV colon cancer with mets to the pancreas, lung, carcinomatosis currently on chemotherapy undergoing her fifth round this coming Wednesday with near obstructing transverse colon/hepatic flexure lesion in the colon,
hypertension, COPD, chronic hypoxic respiratory failure on home O2, obesity, prior history of PE presents to the emergency room with abdominal cramping and change in her current stool pattern. The patient states that she was placed on a bowel
regimen of Colace and MiraLAX and was put on a full liquid diet. When she was on this she was having approximately 4-5 soft formed bowel movements daily. When she was changed to pur�e diet she was having 3 soft formed bowel movements daily. The
patient states that over the past couple days she has had upwards of 15 bowel movements daily that are now loose without any shape associated with abdominal cramping. The patient states that her abdominal cramping goes away with defecation.
CT abdomen and pelvis with IV contrast only 01/26/2024:
Relatively stable hepatic Low-attenuation space-occupying lesion.
5.5 cm segmental narrowing with apple core configuration involving the proximal transverse colon, consistent with neoplasm. No evidence to suggest proximal obstruction.
There is mild wall thickening suggested involving the distal/terminal ileum. Possibly related to underdistention. In the proper clinical setting, cannot exclude inflammatory changes which may be infectious or related to inflammation of Crohn's
disease.
Mild sigmoid diverticulosis without acute diverticulitis.
Normal appendix. No free air or ascites. No focal collection or abscess.
Relatively stable mild mesenteric adenopathy slightly superior to the superior mesenteric artery.
Stable retroperitoneal adenopathy.
Impression:
Diarrhea
Abdominal cramping improved with defecation
Stage IV colon cancer (near obstructing tumor at area of proximal transverse colon/hepatic flexure) with mets to pancreas, lung, carcinomatosis
Hyponatremia
Chronic immunosuppression (on prednisone and chemotherapy)
Chronic anticoagulation on Eliquis, Eliquis on hold since 01/27/2024 am.
Plan:
-Obtain obstruction series
-Await stool studies currently pending Salmonella, Shigella, Campylobacter.
-Continue clear liquid diet, add Ensure clear 3 times daily room temperature
-Further recommendations to be forthcoming
Subjective
Subjective
Date of Service: January 28, 2024
Patient still with multiple watery bowel movements however decreased in volume. Also with decrease in abdominal cramping. No signs of blood within stool after holding anticoagulation. Hemoglobin stable. Tolerating clear liquid diet. Stool
negative for WBC, negative for Cryptosporidium, negative Giardia, negative norovirus, negative C. difficile, negative E. coli. Still awaiting stool for Salmonella/Shigella and Campylobacter.
Objective
Data Reviewed
Laboratory Data:
Laboratory Results
01/28/24 03:48
01/28/24 03:48
Laboratory Results
Magnesium 1.8 mg/dl (1.6-2.3) 01/27/24 05:12
Total Bilirubin 0.3 mg/dl (0.2-1.3) 01/27/24 05:12
AST 23 U/L (14-36) 01/27/24 05:12
ALT 19 U/L (0-35) 01/27/24 05:12
Alkaline Phosphatase 42 U/L (38-126) 01/27/24 05:12
Lipase 74 U/L (23-300) 01/26/24 16:27
Vital Signs and I&O:
Vital Signs
Temp Pulse Resp BP Pulse Ox
98.0 F 83 18 137/63 98
01/28/24 07:01 01/28/24 08:55 01/28/24 07:01 01/28/24 08:55 01/28/24 07:01
I&O
01/27/24 01/28/24 01/29/24
06:59 06:59 06:59
Intake Total 1090 / 1090 1500 / 1500
Balance 1090 / 1090 1500 / 1500
Physical Exam
Physical Exam
HEENT: Anicteric
Cardiology: Normal Sinus Rhythm
Pulmonary: Clear
GI: Soft, Non Distended, Non Tender and Normal Bowel Sounds
Rectal: Other (Brown liquid stool)
Extremities: Edema (Bilateral lower extremity edema)
Neuro: Non Focal
[2024-01-28] MEDS: KCL PO (13:00)
[2024-01-28 13:58] VITALS: BP 161/68; PULSE 86; O2SAT 97
[2024-01-28 15:00] VITALS: BP 159/94
--- NOTE | 2024-01-28 15:16 | CM ---
Discharge Plan of Care: Home with resumption of HH VN and PT/OT.
[2024-01-28] MEDS: LOMOTIL 1 TABLET PO (16:30)
[2024-01-28 16:51] LABS: Blood Urea Nitrogen 8 mg/dl (7-17); Calcium 8.4 mg/dl (8.4-10.2); Carbon Dioxide 21 mmol/L (22-30); Chloride 111 mmol/L (98-107); Estimated Creatinine Clearance 104 ml/min; Glucose 128 mg/dl (70-99); Potassium 3.8 mmol/L (3.5-5.1); Sodium 133 mmol/L (135-145); eGFR > 60.00
[2024-01-28] MEDS: MELATONIN 5 MG PO (20:45)
[2024-01-28] MEDS: ELIQUIS 5 MG PO (20:46)
[2024-01-28] MEDS: DILAUDID 0.5 MG IV (22:13)
[2024-01-28 23:16] VITALS: BP 150/87
[2024-01-29] MEDS: DUONEB 3 ML INH (07:39)
[2024-01-29] MEDS: SPIRIVA RESPIMAT 2.5 MCG 2 PUFF INH (07:39)
[2024-01-29] MEDS: SYMBICORT 160/4.5 MCG INHALER 2 PUFF INH (07:39)
[2024-01-29 07:45] VITALS: BP 128/71
[2024-01-29] MEDS: DELTASONE 10 MG PO (07:54)
[2024-01-29] MEDS: LASIX 20 MG PO (07:54)
[2024-01-29] MEDS: ELIQUIS 5 MG PO (07:54)
[2024-01-29] MEDS: TESSALON PERLES 200 MG PO (07:54)
[2024-01-29] MEDS: COLACE 100 MG PO (07:54)
[2024-01-29] MEDS: MUCINEX 600 MG PO (07:54)
[2024-01-29] MEDS: VITAMIN B-12 1000 MCG PO (07:54)
[2024-01-29] MEDS: B COMPLEX w/VITAMIN C 1 CAPLET PO (07:54)
[2024-01-29] MEDS: PROTONIX 40 MG PO (07:54)
[2024-01-29] MEDS: APRESOLINE 25 MG PO (07:57)
[2024-01-29 07:58] LABS: % Basophils 0.5 % (0-2); % Eosinophils 0.9 % (0-6); % Immature Granulocytes 0.2 % (0-0.5); % Neutrophils 48.4 % (42.2-75.2); Absolute Lymphocytes 1.9 10^3/uL (1.2-3.4); Absolute Monocytes 0.2 10^3/uL (0.1-0.6); Hematocrit 34.3 % (37.0-47.0); Hemoglobin 11.1 g/dL (12.0-16.0); Mean Corp Hgb Conc. 32.4 g/dL (33.0-37.0); Mean Corpuscular Hgb 29.6 pg (27.0-31.0); Mean Corpuscular Volume 91.5 fL (81.0-99.0); Mean Platelet Volume 9.3 fL (7.4-10.4); Nucleated Red Blood Cells % 0 %; Platelet Count 109 10^3/uL (130-400); Red Blood Cell Count 3.75 10^6/uL (4.20-5.40); Red Cell Dist. Width 28.1 % (11.5-14.5); White Blood Cell Count 4.2 10^3/uL (4.8-10.8)
--- NOTE | 2024-01-29 08:23 | W.PN.GI.CBS2 ---
Today's Communication / Plan
-
Prior bowel movement pattern before the chemo regimen started was constipation. Now significant diarrhea , infectious workup negative and no overflow noted. Cannot rule out chemo associated diarrhea.
Remarkable improvement after a single dose of Lomotil . Hold off on any further antidiarrheals and will use it only as needed.
Continue to monitor electrolytes and replete.
Okay to advance to low residue diet
Assessment / Plan
-
68-year-old female with stage IV colon cancer with mets to the pancreas, lung, carcinomatosis currently on chemotherapy undergoing her fifth round this coming Wednesday with near obstructing transverse colon/hepatic flexure lesion in the colon,
hypertension, COPD, chronic hypoxic respiratory failure on home O2, obesity, prior history of PE presents to the emergency room with abdominal cramping and change in her current stool pattern. The patient states that she was placed on a bowel
regimen of Colace and MiraLAX and was put on a full liquid diet. When she was on this she was having approximately 4-5 soft formed bowel movements daily. When she was changed to pur�e diet she was having 3 soft formed bowel movements daily. The
patient states that over the past couple days she has had upwards of 15 bowel movements daily that are now loose without any shape associated with abdominal cramping. The patient states that her abdominal cramping goes away with defecation.
CT abdomen and pelvis with IV contrast only 01/26/2024:
Relatively stable hepatic Low-attenuation space-occupying lesion.
5.5 cm segmental narrowing with apple core configuration involving the proximal transverse colon, consistent with neoplasm. No evidence to suggest proximal obstruction.
There is mild wall thickening suggested involving the distal/terminal ileum. Possibly related to underdistention. In the proper clinical setting, cannot exclude inflammatory changes which may be infectious or related to inflammation of Crohn's
disease.
Mild sigmoid diverticulosis without acute diverticulitis.
Normal appendix. No free air or ascites. No focal collection or abscess.
Relatively stable mild mesenteric adenopathy slightly superior to the superior mesenteric artery.
Stable retroperitoneal adenopathy.
Impression:
Diarrhea
Abdominal cramping improved with defecation
Stage IV colon cancer (near obstructing tumor at area of proximal transverse colon/hepatic flexure) with mets to pancreas, lung, carcinomatosis
Hyponatremia
Chronic immunosuppression (on prednisone and chemotherapy)
Chronic anticoagulation on Eliquis, Eliquis on hold since 01/27/2024 am.
Plan:
Prior bowel movement pattern before the chemo regimen started was constipation. Now significant diarrhea , infectious workup negative and no overflow noted. Cannot rule out chemo associated diarrhea.
Remarkable improvement after a single dose of Lomotil . Hold off on any further antidiarrheals and will use it only as needed.
Continue to monitor electrolytes and replete.
Okay to advance to low residue diet
Stool studies negative for C. difficile, Cryptosporidium, Giardia, cultures, white cells.
Abdominal x-ray without any evidence of overflow diarrhea.
Reviewed CT scan, with transverse colon mass, apple core lesion with segmental narrowing without any proximal obstruction.
Started FOLFOX regimen early December 2023.
Subjective
Subjective
Date of Service: January 29, 2024
Patient reports remarkable improvement after 1 dose of Lomotil yesterday evening. She had 2 bowel movements which are soft last evening and 1 soft bowel movement this morning. No abdominal pain. Feels she is a new person.
Objective
Data Reviewed
Laboratory Data:
Laboratory Results
01/29/24 07:30
Laboratory Results
Magnesium 1.8 mg/dl (1.6-2.3) 01/27/24 05:12
Total Bilirubin 0.3 mg/dl (0.2-1.3) 01/27/24 05:12
AST 23 U/L (14-36) 01/27/24 05:12
ALT 19 U/L (0-35) 01/27/24 05:12
Alkaline Phosphatase 42 U/L (38-126) 01/27/24 05:12
Lipase 74 U/L (23-300) 01/26/24 16:27
Vital Signs and I&O:
Vital Signs
Temp Pulse Resp BP Pulse Ox
98.7 F 85 16 128/71 95
01/29/24 07:45 01/29/24 08:10 01/29/24 08:10 01/29/24 07:57 01/29/24 08:10
I&O
01/28/24 01/29/24 01/30/24
06:59 06:59 06:59
Intake Total 1500 / 1500 1760 / 1760
Balance 1500 / 1500 1760 / 1760
Physical Exam
Physical Exam
GI: Soft, Non Distended and Non Tender
[2024-01-29 08:45] LABS: Blood Urea Nitrogen 7 mg/dl (7-17); Calcium 8.4 mg/dl (8.4-10.2); Carbon Dioxide 22 mmol/L (22-30); Chloride 111 mmol/L (98-107); Estimated Creatinine Clearance 104 ml/min; Glucose 92 mg/dl (70-99); Potassium 3.5 mmol/L (3.5-5.1); Sodium 135 mmol/L (135-145); eGFR > 60.00
--- NOTE | 2024-01-29 09:12 | W.PN.HOSP.TC ---
Today's Communication/Plan
-
Discharge planning today
Assessment / Plan
Assessment / Plan
Physical exam:
General: No acute distress
HEENT: Normocephalic, Atraumatic and Dry Mucous Membranes
Respiratory: Clear to Auscultation; Negative Wheezes, Rales or Rhonchi
Cardiac: Regular Rhythm and S1/S2
GI: Soft, non tender and Nondistended, obese
Musculoskeletal: No Clubbing, No Cyanosis and there is B/L Edema and some erythema
Neuro: Awake, Alert and Oriented
Psych: Calm
A/P:
Impression:
Abdominal pain and diarrhea
hyponatremia
leukopenia
Dehydration
Hypokalemia
Conditions prior to presentation:
Stage IV colon cancer with metastasis
Hypertension
COPD
Chronic hypoxic respiratory failure on home oxygen
Obesity
PE in the past
plan:
Stop IVF
Advance to low residue diet per GI today
X-ray of the abdomen unremarkable
GI consult appreciated
CT scan abdomen shows colon cancer but no obstruction.
Oncology eval appreciated
Stool studies negative and C. difficile negative
I recommended Imodium or Lomotil as needed but she is hesitant on that. Also, can consider increase steroids and or octreotide. She ultimately agree to use Lomotil with GI and had good results.
SCDs for DVT prophylaxis and Eliquis
CODE STATUS full code
Updated at bedside today
Anticipated Discharge: Today
Subjective/Interval History
-
Date of Service: January 29, 2024
Patient much improved today. She wants to go home today
Objective Data
-
Labs:
Laboratory Results
01/29/24
07:30
WBC 4.2 L
Hgb 11.1 L
Hct 34.3 L
Plt Count 109 L
Sodium 135
Potassium 3.5
Chloride 111 H
Carbon Dioxide 22
BUN 7
Creatinine 0.7
Glucose 92
Calcium 8.4
Vital Signs:
Vital Signs
Temp Pulse Resp BP Pulse Ox
98.7 F 85 16 128/71 95
01/29/24 07:45 01/29/24 08:10 01/29/24 08:10 01/29/24 07:57 01/29/24 08:10
I&O
01/28/24 01/29/24 01/30/24
06:59 06:59 06:59
Intake Total 1500 / 1500 1759
Balance 1500 / 1500 1759
--- NOTE | 2024-01-29 10:40 | W.DCSUMMARY ---
Discharge Summary
Discharge Data
Date of Admission: 01/26/24
Date of Discharge: 01/29/24
-
Pending Results: No
Hospital Course
Patient is 68 years old female with history of chronic hypoxic respiratory failure on home oxygen, PE on anticoagulation, stage IV colon cancer, presented to the hospital abdominal pain generalized weakness and diarrhea. Patient had images
including x-ray of the abdomen and CT scan of the abdomen that revealed no evidence of obstruction. Patient was treated with conservative treatment and IV fluids, electrolyte replacement, and GI and oncology consulted. Stool cultures came back
negative including C. difficile. It was felt that her symptoms were most likely related to chemotherapy. She was hesitant on using any antidiarrheal medication but ultimately agreed with Lomotil. Patient did well rest of the hospital stay. She
has been able to tolerate advancing diet. Electrolytes within normals. She is going to be discharged in stable condition today.
Discharge duration: 31 minutes
Discharge Plan
-
Patient Disposition: Home with Home Care
Discharge Diagnosis/Procedures: Diarrhea likely chemotherapy related. Abdominal pain. Hypokalemia. Hyponatremia. Leukopenia. History of stage IV colon cancer with metastasis. Chronic hypoxic respiratory failure on home oxygen. History of
pulmonary embolism in the past. Obesity.
Diet: Low Residue
Activity: As tolerated
Driving Restrictions: As prior to admission
Blood Work: Please PCP to order CBC, BMP within 1 week
Referrals:
Lane Mccain DO [Active] - in two to three days
Ephraim Willis MD [Active] - in one to two weeks
Carmela Mijares DO [Family Provider] - in less than 1 week
Prescriptions:
New
diphenoxylate-atropine [Lomotil] 2.5-0.025 mg tablet
1 tab PO DAILY PRN (Reason: diarrhea) Qty: 5 0RF
Continued
albuterol sulfate 90 mcg/actuation Hfa Aerosol Inhaler
2 puff INHALATION R Q4HPRN PRN (Reason: SOB)
Eliquis 5 mg Tablet
5 mg PO BID
cyanocobalamin (vitamin B-12) 1,000 mcg Tablet
1,000 mcg PO DAILY Qty: 30 0RF
pantoprazole 40 mg Tablet,Delayed Release (Dr/Ec)
40 mg PO DAILY Qty: 15 0RF
fluticasone propionate [Flonase Allergy Relief] 50 mcg/actuation spray,suspension
1 spray intranasal QPM Qty: 0 0RF
fluticasone furoate-vilanterol [Breo Ellipta] 200-25 mcg/dose Blister With Device
1 inh INHALATION R QPM Qty: 0 0RF
ipratropium-albuterol 0.5 mg-3 mg(2.5 mg base)/3 mL solution for nebulization
3 ml inhalation R BID
benzonatate 200 mg capsule
200 mg PO BID
guaifenesin [Mucinex] 600 mg tablet extended release 12hr
600 mg PO BID
hydralazine 25 mg Tablet
25 mg PO BID Qty: 60 0RF
prednisone 10 mg tablet
10 mg PO DAILY
vitamin B complex Tablet Extended Release
1 tab PO DAILY
albuterol sulfate 2.5 mg /3 mL (0.083 %) solution for nebulization
2.5 mg inhalation R Q6 PRN (Reason: sob/wheezing)
melatonin 5 mg Tablet
5 mg PO HS
docusate sodium 100 mg capsule
100 mg PO DAILY
furosemide [Lasix] 20 mg tablet
20 mg PO DAILY
Discharge Orders:
Discharge Patient (As Directed); Ordered 01/29/24
Ordered By: Gerry Mcdermott
Discharge Date and Time
Discharge Date/Time: 01/29/24 14:20
Print Language: GABONESE
--- NOTE | 2024-01-29 14:26 | CM ---
Patient has been medically cleared for discharge to home with resumption of [facility] VN and PT/OT services. will transport home.
== END 2024-01-29 14:20 | disposition home health service (06) ==
LOC: 2 NORTH 18:29
PROVIDERS: Nurse Practitioner; Physician Assistant; ADMITTING PHYSICIAN Hospitalist; CONSULT PHYSICIAN Internal Medicine Gastroenterology; CONSULT PHYSICIAN Internal Medicine Hematology & Oncology; EMERGENCY PHYSICIAN Student in an Organized Health Care Education/Training Program; FAMILY PHYSICIAN Family Medicine
DX: R19.7 Diarrhea, unspecified (principal); R10.9 Unspecified abdominal pain; T45.1X5A Adverse effect of antineoplastic and immunosuppressive drugs, initial encounter; C18.4 Malignant neoplasm of transverse colon; C78.89 Secondary malignant neoplasm of other digestive organs; E66.9 Obesity, unspecified; J96.11 Chronic respiratory failure with hypoxia; D63.0 Anemia in neoplastic disease; I10 Essential (primary) hypertension; C78.7 Secondary malignant neoplasm of liver and intrahepatic bile duct; J44.89 Other specified chronic obstructive pulmonary disease; E87.6 Hypokalemia; C78.00 Secondary malignant neoplasm of unspecified lung; E87.1 Hypo-osmolality and hyponatremia; E43 Unspecified severe protein-calorie malnutrition; E86.0 Dehydration; D84.821 Immunodeficiency due to drugs; D69.6 Thrombocytopenia, unspecified; Z68.42 Body mass index [BMI] 45.0-49.9, adult; Z79.01 Long term (current) use of anticoagulants; Z79.52 Long term (current) use of systemic steroids; Z79.899 Other long term (current) drug therapy; Z86.711 Personal history of pulmonary embolism; Z99.81 Dependence on supplemental oxygen
CPT/HCPCS: 74018; 74022; 74177; 80048; 80053; 83690; 83735; 85025; 85027; 87045; 87046; 87324; 87328; 87329; 87427; 87449; 87798; 89055; 94640; 96360; 97110; 97162; 97166; 99284; G0378; Q9967

== ENCOUNTER → 2024-02-03 14:19 | Outpatient (REF) | payer MEDICARE, OTHER, SELFPAY ==
[2024-02-03 15:00] LABS: Iron 192 ug/dl (37-170)
[2024-02-03 15:10] LABS: Percent Saturation 91 % (20-50); Total Iron Binding Capacity 210 ug/dl (265-497)
== END ==
LOC: OIDL 14:19
PROVIDERS: ATTENDING PHYSICIAN Nurse Practitioner Adult Health
DX: I26.99 Other pulmonary embolism without acute cor pulmonale (principal); D64.9 Anemia, unspecified
CPT/HCPCS: 82728; 83540; 83550

== ENCOUNTER → 2024-02-04 18:47 | Outpatient (REF) | payer MEDICARE, OTHER, SELFPAY ==
[2024-02-04 19:36] LABS: Hematocrit 35.7 % (37.0-47.0); Hemoglobin 12.1 g/dL (12.0-16.0); Mean Corp Hgb Conc. 33.9 g/dL (33.0-37.0); Mean Corpuscular Hgb 30.6 pg (27.0-31.0); Mean Corpuscular Volume 90.2 fL (81.0-99.0); Mean Platelet Volume 9.7 fL (7.4-10.4); Platelet Count 184 10^3/uL (130-400); Red Blood Cell Count 3.96 10^6/uL (4.20-5.40); Red Cell Dist. Width 28.2 % (11.5-14.5)
[2024-02-04 19:53] LABS: ALT (SGPT) 28 U/L (0-35); AST (SGOT) 33 U/L (14-36); Albumin 2.6 g/dl (3.5-5.0); Alkaline Phosphatase 49 U/L (38-126); Blood Urea Nitrogen 15 mg/dl (7-17); Calcium 8.6 mg/dl (8.4-10.2); Carbon Dioxide 26 mmol/L (22-30); Chloride 103 mmol/L (98-107); Glucose 102 mg/dl (70-99); Potassium 2.8 mmol/L (3.5-5.1); Sodium 134 mmol/L (135-145); Total Bilirubin 0.6 mg/dl (0.2-1.3); Total Protein 4.6 g/dl (6.3-8.2); eGFR > 60.00
[2024-02-04 20:08] LABS: Atypical Lymphocytes 12 %; Band Neutrophils 0 % (0-3); Lymphocytes 81 % (20-51); Monocytes 2 % (2-9); Segmented Neutrophils 5 % (42-75)
[2024-02-04 20:09] LABS: Anisocytosis 2+; Normal RBC Morphology No; Platelets Checked Yes
[2024-02-04 20:11] LABS: Burr Cells 2+; Total Cells Counted 100
[2024-02-04 20:28] LABS: White Blood Cell Count 1.2 10^3/uL (4.8-10.8)
== END ==
LOC: CLAB 18:47
PROVIDERS: ATTENDING PHYSICIAN Internal Medicine Hematology & Oncology
DX: I10 Essential (primary) hypertension (principal); C18.9 Malignant neoplasm of colon, unspecified
CPT/HCPCS: 36415; 80053; 85025

== ENCOUNTER → 2024-02-08 15:02 | Outpatient (REF) | payer MEDICARE, OTHER, SELFPAY ==
[2024-02-08 15:35] LABS: Magnesium 1.7 mg/dl (1.6-2.3)
== END ==
LOC: OIDL 15:02
PROVIDERS: ATTENDING PHYSICIAN Nurse Practitioner Family
DX: C34.32 Malignant neoplasm of lower lobe, left bronchus or lung (principal)
CPT/HCPCS: 83735

== ENCOUNTER 2024-02-10 21:43 | Inpatient (IN) | payer MEDICARE, OTHER, SELFPAY ==
[2024-02-10 17:16] VITALS: BP 162/97; BMI 49.0
[2024-02-10 18:04] LABS: Mean Corp Hgb Conc. 34.2 g/dL (33.0-37.0); Mean Corpuscular Hgb 30.6 pg (27.0-31.0); Mean Corpuscular Volume 89.4 fL (81.0-99.0); Mean Platelet Volume 9.6 fL (7.4-10.4); Platelet Count 140 10^3/uL (130-400); Red Blood Cell Count 4.25 10^6/uL (4.20-5.40); Red Cell Dist. Width 24.6 % (11.5-14.5)
[2024-02-10 18:33] LABS: Blood Urea Nitrogen 14 mg/dl (7-17); Calcium 8.5 mg/dl (8.4-10.2); Carbon Dioxide 23 mmol/L (22-30); Chloride 105 mmol/L (98-107); Estimated Creatinine Clearance 91 ml/min; Glucose 118 mg/dl (70-99); Lipase 73 U/L (23-300); Sodium 131 mmol/L (135-145); eGFR > 60.00
[2024-02-10 18:51] LABS: White Blood Cell Count 2.1 10^3/uL (4.8-10.8)
[2024-02-10 18:53] LABS: Atypical Lymphocytes 9 %; Band Neutrophils 0 % (0-3); Eosinophils 1 % (0-6); Lymphocytes 55 % (20-51); Monocytes 1 % (2-9); Pathologist Reviewed No; Segmented Neutrophils 34 % (42-75)
[2024-02-10 18:54] LABS: Absolute Neutrophils -Man Diff 0.7 10^3/uL (1.4-6.5); Normal RBC Morphology Yes; Platelets Checked Yes; Total Cells Counted 100
--- NOTE | 2024-02-10 20:23 | ED.GENMED ---
History of Present Illness
General
Chief Complaint: Abdominal Symptoms
Source: patient, records and spouse
Exam Limitations: none
Time Seen by Provider: 02/10/24 20:11
Nursing documentation reviewed up to this point in time: agreed with
Travel History
Have you had any contact with someone who has COVID-19?: No
Do you have any symptoms of coronavirus? Fever > 100 degrees, chills, cough, shortness of breath, sore throat, loss of taste or smell, muscle aches, or headache?: No
History of Present Illness
History of Present Illness:
68-year-old female oncology patient lung pancreas: On chemo presents with decreased p.o. intake, some painful swallowing profuse diarrhea has had this before requiring admission gets it after chemo bad metallic taste in her mouth as well no relief
with baking soda no abdominal pain no documented fevers, scheduled for chemo tomorrow feels too weak, has been on oxygen lately
Apparently was admitted few weeks ago with similar treated with IV fluids
Had a CAT scan, patient with known near obstructing mass, cannot get fiber in her foods cannot get Imodium because it gives her obstruction per the
Past History
Past History
ED Past Medical History: Asthma, Cancer (Recently diagnosed lung cancer), HTN and Other (Bilateral pulmonary emboli)
ED Past Surgical History: Other
Social History
Tobacco: Non-smoker
Alcohol: None
Drug: None
Personal:
Living: with family
Employment: Retired
Family History
Family History: Other
Review of Systems
Review of Systems
Constitutional: Reports fatigue
EENT: Reports no symptoms
Respiratory: Reports no symptoms
Cardiac: Reports no symptoms
ABD/GI: Reports diarrhea and bloody stools
: Reports no symptoms
Skin: Reports no symptoms
Neurological: Reports weakness
Phy Exam
Physical Exam
Physical Exam:
Physical Exam
General: Chronically ill-appearing female
Neck: Lips are dry
Heart: Tachycardia
Lungs: no acute respiratory distress
Abdomen: Obese nontender
Neuro: alert and oriented. no focal neurological deficits
Skin: no rash
Psychiatric: cooperative
Extremities: Edema is
Course
Orders/Labs/Results
Orders:
Orders
02/10/24 17:27
Basic Metabolic Panel Urgent
Complete Blood Count/With Diff Urgent
Lipase Urgent
Magnesium Urgent
Comment: ADD ON
Manual Differential Urgent
02/10/24 20:11
Basic Metabolic Panel Urgent
Obstruct Series W/PA Chest [CR Obstruct Series W/pa Chest] Urgent
Comment:
Reason For Exam: vomitib
02/10/24 20:12
Add On- LAB Urgent
Tests Added?: magnesium
Electrocardiogram (*1) Urgent
Reason for Study: Abdominal Pain
EKG- Treatment ONCE
02/10/24 20:22
STOOL [C difficile Antigen & Toxins] Urgent
TIFFANI Source: Feces/Stool
Specimen Description:
Stool Culture Urgent
TIFFANI Source: Feces/Stool
Specimen Description:
0.9% Sodium Chloride 1000 ml [Nss] 2,000 ml IV BOLUS
02/10/24 20:26
Lactic Acid Urgent
02/10/24 20:30
Blood Culture Q30M
TIFFANI Source: Blood/Venous
Specimen Description:
02/10/24 21:00
Blood Culture Q30M
TIFFANI Source: Blood/Venous
Specimen Description:
Abnormal Lab Results
02/10/24
17:27
WBC 2.1 L* 10^3/uL
(4.8-10.8)
RDW 24.6 H %
(11.5-14.5)
Abs Neuts (Manual) 0.7 L* 10^3/uL
(1.4-6.5)
Segmented Neutrophils 34 L %
(42-75)
Lymphocytes (Manual) 55 H %
(20-51)
Monocytes (Manual) 1 L %
(2-9)
Sodium 131 L mmol/L
(135-145)
Glucose 118 H mg/dl
(70-99)
02/10/24 17:27
Vital Signs
Initial and Last Documented VS:
Initial Vital Signs
Temp Pulse Resp BP Pulse Ox
98.8 F 91 16 162/97 98
02/10/24 17:16 02/10/24 17:16 02/10/24 17:16 02/10/24 17:16 02/10/24 17:16
Last Documented Vital Signs
Temp Pulse Resp BP Pulse Ox
98.8 F 91 16 162/97 98
02/10/24 17:16 02/10/24 17:16 02/10/24 17:16 02/10/24 17:16 02/10/24 17:16
MDM/Problems Addressed
Differential Diagnosis Includes:
Dehydration, chemo side effect, esophagitis, disease progression, infactious diarrhea neutropenia
MDM/Problems Addressed:
Diarrhea fatigue
Chronic conditions affecting care: Cancer
Acute Exacerbation and/or Progression of Chronic Illness: Cancer
*Radiology
Radiology exam reviewed: preliminary read by ED provider
*Pulse Oximetry
Patient hypoxic: no
*EKG
Interpreted by ED Provider?: Yes
Interpretation: abnormal
Comparison EKG: no comparison EKG present
Heart Rate: 78
Rate: normal
Rhythm: sinus
Ischemia: non-specific ST changes
*[employer] Interpretation
Rate: normal
Heart Rate: 78
Rhythm: sinus
*Critical Care Note
Total Time (30-74mins, 75-104mins- exclusive of procedures): Not Applicable
Data Reviewed
Review of Other/Old Records Reveals: Labs, Progress Notes and Discharge Summary
Source: patient and records
Update Note
Update Note:
Patient severely deconditioned, profuse diarrhea will check stool studies, start fluids is also neutropenic we will check cultures will require admission
ED Attending Note
-
Portions of this chart may have been created with voice recognition software.� Occasional wrong word or��sound alike� substitutions may have occurred due to the inherent limitations of voice recognition software.
Discharge Plan
Departure
Patient Disposition: Admit
Date of Disposition: 02/10/24
Time of Disposition: 20:30
Admit to: Med/Surg
Presentation/result/management discussed w/ accepting MD/DO: Hospitalist
Condition: Fair
Covid-19: Not Applicable
Discharge Problem:
Metastatic adenocarcinoma, Dehydration, Diarrhea, Stage IV carcinoma of colon
Prescriptions:
No Action
albuterol sulfate 90 mcg/actuation Hfa Aerosol Inhaler
2 puff INHALATION R Q4HPRN PRN (Reason: SOB)
Eliquis 5 mg Tablet
5 mg PO BID
cyanocobalamin (vitamin B-12) 1,000 mcg Tablet
1,000 mcg PO DAILY Qty: 30 0RF
pantoprazole 40 mg Tablet,Delayed Release (Dr/Ec)
40 mg PO DAILY Qty: 15 0RF
fluticasone propionate [Flonase Allergy Relief] 50 mcg/actuation spray,suspension
1 spray intranasal QPM Qty: 0 0RF
fluticasone furoate-vilanterol [Breo Ellipta] 200-25 mcg/dose Blister With Device
1 inh INHALATION R QPM Qty: 0 0RF
ipratropium-albuterol 0.5 mg-3 mg(2.5 mg base)/3 mL solution for nebulization
3 ml inhalation R BID
benzonatate 200 mg capsule
200 mg PO BID
guaifenesin [Mucinex] 600 mg tablet extended release 12hr
600 mg PO BID
hydralazine 25 mg Tablet
25 mg PO BID Qty: 60 0RF
prednisone 10 mg tablet
10 mg PO DAILY
vitamin B complex Tablet Extended Release
1 tab PO DAILY
albuterol sulfate 2.5 mg /3 mL (0.083 %) solution for nebulization
2.5 mg inhalation R Q6 PRN (Reason: sob/wheezing)
melatonin 5 mg Tablet
5 mg PO HS
docusate sodium 100 mg capsule
100 mg PO DAILY
furosemide [Lasix] 20 mg tablet
20 mg PO DAILY
diphenoxylate-atropine [Lomotil] 2.5-0.025 mg tablet
1 tab PO DAILY PRN (Reason: diarrhea) Qty: 5 0RF
Interventions
Interventions:
*Risk Screen - Suicide Last Done: 02/10/24 17:16
*Neglect/Abuse Screening Last Done: 02/10/24 17:16
ED- Fall Risk Assessment Last Done: 02/10/24 17:16
Discharge Date and Time
Print Language: GEORGIAN
[2024-02-10 20:29] LABS: Magnesium 1.7 mg/dl (1.6-2.3)
--- NOTE | 2024-02-10 20:29 | HPS.HSE ---
Addendum entered and electronically signed by Sondra Harvey MD 02/10/24 21:43:
will hold [employer] Hydralazine and lasix
Original Note:
Family Physician
-
Family Physician:
Chief Complaint
-
Diarrhea and Anorexia post Chemo
History of Present Illness
Ms. Maria Del Rosario Dawson is a 68 yo woman with hx stage IV colon canccer with metastasis to pancreas, lung on home O2, PE on AC presents with diarrhea and poor PO intake.
Patient was recently admitted 01/25-01/29/24 with similar symptoms thought 2/2 chemotherapy. Her symptoms improved during last hospitalization and she was doing Okay at home. Her next chemotherapy was on Wednesday 01/31 and she had return of abdominal
symptoms 6 days later, this past Wednesday. She reports metallic taste, abdominal pain after even two sips of water that results in severe diarrhea. describes 15-20 times overnight.
Diarrhea brown with streaks red blood, patient with known hemorrhoid. No nausea. No vomiting. She feels very fatigued. No fevers/chills. No current abdominal pain.
No chest pain or shortness of breath. No palpitations. No rash.
Medical History
Past Medical History
Past Medical History: Reports Other (Stage IV colon cancer with metastasis, hypertension, COPD, chronic hypoxic respiratory failure on home oxygen, obesity, PE in the past.)
Past Surgical History: Reports Other (Cholecystectomy, C-sections.)
Social History
Tobacco: Non-smoker
Alcohol: None
Drug: None
Family History
Family History: Not pertinent
Allergies / Home Medications
Allergies reflects when Allergies were last updated in [facility].
Home Medications with original date entered in [facility]
Allergy/Medication List:
Allergies
Allergy/AdvReac Type Severity Reaction Status Date / Time
bee venom protein (honey bee) Allergy Swelling Verified 02/10/24 17:16
tong pepper Allergy Unknown Verified 02/10/24 17:16
cat dander Allergy congestion Verified 02/10/24 17:16
Home Medications
albuterol sulfate 90 mcg/actuation aerosol inhaler 2 puff inhalation R Q4HPRN PRN SOB 10/29/23
apixaban 5 mg tablet (Eliquis) 5 mg PO BID Blood Clot Prevention/Tx 10/29/23
cyanocobalamin (vitamin B-12) 1,000 mcg tablet 1,000 mcg PO DAILY low normal B12 #30 tabs 11/20/23
fluticasone furoate 200 mcg-vilanterol 25 mcg/dose inhalation powder (Breo Ellipta) 1 inh inhalation R QPM Lung/breathing issues #0 ea 11/20/23
fluticasone propionate 50 mcg/actuation nasal spray,suspension (Flonase Allergy Relief) 1 spray intranasal QPM Allergies #0 mL 11/20/23
pantoprazole 40 mg tablet,delayed release 40 mg PO DAILY Gastrointestinal issue #15 tabs 11/20/23
benzonatate 200 mg capsule 200 mg PO BID Cough 11/27/23
guaifenesin 600 mg tablet, extended release 12 hr (Mucinex) 600 mg PO BID Cough 11/27/23
ipratropium 0.5 mg-albuterol 3 mg (2.5 mg base)/3 mL nebulization soln 3 ml inhalation R BID Lung/breathing issues 11/27/23
hydralazine 25 mg tablet 25 mg PO BID Blood pressure #60 tabs 12/03/23
albuterol sulfate 2.5 mg/3 mL (0.083 %) solution for nebulization 2.5 mg inhalation R Q6 PRN sob/wheezing 01/26/24
docusate sodium 100 mg capsule 100 mg PO DAILY Constipation 01/26/24
furosemide 20 mg tablet (Lasix) 20 mg PO DAILY Fluid Retention/Swelling 01/26/24
melatonin 5 mg tablet 5 mg PO HS Sleep 01/26/24
prednisone 10 mg tablet 10 mg PO DAILY Anti-Inflammatory 01/26/24
vitamin B complex 1 tab PO DAILY Supplement 01/26/24
diphenoxylate-atropine 2.5 mg-0.025 mg tablet (Lomotil) 1 tab PO DAILY PRN diarrhea #5 tabs 01/29/24
*awaiting med rec
Review of Systems
-
History Source: Patient
A 12 point ROS was completed and negative except as noted: Yes
Physical Exam
Vital Signs
Vital Signs
Temp Pulse Resp BP Pulse Ox
98.8 F 91 16 162/97 98
02/10/24 17:16 02/10/24 17:16 02/10/24 17:16 02/10/24 17:16 02/10/24 17:16
Physical Exam
General: Other (patient appears fatigued)
HEENT: PERRLA
Respiratory: Clear; No Wheezes
Cardiac: S1/S2 and Regular Rhythm
GI: Soft and Non Tender
Musculoskeletal: Edema, Left Lower Extremity and Edema, Right Lower Extremity
Skin: Warm and Dry; No Rash
Neuro: AO x 3
Psych: Calm
Laboratory Results
-
02/10/24 17:27
Laboratory Results
Total Bilirubin Cancelled 02/10/24 17:27
AST Cancelled 02/10/24 17:27
ALT Cancelled 02/10/24 17:27
Alkaline Phosphatase Cancelled 02/10/24 17:27
Lipase 73 U/L (23-300) 02/10/24 17:27
Data Reviewed
-
Diagnostic Radiology: Report Reviewed by me
Lab Data: Labs Reviewed by me
Impression/Plan
-
Ms. Maria Del Rosario Dawson is a 68 yo woman with hx stage IV colon cancer with metastasis to pancreas, lung on home O2, PE on AC presents with diarrhea and poor PO intake.
Triage VS: T 98.8, P 91, RR 16, BP 162/97, SpO2 98%
LABS: WBC 2.1, Hg 13, PLT 140, ANC 700, Na 131, Cl 105, BUN 14, Cr 0.8, Glucose 118, Mag 1.7
MAR: NS 2L
Significant Diarrhea post chemotherapy
Anorexia
Dehydration
Fatigue
-admit to tele
-awaiting K (hemolyzed)
-D5LR @ 100
-clears
-Hematology consult
-F/U stool studies and x-ray (ordered not yet done)
-Oncology consult
-consider GI consult (was seen by GI last admission)
Stage IV Colon Cancer with metastasis to pancreas, lung
-sees Dr. Mccain; most recent chemo 01/31
-Oncology consult
Chronic Hypoxic Respiratory Failure on Home O2
PE on AC
-diagnosed 09/01/23
-continue [employer] AC
awaiting med rec
DVT PPx
DNR - discussed with patient on admission with at bedside. Patient very clear she wouldn't want to be resuscitated stating 'I can't do this anymore.'
[2024-02-10] MEDS: NSS 2000 IV (21:09)
[2024-02-10 21:10] LABS: Lactic Acid 1.3 mmol/L (0.7-2.0)
[2024-02-10 21:12] LABS: ALT (SGPT) 18 U/L (0-35); AST (SGOT) 23 U/L (14-36); Albumin 2.4 g/dl (3.5-5.0); Alkaline Phosphatase 46 U/L (38-126); Blood Urea Nitrogen 14 mg/dl (7-17); Calcium 8.5 mg/dl (8.4-10.2); Carbon Dioxide 21 mmol/L (22-30); Chloride 106 mmol/L (98-107); Direct Bilirubin 0.4 mg/dl (0.0-0.4); Estimated Creatinine Clearance 91 ml/min; Glucose 109 mg/dl (70-99); Potassium 2.8 mmol/L (3.5-5.1); Sodium 133 mmol/L (135-145); Total Bilirubin 0.7 mg/dl (0.2-1.3); Total Protein 4.2 g/dl (6.3-8.2); eGFR > 60.00
--- NOTE | 2024-02-10 22:10 | PTCARENOTE ---
Pt admitted to room 2124 from ED, aaox3 , drowsy,weak and tearful. Daughter at bedside. Pt stating that she feels exhausted from getting up to use commode. Stat potassium and Mag infusing, Ativan prn given. VSS. Stool specimen sent to lab.
[2024-02-10] MEDS: ATROVENT NEBULES 0.5 MG INH (22:29)
[2024-02-10] MEDS: SYMBICORT 80/4.5 MCG INHALER 2 PUFF INH (22:29)
[2024-02-10] MEDS: KCL 270 MEQ IV (22:46)
[2024-02-10] MEDS: PEPCID 20 MG IV (22:51)
[2024-02-10] MEDS: NSS (PRESERVATIVE FREE) 8 ML IV (22:51)
[2024-02-10] MEDS: THIAMINE INJECTION 100 MG IV (22:52)
[2024-02-10] MEDS: MELATONIN 5 MG PO (23:11)
[2024-02-10] MEDS: TESSALON PERLES 200 MG PO (23:11)
[2024-02-10] MEDS: MUCINEX 600 MG PO (23:11)
[2024-02-10] MEDS: ELIQUIS 5 MG PO (23:16)
[2024-02-10 23:21] VITALS: BP 135/61; BMI 47.5
[2024-02-10] MEDS: MAGNESIUM SULFATE 100 IV (23:53)
[2024-02-11] MEDS: ANUSOL HC 25 MG RECTAL ×3 (00:40→20:40)
[2024-02-11] MEDS: ATIVAN 0.5 MG PO (00:40)
[2024-02-11] MEDS: KCL 1010 MEQ IV ×3 (01:06→22:53)
[2024-02-11 03:14] VITALS: BP 116/56
[2024-02-11 04:48] LABS: Hematocrit 29.6 % (37.0-47.0); Hemoglobin 10.4 g/dL (12.0-16.0); Mean Corp Hgb Conc. 35.1 g/dL (33.0-37.0); Mean Corpuscular Hgb 31.4 pg (27.0-31.0); Mean Corpuscular Volume 89.4 fL (81.0-99.0); Mean Platelet Volume 9.4 fL (7.4-10.4); Platelet Count 108 10^3/uL (130-400); Red Blood Cell Count 3.31 10^6/uL (4.20-5.40); Red Cell Dist. Width 24.7 % (11.5-14.5)
[2024-02-11 04:49] LABS: ALT (SGPT) 15 U/L (0-35); AST (SGOT) 21 U/L (14-36); Albumin 1.9 g/dl (3.5-5.0); Alkaline Phosphatase 39 U/L (38-126); Blood Urea Nitrogen 13 mg/dl (7-17); Calcium 7.7 mg/dl (8.4-10.2); Carbon Dioxide 21 mmol/L (22-30); Chloride 111 mmol/L (98-107); Estimated Creatinine Clearance 89 ml/min; Glucose 111 mg/dl (70-99); Magnesium 1.8 mg/dl (1.6-2.3); Potassium 2.9 mmol/L (3.5-5.1); Sodium 135 mmol/L (135-145); Total Bilirubin 0.4 mg/dl (0.2-1.3); Total Protein 3.6 g/dl (6.3-8.2); eGFR > 60.00
[2024-02-11 04:52] LABS: White Blood Cell Count 1.8 10^3/uL (4.8-10.8)
[2024-02-11] MEDS: MAGNESIUM SULFATE 100 IV (06:01)
[2024-02-11] MEDS: KCL 270 MEQ IV ×2 (06:01→11:54)
[2024-02-11] MEDS: ATROVENT NEBULES 0.5 MG INH ×2 (07:27→19:15)
[2024-02-11] MEDS: SYMBICORT 80/4.5 MCG INHALER 2 PUFF INH ×2 (07:27→19:14)
[2024-02-11 07:30] VITALS: BP 139/64
[2024-02-11 07:33] LABS: Band Neutrophils 0 % (0-3); Lymphocytes 96 % (20-51); Segmented Neutrophils 4 % (42-75)
[2024-02-11 07:34] LABS: Platelets Checked Yes
[2024-02-11 07:35] LABS: Acanthocytes 1+; Anisocytosis 1+; Hypochromasia 1+; Normal RBC Morphology No; Polychromasia 1+; Total Cells Counted 100
--- NOTE | 2024-02-11 08:16 | PTCARENOTE ---
[address] lab received and sent to Dr. Patel
--- NOTE | 2024-02-11 08:39 | CON.ONC ---
Addendum entered and electronically signed by Riki Freire MD 02/11/24 15:45:
Debilitating side effects from chemotherapy. She continues with copious watery stools. She is now abjectly neutropenic as well. I am hoping that she does not develop typhlitis with this combination. Addition of Neupogen at this time not likely
to shorten duration of neutropenia significantly.
Original Note:
Impression
Impression
Metastatic colon cancer on FOLFOX chemotherapy (last tx 02/01/24)
Acute abdominal pain
Partially obstructing colon mass
Poor oral intake
Weakness/fatigue
Severe diarrhea
Neutropenia
Thrombocytopenia
Hypokalemia
Hx PE 2022 on DOAC, home oxygen
Plan
Plan
5/10 WBC 1.8, Hgb 10.4, Hct 29.6, PLT 108, ANC 0
Maintain strict neutropenic precautions
Transfuse as needed to maintain Hgb >7, PLT 20 (or >50 with active bleeding)
Follow CBC w/ diff daily
Consider GCS-F support for neutropenia
Await final stool studies and cultures
Diarrhea management.
Patient has refused Imodium, was utilizing Lomotil at home
Consider GI consultation
Diet as tolerated
IVF, electrolyte repletion
Supportive care
Emotional support
PT/OT when able
We will follow. The [facility] office has been updated of patient's clinical status.
Patient History
History of Present Illness
Maria Del Rosario Dawson is a 68 year old female known to Dr. Mccain with [facility] with history of widely metastatic colorectal cancer. She had previously received Gemzar/Abraxane 11/2023. She was then found to have a partially obstructing colon mass, and
she was not felt to be a candidate for stenting or colostomy due to the position of the mass. Her treatment was changed to FOLFOX. She has received 5 cycles of FOLFOX thus far; last tx 01/31. She has been struggling with severe diarrhea,
abdominal pain, poor appetite, and fatigue with most recent cycles of chemo. She received IV potassium in the office 02/07. A prescription for Questran was provided, however, she cannot tolerate 8oz water to take this medication. She has refused
Imodium. She presented to the ER last evening, 02/09, due to the same persistent symptoms. Patient has been experiencing acute abdominal pain, metallic taste, and severe watery diarrhea upward of 20 episodes per night. She has been admitted for
further evaluation and supportive care.
Past-Medical/Surgical History
Metastatic colon cancer (FOLFOX)
Hypertension
COPD, home oxygen use
Obesity
Hx PE (08/2023)
Cholecystectomy
Patient Medication
�Medication �Instructions �Recorded �Confirmed �Last Taken �Type
apixaban 5 mg tablet (Eliquis) 5 mg PO BID Blood Clot 10/29/23 02/10/24 02/10/24 History
Prevention/Tx
cyanocobalamin (vitamin B-12) 1,000 mcg PO DAILY low normal B12 11/20/23 02/10/24 02/10/24 Rx
1,000 mcg tablet #30 tabs
pantoprazole 40 mg tablet,delayed 40 mg PO DAILY Gastrointestinal 11/20/23 02/10/24 02/10/24 Rx
release issue #15 tabs
benzonatate 200 mg capsule 200 mg PO BID PRN Cough 11/27/23 02/10/24 01/26/24 History
guaifenesin 600 mg tablet, 600 mg PO BID Cough 11/27/23 02/10/24 02/10/24 History
extended release 12 hr (Mucinex)
hydralazine 25 mg tablet 25 mg PO BID Blood pressure #60 12/03/23 02/10/24 02/10/24 Rx
tabs
furosemide 20 mg tablet (Lasix) 20 mg PO DAILY Fluid 01/26/24 02/10/24 02/10/24 History
Retention/Swelling
melatonin 5 mg tablet 5 mg PO HS Sleep 01/26/24 02/10/24 02/09/24 History
prednisone 10 mg tablet 10 mg PO DAILY Anti-Inflammatory 01/26/24 02/10/24 02/10/24 History
acetaminophen 500 mg tablet 1,000 mg PO DAILYPRN PRN mild pain 02/10/24 02/10/24 02/09/24 History
(Tylenol Extra Strength)
cholestyramine (with sugar) 4 gram 4 g PO DAILY 02/10/24 02/10/24 02/09/24 History
powder for susp in a packet
diphenoxylate-atropine 2.5 1 tab PO QIDPRN PRN diarrhea 02/10/24 02/10/24 02/10/24 History
mg-0.025 mg tablet (Lomotil)
fluticasone furoate 100 1 inh inhalation R HS 02/10/24 02/10/24 02/09/24 History
mcg-vilanterol 25 mcg/dose
inhalation powder (Breo Ellipta)
fluticasone propionate 50 1 spray intranasal HS Allergies 02/10/24 02/10/24 02/09/24 History
mcg/actuation nasal
spray,suspension (Flonase Allergy
Relief)
ipratropium bromide 0.02 % 2.5 ml inhalation R BID 02/10/24 02/10/24 02/10/24 History
solution for inhalation
lidocaine-prilocaine 2.5 %-2.5 % 1 applic topical DIRECTED 02/10/24 02/10/24 02/08/24 History
topical cream
vitamin B complex 1 tab PO DAILY 02/10/24 02/10/24 02/10/24 History
Active Medications
Generic Name Dose Route Start Last Admin
Trade Name Freq PRN Reason Stop Dose Admin
Acetaminophen 650 mg 02/10/24 22:08
Acetaminophen 325 Mg Tablet PO 03/09/24 22:07
Q4HPRN PRN
mild pain/MERCHANT/temp> 100.4F
Apixaban 5 mg 02/11/24 08:00
Apixaban (Eliquis) 5 Mg Tablet PO 03/10/24 07:59
BID SHIRA
Benzonatate 200 mg 02/10/24 23:00 02/10/24 23:11
Benzonatate 100 Mg Capsule PO 03/09/24 22:59 200 mg
BID SHIRA Administration
Budesonide/Formoterol Fumarate 2 puff 02/10/24 22:30 02/11/24 07:27
Symbicort Inhaler 80/4.5 INH 03/09/24 22:29 2 puff
R BID SHIRA Administration
Guaifenesin 600 mg 02/10/24 22:00 02/10/24 23:11
Guaifenesin 600 Mg Extended Release Tablet PO 03/09/24 21:59 600 mg
BID SHIRA Administration
Hydrocortisone Acetate 25 mg 02/10/24 23:45 02/11/24 00:40
Anusol Hc 25 Mg Rectal Suppository RECTAL 03/09/24 23:44 25 mg
BID SHIRA Administration
Potassium Chloride 20 meq/ 1,010 mls @ 100 mls/hr 02/11/24 02:00 02/11/24 01:06
Dextrose/Lactated Ringer's IV 1,010 mls
.Q10H6M SHIRA Administration
Potassium Chloride 40 meq/ 270 mls @ 67.5 mls/hr 02/11/24 05:21 02/11/24 06:01
Sodium Chloride IV 02/11/24 09:20 270 mls
NOW STA Administration
Ipratropium Gabriels 0.5 mg 02/10/24 22:08 02/11/24 07:27
Ipratropium Nebs 0.5 Mg/2.5 Ml Ampul INH 0.5 mg
R BID SHIRA Administration
Protocol
Lorazepam 0.5 mg 02/10/24 23:48
Lorazepam 0.5 Mg Tablet PO 03/09/24 23:47
Q8HPRN PRN
anxiety
Melatonin 5 mg 02/10/24 22:08 02/10/24 23:11
Melatonin 5 Mg Tablet PO 03/09/24 22:07 5 mg
HS SHIRA Administration
Pantoprazole Sodium 40 mg 02/11/24 08:00
Pantoprazole Sodium 40 Mg/10 Ml Vial IV 03/10/24 07:59
DAILY SHIRA
Prednisone 10 mg 02/11/24 08:00
Prednisone 10 Mg Tablet PO 03/10/24 07:59
DAILY SHIRA
Sodium Chloride 0 flush 02/10/24 22:00
Sodium Chloride 0.9% (Flush) Syringe IV 03/09/24 21:59
PER PROTOCOL SHIRA
Sodium Chloride 10 ml 02/11/24 08:00
Sodium Chloride 0.9% (Preservative Free) 10 Ml Vial IV 03/10/24 07:59
DAILY SHIRA
Thiamine HCl 100 mg 02/10/24 22:08 02/10/24 22:52
Thiamine (100 Mg/Ml) 2 Ml Vial IV 03/09/24 22:07 100 mg
DAILY SHIRA Administration
Review of Systems
-
Unable to obtain full review of systems at this time due to: Acuity
History Source: Family
Constitutional: Reports No Appetite, Fatigue and Weakness
GI: Reports Abdominal Pain and Diarrhea
Physical Exam
-
Patient is sleeping soundly and appears comfortable. at bedside providing history.
General: Appears Chronically Ill and Obese
Labs
Lab Results
WBC 1.8 10^3/uL (4.8-10.8) L* 02/11/24 03:59
RBC 3.31 10^6/uL (4.20-5.40) L 02/11/24 03:59
Hgb 10.4 g/dL (12.0-16.0) L 02/11/24 03:59
Hct 29.6 % (37.0-47.0) L 02/11/24 03:59
MCV 89.4 fL (81.0-99.0) 02/11/24 03:59
MCH 31.4 pg (27.0-31.0) H 02/11/24 03:59
MCHC 35.1 g/dL (33.0-37.0) 02/11/24 03:59
RDW 24.7 % (11.5-14.5) H 02/11/24 03:59
Plt Count 108 10^3/uL (130-400) L D 02/11/24 03:59
MPV 9.4 fL (7.4-10.4) 02/11/24 03:59
Abs Immat Gran (auto) Not Reportable 02/10/24 17:27
Absolute Neuts (auto) Not Reportable 02/10/24 17:27
Absolute Lymphs (auto) Not Reportable 02/10/24 17:27
Absolute Monos (auto) Not Reportable 02/10/24 17:27
Absolute Eos (auto) Not Reportable 02/10/24 17:27
Absolute Basos (auto) Not Reportable 02/10/24 17:27
Immature Gran % Not Reportable 02/10/24 17:27
Neutrophils % Not Reportable 02/10/24 17:27
Lymphocytes % Not Reportable 02/10/24 17:27
Monocytes % Not Reportable 02/10/24 17:27
Eosinophils % Not Reportable 02/10/24 17:27
Basophils % Not Reportable 02/10/24 17:27
Creatinine 0.8 mg/dL (0.6-1.0) 02/11/24 03:59
Vital Signs
Vital Signs
Temp Pulse Resp BP Pulse Ox
98.6 F 84 16 116/56 97
02/11/24 03:14 02/11/24 07:50 02/11/24 07:50 02/11/24 03:14 02/11/24 07:50
02/10/24: Chest/Abd Xray: Increased reticulonodular markings throughout both lungs, appear to be slightly improved from examination of January 28, 2024.Air is present within loops of small bowel and colon, without significant dilation. Findings suggest
a degree of bowel stasis with air-fluid levels on the decubitus view. No evidence for free intraperitoneal air.
[2024-02-11] MEDS: DELTASONE 10 MG PO (10:05)
[2024-02-11] MEDS: ELIQUIS 5 MG PO ×2 (10:05→20:40)
[2024-02-11] MEDS: MUCINEX 600 MG PO (10:05)
[2024-02-11] MEDS: TESSALON PERLES 200 MG PO ×2 (10:05→20:41)
[2024-02-11] MEDS: PROTONIX IV 40 MG IV (10:05)
[2024-02-11] MEDS: NSS (PRESERVATIVE FREE) 10 ML IV (10:06)
--- NOTE | 2024-02-11 10:28 | W.PN.HOSP.TC ---
Today's Communication/Plan
-
Await stool studies
Treat diarrhea
IV fluids
Replace potassium
Assessment / Plan
Assessment / Plan
68-year-old female with history of stage IV adenocarcinoma of the colon on treatment with FOLFOX regimen started in December 2024 admitted with - Diarrhea,ataxia after chemotherapy.
She was admitted here from 01/26/2024 to 01/29/2024 with similar symptoms after chemotherapy. Symptoms got better and she was discharged home. She had chemotherapy again on 02/01/2024 and had similar symptoms 6 days later. Diarrhea is brown with
some streaks of blood with known history of hemorrhoids. She has abdominal cramps with bowel movements. No nausea or vomiting
X-ray of the chest abdomen pelvis-increased reticular nodular MAC markings throughout both lungs. Air in the loops of small bowel and colon without significant dilatation. Findings suggestive of bowel stasis with air-fluid levels no free air
On examination patient appears to be tired
Cardiovascular system S1-S2 appreciated
Chest clear to auscultation
Abdomen soft and nontender
Trace pedal edema
# Diarrhea and anorexia
Stools mixed with blood
Supportive treatment
Stool studies if possible to rule out infection
Continue Questran she is also on as needed Lomotil
states that patient had a difficulty swallowing 6 to 8 ounces of water with Questran-advised to try as much as she can.
I will also request GI evaluation given severity of her diarrhea
Patient does not report any nausea
# Hypokalemia-replace
# Pancytopenia likely secondary to chemotherapy-if patient has not received G-CSF-will need
# Stage IV adenocarcinoma colon cancer with metastasis to pancreas, lung-Oncology eval
# Hypertension-hydralazine 25 mg twice daily
# Chronic hypoxic respiratory failure on home oxygen
PFT -FEV1/FVC 0.6, FEV1 1.05L and FVC 1.74L
Continue Breo Ellipta, ipratropium as needed
Stop Mucinex
# History of submassive PE Aug 2023-On Eliquis, continue
# Diabetes-not on medicines as outpatient
# Chronic lower extremity edema-on Lasix as outpatient. Hold
# Obesity per BMI
# Suspected sleep apnea
# Generalized anxiety disorder-continue lorazepam which she takes at home
# Hypoalbuminemia
# Mild sigmoid diverticulosis
# Severe protein calorie malnutrition-Ensure clear
# DVT prophylaxis-Eliquis
# DNR status-discussed with patient's he states that that is what she wanted.
Unclear if tumor duration/dose/regimen can be modified-defer to oncology
Discussed with patient's at bedside in detail
Time spent 52 minutes
Anticipated Discharge: 24 - 48 hours
Subjective/Interval History
-
Date of Service: February 11, 2024
Objective Data
-
Labs:
Laboratory Results
02/11/24 02/11/24 02/11/24
03:59 04:00 10:00
WBC 1.8 L*
Hgb 10.4 L Pending
Hct 29.6 L
Plt Count 108 L D
Sodium 135
Potassium 2.9 L Cancelled Pending
Chloride 111 H
Carbon Dioxide 21 L
BUN 13
Creatinine 0.8
Glucose 111 H
Calcium 7.7 L
Total Bilirubin 0.4
AST 21
ALT 15
Alkaline Phosphatase 39
Vital Signs:
Vital Signs
Temp Pulse Resp BP Pulse Ox
98.3 F 84 16 139/64 97
02/11/24 07:30 02/11/24 07:50 02/11/24 07:50 02/11/24 07:30 02/11/24 07:50
I&O
02/10/24 02/11/24 02/12/24
06:59 06:59 06:59
Intake Total 1450 / 1450
Balance 1450 / 1450
[2024-02-11] MEDS: THIAMINE INJECTION 100 MG IV (10:44)
[2024-02-11 11:05] LABS: Hemoglobin 11.1 g/dL (12.0-16.0)
[2024-02-11 11:08] LABS: Potassium 3.2 mmol/L (3.5-5.1)
[2024-02-11 11:20] VITALS: BP 145/75
[2024-02-11] MEDS: QUESTRAN LIGHT/PREVALITE 4 GRAMS PO (11:37)
[2024-02-11 15:26] VITALS: BMI 47.5
[2024-02-11 15:51] VITALS: BP 144/69
--- NOTE | 2024-02-11 16:14 | CM ---
Discharged from on 01/29/24. Patient lives with her and their adult daughter in a 3 story split level home with no steps to enter. Patient resides on the 1st floor and uses a bedside commode. She is wheelchair dependent. Uses O2 at
home through [employer]. She has a concentrator, tanks and a portable device similar to [employer]. Patient is dependent on family for care. Has in home services with [facility] for PT and VN. No psychiatric history. Pharmacy is [facility] on [address] [place] [address] in
[place] and PCP is Dr. Carmela Mijares. Anticipate Home with resumption of HH.
[2024-02-11] MEDS: TYLENOL 650 MG PO (17:17)
[2024-02-11 19:27] VITALS: BP 126/66
[2024-02-11] MEDS: APRESOLINE 25 MG PO (20:41)
[2024-02-11] MEDS: MELATONIN 5 MG PO (20:42)
[2024-02-11 23:02] VITALS: BP 146/65
[2024-02-12 03:16] VITALS: BP 124/54
[2024-02-12 07:10] VITALS: BP 145/86
[2024-02-12] MEDS: ATROVENT NEBULES 0.5 MG INH (08:18)
[2024-02-12] MEDS: SYMBICORT 80/4.5 MCG INHALER 2 PUFF INH (08:19)
[2024-02-12 08:55] LABS: % Basophils 0.8 % (0-2); % Eosinophils 2.5 % (0-6); % Lymphocytes 87.6 % (20.5-51.1); % Monocytes 5.8 % (1.7-9.3); % Neutrophils 3.3 % (42.2-75.2); Absolute Lymphocytes 1.1 10^3/uL (1.2-3.4); Absolute Monocytes 0.1 10^3/uL (0.1-0.6); Hematocrit 33.4 % (37.0-47.0); Hemoglobin 11.2 g/dL (12.0-16.0); Mean Corp Hgb Conc. 33.5 g/dL (33.0-37.0); Mean Corpuscular Volume 92.5 fL (81.0-99.0); Mean Platelet Volume 9.6 fL (7.4-10.4); Nucleated Red Blood Cells % 1.7 %; Platelet Count 130 10^3/uL (130-400); Red Blood Cell Count 3.61 10^6/uL (4.20-5.40); Red Cell Dist. Width 24.6 % (11.5-14.5)
--- NOTE | 2024-02-12 09:01 | CON.GI ---
Addendum entered and electronically signed by Leigha Butler MD 02/12/24 11:32:
I saw and examined the patient.
The ARTIFICIAL TEETH INSPECTOR's note was reviewed and I agree with the note.
68 yo female with a PMH significant for stage IV colon adenocarcinoma on FOLFOX with mets to the pancreas and lung, chronic O2 dependence, HTN, COPD, pulmonary embolism, hx CCY, who presented to the ER with complaints of diarrhea and loss of
appetite, which we are being asked to evaluate for. Recent diagnosis of a stage IV metastatic colon cancer on FOLFOX therapy following with oncology, who presented again with similar symptoms a prior admission with ongoing diarrhea up to 15-20
times daily. X-ray imaging did not suggest obstruction. Negative for C. difficile, Cryptosporidium, and Giardia. Blood cultures are pending. Stool culture is pending. She continues with multiple bowel movements with urgency. Started on
cholestyramine once daily along with as needed Lomotil.
Problem list:
-Diarrhea-likely secondary to chemo
-Stage IV metastatic colon cancer with metastasis to the pancreas and lungs
Chronic immunosuppression on prednisone and chemotherapy with FOLFOX, due for chemotherapy on Wednesday
-Acute on chronic hyponatremia
-Chronic anticoagulation on Eliquis
-Hypokalemia
-Pancytopenia, neutropenia
plan
Continue monitor stool output
IV hydration
Clear liquid diet today
Correct electrolytes as per medical team
Check stool culture-pending.
Will increase Lomotil to 1 tablet twice daily [id number]
Will also change Questran to twice daily (instructions about timing with other medication was emphasized in the order)
If diarrhea persist will consider octreotide
Original Note:
Consultation
-
Date/Time Consultation Requested: 02/11/24 @ 11:43
Date/Time Consultation Performed: 02/12/24 @ 09:00
Requesting Provider: Dr. Patel
Performing Provider: GAVIN Thomas; Dr. Butler
Reason for Consultation: diarrhea
Medical History
Chief Complaint / HPI
Chief Complaint: diarrhea, anorexia post chemotherapy
History of Present Illness:
The pt is a 68 yo female with a PMH significant for stage IV colon adenocarcinoma on FOLFOX with mets to the pancreas and lung, chronic O2 dependence, HTN, COPD, pulmonary embolism, hx CCY, who presented to the ER with complaints of diarrhea and
loss of appetite, which we are being asked to evaluate for. Upon review of prior records, the patient was admitted on 01/26 with a similar presentation with complaints of ongoing diarrhea along with abdominal pain. Stool studies were negative for
infectious etiology at that time and imaging did not show any signs of obstruction. Prior imaging in January did show a transverse colon mass with an apple core lesion with these segmental narrowing without proximal obstruction, which was also seen
on colonoscopy in November. She was treated with Lomotil which did improve her symptoms and was advised to advance her diet slowly to a low residue diet and only use antidiarrheals as needed. Imodium caused constipation in the past. She is
currently undergoing chemotherapy with FOLFOX, being followed by Dr. Mccain. Her is at the bedside to assist with the HPI. He reports after her last hospitalization she had been doing well in regards to her bowels. He notes that the 1 dose
of Imodium did help, and she was taking intermittently but soon and then again developed significant diarrhea. She was placed on cholestyramine outpatient which did help some but despite this she was having up to 15-20 bowel movements a day, worse
at night. She notes that when she eats this does often worsen the diarrhea and she does develop some abdominal cramps. She denies any overt nausea or vomiting but has not been eating well given her ongoing diarrhea. She denies any significant
abdominal pain, fevers, or chills. Her notes there has been intermittently some deep red blood in the bowel movements but he feels this is related to hemorrhoids as there is not a significant amount. She does admit to urgency and does have
to get to a commode immediately or will have it incontinence. At most she will have a break of 2-1/2 hours in between bowel movements. Her next dose of chemo is due this Wednesday. Prior colonoscopy as noted below. She has never had an EGD. On
admission, obstruction series was done showing 'Increased reticulonodular markings throughout both lungs, air is present within loops of small bowel and colon, without significant dilation. Findings suggest a degree of bowel stasis with air-fluid
levels on the decubitus view. No evidence for free intraperitoneal air.' Routine labs showed: WBC 2.1, hemoglobin 13.0, platelets 140,000, sodium 133, potassium 2.8, BUN 14, creatinine 0.8, lactic acid 1.3, magnesium 1.8, normal LFTs, albumin 2.4,
lipase 73. She was started on clear liquid diet, as needed antidiarrheals, and admitted for further evaluation, pending GI evaluation. Oncology is also following.
Past Medical History
Past Medical History: Cancer (stage IV metastatic colon cancer on FOLFOX (pancrea, lung mets)), COPD, HTN and Other (chronic hypoxic respiratory failure, morbid obesity)
Past Surgical History: Cholecystectomy and
Social History
Tobacco: Non-Smoker
Alcohol: None
Drug: None
Personal:
Living: With Family
Family History
Family History: Reviewed & Not Pertinent
Allergies / Home Medications
Allergy/AdvReac Type Severity Reaction Status Date / Time
bee venom protein (honey bee) Allergy Swelling Verified 02/10/24 17:16
tong pepper Allergy Unknown Verified 02/10/24 17:16
cat dander Allergy congestion Verified 02/10/24 17:16
�Medication �Instructions �Recorded
apixaban 5 mg tablet (Eliquis) 5 mg PO BID Blood Clot 10/29/23
Prevention/Tx
cyanocobalamin (vitamin B-12) 1,000 mcg PO DAILY low normal B12 11/20/23
1,000 mcg tablet #30 tabs
pantoprazole 40 mg tablet,delayed 40 mg PO DAILY Gastrointestinal 11/20/23
release issue #15 tabs
benzonatate 200 mg capsule 200 mg PO BID PRN Cough 11/27/23
guaifenesin 600 mg tablet, 600 mg PO BID Cough 11/27/23
extended release 12 hr (Mucinex)
hydralazine 25 mg tablet 25 mg PO BID Blood pressure #60 12/03/23
tabs
furosemide 20 mg tablet (Lasix) 20 mg PO DAILY Fluid 01/26/24
Retention/Swelling
melatonin 5 mg tablet 5 mg PO HS Sleep 01/26/24
prednisone 10 mg tablet 10 mg PO DAILY Anti-Inflammatory 01/26/24
acetaminophen 500 mg tablet 1,000 mg PO DAILYPRN PRN mild pain 02/10/24
(Tylenol Extra Strength)
cholestyramine (with sugar) 4 gram 4 g PO DAILY diarrhea 02/10/24
powder for susp in a packet
diphenoxylate-atropine 2.5 1 tab PO QIDPRN PRN diarrhea 02/10/24
mg-0.025 mg tablet (Lomotil)
fluticasone furoate 100 1 inh inhalation R HS 02/10/24
mcg-vilanterol 25 mcg/dose Lung/Breathing Issues
inhalation powder (Breo Ellipta)
fluticasone propionate 50 1 spray intranasal HS Allergies 02/10/24
mcg/actuation nasal
spray,suspension (Flonase Allergy
Relief)
ipratropium bromide 0.02 % 2.5 ml inhalation R BID Allergies 02/10/24
solution for inhalation
lidocaine-prilocaine 2.5 %-2.5 % 1 applic topical DIRECTED skin 02/10/24
topical cream irritation
vitamin B complex 1 tab PO DAILY Supplement 02/10/24
Review of Systems
-
All other systems: A 12 pt ROS was Negative except as stated above in HPI
Vital Signs
Temp Pulse Resp BP Pulse Ox
98.4 F 76 18 145/86 99
02/12/24 07:10 02/12/24 08:22 02/12/24 08:22 02/12/24 07:10 02/12/24 08:22
Physical Exam
Exam
General: Other (Frail, chronically ill-appearing female, pale appearing)
Respiratory: Clear (Overall diminished ) and Other (Supplemental O2 in place)
Cardiac: S1/S2 and Regular Rhythm
Breast: Deferred by me
GI: Soft, Non Tender, Non Distended, Normal Bowel Sounds and Other (Obese abdomen)
Rectal: Deferred by Provider
Skin: Warm and Dry
Neuro: Awake and Alert
Psych: Calm
Results
WBC 1.8 10^3/uL (4.8-10.8) L* 02/11/24 03:59
Hgb 11.1 g/dL (12.0-16.0) L 02/11/24 10:44
Hct 29.6 % (37.0-47.0) L 02/11/24 03:59
MCV 89.4 fL (81.0-99.0) 02/11/24 03:59
Plt Count 108 10^3/uL (130-400) L D 02/11/24 03:59
Absolute Neuts (auto) Not Reportable 02/10/24 17:27
Sodium 135 mmol/L (135-145) 02/11/24 03:59
Potassium 3.2 mmol/L (3.5-5.1) L 02/11/24 10:44
Chloride 111 mmol/L (98-107) H 02/11/24 03:59
Carbon Dioxide 21 mmol/L (22-30) L 02/11/24 03:59
BUN 13 mg/dl (7-17) 02/11/24 03:59
Creatinine 0.8 mg/dL (0.6-1.0) 02/11/24 03:59
Calcium 7.7 mg/dl (8.4-10.2) L 02/11/24 03:59
Total Bilirubin 0.4 mg/dl (0.2-1.3) 02/11/24 03:59
AST 21 U/L (14-36) 02/11/24 03:59
ALT 15 U/L (0-35) 02/11/24 03:59
Alkaline Phosphatase 39 U/L (38-126) 02/11/24 03:59
Lipase 73 U/L (23-300) 02/10/24 17:27
Diagnostic Image Results:
02/11/24 Obstr Series: Increased reticulonodular markings throughout both lungs, appear to be slightly improved from examination of January 28, 2024. Air is present within loops of small bowel and colon, without significant dilation. Findings suggest a
degree of bowel stasis with air-fluid levels on the decubitus view. No evidence for free intraperitoneal air.
01/27/24 CT A/P: IMPRESSION: 'Relatively stable hepatic Low-attenuation space-occupying lesion. 5.5 cm segmental narrowing with apple core configuration involving the proximal transverse colon, consistent with neoplasm. No evidence to suggest
proximal obstruction. There is mild wall thickening suggested involving the distal/terminal ileum. Possibly related to underdistention. In the proper clinical setting, cannot exclude inflammatory changes which may be infectious or related to
inflammation of Crohn's disease. Mild sigmoid diverticulosis without acute diverticulitis. Normal appendix. No free air or ascites. No focal collection or abscess. Relatively stable mild mesenteric adenopathy slightly superior to the superior
mesenteric artery. Stable retroperitoneal adenopathy.'
Prior GI Procedures:
EGD: Never had
Colonoscopy: 11/30/23 ([facility]) The procedure was aborted due to partially/almost
complete obstructing mass unable to traverse.
- Diverticulosis in the sigmoid colon and in the
descending colon.
- Likely malignant partially/almost complete
obstructing tumor in the proximal transverse colon/
hepatic flexure. Biopsied. distal margins Tattooed.
Assessment / Plan
-
The pt is a 68 yo female with a PMH significant for stage IV colon adenocarcinoma on FOLFOX with mets to the pancreas and lung, chronic O2 dependence, HTN, COPD, pulmonary embolism, hx CCY, who presented to the ER with complaints of diarrhea and
loss of appetite, which we are being asked to evaluate for. Recent diagnosis of a stage IV metastatic colon cancer on FOLFOX therapy following with oncology, who presented again with similar symptoms a prior admission with ongoing diarrhea up to
15-20 times daily. X-ray imaging did not suggest obstruction. Negative for C. difficile, Cryptosporidium, and Giardia. Blood cultures are pending. Stool culture is pending. She continues with multiple bowel movements with urgency. Started on
cholestyramine once daily along with as needed Lomotil.
Problem list:
-Diarrhea
-Abdominal cramping
-Stage IV metastatic colon cancer with metastasis to the pancreas and lungs
-Acute on chronic hyponatremia
-Chronic immunosuppression on prednisone and chemotherapy with FOLFOX, due for chemotherapy on Wednesday
-Chronic anticoagulation on
-Hypokalemia
-Hypoalbuminemia
-Pancytopenia, neutropenia
Recommendations:
-Etiology of diarrhea likely secondary to chemotherapy versus less likely infectious etiology versus functional given transverse colon mass versus other.
---Await stool culture, but C. difficile, Giardia, and crypto were negative. Obstruction series did not demonstrate any signs of obstructive process.
-Will add on norovirus, pancreatic elastase, fecal fat, and fecal calprotectin.
-Continue clear liquid diet, and advanced as tolerated to low residue with softer food options. She would like to stay on clear liquid diet at that time given her ongoing symptoms
-Will change Lomotil to 1 tablet twice daily as a standing order
-Continue cholestyramine once daily. Would recommend to switch this to colestipol tablets at discharge as she feels that the liquid is difficult to drink.
-Continue to monitor and quantify her stool output
-To consider octreotide if she continues with diarrhea despite the above management
-Monitor electrolytes and replete as per hospitalist
-IV fluids
-Will follow
Data Reviewed
-
Old Records: Reviewed
-
-
Thank you for consultation and allowing me to participate in the patient's care. Please call the functional architect GI physician during the after hours with any questions or concerns.
[2024-02-12] MEDS: APRESOLINE 25 MG PO ×2 (09:20→19:54)
[2024-02-12] MEDS: THIAMINE INJECTION 100 MG IV (09:20)
[2024-02-12] MEDS: TESSALON PERLES 200 MG PO ×2 (09:20→19:55)
[2024-02-12] MEDS: ELIQUIS 5 MG PO ×2 (09:21→19:54)
[2024-02-12] MEDS: QUESTRAN LIGHT/PREVALITE PO ×2 (09:21→11:53)
[2024-02-12] MEDS: PROTONIX IV 40 MG IV (09:21)
[2024-02-12] MEDS: DELTASONE 10 MG PO (09:21)
[2024-02-12] MEDS: ANUSOL HC 25 MG RECTAL (09:21)
[2024-02-12] MEDS: NSS (PRESERVATIVE FREE) 10 ML IV (09:22)
[2024-02-12] MEDS: KCL 1010 MEQ IV (09:22)
[2024-02-12] MEDS: TYLENOL 650 MG PO ×3 (09:48→20:09)
[2024-02-12 10:06] LABS: Blood Urea Nitrogen 10 mg/dl (7-17); Calcium 8.3 mg/dl (8.4-10.2); Carbon Dioxide 22 mmol/L (22-30); Chloride 113 mmol/L (98-107); Estimated Creatinine Clearance 102 ml/min; Glucose 115 mg/dl (70-99); Magnesium 1.8 mg/dl (1.6-2.3); Potassium 3.9 mmol/L (3.5-5.1); Sodium 134 mmol/L (135-145); eGFR > 60.00
[2024-02-12 10:34] LABS: White Blood Cell Count 1.2 10^3/uL (4.8-10.8)
[2024-02-12 11:15] VITALS: BP 126/64
--- NOTE | 2024-02-12 13:48 | W.PN.HOSP.TC ---
Today's Communication/Plan
-
Gentle IV fluids
Clear liquids
Ensure
Consider G-CSF
Monitor diarrhea
Await stool studies
If develops pain or fever need to start antibiotics
Assessment / Plan
Assessment / Plan
68-year-old female with history of stage IV adenocarcinoma of the colon on treatment with FOLFOX regimen started in December 2024 admitted with - Diarrhea,ataxia after chemotherapy.
She was admitted here from 01/26/2024 to 01/29/2024 with similar symptoms after chemotherapy. Symptoms got better and she was discharged home. She had chemotherapy again on 02/01/2024 and had similar symptoms 6 days later. Diarrhea is brown with
some streaks of blood with known history of hemorrhoids. She has abdominal cramps with bowel movements. No nausea or vomiting
X-ray of the chest abdomen pelvis-increased reticular nodular MAC markings throughout both lungs. Air in the loops of small bowel and colon without significant dilatation. Findings suggestive of bowel stasis with air-fluid levels no free air
Patient denies any abdominal pain she stated that her diarrhea has slowed down
On examination patient appears to be tired
Cardiovascular system S1-S2 appreciated
Chest clear to auscultation
Abdomen soft and nontender
Trace pedal edema
# Diarrhea and anorexia
No tenderness with palpation
Stools mixed with blood
Supportive treatment
Stool studies if possible to rule out infection
Continue Questran she is also on as needed Lomotil
states that patient had a difficulty swallowing 6 to 8 ounces of water with Questran-advised to try as much as she can.
GI evaluation given severity of her diarrhea
Patient does not report any nausea
# Hypokalemia-replaced
# Pancytopenia likely secondary to chemotherapy-if patient has not received G-CSF-will need
I have reached out to hematology regarding G-CSF
# Stage IV adenocarcinoma colon cancer with metastasis to pancreas, lung-Oncology eval
# Hypertension-hydralazine 25 mg twice daily
# Chronic hypoxic respiratory failure on home oxygen
PFT -FEV1/FVC 0.6, FEV1 1.05L and FVC 1.74L
Continue Breo Ellipta, ipratropium as needed
Stopped Mucinex
# History of submassive PE Aug 2023-On Eliquis, continue
# Diabetes-not on medicines as outpatient
# Chronic lower extremity edema-on Lasix as outpatient. Hold
# Obesity per BMI
# Suspected sleep apnea
# Generalized anxiety disorder-continue lorazepam which she takes at home
# Hypoalbuminemia
# Mild sigmoid diverticulosis
# Severe protein calorie malnutrition-Ensure clear
# DVT prophylaxis-Eliquis
# DNR status-discussed with patient's he states that that is what she wanted.
Unclear if chemo duration/dose/regimen can be modified-defer to oncology
Discussed with patient's daughter at bed side
D/W Heme
Anticipated Discharge: > 48 hours
Subjective/Interval History
-
Date of Service: February 12, 2024
Objective Data
-
Labs:
Laboratory Results
02/12/24
08:38
WBC 1.2 L*
Hgb 11.2 L
Hct 33.4 L
Plt Count 130 D
Sodium 134 L
Potassium 3.9
Chloride 113 H
Carbon Dioxide 22
BUN 10
Creatinine 0.7
Glucose 115 H
Calcium 8.3 L
Vital Signs:
Vital Signs
Temp Pulse Resp BP Pulse Ox
98.6 F 84 12 126/64 97
02/12/24 11:15 02/12/24 11:15 02/12/24 11:15 02/12/24 11:15 02/12/24 11:15
I&O
02/11/24 02/12/24 02/13/24
06:59 06:59 06:59
Intake Total 1450 / 1450 1480 / 1480
Balance 1450 / 1450 1480 / 1480
[2024-02-12] MEDS: QUESTRAN LIGHT/PREVALITE 4 GRAMS PO ×2 (14:15→21:00)
[2024-02-12 15:15] VITALS: BP 131/65
[2024-02-12] MEDS: GRANIX 300 MCG SC (15:23)
--- NOTE | 2024-02-12 17:23 | W.PN.ONC2 ---
Today's Communication / Plan
-
No choice at this point but to add Imodium, 4 mg then 2 mg Q4h as long as watery stools continue
Add octreotide 100 mg SQ TID. This can be titrated up aggressively every 24h
Avoid high-osmolar supplements and dairy. Will consult Nutrition for optimal supplement in this setting.
Impression
Impression
Severe chemotherapy associated diarrhea
Metastatic colon cancer on FOLFOX chemotherapy (last tx 02/01/24)
Acute abdominal pain
Partially obstructing colon mass
Poor oral intake
Weakness/fatigue
Severe diarrhea
Neutropenia
Thrombocytopenia
Hypokalemia
Hx PE 2022 on DOAC, home oxygen
Plan
Plan
5/10 WBC 1.8, Hgb 10.4, Hct 29.6, PLT 108, ANC 0
Maintain strict neutropenic precautions
Transfuse as needed to maintain Hgb >7, PLT 20 (or >50 with active bleeding)
Follow CBC w/ diff daily
Consider GCS-F support for neutropenia
Await final stool studies and cultures
Diarrhea management.
No choice at this point but to add Imodium, 4 mg then 2 mg Q4h as long as watery stools continue
Add octreotide 100 mg SQ TID. This can be titrated up aggressively every 24h
Avoid high-osmolar supplements and dairy. Will consult Nutrition for optimal supplement in this setting.
Diet as tolerated
IVF, electrolyte repletion
Supportive care
Emotional support
PT/OT when able
Subjective/Objective
Chief Complaint
Chemoenteritis
Subjective
Still with watery diarrhea every 45 minutes.
Vital Signs:
Vital Signs
Temp Pulse Resp BP Pulse Ox
98.6 F 79 14 131/65 97
02/12/24 15:15 02/12/24 15:15 02/12/24 15:15 02/12/24 15:15 02/12/24 15:15
Lab Results:
Laboratory Data
WBC 1.2 10^3/uL (4.8-10.8) L* 02/12/24 08:38
Hgb 11.2 g/dL (12.0-16.0) L 02/12/24 08:38
Plt Count 130 10^3/uL (130-400) D 02/12/24 08:38
eGFR > 60.00 02/12/24 08:38
Physical Exam
Pt tearful, appears exhausted, curled up in bed under the blankets.
Orders
Orders
Orders From Last 24 Hours
02/12/24 17:20
Loperamide [Imodium] 4 mg PO NOW STA
02/12/24 17:21
Loperamide [Imodium] 2 mg PO Q4HPRN PRN
02/12/24 22:00
Octreotide [Sandostatin] 100 mcg SC TID
[2024-02-12] MEDS: IMODIUM 4 MG PO (17:42)
[2024-02-12] MEDS: ATROVENT NEBULES INH (18:44)
[2024-02-12] MEDS: SYMBICORT 80/4.5 MCG INHALER INH (18:44)
[2024-02-12] MEDS: NSS 1000 IV (19:23)
[2024-02-12 19:45] VITALS: BP 122/64
[2024-02-12] MEDS: ATIVAN 0.5 MG PO (19:54)
[2024-02-12] MEDS: ANUSOL HC RECTAL (19:54)
[2024-02-12] MEDS: PREPARATION H OINTMENT 1 APPLIC RECTAL (19:55)
[2024-02-12] MEDS: LOMOTIL 1 TABLET PO (19:55)
[2024-02-12] MEDS: MELATONIN 5 MG PO (20:10)
[2024-02-12] MEDS: IMODIUM 2 MG PO (22:04)
[2024-02-12] MEDS: SANDOSTATIN 100 MCG SC (23:12)
[2024-02-12 23:19] VITALS: BP 149/81
[2024-02-13] VITALS (7 sets, daily range): BP systolic 121–143; BP diastolic 55–85
[2024-02-13 06:45] LABS: % Basophils 0.9 % (0-2); % Eosinophils 1.8 % (0-6); % Immature Granulocytes 2.7 % (0-0.5); % Monocytes 10.7 % (1.7-9.3); % Neutrophils 0.9 % (42.2-75.2); Absolute Lymphocytes 0.9 10^3/uL (1.2-3.4); Absolute Monocytes 0.1 10^3/uL (0.1-0.6); Hematocrit 31.2 % (37.0-47.0); Hemoglobin 10.4 g/dL (12.0-16.0); Mean Corp Hgb Conc. 33.3 g/dL (33.0-37.0); Mean Corpuscular Hgb 31.1 pg (27.0-31.0); Mean Corpuscular Volume 93.4 fL (81.0-99.0); Nucleated Red Blood Cells % 3.6 %; Red Blood Cell Count 3.34 10^6/uL (4.20-5.40)
[2024-02-13 06:51] LABS: White Blood Cell Count 1.1 10^3/uL (4.8-10.8)
[2024-02-13 07:27] LABS: Blood Urea Nitrogen 7 mg/dl (7-17); Calcium 8.2 mg/dl (8.4-10.2); Carbon Dioxide 19 mmol/L (22-30); Chloride 113 mmol/L (98-107); Estimated Creatinine Clearance 102 ml/min; Glucose 145 mg/dl (70-99); Magnesium 1.7 mg/dl (1.6-2.3); Potassium 3.7 mmol/L (3.5-5.1); Sodium 136 mmol/L (135-145); eGFR > 60.00
[2024-02-13] MEDS: SYMBICORT 80/4.5 MCG INHALER 2 PUFF INH ×2 (08:10→19:59)
[2024-02-13] MEDS: ATROVENT NEBULES 0.5 MG INH ×2 (08:10→19:57)
[2024-02-13] MEDS: TESSALON PERLES 200 MG PO ×2 (08:17→20:18)
[2024-02-13] MEDS: MAGNESIUM SULFATE 102 GRAMS IV (08:17)
[2024-02-13] MEDS: ANUSOL HC RECTAL (08:17)
[2024-02-13] MEDS: APRESOLINE 25 MG PO ×2 (08:17→20:17)
[2024-02-13] MEDS: THIAMINE INJECTION 100 MG IV (08:18)
[2024-02-13] MEDS: ELIQUIS 5 MG PO ×2 (08:18→20:17)
[2024-02-13] MEDS: DELTASONE 10 MG PO (08:18)
[2024-02-13] MEDS: LOMOTIL 1 TABLET PO ×2 (08:18→20:18)
[2024-02-13] MEDS: PREPARATION H OINTMENT 1 APPLIC RECTAL ×2 (08:19→20:18)
[2024-02-13] MEDS: PROTONIX IV 40 MG IV (08:19)
[2024-02-13] MEDS: NSS (PRESERVATIVE FREE) 10 ML IV (08:19)
[2024-02-13] MEDS: FLUSH (NSS) 4 FLUSH IV (08:20)
[2024-02-13] MEDS: SANDOSTATIN 100 MCG SC ×3 (08:24→21:26)
--- NOTE | 2024-02-13 10:42 | W.PN.HOSP.TC ---
Today's Communication/Plan
-
Granix
Diarrhea control
Assessment / Plan
Assessment / Plan
68-year-old female with history of stage IV adenocarcinoma of the colon on treatment with FOLFOX regimen started in December 2024 admitted with - Diarrhea,ataxia after chemotherapy.
She was admitted here from 01/26/2024 to 01/29/2024 with similar symptoms after chemotherapy. Symptoms got better and she was discharged home. She had chemotherapy again on 02/01/2024 and had similar symptoms 6 days later. Diarrhea is brown with
some streaks of blood with known history of hemorrhoids. She has abdominal cramps with bowel movements. No nausea or vomiting
X-ray of the chest abdomen pelvis-increased reticular nodular MAC markings throughout both lungs. Air in the loops of small bowel and colon without significant dilatation. Findings suggestive of bowel stasis with air-fluid levels no free air
Patient denies any abdominal pain she stated that her diarrhea has slowed down a bit.
On examination patient appears to be tired
Cardiovascular system S1-S2 appreciated
Chest clear to auscultation
Abdomen soft and nontender
Trace pedal edema
# Diarrhea and anorexia Stools mixed with blood on admission
No tenderness with palpation
Supportive treatment
Stool studies negative
Continue Questran 4 BID,Lomotil BID and prn Imodium.
GI following
Patient does not report any nausea
# Hypokalemia-replaced. replace mag.
# Pancytopenia likely secondary to chemotherapy-if patient has not received G-CSF-will need
G-CSF given 02/13/24 and 02/14/24
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
# Hypertension-hydralazine 25 mg twice daily
# Chronic hypoxic respiratory failure on home oxygen
PFT -FEV1/FVC 0.6, FEV1 1.05L and FVC 1.74L
Continue Breo Ellipta, ipratropium as needed
Stopped Mucinex
# History of submassive PE Aug 2023-On Eliquis, continue
# Diabetes-not on medicines as outpatient
# Chronic lower extremity edema-on Lasix as outpatient. Hold with diarrhea
# Obesity per BMI
# Suspected sleep apnea
# Generalized anxiety disorder-continue lorazepam which she takes at home
# Hypoalbuminemia
# Mild sigmoid diverticulosis
# Severe protein calorie malnutrition-Ensure clear ordered. Dietitian consulted.
# DVT prophylaxis-Eliquis
# DNR status-discussed with patient's he states that that is what she wanted.
Unclear if chemo duration/dose/regimen can be modified-defer to oncology
Discussed with patient's at bed side
D/W RN
D/W Heme
Anticipated Discharge: 24 - 48 hours
Subjective/Interval History
-
Date of Service: February 13, 2024
Objective Data
-
Labs:
Laboratory Results
02/13/24
06:29
WBC 1.1 L*
Hgb 10.4 L
Hct 31.2 L
Plt Count Pending
Sodium 136
Potassium 3.7
Chloride 113 H
Carbon Dioxide 19 L
BUN 7
Creatinine 0.7
Glucose 145 H
Calcium 8.2 L
Vital Signs:
Vital Signs
Temp Pulse Resp BP Pulse Ox
98.8 F 87 22 134/85 97
02/13/24 07:15 02/13/24 08:13 02/13/24 08:13 02/13/24 07:15 02/13/24 08:13
I&O
02/12/24 02/13/24 02/14/24
06:59 06:59 06:59
Intake Total 1480 / 1480 1080 / 1080
Balance 1480 / 1480 1080 / 1080
[2024-02-13] MEDS: QUESTRAN LIGHT/PREVALITE 4 GRAMS PO ×2 (11:10→21:26)
[2024-02-13] MEDS: NSS 1000 IV (11:10)
[2024-02-13] MEDS: IMODIUM 2 MG PO (11:11)
[2024-02-13] MEDS: TYLENOL 650 MG PO ×2 (11:23→18:11)
[2024-02-13 11:43] LABS: Mean Platelet Volume 9.4 fL (7.4-10.4); Platelet Count 96 10^3/uL (130-400)
[2024-02-13] MEDS: GRANIX 300 MCG SC (12:00)
--- NOTE | 2024-02-13 12:23 | W.PN.GI.CBS2 ---
Today's Communication / Plan
-
Continue antidiarrheal/octreotide/cholestyramine
Monitor stool output
Adequate hydration
Assessment / Plan
-
The pt is a 68 yo female with a PMH significant for stage IV colon adenocarcinoma on FOLFOX with mets to the pancreas and lung, chronic O2 dependence, HTN, COPD, pulmonary embolism, hx CCY, who presented to the ER with complaints of diarrhea and
loss of appetite, which we are being asked to evaluate for. Recent diagnosis of a stage IV metastatic colon cancer on FOLFOX therapy following with oncology, who presented again with similar symptoms a prior admission with ongoing diarrhea up to
15-20 times daily. X-ray imaging did not suggest obstruction. Negative for C. difficile, Cryptosporidium, and Giardia. Blood cultures are pending. Stool culture is pending. She continues with multiple bowel movements with urgency. Started on
cholestyramine once daily along with as needed Lomotil.
Problem list:
-Diarrhea-likely secondary to chemo. Stool studies negative for infection
-Stage IV metastatic colon cancer with metastasis to the pancreas and lungs
Chronic immunosuppression on prednisone and chemotherapy with FOLFOX, due for chemotherapy on Wednesday
-Acute on chronic hyponatremia
-Chronic anticoagulation on
-Hypokalemia
-Pancytopenia, neutropenia ANC 0.
plan
Oncology note reviewed. Imodium/octreotide added to her current Lomotil/Questran. As per frequency is less. Continue to monitor stool output
IV hydration
Electrolyte management as per medical team
Continue follow-up with oncology
Total Time Spent with Patient (in minutes): 35
Subjective
Subjective
Date of Service: February 13, 2024
Diarrhea frequency is less.
Objective
Data Reviewed
Laboratory Data:
Laboratory Results
02/13/24 06:29
02/13/24 06:29
Laboratory Results
Magnesium 1.7 mg/dl (1.6-2.3) 02/13/24 06:29
Total Bilirubin 0.4 mg/dl (0.2-1.3) 02/11/24 03:59
AST 21 U/L (14-36) 02/11/24 03:59
ALT 15 U/L (0-35) 02/11/24 03:59
Alkaline Phosphatase 39 U/L (38-126) 02/11/24 03:59
Lipase 73 U/L (23-300) 02/10/24 17:27
Vital Signs and I&O:
Vital Signs
Temp Pulse Resp BP Pulse Ox
100.1 F 93 16 143/66 95
02/13/24 11:19 02/13/24 11:19 02/13/24 11:19 02/13/24 11:19 02/13/24 11:19
I&O
02/12/24 02/13/24 02/14/24
06:59 06:59 06:59
Intake Total 1480 / 1480 1080 / 1080
Balance 1480 / 1480 1080 / 1080
Physical Exam
Physical Exam
GI: Soft, Non Distended and Non Tender
--- NOTE | 2024-02-13 16:20 | PTCARENOTE ---
pt refused care this shift, very tired, lethargic, withdrawn not able to tolerate any part of care, family at bedside and agreed to let the patient sleep ad rest and not geet any of the care done. will continue to offer hygiene.
[2024-02-13] MEDS: MELATONIN 5 MG PO (20:18)
--- NOTE | 2024-02-13 21:24 | W.PN.ONC2 ---
Today's Communication / Plan
-
Continue current management of diarrhea.
Reviewed with pt and family that copious diarrhea with ANC of 0 puts her at very high risk of overwhelming infection and that the Imodium is the cornerstone of management of chemo-associated diarrhea.
So far, she has been afebrile.
Await Nutrition consultation regarding optimal supplement for her as high-osmolar supplements can contribute to diarrhea.
Discussed outpt medical [employer] certification for appetite. Pt has metallic taste in her mouth making it hard to eat with anticipatory component.
Continue aggressive supportive care.
Impression
Impression
Severe chemotherapy associated diarrhea
Metastatic colon cancer on FOLFOX chemotherapy (last tx 02/01/24)
Acute abdominal pain
Partially obstructing colon mass
Poor oral intake
Weakness/fatigue
Severe diarrhea
Neutropenia
Thrombocytopenia
Hypokalemia
Hx PE 2022 on DOAC, home oxygen
Plan
Plan
5/10 WBC 1.8, Hgb 10.4, Hct 29.6, PLT 108, ANC 0
Maintain strict neutropenic precautions
Transfuse as needed to maintain Hgb >7, PLT 20 (or >50 with active bleeding)
Follow CBC w/ diff daily
Consider GCS-F support for neutropenia
Await final stool studies and cultures
Diarrhea management.
Continue Imodium, 4 mg then 2 mg Q4h as long as watery stools continue. Hold Imodium if 12h since last diarrheal bowel movement.
Add octreotide 100 mg SQ TID. This can be titrated up aggressively every 24h. No change in dose today with diarrhea improving.
Avoid high-osmolar supplements and dairy. Will consult Nutrition for optimal supplement in this setting.
Diet as tolerated
IVF, electrolyte repletion
Supportive care
Emotional support
PT/OT when able
Subjective/Objective
Chief Complaint
Heme/Onc follow up of chemoenteritis
Subjective
Diarrhea a little better today. Pt still very weak. Now taking Imodium although remains fearful about possibility of bowel obstruction.
Vital Signs:
Vital Signs
Temp Pulse Resp BP Pulse Ox
100.0 F 93 22 132/70 93
02/13/24 19:38 02/13/24 20:17 02/13/24 20:00 02/13/24 20:17 02/13/24 20:00
Lab Results:
Laboratory Data
WBC 1.1 10^3/uL (4.8-10.8) L* 02/13/24 06:29
Hgb 10.4 g/dL (12.0-16.0) L 02/13/24 06:29
Plt Count 96 10^3/uL (130-400) L D 02/13/24 06:29
eGFR > 60.00 02/13/24 06:29
Physical Exam
Appears ill
Orders
Orders
Orders From Last 24 Hours
02/12/24 22:00
Octreotide [Sandostatin] 100 mcg SC TID
[2024-02-14] MEDS: TYLENOL 650 MG PO ×3 (02:40→20:11)
[2024-02-14 03:00] VITALS: BP 124/56
[2024-02-14] MEDS: VENTOLIN NEBULES 2.5 MG INH (05:04)
[2024-02-14] MEDS: NSS 1000 IV (05:30)
[2024-02-14 06:45] LABS: Blood Urea Nitrogen 9 mg/dl (7-17); Calcium 8.2 mg/dl (8.4-10.2); Carbon Dioxide 21 mmol/L (22-30); Chloride 107 mmol/L (98-107); Estimated Creatinine Clearance 89 ml/min; Glucose 143 mg/dl (70-99); Magnesium 1.7 mg/dl (1.6-2.3); Potassium 3.6 mmol/L (3.5-5.1); Sodium 133 mmol/L (135-145); eGFR > 60.00
[2024-02-14] MEDS: ATROVENT NEBULES 0.5 MG INH ×2 (07:55→20:16)
[2024-02-14] MEDS: SYMBICORT 80/4.5 MCG INHALER 2 PUFF INH ×2 (07:55→20:17)
[2024-02-14 08:38] VITALS: BP 110/51
--- NOTE | 2024-02-14 09:30 | W.PN.GI.CBS2 ---
Addendum entered and electronically signed by Leigha Butler MD 02/14/24 10:43:
I saw and examined the patient.
The [employer]'s note was reviewed and I agree with the note.
as per frequency of BM slowing down . No BM this am.
plan
continue her current Octeotide, Lomotil, Questran and Imodium PRN
monitor stool output
lactose free low fat diet. awaiting input from nutrition
continue follow up with oncology . poor prognosis
at this point no additional recommendation . will s/o . please call us back if any ?
Original Note:
Today's Communication / Plan
-
slow improvement in diarrhea taking some clear diet
will trial advancing diet to low residue/low lactose
reviewed for supplement with Dr. Chand-- concern for high osmolar supplement may cause diarrhea will reconsult nutrition for options monitor oral intakes to see if any further if supplement needed
cont Octeotide, Lomotil, Questran and Imodium PRN
Electrolyte management as per medical team
s/p Granix 02/12 with continued low ANC
Continue follow-up with oncology
Assessment / Plan
-
The pt is a 68 yo female with a PMH significant for stage IV colon adenocarcinoma on FOLFOX with mets to the pancreas and lung, chronic O2 dependence, HTN, COPD, pulmonary embolism, hx CCY, who presented to the ER with complaints of diarrhea and
loss of appetite, which we are being asked to evaluate for. Recent diagnosis of a stage IV metastatic colon cancer on FOLFOX therapy following with oncology, who presented again with similar symptoms a prior admission with ongoing diarrhea up to
15-20 times daily. X-ray imaging did not suggest obstruction. Stool studies negative. ANC 0.0. Pt has been on Lomotil, Sandostatin, Questran and Imodium PRN.
Problem list:
-Diarrhea-likely secondary to chemo. Stool studies negative for infection
-Stage IV metastatic colon cancer with metastasis to the pancreas and lungs
Chronic immunosuppression on prednisone and chemotherapy with FOLFOX, due for chemotherapy on Wednesday
-Acute on chronic hyponatremia
-Chronic anticoagulation on Eliquis
-Hypokalemia- improved
-Pancytopenia, neutropenia ANC 0 s/p Granix per oncology
plan
slow improvement in diarrhea taking some clear diet
will trial advancing diet to low residue/low lactose
reviewed for supplement with Dr. Chand-- concern for high osmolar supplement may cause diarrhea will reconsult nutrition for options monitor oral intakes to see if any further if supplement needed
cont Octeotide, Lomotil, Questran and Imodium PRN
Electrolyte management as per medical team
s/p Granix 02/12 with continued low ANC
Continue follow-up with oncology
Subjective
Subjective
Date of Service: February 14, 2024
some stool overnight but less frequent than admission, taking some clear diet supplement stopped awaiting dietary input for best supplement
Objective
Data Reviewed
Laboratory Data:
Laboratory Results
02/13/24 06:29
02/14/24 05:54
Laboratory Results
Magnesium 1.7 mg/dl (1.6-2.3) 02/14/24 05:54
Total Bilirubin 0.4 mg/dl (0.2-1.3) 02/11/24 03:59
AST 21 U/L (14-36) 02/11/24 03:59
ALT 15 U/L (0-35) 02/11/24 03:59
Alkaline Phosphatase 39 U/L (38-126) 02/11/24 03:59
Lipase 73 U/L (23-300) 02/10/24 17:27
Vital Signs and I&O:
Vital Signs
Temp Pulse Resp BP Pulse Ox
98 F 98 16 110/51 95
02/14/24 08:38 02/14/24 08:38 02/14/24 08:38 02/14/24 08:38 02/14/24 08:38
I&O
02/13/24 02/14/24 02/15/24
06:59 06:59 06:59
Intake Total 1080 / 1080 1440 / 1440
Balance 1080 / 1080 1440 / 1440
Physical Exam
Physical Exam
HEENT: Anicteric
Cardiology: Normal Sinus Rhythm
Pulmonary: Clear
GI: Soft, Distended, Non Tender and Other (limited exam as patient is lying on side )
Neuro: Non Focal
[2024-02-14] MEDS: DELTASONE 10 MG PO (09:43)
[2024-02-14] MEDS: TESSALON PERLES 200 MG PO ×2 (09:43→20:12)
[2024-02-14] MEDS: ELIQUIS 5 MG PO ×2 (09:43→20:12)
[2024-02-14] MEDS: LOMOTIL 1 TABLET PO ×2 (09:43→20:12)
[2024-02-14] MEDS: QUESTRAN LIGHT/PREVALITE 4 GRAMS PO (09:43)
[2024-02-14] MEDS: APRESOLINE 25 MG PO ×2 (09:43→20:12)
[2024-02-14] MEDS: DESENEX/MITRAZOL/ZEASORB 1 APPLIC TOPICAL ×2 (09:44→20:16)
[2024-02-14] MEDS: PROTONIX IV 40 MG IV (09:44)
[2024-02-14] MEDS: NSS (PRESERVATIVE FREE) 10 ML IV (09:45)
[2024-02-14] MEDS: PREPARATION H OINTMENT 1 APPLIC RECTAL ×2 (09:45→21:23)
[2024-02-14] MEDS: THIAMINE INJECTION 100 MG IV (09:45)
[2024-02-14] MEDS: SANDOSTATIN 100 MCG SC ×3 (09:47→23:15)
[2024-02-14 11:13] LABS: % Basophils 0.6 % (0-2); % Eosinophils 1.7 % (0-6); % Immature Granulocytes 2.3 % (0-0.5); % Lymphocytes 65.7 % (20.5-51.1); % Monocytes 18.3 % (1.7-9.3); % Neutrophils 11.4 % (42.2-75.2); Absolute Lymphocytes 1.2 10^3/uL (1.2-3.4); Absolute Monocytes 0.3 10^3/uL (0.1-0.6); Hematocrit 29.7 % (37.0-47.0); Mean Corp Hgb Conc. 33.7 g/dL (33.0-37.0); Mean Corpuscular Hgb 31.4 pg (27.0-31.0); Mean Corpuscular Volume 93.4 fL (81.0-99.0); Mean Platelet Volume 9.9 fL (7.4-10.4); Nucleated Red Blood Cells % 6.3 %; Platelet Count 103 10^3/uL (130-400); Red Blood Cell Count 3.18 10^6/uL (4.20-5.40); Red Cell Dist. Width 24.2 % (11.5-14.5)
[2024-02-14 11:35] VITALS: BP 100/44
[2024-02-14 11:39] LABS: ALT (SGPT) 33 U/L (0-35); AST (SGOT) 25 U/L (14-36); Albumin 1.8 g/dl (3.5-5.0); Alkaline Phosphatase 51 U/L (38-126); Blood Urea Nitrogen 9 mg/dl (7-17); Calcium 7.8 mg/dl (8.4-10.2); Carbon Dioxide 23 mmol/L (22-30); Chloride 108 mmol/L (98-107); Estimated Creatinine Clearance 102 ml/min; Glucose 133 mg/dl (70-99); Magnesium 1.7 mg/dl (1.6-2.3); Potassium 3.7 mmol/L (3.5-5.1); Sodium 132 mmol/L (135-145); Total Bilirubin 0.4 mg/dl (0.2-1.3); Total Protein 3.5 g/dl (6.3-8.2); eGFR > 60.00
[2024-02-14 13:33] LABS: Absolute Neutrophils 0.2 10^3/uL (1.4-6.5); White Blood Cell Count 1.8 10^3/uL (4.8-10.8)
--- NOTE | 2024-02-14 15:09 | CM ---
Low Lactose diet, diarrhea persists but some slowing noted. Discharge Plan of Care: Home with resumption of [facility] and PT/OT.
--- NOTE | 2024-02-14 16:15 | W.PN.HOSP.TC ---
Today's Communication/Plan
-
Encourage oral intake.
Continue with current symptomatic treatment for diarrhea.
Continue with PT OT eval
Assessment / Plan
Assessment / Plan
68-year-old female with history of stage IV adenocarcinoma of the colon on treatment with FOLFOX regimen started in December 2024 admitted with - Diarrhea,ataxia after chemotherapy.
She was admitted here from 01/26/2024 to 01/29/2024 with similar symptoms after chemotherapy. Symptoms got better and she was discharged home. She had chemotherapy again on 02/01/2024 and had similar symptoms 6 days later. Diarrhea is brown with
some streaks of blood with known history of hemorrhoids. She has abdominal cramps with bowel movements. No nausea or vomiting
X-ray of the chest abdomen pelvis-increased reticular nodular MAC markings throughout both lungs. Air in the loops of small bowel and colon without significant dilatation. Findings suggestive of bowel stasis with air-fluid levels no free air
# Diarrhea and anorexia Stools mixed with blood on admission
No tenderness with palpation
Supportive treatment
Stool studies negative
Continue Questran 4 BID,Lomotil BID and prn Imodium.
GI signed off
Patient does not report any nausea, tolerating some diet
# Hyponatremia - mild .Follow for now.
# Pancytopenia likely secondary to chemotherapy-if patient has not received G-CSF-
G-CSF given 02/12/24 and 02/13/24
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
# Hypertension-hydralazine 25 mg twice daily
# Chronic hypoxic respiratory failure on home oxygen
PFT -FEV1/FVC 0.6, FEV1 1.05L and FVC 1.74L
Continue Breo Ellipta, ipratropium as needed
Stopped Mucinex
# History of submassive PE Aug 2023-On Eliquis, continue
# Diabetes-not on medicines as outpatient
# Chronic lower extremity edema-on Lasix as outpatient. Hold with diarrhea
# Obesity per BMI
# Suspected sleep apnea
# Generalized anxiety disorder-continue lorazepam which she takes at home
# Hypoalbuminemia
# Mild sigmoid diverticulosis
# Severe protein calorie malnutrition-Ensure clear ordered. Dietitian consulted.
# DVT prophylaxis-Eliquis
# DNR status
Discussed with patient's at bed side
Anticipated Discharge: 24 - 48 hours
Subjective/Interval History
-
Date of Service: February 14, 2024
Improving diarrheal stools frequency. Still very weak.
No fever or chills.
Objective Data
-
Labs:
Laboratory Results
02/14/24 02/14/24
05:54 11:03
WBC 1.8 L*
Hgb 10.0 L
Hct 29.7 L
Plt Count 103 L
Sodium 133 L 132 L
Potassium 3.6 3.7
Chloride 107 108 H
Carbon Dioxide 21 L 23
BUN 9 9
Creatinine 0.8 0.7
Glucose 143 H 133 H
Calcium 8.2 L 7.8 L
Total Bilirubin 0.4
AST 25
ALT 33
Alkaline Phosphatase 51
Vital Signs:
Vital Signs
Temp Pulse Resp BP Pulse Ox
98.4 F 91 20 100/44 96
02/14/24 11:35 02/14/24 11:35 02/14/24 11:35 02/14/24 11:35 02/14/24 11:35
I&O
02/13/24 02/14/24 02/15/24
06:59 06:59 06:59
Intake Total 1080 / 1080 1440 / 1440
Balance 1080 / 1080 1440 / 1440
Review of Systems
-
Constitutional: Reports Weakness
EENT: Denies Sore Throat
Respiratory: Denies Cough or Trouble Breathing
Cardiac: Denies Chest Pain or Palpitations
Abdomen/GI: Reports Diarrhea; Denies Abdominal Pain, Nausea or Vomiting
Neuro: Denies Dizzy
Physical Exam
-
General: No Apparent Distress
HEENT: Moist Mucous Membranes
Respiratory: Clear to Auscultation, Non Labored Respirations and Other (on O2 via NC); Negative Wheezes, Crackles or Accessory Resp Muscle Use
Cardiac: Regular Rhythm and S1/S2
GI: Soft and Nontender
Neuro: AO x 3
Data Reviewed
-
Labs: Labs Reviewed by me
[2024-02-14 16:45] VITALS: BP 127/62
[2024-02-14] MEDS: QUESTRAN 4 GRAM PO (20:13)
--- NOTE | 2024-02-14 20:32 | W.PN.ONC2 ---
Today's Communication / Plan
-
Await tolerance of Ensure High Protein.
If diarrheal bowel movements 4/day or less then octreotide can be d/c'd. Pt will need to continue Imodium.
Case d/w Dr. Mccain. Plan to let pt recover from current chemo toxicity, then consider referral to Surgery for diverting ostomy.
Impression
Impression
Severe chemotherapy associated diarrhea
Metastatic colon cancer on FOLFOX chemotherapy (last tx 02/01/24)
Acute abdominal pain
Partially obstructing colon mass
Poor oral intake
Weakness/fatigue
Severe diarrhea
Neutropenia
Thrombocytopenia
Hypokalemia
Hx PE 2022 on DOAC, home oxygen
Plan
Plan
5/10 WBC 1.8, Hgb 10.4, Hct 29.6, PLT 108, ANC 0
Maintain strict neutropenic precautions
Transfuse as needed to maintain Hgb >7, PLT 20 (or >50 with active bleeding)
Follow CBC w/ diff daily
Consider GCS-F support for neutropenia
Await final stool studies and cultures
Diarrhea management.
Continue Imodium, 4 mg then 2 mg Q4h as long as watery stools continue. Hold Imodium if 12h since last diarrheal bowel movement.
Continue octreotide 100 mg SQ TID. No change in dose today with diarrhea improving.
Avoid high-osmolar supplements and dairy. Discussed with Nutrition today, they recommended Enterade Advanced Oncology Formula. This would have to be ordered from [employer] and did not seem interested per Nutrition. Ensure High Protein was
felt to be best option and that has been ordered.
Diet as tolerated
IVF, electrolyte repletion
Supportive care
Emotional support
PT/OT when able
Subjective/Objective
Chief Complaint
Heme/Onc follow up of chemo-enteritis, colon cancer
Subjective
Still very weak, barely responds to questions. But diarrhea has improved considerably.
Vital Signs:
Vital Signs
Temp Pulse Resp BP Pulse Ox
98.4 F 76 20 121/85 94
02/14/24 16:45 02/14/24 20:27 02/14/24 20:27 02/14/24 20:12 02/14/24 20:27
Lab Results:
Laboratory Data
WBC 1.8 10^3/uL (4.8-10.8) L* 02/14/24 11:03
Hgb 10.0 g/dL (12.0-16.0) L 02/14/24 11:03
Plt Count 103 10^3/uL (130-400) L 02/14/24 11:03
eGFR > 60.00 02/14/24 11:03
Physical Exam
Ill-appearing
Orders
Orders
Orders From Last 24 Hours
02/14/24 11:03
CMP [Comprehensive Metabolic Panel] Urgent
Complete Blood Count/With Diff Urgent
Magnesium Urgent
02/15/24 06:00
CBC/With Diff [Complete Blood Count/With Diff] IN AM
CMP [Comprehensive Metabolic Panel] IN AM
Magnesium IN AM
02/16/24 06:00
Magnesium IN AM
02/17/24 06:00
Magnesium IN AM
02/18/24 06:00
Magnesium IN AM
[2024-02-14] MEDS: MELATONIN 5 MG PO (23:15)
[2024-02-14 23:52] VITALS: BP 122/63
[2024-02-15 04:52] LABS: % Basophils 0.7 % (0-2); % Eosinophils 0.7 % (0-6); % Immature Granulocytes 5.7 % (0-0.5); % Monocytes 14.4 % (1.7-9.3); % Neutrophils 38.5 % (42.2-75.2); Absolute Immature Granulocytes 0.2 10^3/uL (0-0.05); Absolute Lymphocytes 1.6 10^3/uL (1.2-3.4); Absolute Monocytes 0.6 10^3/uL (0.1-0.6); Absolute Neutrophils 1.5 10^3/uL (1.4-6.5); Hematocrit 29.9 % (37.0-47.0); Hemoglobin 10.1 g/dL (12.0-16.0); Mean Corp Hgb Conc. 33.8 g/dL (33.0-37.0); Mean Corpuscular Hgb 31.2 pg (27.0-31.0); Mean Corpuscular Volume 92.3 fL (81.0-99.0); Mean Platelet Volume 9.7 fL (7.4-10.4); Nucleated Red Blood Cells % 2.7 %; Platelet Count 99 10^3/uL (130-400); Red Blood Cell Count 3.24 10^6/uL (4.20-5.40); Red Cell Dist. Width 24.1 % (11.5-14.5)
[2024-02-15 05:22] LABS: ALT (SGPT) 29 U/L (0-35); AST (SGOT) 24 U/L (14-36); Albumin 1.9 g/dl (3.5-5.0); Alkaline Phosphatase 61 U/L (38-126); Blood Urea Nitrogen 9 mg/dl (7-17); Calcium 8.4 mg/dl (8.4-10.2); Carbon Dioxide 20 mmol/L (22-30); Chloride 108 mmol/L (98-107); Estimated Creatinine Clearance 102 ml/min; Glucose 153 mg/dl (70-99); Magnesium 1.9 mg/dl (1.6-2.3); Potassium 3.4 mmol/L (3.5-5.1); Sodium 134 mmol/L (135-145); Total Bilirubin 0.4 mg/dl (0.2-1.3); Total Protein 3.7 g/dl (6.3-8.2); eGFR > 60.00
[2024-02-15 07:15] VITALS: BP 122/63
[2024-02-15] MEDS: SYMBICORT 80/4.5 MCG INHALER 2 PUFF INH ×2 (07:58→19:21)
[2024-02-15] MEDS: ATROVENT NEBULES 0.5 MG INH ×2 (07:58→19:21)
[2024-02-15] MEDS: LOMOTIL 1 TABLET PO ×2 (08:09→21:18)
[2024-02-15] MEDS: ELIQUIS 5 MG PO ×2 (08:09→21:18)
[2024-02-15] MEDS: DESENEX/MITRAZOL/ZEASORB 1 APPLIC TOPICAL ×2 (08:09→20:08)
[2024-02-15] MEDS: TESSALON PERLES 200 MG PO ×2 (08:09→21:17)
[2024-02-15] MEDS: DELTASONE 10 MG PO (08:09)
[2024-02-15] MEDS: NSS (PRESERVATIVE FREE) 10 ML IV (08:10)
[2024-02-15] MEDS: APRESOLINE 25 MG PO ×2 (08:10→21:17)
[2024-02-15] MEDS: PROTONIX IV 40 MG IV (08:11)
[2024-02-15] MEDS: PREPARATION H OINTMENT 1 APPLIC RECTAL ×2 (08:11→21:18)
[2024-02-15] MEDS: QUESTRAN 4 GRAM PO ×2 (08:11→20:08)
[2024-02-15] MEDS: THIAMINE INJECTION 100 MG IV (08:11)
[2024-02-15] MEDS: SANDOSTATIN 100 MCG SC ×3 (08:13→21:18)
--- NOTE | 2024-02-15 09:01 | VNURNOTE ---
Patient is current with [facility] since 11/01 w/ SN/PT, will monitor progress and plan at discharge.
--- NOTE | 2024-02-15 11:12 | W.PN.HOSP.TC ---
Today's Communication/Plan
-
Continue with symptomatic treatments with diarrhea and Sandostatin for now. Replete potassium. Encourage oral intake.
Encourage out of bed activity.
Assessment / Plan
Assessment / Plan
68-year-old female with history of stage IV adenocarcinoma of the colon on treatment with FOLFOX regimen started in December 2024 admitted with - Diarrhea,ataxia after chemotherapy.
She was admitted here from 01/26/2024 to 01/29/2024 with similar symptoms after chemotherapy. Symptoms got better and she was discharged home. She had chemotherapy again on 02/01/2024 and had similar symptoms 6 days later. Diarrhea is brown with
some streaks of blood with known history of hemorrhoids. She has abdominal cramps with bowel movements. No nausea or vomiting
X-ray of the chest abdomen pelvis-increased reticular nodular MAC markings throughout both lungs. Air in the loops of small bowel and colon without significant dilatation. Findings suggestive of bowel stasis with air-fluid levels no free air
# Diarrhea and anorexia Stools mixed with blood on admission suspected toxicity from chemo
No tenderness with palpation
Supportive treatment
Stool studies negative
Continue Questran 4 BID,Lomotil BID and prn Imodium.
DC Sandostatin if continued improvedment <4stools/day
GI signed off
Patient does not report any nausea, tolerating some diet
# Hypokalemia -repelete
# Pancytopenia likely secondary to chemotherapy-
G-CSF given 02/12/24 and 02/13/24
Resolved now
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
# Hypertension-hydralazine 25 mg twice daily
# Chronic hypoxic respiratory failure on home oxygen
PFT -FEV1/FVC 0.6, FEV1 1.05L and FVC 1.74L
Continue Breo Ellipta, ipratropium as needed
Stopped Mucinex
# History of submassive PE Aug 2023-On Eliquis, continue
# Diabetes-not on medicines as outpatient
# Chronic lower extremity edema-on Lasix as outpatient. Hold with diarrhea
# Obesity per BMI
# Suspected sleep apnea
# Generalized anxiety disorder-continue lorazepam which she takes at home
# Hypoalbuminemia
# Mild sigmoid diverticulosis
# Severe protein calorie malnutrition-Ensure clear ordered. Dietitian consulted.
# DVT prophylaxis-Eliquis
# DNR status
Discussed with patient's at bed side
Encourage oral fluids and diet intake
CW protein supplements
Encouage OOB
PT tx as she can tolerate
Anticipated Discharge: > 48 hours
Subjective/Interval History
-
Date of Service: February 15, 2024
Improving diarrhea. Poor solid intake but having adequate liquid intake. No nausea.
No fever or chills.
Denies shortness of breath.
Objective Data
-
Labs:
Laboratory Results
02/15/24
04:24
WBC 4.0 L
Hgb 10.1 L
Hct 29.9 L
Plt Count 99 L
Sodium 134 L
Potassium 3.4 L
Chloride 108 H
Carbon Dioxide 20 L
BUN 9
Creatinine 0.7
Glucose 153 H
Calcium 8.4
Total Bilirubin 0.4
AST 24
ALT 29
Alkaline Phosphatase 61
Vital Signs:
Vital Signs
Temp Pulse Resp BP Pulse Ox
98.0 F 85 20 122/63 95
02/15/24 07:15 02/15/24 08:10 02/15/24 08:09 02/15/24 08:10 02/15/24 08:09
I&O
02/14/24 02/15/24 02/16/24
06:59 06:59 06:59
Intake Total 1440 / 1440 360 / 360
Balance 1440 / 1440 360 / 360
Review of Systems
-
Constitutional: Reports Fatigue and Weakness; Denies Fever
EENT: Denies Sore Throat
Respiratory: Denies Cough
Cardiac: Denies Chest Pain
Neuro: Denies Dizzy
Physical Exam
-
General: No Apparent Distress
HEENT: Moist Mucous Membranes
Respiratory: Clear to Auscultation (in left lateral position) and Non Labored Respirations; Negative Accessory Resp Muscle Use
Cardiac: Regular Rhythm and S1/S2
GI: Soft and Nontender
Neuro: AO x 3
Psych: Calm
Data Reviewed
-
Labs: Labs Reviewed by me
--- NOTE | 2024-02-15 13:41 | W.PN.ONC ---
Today's Communication / Plan
-
As per above plan. Continue octreotide. Diarrhea does seem to be improving, albeit slowly.
Impression
Impression
Severe chemotherapy associated diarrhea
Metastatic colon cancer on FOLFOX chemotherapy (last tx 02/01/24)
Acute abdominal pain
Partially obstructing colon mass
Poor oral intake
Weakness/fatigue
Severe diarrhea
Neutropenia
Thrombocytopenia
Hypokalemia
Hx PE 2022 on DOAC, home oxygen
Plan
Plan
5/10 WBC 1.8, Hgb 10.4, Hct 29.6, PLT 108, ANC 0
Maintain strict neutropenic precautions
Transfuse as needed to maintain Hgb >7, PLT 20 (or >50 with active bleeding)
Follow CBC w/ diff daily
Consider GCS-F support for neutropenia
Await final stool studies and cultures
Diarrhea management.
Continue Imodium, 4 mg then 2 mg Q4h as long as watery stools continue. Hold Imodium if 12h since last diarrheal bowel movement.
Continue octreotide 100 mg SQ TID. No change in dose today with diarrhea improving.
Avoid high-osmolar supplements and dairy. Discussed with Nutrition today, they recommended Enterade Advanced Oncology Formula. This would have to be ordered from [employer] and did not seem interested per Nutrition. Ensure High Protein was
felt to be best option and that has been ordered.
Diet as tolerated
IVF, electrolyte repletion
Supportive care
Emotional support
PT/OT when able
Subjective/Objective
Subjective/Objective
She thinks the diarrhea is improving a little bit. She denies any abdominal pain. Examination is unchanged.
Vital Signs:
Vital Signs
Temp Pulse Resp BP Pulse Ox
98.0 F 85 20 122/63 95
02/15/24 07:15 02/15/24 08:10 02/15/24 08:09 02/15/24 08:10 02/15/24 08:09
Lab Results:
Laboratory Data
WBC 4.0 10^3/uL (4.8-10.8) L 02/15/24 04:24
Hgb 10.1 g/dL (12.0-16.0) L 02/15/24 04:24
Plt Count 99 10^3/uL (130-400) L 02/15/24 04:24
eGFR > 60.00 02/15/24 04:24
[2024-02-15] MEDS: KCL ELIXIR 40 MEQ PO (14:05)
[2024-02-15 15:10] VITALS: BP 147/77
--- NOTE | 2024-02-15 15:58 | CM ---
Strict neutropenic precautions. Discharge Plan of Care: Resumption of [facility] VN, PT/OT.
[2024-02-15] MEDS: VENTOLIN NEBULES 2.5 MG INH (16:17)
[2024-02-15] MEDS: TYLENOL 650 MG PO ×2 (18:32→22:52)
[2024-02-15] MEDS: MELATONIN 5 MG PO (21:17)
[2024-02-15 22:58] LABS: Fat, Fecal - Neutral Normal (Normal); Fat, Fecal - Split Normal (Normal)
[2024-02-15 23:20] VITALS: BP 118/54
[2024-02-16] MEDS: VENTOLIN NEBULES 2.5 MG INH ×4 (00:05→19:34)
--- NOTE | 2024-02-16 03:23 | DOWNTIME ---
There was a [employer] Client Ward Nurse Downtime on 02/15/2024 from 0100 to 02/16/2024 at 0300. Downtime documentation of patient's care, including medication administrations, has been reconciled in the electronic record per guidelines. Refer to the
patient's paper chart under the miscellaneous tab to see printed paper medication records and downtime forms.
[2024-02-16 06:11] LABS: Hematocrit 29.7 % (37.0-47.0); Hemoglobin 10.1 g/dL (12.0-16.0); Mean Corpuscular Hgb 31.7 pg (27.0-31.0); Mean Corpuscular Volume 93.1 fL (81.0-99.0); Mean Platelet Volume 10.2 fL (7.4-10.4); Nucleated Red Blood Cells % 1.8 %; Platelet Count 98 10^3/uL (130-400); Red Blood Cell Count 3.19 10^6/uL (4.20-5.40); Red Cell Dist. Width 24.2 % (11.5-14.5); White Blood Cell Count 13.1 10^3/uL (4.8-10.8)
[2024-02-16 06:39] LABS: Blood Urea Nitrogen 8 mg/dl (7-17); Calcium 8.4 mg/dl (8.4-10.2); Carbon Dioxide 24 mmol/L (22-30); Chloride 108 mmol/L (98-107); Estimated Creatinine Clearance 102 ml/min; Glucose 125 mg/dl (70-99); Magnesium 1.9 mg/dl (1.6-2.3); Potassium 3.6 mmol/L (3.5-5.1); Sodium 134 mmol/L (135-145); eGFR > 60.00
[2024-02-16 07:15] VITALS: BP 120/73
--- NOTE | 2024-02-16 07:23 | W.PN.ONC2 ---
Today's Communication / Plan
-
Continue current diarrhea management using combination of octreotide, Lomotil, Questran, and Imodium PRN. No bowel movement overnight.
Hopefully we can wean off octreotide and control stools with just the oral agents which can be given at home. I will defer to primary team who manages the patient daily.
It appears that GI has signed off.
Impression
Impression
Severe chemotherapy associated diarrhea -improving
Metastatic colon cancer on FOLFOX chemotherapy (last tx 02/01/24)
Partially obstructing colon mass
Poor oral intake
Weakness/fatigue
Hx PE 2022 on DOAC, home oxygen
Plan
Plan
Continue current diarrhea management using combination of octreotide, Lomotil, Questran, and Imodium PRN. No bowel movement overnight.
Hopefully we can wean off octreotide and control stools with just the oral agents which can be given at home. I will defer to primary team who manages the patient daily. GI has signed off.
Blood counts improved. Granix has been stopped with improvement of WBC count.
Suspect she will need to change or at least a dose reduction of therapy postdischarge.
Subjective/Objective
Chief Complaint
ACS heme-onc follow-up
Subjective
Doing better from a diarrhea perspective. No stools overnight. Limited p.o. intake because of the severe metallic taste from FOLFOX chemotherapy.
Vital Signs:
Vital Signs
Temp Pulse Resp BP Pulse Ox
97.7 F 63 18 118/54 97
02/15/24 23:20 02/16/24 04:45 02/16/24 04:45 02/15/24 23:20 02/16/24 04:45
Lab Results:
Laboratory Data
WBC 13.1 10^3/uL (4.8-10.8) H 02/16/24 05:34
Hgb 10.1 g/dL (12.0-16.0) L 02/16/24 05:34
Plt Count 98 10^3/uL (130-400) L 02/16/24 05:34
eGFR > 60.00 02/16/24 05:35
Physical Exam
HEENT: No Jaundice
Cardiology: S1 and S2
Pulmonary: Clear
GI: Soft
[2024-02-16] MEDS: SYMBICORT 80/4.5 MCG INHALER 2 PUFF INH ×2 (07:31→19:34)
[2024-02-16] MEDS: ATROVENT NEBULES 0.5 MG INH ×2 (07:31→19:34)
[2024-02-16 07:52] LABS: Band Neutrophils 3 % (0-3); Segmented Neutrophils 51 % (42-75)
[2024-02-16 07:53] LABS: Anisocytosis Slight; Lymphocytes 24 % (20-51); Metamyelocytes 3 % (-); Monocytes 12 % (2-9); Myelocytes 7 % (-); Normal RBC Morphology No; Polychromasia Slight
[2024-02-16 07:54] LABS: Platelets Checked Yes; Total Cells Counted 100
[2024-02-16] MEDS: TESSALON PERLES 200 MG PO ×2 (08:35→20:01)
[2024-02-16] MEDS: ELIQUIS 5 MG PO ×2 (08:35→20:02)
[2024-02-16] MEDS: DELTASONE 10 MG PO (08:35)
[2024-02-16] MEDS: LOMOTIL 1 TABLET PO ×2 (08:35→20:02)
[2024-02-16] MEDS: APRESOLINE 25 MG PO ×2 (08:35→20:02)
[2024-02-16] MEDS: DESENEX/MITRAZOL/ZEASORB 1 APPLIC TOPICAL ×2 (08:36→20:03)
[2024-02-16] MEDS: THIAMINE INJECTION 100 MG IV (08:36)
[2024-02-16] MEDS: PROTONIX IV 40 MG IV (08:36)
[2024-02-16] MEDS: NSS (PRESERVATIVE FREE) 10 ML IV (08:36)
[2024-02-16] MEDS: SANDOSTATIN 100 MCG SC ×3 (08:36→22:03)
[2024-02-16] MEDS: QUESTRAN 4 GRAM PO ×2 (08:36→22:03)
[2024-02-16] MEDS: PREPARATION H OINTMENT 1 APPLIC RECTAL ×2 (08:37→20:04)
[2024-02-16] MEDS: TYLENOL 650 MG PO ×2 (10:29→20:01)
--- NOTE | 2024-02-16 13:27 | W.PN.HOSP.TC ---
Today's Communication/Plan
-
cw current symptomatic and supportive care
DC planning
Assessment / Plan
Assessment / Plan
68-year-old female with history of stage IV adenocarcinoma of the colon on treatment with FOLFOX regimen started in December 2024 admitted with - Diarrhea,ataxia after chemotherapy.
She was admitted here from 01/26/2024 to 01/29/2024 with similar symptoms after chemotherapy. Symptoms got better and she was discharged home. She had chemotherapy again on 02/01/2024 and had similar symptoms 6 days later. Diarrhea is brown with
some streaks of blood with known history of hemorrhoids. She has abdominal cramps with bowel movements. No nausea or vomiting
X-ray of the chest abdomen pelvis-increased reticular nodular MAC markings throughout both lungs. Air in the loops of small bowel and colon without significant dilatation. Findings suggestive of bowel stasis with air-fluid levels no free air
# Diarrhea and anorexia Stools mixed with blood on admission suspected toxicity from chemo
No tenderness with palpation
Supportive treatment
Stool studies negative
Continue Questran 4 BID,Lomotil BID and prn Imodium.
DC Sandostatin if continued improvedment <4stools/day
GI signed off
Patient does not report any nausea, tolerating some diet
# Pancytopenia likely secondary to chemotherapy-
G-CSF given 02/12/24 and 02/13/24
Resolved now
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
# Hypertension-hydralazine 25 mg twice daily
# Chronic hypoxic respiratory failure on home oxygen
PFT -FEV1/FVC 0.6, FEV1 1.05L and FVC 1.74L
Continue Breo Ellipta, ipratropium as needed
Stopped Mucinex
# History of submassive PE Aug 2023-On Eliquis, continue
# Diabetes-not on medicines as outpatient
# Chronic lower extremity edema-on Lasix as outpatient. Hold with diarrhea
# Obesity per BMI
# Suspected sleep apnea
# Generalized anxiety disorder-continue lorazepam which she takes at home
# Hypoalbuminemia
# Mild sigmoid diverticulosis
# Severe protein calorie malnutrition-Ensure clear ordered. Dietitian consulted.
# DVT prophylaxis-Eliquis
# DNR status
Discussed with patient's at bed side
continue to Encourage oral fluids and diet intake
CW protein supplements
Encouage OOB
PT tx as she can tolerate
Anticipated Discharge: 24 - 48 hours
Subjective/Interval History
-
Date of Service: February 16, 2024
Improving diarrhea. Has not had a bowel movement today so far.
Still having a strong metallic taste in the mouth. She has an appetite but not able to eat much because of the metallic taste. No nausea or vomiting.
Slow improvement in his strength. Still not able to do much out of bed yet.
Objective Data
-
Labs:
Laboratory Results
02/16/24 02/16/24
05:34 05:35
WBC 13.1 H
Hgb 10.1 L
Hct 29.7 L
Plt Count 98 L
Sodium 134 L
Potassium 3.6
Chloride 108 H
Carbon Dioxide 24
BUN 8
Creatinine 0.7
Glucose 125 H
Calcium 8.4
Vital Signs:
Vital Signs
Temp Pulse Resp BP Pulse Ox
98.1 F 82 14 120/73 98
02/16/24 07:15 02/16/24 08:35 02/16/24 07:35 02/16/24 08:35 02/16/24 07:35
I&O
02/15/24 02/16/24 02/17/24
06:59 06:59 06:59
Intake Total 360 / 360 720 / 720
Balance 360 / 360 720 / 720
Review of Systems
-
Constitutional: Denies Fever
Respiratory: Denies Trouble Breathing
Cardiac: Denies Chest Pain
Physical Exam
-
General: Comfortable
HEENT: Moist Mucous Membranes
Respiratory: Clear to Auscultation
Cardiac: Regular Rhythm and S1/S2
GI: Soft
Neuro: AO x 3
Psych: Calm
Data Reviewed
-
Labs: Labs Reviewed by me
--- NOTE | 2024-02-16 14:37 | CM ---
Met and spoke with patient and daughter concerning discharge plan of care. They are in agreement with resumption of services with [facility] V[facility] and PT/OT. Referral previously forwarded. Patient is not medically stable for discharge at this time.
[2024-02-16 15:10] VITALS: BP 126/72
[2024-02-16] MEDS: MUCINEX 600 MG PO (20:01)
[2024-02-16] MEDS: MELATONIN 5 MG PO (22:03)
[2024-02-16 23:00] VITALS: BP 120/60
[2024-02-17] MEDS: ATIVAN 0.5 MG PO (00:28)
[2024-02-17] MEDS: TYLENOL 650 MG PO (00:28)
[2024-02-17 00:35] LABS: Pancreatic Elastase, Fecal 24 ug/g (>=100)
[2024-02-17 00:43] LABS: Calprotectin, Fecal 29 ug/g (<=49)
[2024-02-17 06:46] LABS: Magnesium 1.9 mg/dl (1.6-2.3)
[2024-02-17 07:00] VITALS: BP 130/59
[2024-02-17] MEDS: SYMBICORT 80/4.5 MCG INHALER 2 PUFF INH (07:28)
[2024-02-17] MEDS: ATROVENT NEBULES 0.5 MG INH (07:28)
[2024-02-17] MEDS: TESSALON PERLES 200 MG PO (09:01)
[2024-02-17] MEDS: LOMOTIL PO (09:02)
[2024-02-17] MEDS: APRESOLINE 25 MG PO (09:02)
[2024-02-17] MEDS: DELTASONE 10 MG PO (09:05)
[2024-02-17] MEDS: VITAMIN B1 100 MG PO (09:05)
[2024-02-17] MEDS: ELIQUIS 5 MG PO (09:05)
[2024-02-17] MEDS: QUESTRAN 4 GRAM PO (09:06)
[2024-02-17] MEDS: DESENEX/MITRAZOL/ZEASORB 1 APPLIC TOPICAL (09:06)
[2024-02-17] MEDS: PROTONIX 40 MG PO (09:06)
[2024-02-17] MEDS: MUCINEX 600 MG PO (09:06)
[2024-02-17] MEDS: SANDOSTATIN SC (09:06)
[2024-02-17] MEDS: PREPARATION H OINTMENT 1 APPLIC RECTAL (09:07)
--- NOTE | 2024-02-17 09:09 | PTCARENOTE ---
anti-diarrhea medications held this AM due to no BM since 02/15 and feeling of constipation
--- NOTE | 2024-02-17 09:53 | W.PN.ONC ---
Today's Communication / Plan
-
Diarrhea management discontinued
Patient feels she had significant improvement with octreotide
WBCs recovered
Anticipate follow-up in the office
Discharge today
Impression
Impression
Severe chemotherapy associated diarrhea resolved with symptomatic therapy
Metastatic colon cancer on FOLFOX chemotherapy (last tx 02/01/24)
Partially obstructing colon mass possible slight improvement
Poor oral intake
Weakness/fatigue
Hx PE 2022 on DOAC, home oxygen
Subjective/Objective
Subjective/Objective
Without new complaints. Persistent dysgeusia. She is concerned about not having bowel movement for 2 days.
Vital Signs:
Vital Signs
Temp Pulse Resp BP Pulse Ox
97.7 F 82 15 130/59 96
02/17/24 07:00 02/17/24 07:30 02/17/24 07:30 02/17/24 09:02 02/17/24 07:30
Exam unchanged
No abdominal pain bowel sounds are present
Lab Results:
Laboratory Data
WBC 13.1 10^3/uL (4.8-10.8) H 02/16/24 05:34
Hgb 10.1 g/dL (12.0-16.0) L 02/16/24 05:34
Plt Count 98 10^3/uL (130-400) L 02/16/24 05:34
eGFR > 60.00 02/16/24 05:35
--- NOTE | 2024-02-17 12:03 | W.PN.HOSP.TC ---
Today's Communication/Plan
-
DC
Assessment / Plan
Assessment / Plan
68-year-old female with history of stage IV adenocarcinoma of the colon on treatment with FOLFOX regimen started in December 2024 admitted with - Diarrhea,ataxia after chemotherapy.
She was admitted here from 01/26/2024 to 01/29/2024 with similar symptoms after chemotherapy. Symptoms got better and she was discharged home. She had chemotherapy again on 02/01/2024 and had similar symptoms 6 days later. Diarrhea is brown with
some streaks of blood with known history of hemorrhoids. She has abdominal cramps with bowel movements. No nausea or vomiting
X-ray of the chest abdomen pelvis-increased reticular nodular MAC markings throughout both lungs. Air in the loops of small bowel and colon without significant dilatation. Findings suggestive of bowel stasis with air-fluid levels no free air
# Diarrhea and anorexia Stools mixed with blood on admission suspected toxicity from chemo
Resolved and now infact constipated
Stool studies negative
Improved diet.
DC further Lomotil and Sandostatin.
Patient and advised to get back on MiraLAX if no bowel movement tomorrow at home.
# Pancytopenia likely secondary to chemotherapy-
G-CSF given 02/12/24 and 02/13/24
Resolved now
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
# Hypertension-hydralazine 25 mg twice daily
# Chronic hypoxic respiratory failure on home oxygen
PFT -FEV1/FVC 0.6, FEV1 1.05L and FVC 1.74L
Continue Breo Ellipta, ipratropium as needed
# History of submassive PE Aug 2023-On Eliquis, continue
# Diabetes-not on medicines as outpatient
# Chronic lower extremity edema-on Lasix as outpatient. Hold with diarrhea
# Obesity per BMI
# Suspected sleep apnea
# Generalized anxiety disorder-continue lorazepam which she takes at home
# Hypoalbuminemia
# Mild sigmoid diverticulosis
# Severe protein calorie malnutrition-Ensure clear ordered. Dietitian consulted.
# DVT prophylaxis-Eliquis
# DNR status
PT report noted-improved ambulation-recommend home health.
Discussed with patient and the at bedside regarding discharge home today-went over GI bowel regimen, diagnosis, and follow-up plan.
Total time of discharge 32 minutes.
Anticipated Discharge: Today
Subjective/Interval History
-
Date of Service: February 17, 2024
Patient now constipated with no bowel movement since yesterday.
Improved solid diet intake. No nausea. Improved ambulation with PT.
Objective Data
-
Vital Signs:
Vital Signs
Temp Pulse Resp BP Pulse Ox
97.7 F 82 15 130/59 96
02/17/24 07:00 02/17/24 07:30 02/17/24 07:30 02/17/24 09:02 02/17/24 10:36
I&O
02/16/24 02/17/24 02/18/24
06:59 06:59 06:59
Intake Total 720 / 720 1979
Balance 720 / 720 1979
Review of Systems
-
Constitutional: Denies Fever
EENT: Denies Sore Throat
Respiratory: Denies Cough or Trouble Breathing
Cardiac: Denies Chest Pain
Neuro: Denies Dizzy
Physical Exam
-
General: No Apparent Distress
HEENT: Moist Mucous Membranes
Respiratory: Clear to Auscultation (on home O2 chronically)
Cardiac: Regular Rhythm and S1/S2
GI: Soft and Nontender
Neuro: AO x 3
Psych: Calm
Data Reviewed
-
Labs: Labs Reviewed by me
--- NOTE | 2024-02-17 12:11 | W.DS.TRANS ---
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
-
Discharge Instructions:
Discharge Diagnosis/Procedures Diarrhea secondary to toxicity from chemotherapy
; colon cancer
Diet Regular
Activity As tolerated
Driving Restrictions Not until seen by your Dr
Bathing Restrictions None
Other Services PT,OT
Instructions:
Stand-Alone Forms:
Changes to Home Medications: No
Discharge Medications:
DC Medications w/original date entered in [employer]
apixaban 5 mg tablet (Eliquis) 5 mg PO BID Blood Clot Prevention/Tx 10/29/23
cyanocobalamin (vitamin B-12) 1,000 mcg tablet 1,000 mcg PO DAILY low normal B12 #30 tabs 11/20/23
pantoprazole 40 mg tablet,delayed release 40 mg PO DAILY Gastrointestinal issue #15 tabs 11/20/23
benzonatate 200 mg capsule 200 mg PO BID PRN Cough 11/27/23
guaifenesin 600 mg tablet, extended release 12 hr (Mucinex) 600 mg PO BID Cough 11/27/23
hydralazine 25 mg tablet 25 mg PO BID Blood pressure #60 tabs 12/03/23
furosemide 20 mg tablet (Lasix) 20 mg PO DAILY Fluid Retention/Swelling 01/26/24
melatonin 5 mg tablet 5 mg PO HS Sleep 01/26/24
prednisone 10 mg tablet 10 mg PO DAILY Anti-Inflammatory 01/26/24
acetaminophen 500 mg tablet (Tylenol Extra Strength) 1,000 mg PO DAILYPRN PRN mild pain 02/10/24
cholestyramine (with sugar) 4 gram powder for susp in a packet 4 g PO DAILY diarrhea 02/10/24
diphenoxylate-atropine 2.5 mg-0.025 mg tablet (Lomotil) 1 tab PO QIDPRN PRN diarrhea 02/10/24
fluticasone furoate 100 mcg-vilanterol 25 mcg/dose inhalation powder (Breo Ellipta) 1 inh inhalation R HS Lung/Breathing Issues 02/10/24
fluticasone propionate 50 mcg/actuation nasal spray,suspension (Flonase Allergy Relief) 1 spray intranasal HS Allergies 02/10/24
ipratropium bromide 0.02 % solution for inhalation 2.5 ml inhalation R BID Allergies 02/10/24
lidocaine-prilocaine 2.5 %-2.5 % topical cream 1 applic topical DIRECTED skin irritation 02/10/24
vitamin B complex 1 tab PO DAILY Supplement 02/10/24
Home Medication Changes
Pending Results: No
[2024-02-17 12:35] VITALS: BP 131/67
--- NOTE | 2024-02-17 13:15 | CM ---
Patient has been medically cleared for discharge to home with resumption of [facility] V[facility] and PT/OT services. Daughter transported home.
--- NOTE | 2024-02-17 14:33 | VNURNOTE ---
[facility] resumption of care has been completed 02/10 and accepted. Intake office notified of discharge today.
== END 2024-02-17 13:13 | disposition home health service (06) | DRG 393 ==
LOC: 2 NORTH 21:43
PROVIDERS: Emergency Medicine; Hospitalist; Internal Medicine Hematology & Oncology; Nurse Practitioner Family; ADMITTING PHYSICIAN Student in an Organized Health Care Education/Training Program; ATTENDING PHYSICIAN Internal Medicine; CONSULT PHYSICIAN Internal Medicine Gastroenterology; EMERGENCY PHYSICIAN Emergency Medicine; FAMILY PHYSICIAN Family Medicine; OTHER PHYSICIAN Internal Medicine Hematology & Oncology
DX: K52.1 Toxic gastroenteritis and colitis (principal); E43 Unspecified severe protein-calorie malnutrition; C18.9 Malignant neoplasm of colon, unspecified; C78.00 Secondary malignant neoplasm of unspecified lung; J96.11 Chronic respiratory failure with hypoxia; C78.89 Secondary malignant neoplasm of other digestive organs; E87.1 Hypo-osmolality and hyponatremia; D84.9 Immunodeficiency, unspecified; D61.818 Other pancytopenia; Z68.42 Body mass index [BMI] 45.0-49.9, adult; I10 Essential (primary) hypertension; R63.0 Anorexia; J44.89 Other specified chronic obstructive pulmonary disease; E88.09 Other disorders of plasma-protein metabolism, not elsewhere classified; E11.9 Type 2 diabetes mellitus without complications; E86.0 Dehydration; E66.01 Morbid (severe) obesity due to excess calories; G47.30 Sleep apnea, unspecified; F41.1 Generalized anxiety disorder; K57.30 Diverticulosis of large intestine without perforation or abscess without bleeding; K64.9 Unspecified hemorrhoids; K59.00 Constipation, unspecified; E87.6 Hypokalemia; J30.81 Allergic rhinitis due to animal (cat) (dog) hair and dander; T45.1X5A Adverse effect of antineoplastic and immunosuppressive drugs, initial encounter; Y92.9 Unspecified place or not applicable; Z66 Do not resuscitate; Z86.711 Personal history of pulmonary embolism; Z79.01 Long term (current) use of anticoagulants; Z79.51 Long term (current) use of inhaled steroids; Z79.52 Long term (current) use of systemic steroids; Z99.81 Dependence on supplemental oxygen; Z92.21 Personal history of antineoplastic chemotherapy; Z91.030 Bee allergy status; Z91.018 Allergy to other foods
CPT/HCPCS: 74022; 80048; 80053; 82248; 82653; 82705; 83605; 83690; 83735; 83993; 84132; 85018; 85025; 87040; 87045; 87046; 87324; 87328; 87329; 87427; 87449; 87798; 93005; 94640; 97163; 97166; 97530; 99285; J1447

== ENCOUNTER → 2024-03-01 13:57 | Outpatient (REF) | payer MEDICARE, OTHER, SELFPAY ==
[2024-03-01 14:29] LABS: % Basophils 0.5 % (0-2); % Eosinophils 0.2 % (0-6); % Immature Granulocytes 0.6 % (0-0.5); % Lymphocytes 21.6 % (20.5-51.1); % Monocytes 9.3 % (1.7-9.3); % Neutrophils 67.8 % (42.2-75.2); Absolute Basophils 0.1 10^3/uL (0-0.2); Absolute Immature Granulocytes 0.1 10^3/uL (0-0.05); Absolute Monocytes 0.9 10^3/uL (0.1-0.6); Absolute Neutrophils 6.3 10^3/uL (1.4-6.5); Hematocrit 34.5 % (37.0-47.0); Hemoglobin 11.1 g/dL (12.0-16.0); Mean Corp Hgb Conc. 32.2 g/dL (33.0-37.0); Mean Corpuscular Hgb 32.6 pg (27.0-31.0); Mean Corpuscular Volume 101.2 fL (81.0-99.0); Mean Platelet Volume 9.9 fL (7.4-10.4); Nucleated Red Blood Cells % 0 %; Platelet Count 196 10^3/uL (130-400); Red Blood Cell Count 3.41 10^6/uL (4.20-5.40); White Blood Cell Count 9.3 10^3/uL (4.8-10.8)
[2024-03-01 14:58] LABS: ALT (SGPT) 21 U/L (0-35); AST (SGOT) 27 U/L (14-36); Albumin 2.6 g/dl (3.5-5.0); Alkaline Phosphatase 76 U/L (38-126); Blood Urea Nitrogen 14 mg/dl (7-17); Calcium 8.7 mg/dl (8.4-10.2); Carbon Dioxide 28 mmol/L (22-30); Chloride 100 mmol/L (98-107); Glucose 76 mg/dl (70-99); Magnesium 2.3 mg/dl (1.6-2.3); Sodium 136 mmol/L (135-145); Total Bilirubin 0.5 mg/dl (0.2-1.3); eGFR > 60.00
[2024-03-01 15:21] LABS: Anisocytosis 1+; Macrocytosis 3+
[2024-03-01 16:14] LABS: Normal RBC Morphology No
== END ==
LOC: OLAB 13:57
PROVIDERS: ATTENDING PHYSICIAN Internal Medicine Hematology & Oncology
DX: C18.9 Malignant neoplasm of colon, unspecified (principal); C34.32 Malignant neoplasm of lower lobe, left bronchus or lung
CPT/HCPCS: 36415; 80053; 83735; 85025

== ENCOUNTER 2024-03-25 15:58 | Inpatient (IN) | payer OTHER, SELFPAY ==
[2024-03-25 15:14] VITALS: BP 100/53
--- NOTE | 2024-03-25 15:34 | ADM.HSP ---
Addendum entered and electronically signed by Tommie Kimbrough MD 03/28/24 16:44:
Correction-FOLFOX regimen started in December 2023
Original Note:
Admission - Hospice
History of Present Illness
68-year-old female with history of stage IV adenocarcinoma of the colon on treatment with FOLFOX regimen started in December 2024 resulting in multiple hospitalization due to chemotherapy associated diarrhea, history of submassive PE, diabetes, chronic
lower extremity edema, obesity, suspected sleep apnea, generalized anxiety disorder, hypoalbuminemia, possible diverticulosis, severe protein caloric malnutrition, chronic hypoxic respiratory failure,history of partially obstructing colonic mass
leading to significant weakness and fatigue. Patient was recently admitted to hospital last month for diarrhea secondary to toxicity from chemotherapy. Also with pancytopenia during that hospitalization and received Neupogen. Patient was
discharged from the hospital. Patient underwent PET scan as outpatient. Per patient 2 daughters at bedside after undergoing PET scan prolonged discussion with the oncologist who stated that patient without any much improvement status post
chemotherapy and subsequently afterwards patient was transition to hospice. At home patient was received Roxanol and Ativan and Haldol. Patient pain was significantly not controlled with p.o. medications. Patient also with abdominal pain and with
significantly decreased urinary output. No bowel movements for the past few days. 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 Roxanol without much significant improvement. As a result hospice team dose down
recommended patient to be transferred to the hospital for GIP. Patient received IV fentanyl leading to improvement in pain and currently resting comfortably.
Reason for Hospice Admission
IV pain control
Review of Systems
History Source: Family
Constitutional: Fatigue
Respiratory: No Symptoms
Cardiac: No Symptoms
GI: Constipated and Pain
Genito-Urinary: Decreased Urine Output
Psych: Anxious
Physical Exam
Pulse Resp BP Pulse Ox
71 16 100/53 82
03/25/24 15:14 03/25/24 15:14 03/25/24 15:14 03/25/24 15:14
General: Appears Chronically Ill
GI: Tender and Distended
Skin: Warm
Psych: Calm
Assessment/Medication Plan
Generic Name Dose Route Start Last Admin
Trade Name Freq PRN Reason Stop Dose Admin
Acetaminophen 650 mg 03/25/24 15:28
Acetaminophen 325 Mg Tablet PO 04/22/24 15:27
Q4HPRN PRN
mild pain, MERCHANT, or temp >100.4F
Fentanyl 1 patch 03/25/24 16:00
Fentanyl 75 Mcg/Hr Patch TRANSDERM 04/08/24 15:59
Q72H SHIRA
Haloperidol Lactate 1 mg 03/25/24 15:28
Haloperidol 5 Mg/Ml 1 Ml Vial IV 04/22/24 15:27
Q4HPRN PRN
agitation/terminal delirium
Morphine Sulfate/Sodium Chloride 100 mg in 100 mls @ 0 mls/hr 03/25/24 15:30
Morphine IV
PER PROTOCOL SHIRA
Protocol
Per Protocol
Lorazepam 1 mg 03/25/24 15:28
Lorazepam 2 Mg/Ml Vial IV 04/22/24 15:27
Q2HPRN PRN
anxiety
Protocol
Morphine Sulfate 1 mg 03/25/24 15:28
Morphine 2 Mg/Ml Syringe IV 04/08/24 15:27
Q1HPRN PRN
moderate-severe pain / dyspnea
Morphine Sulfate 0 mg 03/25/24 15:28
Morphine 2 Mg/Ml Syringe IV 04/08/24 15:27
[id number] PRN
moderate-severe pain / dyspnea
Protocol
Patch Removal 0 patch 03/25/24 15:30
Remove Fentanyl Patch REMOVE 04/08/24 15:29
Q72H SHIRA
Pharmacy Profile Note 0 unit 03/25/24 16:[address] 1 Unit IV 04/22/24 15:59
DIRECTED SHIRA
Prochlorperazine Edisylate 5 mg 03/25/24 15:28
Prochlorperazine 10 Mg/2 Ml Vial IV 04/22/24 15:27
Q6HPRN PRN
nausea/vomiting
Assessment
Uncontrolled pain secondary to metastasis Stage IV colonic adenocarcinoma status postchemotherapy
History of submassive PE
Pancytopenia
Chronic hypoxic respiratory failure
Chronic lower extremity edema
Suspected sleep apnea
Generalized anxiety disorder
Severe protein calorie malnutrition
Chronic steroid-dependent
Plan
Patient will be admitted as GIP
Start patient on morphine as needed boluses with infusion protocol
Increase fentanyl patch to 75 mcg
Antinausea meds
Ativan as needed
Ni catheter for end-of-life care as with colonic cancer concern for obstruction and decreased urinary output
Haldol as needed
No labs needs to be ordered.
As outpatient plan was to continue p.o. steroids till patient can tolerate p.o. Due to extreme circumstances can further discontinue steroids. 2 daughters verbalized understanding and agreed.
DVT prophylaxis none
CODE STATUS DNR/DNI confirmed with 2 daughters at bedside
Discussed with 2 daughters at bedside complete details
Discussed with [facility] team
--- NOTE | 2024-03-25 15:47 | W.PN.UPDATE ---
Update Note
Progress Note Update
for billing purpose
[2024-03-25] MEDS: MORPHINE SULFATE 2 MG IV ×4 (16:05→20:06)
[2024-03-25 16:39] VITALS: BP 129/72
--- NOTE | 2024-03-25 17:06 | HOSPNOTE ---
Patient admitted from home hospice to [facility] for unmanaged pain, nausea and anxiety that could not be managed in the home setting despite increase in oral medications. Family very emotional and struggling with decline. Much emotional support provided.
Will be seen by hospice daily. Discharge planning to continue.
[2024-03-25] MEDS: ATIVAN 1 MG IV ×2 (17:14→20:12)
[2024-03-25] MEDS: COMPAZINE 5 MG IV (17:14)
[2024-03-25] MEDS: NSS (PRESERVATIVE FREE) 0.5 ML IV ×2 (17:14→20:13)
[2024-03-25] MEDS: MORPHINE 100 IV (18:38)
[2024-03-25] MEDS: DURAGESIC 50 MCG/HR PATCH 1 PATCH TRANSDERM (18:38)
--- NOTE | 2024-03-25 18:40 | PTCARENOTE ---
Patient admitted into room 0 from ED on inpatient hospice. Patient AAO to self with alternating periods of drowsiness and restlessness, moaning and grimacing in bed with movement, patient able to communicate that she is experiencing pain. PRN
morphine, ativan, and compazine given - refer to MAR. Ni for end of life care placed with immediate output of 500 ml norbert urine. Patient with 50mcg fentanyl patch on upper middle back placed at home; per pediatric cns Carolyn, patch at 1700
this evening. Fentanyl patch removed from patient's back, documented removal in MAR and wasted in pyxis with Ne BARRERA. This RN communicated with MD regarding patient's level of pain, 50mcg fentanyl patch placed on left upper arm per MD order,
morphine gtt initiated at step 1 through R subq port per protocol, MD made aware of initiation of morphine gtt. Patient's family at bedside updated on patient's plan of care, family state no concerns at this time.
[2024-03-25 19:48] VITALS: BP 119/55
[2024-03-26] MEDS: MORPHINE SULFATE 2 MG IV ×5 (07:43→20:18)
[2024-03-26 07:45] VITALS: BP 138/66
--- NOTE | 2024-03-26 10:38 | W.PN.HSP.1 ---
Assessment / Plan
-
General: Appears Chronically Ill
GI: Tender and Distended
Skin: Warm
Psych: Calm
BL-hamml-mysr norbert color
neuro-asleep
Assessment
Uncontrolled pain secondary to metastasis Stage IV colonic adenocarcinoma status postchemotherapy
History of submassive PE
Pancytopenia
Chronic hypoxic respiratory failure
Chronic lower extremity edema
Suspected sleep apnea
Generalized anxiety disorder
Severe protein calorie malnutrition
Chronic steroid-dependent
Plan
Patient will be admitted as GIP
Patient was transitioned to morphine infusion and can uptitrate per the protocol
Continue with fentanyl patch to 50 mcg
Antinausea meds
Ativan as needed
Ni catheter for end-of-life care as with colonic cancer concern for obstruction and decreased urinary output
Haldol as needed
No labs needs to be ordered.
As outpatient plan was to continue p.o. steroids till patient can tolerate p.o. Due to extreme circumstances can further discontinue steroids. 2 daughters verbalized understanding and agreed.
DVT prophylaxis none
CODE STATUS DNR/DNI confirmed with 2 daughters at bedside
Discussed with 2 daughters at bedside complete details on admission
Discussed with patient spouse at bedside
level 1
Today's Communication
Hospice team recs
Continue with morphine infusion
Interval History
-
Was in significant amount of pain upon admission and started on morphine infusion
Currently comfortable on morphine infusion
Physical Exam
-
Temp Pulse Resp BP Pulse Ox
98.1 F 79 18 138/66 80
03/25/24 19:48 03/26/24 07:45 03/26/24 07:45 03/26/24 07:45 03/26/24 07:45
--- NOTE | 2024-03-26 11:27 | HOSPNOTE ---
Patient GIP for management of pain that was uncontrolled while on PO medication. Patient on a Morphine GTT. FLACC-0. Patients at the bedside, stated patient has been, 'night and day' since starting the Morphine GTT and she is much more
comfortable. Patient resting quietly during visit, emotional support provided to patients .
--- NOTE | 2024-03-26 12:54 | CHAP ---
Maria Del Rosario was sleeping comfortably. Extended visit at bedside with , Hari, who shared his deep sorrow and also his deep christina in God. He states that Maria Del Rosario is accepting and at peace. Emotional and spiritual support provided through
listening, dialogue and prayer. Hari reports that the data sciences director from [facility] recently provided Sacrament of the Sick for Maria Del Rosario.
--- NOTE | 2024-03-26 16:23 | CM ---
met with patient leigha and daughter nuvia at bedside.patient lives with spouse in house with 1st floor bed and bath .patient has been bedbound.her pcp is dr joon rivers and family uses [facility] in [place].
patient with stage IV metastatic adenoca of colon is adm to hospital with uncontrolled pain.she is now on gip hospice.on iv morphine.Plan continue gip hospice.
[2024-03-26] MEDS: NSS (PRESERVATIVE FREE) 0.5 ML IV (19:56)
[2024-03-26] MEDS: ATIVAN 1 MG IV (19:57)
[2024-03-26 20:34] VITALS: BP 141/90
[2024-03-27] MEDS: MORPHINE SULFATE 2 MG IV ×4 (01:03→02:05)
[2024-03-27] MEDS: NSS (PRESERVATIVE FREE) 0.5 ML IV ×3 (01:04→11:55)
[2024-03-27] MEDS: ATIVAN 1 MG IV ×4 (01:04→15:53)
[2024-03-27] MEDS: HALDOL 1 MG IV (05:07)
[2024-03-27] MEDS: MORPHINE SULFATE 4 MG IV ×5 (05:08→12:30)
--- NOTE | 2024-03-27 05:16 | PTCARENOTE ---
Patient woke up a few times throughout shift c/o pain or difficulty breathing; patient placed on 2L oxygen for comfort; See MAR for PRN medications administered; Morphine gtt is now on Step 3 per protocol; patient's daughter remains at bedside;
emotional support provided.
[2024-03-27 07:15] VITALS: BP 133/79
[2024-03-27 08:22] VITALS: BP 133/79
--- NOTE | 2024-03-27 10:10 | CM ---
Reviewed the chart notes. Patient remains on GIP Hospice. Morphine gtt continues. CM continues to be available to patient/family.
Plan: Comfort care.
--- NOTE | 2024-03-27 10:36 | W.PN.HOSP.TC ---
Today's Communication/Plan
-
hospice measures
Assessment / Plan
Assessment / Plan
General: Appears Chronically Ill
GI: Tender and Distended
Skin: Warm
Psych: Calm
[id number] norbert color
neuro-asleep
Assessment
Uncontrolled pain secondary to metastasis Stage IV colonic adenocarcinoma status postchemotherapy
History of submassive PE
Pancytopenia
Chronic hypoxic respiratory failure
Chronic lower extremity edema
Suspected sleep apnea
Generalized anxiety disorder
Severe protein calorie malnutrition
Chronic steroid-dependent
Plan
Patient admitted as GIP for severe pain control
Patient was transitioned to morphine infusion and can uptitrate per the protocol-currently on 4mg/hr
Continue with fentanyl patch to 50 mcg
Antinausea meds
Ativan as needed
Ni catheter for end-of-life care as with colonic cancer concern for obstruction and decreased urinary output
Haldol as needed
No labs needs to be ordered.
As outpatient plan was to continue p.o. steroids till patient can tolerate p.o. Due to extreme circumstances can further discontinue steroids. 2 daughters verbalized understanding and agreed.
DVT prophylaxis none
CODE STATUS DNR/DNI confirmed with 2 daughters at bedside
Discussed with 2 daughters at bedside complete details on admission
Discussed with patient spouse at bedside on 03/26 and 03/27
Anticipated Discharge: > 48 hours
Subjective/Interval History
-
Date of Service: March 27, 2024
Overnight events noted
comfortable this am
Objective Data
-
Vital Signs:
Vital Signs
Temp Pulse Resp BP Pulse Ox
97.5 F 82 18 133/79 93
03/27/24 07:15 03/27/24 07:15 03/27/24 07:15 03/27/24 07:15 03/27/24 07:15
I&O
03/26/24 03/27/24 03/28/24
06:59 06:59 06:59
Output Total 625 / 625 150 / 150
Balance -625 / -625 -150 / -150
--- NOTE | 2024-03-27 12:05 | PTCARENOTE ---
Addendum entered by Anupama Siu RN 03/27/24 13:06:
per morphine gtt protocol pt bumped to step 4 gtt after receiving multiple prn breakthroughs. pt remains dyspneic at rest. new morphine bag hung by this nurse and cosigned
Original Note:
pt remains on step 3 morphine gtt at this time and continues to receive prn breakthroughs of morphine, ativan and robinul. remains at the beside and a comfort box was ordered.
[2024-03-27] MEDS: MORPHINE 100 IV (12:51)
--- NOTE | 2024-03-27 14:39 | HOSPNOTE ---
Patient unresponsive for visit, occasional moaning noted, HR 118, rr 14, some terminal secretions noted, informal conference with nurse Anupama, reports will review with doctor for robinol order and will provide prn dose morphine. Spouse at bedside
, much emotional support provided.
[2024-03-27] MEDS: MORPHINE SULFATE 6 MG IV ×2 (14:43→15:53)
[2024-03-27] MEDS: ROBINUL 0.200000000000000011 MG IV (14:43)
--- NOTE | 2024-03-27 17:19 | PTCARENOTE ---
family called nurse in at 1702 to bedside. said pt stopped breathing at 1700. nurse reached out to cross coverage to come pronounce expiration.
--- NOTE | 2024-03-27 17:31 | W.PN.DEATH ---
Pronouncement of
-
Called to see patient to pronounce.
No spontaneous heart tones or respirations noted.
Patient not responsive to verbal stimuli.
Patient is pronounced .
Time of : 17:00
Date of : 03/27/24
Cause of : Stage IV colon adenocarcinoma
Family Notified: Yes
--- NOTE | 2024-03-27 21:04 | VATNOTE ---
inquired of port deaccess prior to pt. being taken to [facility]. Informed by night nurse that day nurse, Anupama removed needle from port.
--- NOTE | 2024-03-28 07:58 | W.DCSUMMARY ---
Addendum entered and electronically signed by Tommie Kimbrough MD 03/28/24 16:45:
Correction -FOLFOX regimen started in December 2023
Original Note:
Discharge Summary
Discharge Data
Date of Admission: 03/25/24
Date of Discharge: 03/27/24
-
Pending Results: No
Hospital Course
68-year-old female with history of stage IV adenocarcinoma of the colon on treatment with FOLFOX regimen started in December 2024 resulting in multiple hospitalization due to chemotherapy associated diarrhea, history of submassive PE, diabetes, chronic
lower extremity edema, obesity, suspected sleep apnea, generalized anxiety disorder, hypoalbuminemia, possible diverticulosis, severe protein caloric malnutrition, chronic hypoxic respiratory failure,history of partially obstructing colonic mass
leading to significant weakness and fatigue. Patient was on hospice measures at home and the pain was significantly uncontrolled. Patient was using significant amount of Roxanol without any improvement in pain. Patient was constantly in pain.
Patient without bowel movements. Plan was made for patient to be transition to inpatient hospice. Patient was admitted as GIP. Patient quickly required multiple IV breakthrough meds and subsequently afterwards started on morphine infusion.
Patient pain was controlled with morphine infusion. Patient on 03/27/2024 at 5 PM
Discharge Plan
-
Patient Disposition:
Date/Time
Date/Time: 03/27/24 17:00
Discharge Date and Time
Discharge Date/Time: 03/27/24 17:00
Print Language: ITALIAN
== END 2024-03-27 17:00 | disposition expired | DRG 374 ==
LOC: 2 NORTH 15:58
PROVIDERS: ADMITTING PHYSICIAN Hospitalist; FAMILY PHYSICIAN Family Medicine
DX: C18.9 Malignant neoplasm of colon, unspecified (principal); E43 Unspecified severe protein-calorie malnutrition; Z66 Do not resuscitate
CPT/HCPCS: 99284